=== PATIENT | male | born 1955 | race Caucasian/White ===

== ENCOUNTER → 2019-12-13 | Outpatient (CLI) | payer OTHER ==
--- NOTE | 2019-12-13 08:56 | US ---
EXAMINATION TYPE: US carotid duplex BILAT DATE OF EXAM: 12/13/2019 COMPARISON: NONE CLINICAL HISTORY: Carotid Bruit R09.89. Smoker EXAM MEASUREMENTS: RIGHT: Peak Systolic Velocity (PSV) cm/sec ----- Right CCA: 136 ----- Right ICA: 154 ----- Right ECA: 223 ICA/CCA ratio: 1.1 RIGHT: End Diastole cm/sec ----- Right CCA: 22.3 ----- Right ICA: 29.2 ----- Right ECA: 0 LEFT: Peak Systolic Velocity (PSV) cm/sec ----- Left CCA: 97.4 ----- Left ICA: 200 ----- Left ECA: 281 ICA/CCA ratio: 2.1 LEFT: End Diastole cm/sec ----- Left CCA: 18.0 ----- Left ICA: 48.7 ----- Left ECA: 0 VERTEBRALS (direction of flow): Right Vertebral: Antegrade Left Vertebral: Antegrade Rhythm: Normal Moderate amount of plaque visualized in bilateral bulbs and ICAs. Elevated velocities visualized in r ight CCA, right proximal ICA, right ECA, left CCA, left proximal, mid, and distal ICA, left ECA, and left vertebral IMPRESSION: 1. Stenosis of 50-69% within the left internal carotid artery and external carotid artery. 2. Elevated velocities throughout both carotid systems suggests underlying hypertension. 3. Although elevated velocities are seen on the right the internal carotid artery to common carotid a rtery ratio is normal and underlying hypertension likely accounts for the elevated velocities rather than stenosis. Criteria for Assigning % of Stenosis / Diameter reduction (Estimation based on the indirect measurements of the internal carotid artery velocities (ICA PSV). 1. Normal (no stenosis)=ICA PSV < 125 cm/s: ratio < 2.0: ICA EDV<40 cm/s. 2. Less than 50% stenosis=ICA PSV < 125 cm/s: ratio < 2.0: ICA EDV<40 cm/s. 3. 50 to 69% stenosis=ICA PSV of 125 to 230 cm/s: ration 2.0 ? 4.0: ICA EDV 40-100 cm/s. 4. Greater than 70% stenosis to near occlusion= ICA PSV > 230 cm/s: ratio > 4.0: ICA EDV > 100 cm/s. 5. Near occlusion= ICA PSV velocities may be low or undetectable: variable ratio and ICA EDV. 6. Total occlusion=unable to detect flow.
== END | disposition home or self-care (01) ==
LOC: RADUSWWP 08:07
PROVIDERS: ATTEND Internal Medicine
DX: I65.22 Occlusion and stenosis of left carotid artery (principal)
CPT/HCPCS: 93880

== ENCOUNTER → 2020-01-15 | Outpatient (CLI) | payer OTHER ==
[2020-01-15 18:05] LABS: African American GFR (CKD) 74.1 (60.0-200.0); Albumin 4.6 g/dL (3.80-4.90); Anion Gap 10.5 mmol/L (4.00-12.00); BUN/Creat Ratio 13.33 Ratio (12.00-20.00); Calcium 9.3 mg/dL (8.7-10.3); Carbon Dioxide 25.5 mmol/L (21.6-31.8); Globulin 2.3 g/dL (1.6-3.3); Potassium 4.2 mmol/L (3.5-5.5); Total Bilirubin 0.7 mg/dL (0.2-1.2); Total Protein 6.9 g/dL (6.2-8.2)
[2020-01-15 18:06] LABS: Chol/HDL Ratio 3.29; LDL Cholesterol,Calculated 60.4 mg/dL (0.0-131.0); VLDL Calculation 56.6 mg/dL (5.00-40.00)
== END | disposition home or self-care (01) ==
LOC: LABWHC1 08:16
PROVIDERS: ATTEND Internal Medicine Interventional Cardiology
DX: E78.2 Mixed hyperlipidemia (principal)
CPT/HCPCS: 36415; 80053; 80061

== ENCOUNTER 2020-01-29 10:44 | Day surgery (SDC) | payer OTHER ==
[2020-01-27 11:13] VITALS: BMI 23.7
[~2020-01-29 10:44] MED LIST: ALPRAZolam 0.25 MG TAB PO PRN; ALPRAZolam 0.5 MG TAB PO PRN; ASPIRIN 325 MG TAB PO STA; ATORVASTATIN 80 MG TAB PO STA; NITROGLYCERIN SL TABS 0.4 MG TAB SUBLINGUAL PRN; SODIUM CHLORIDE 0.9% 1,000 ML in EMPTY BAG 1 BAG IV ONE
[2020-01-29 11:23] LABS: Basophils % (A) 1 %; Eosinophils # (A) 0.1 k/uL (0-0.7); Eosinophils % (A) 1 %; HCT 47.8 % (39.0-53.0); HGB 16.8 gm/dL (13.0-17.5); Lymphocytes # (A) 1.2 k/uL (1.0-4.8); Lymphocytes % (A) 13 %; MCH 34.7 pg (25.0-35.0); MCHC 35.2 g/dL (31.0-37.0); MCV 98.7 fL (80.0-100.0); Mean Platelet Volume 7.7; Monocytes # (A) 0.6 k/uL (0-1.0); Monocytes % (A) 7 %; Neutrophils # (A) 6.7 k/uL (1.3-7.7); Neutrophils % (A) 74 %; Platelet Count 274 k/uL (150-450); RBC 4.84 m/uL (4.30-5.90); RDW 11.6 % (11.5-15.5)
[2020-01-29] MEDS ORDERED: VERAPAMIL 2.5 MG/ML 2 ML AMP ONE (11:50)
[2020-01-29] MEDS ORDERED: LIDOCAINE 1% INJ 10MG/ML (20 ML MDV) ONE (11:50)
[2020-01-29] MEDS ORDERED: fentaNYL (PF) 50 MCG/ML 2 ML AMP ONE (12:00)
[2020-01-29] MEDS ORDERED: HEPARIN SODIUM 1,000 UN/ML (10ML VL) ONE (12:08)
[2020-01-29] MEDS ORDERED: fentaNYL (PF) 50 MCG/ML 2 ML AMP IV ONE (12:22)
[2020-01-29] MEDS ORDERED: MIDAZOLAM 2 MG/2 ML VIAL IVP ONE (12:22)
[2020-01-29] MEDS ORDERED: LIDOCAINE 1% INJ 10MG/ML (20 ML MDV) SQ ONE (12:23)
[2020-01-29] MEDS: VERAPAMIL SYRINGE (5 MG/10 ML) INTRAARTER ONE ×2 (12:26→12:50)
[2020-01-29] MEDS ORDERED: CLOPIDOGREL 75 MG TAB ONE (12:35)
[2020-01-29] MEDS ORDERED: BIVALIRUDIN BOLUS 250 MG/50 ML IV ONE (12:38)
[2020-01-29] MEDS ORDERED: CLOPIDOGREL 75 MG TAB PO ONE (12:38)
[2020-01-29] MEDS ORDERED: BIVALIRUDIN 250 MG in SODIUM CHLORIDE 0.9% 50 ML IV ONE (12:39)
[2020-01-29] MEDS ORDERED: NITROGLYCERIN 1000MCG/10ML SYRINGE INTRAARTER ONE (12:54)
[2020-01-29] MEDS ORDERED: IOPAMIDOL-370 125ML BTL INJ ONE (12:56)
[2020-01-29] MEDS ORDERED: VERAPAMIL SYRINGE (5 MG/10 ML) INTRAARTER ONE (13:00)
[2020-01-29] MEDS ORDERED: IOPAMIDOL-370 100ML BTL INJ ONE (13:10)
[2020-01-29] MEDS ORDERED: NITROGLYCERIN SL TABS 0.4 MG TAB SUBLINGUAL PRN (13:27)
[2020-01-29] MEDS ORDERED: ZOLPIDEM 5 MG TAB PO PRN (13:27)
[2020-01-29] MEDS ORDERED: ATROPINE SULFATE 0.1 MG/ML 10ML SYRINGE IV PRN (13:27)
[2020-01-29] MEDS ORDERED: RX INFO: IV CONTRAST WAS GIVEN 1 EACH MISC MISCELLANE PRN (13:27)
[2020-01-29] MEDS ORDERED: MAG HYDROX/AL HYDROX/SIMETH 30 ML CUP PO PRN (13:27)
[2020-01-29] MEDS ORDERED: ALBUTEROL NEBULIZED 2.5 MG/3 ML INHALATION PRN (13:29)
[2020-01-29] MEDS ORDERED: SODIUM CHLORIDE 0.9% 1,000 ML IV SCH (13:30)
--- NOTE | 2020-01-29 14:08 | CC ---
CARDIAC CATHETERIZATION REPORT Mr. Head is a 64-year-old male with a known history of hypertension. History of chronic tobacco use and peripheral vascular disease who has been complaining of symptoms of progressive dyspnea, underwent a myocardial perfusion imaging that revealed inferior wall reversible defect. In view of that, recommendation made regarding cardiac catheterization. The procedures, risks, and complication were discussed with the patient who is in full understanding and agreement. PROCEDURE: Patient was brought to manager lab in a fasting semi-sedated state after receiving fentanyl and Benadryl and achieving moderate conscious sedated state using Xylocaine anesthesia and Seldinger technique, a 6-Greenlandic sheath was introduced in the left radial artery. Selective right and left coronary angiography performed using 5-Greenlandic 4 bend right and left Pa catheter, multiple views of the coronary artery including hemiaxial views obtained. Following that. a 5-Greenlandic left Pa was used to cross the aortic valve and simultaneous pressures were calculated. Following that, catheter was removed, images were reviewed. FINDINGS: FLUOROSCOPY: There was calcification involving the right coronary artery and segment of the LAD proximally. LEFT MAIN: This is a short-size vessel, bifurcating into left circumflex, left anterior descending artery. Left main coronary artery has no evidence of high-grade stenosis. LEFT ANTERIOR DESCENDING ARTERY: This is a large-sized vessel reaching toward the apex, giving rise to a very proximal moderately-sized diagonal branch. The left anterior descending artery proximally has a 20% to 30% plaque. The rest of the vessel has no high-grade stenosis. LEFT CIRCUMFLEX: This is a nondominant vessel, giving rise to two obtuse marginal branches. The second one is large in caliber. The second obtuse marginal branch has a branching point. The inferior branch has an 80% stenosis at the takeoff, but the vessel is small in caliber. RIGHT CORONARY ARTERY: This is a large dominant vessel, bifurcating distally to PDA and posterolateral segment and branches, calcified in the mid segment. He has an 80% to 90% stenosis, in the distal mid segment there is another 40% to 50% plaque. The rest of the vessel has no high-grade stenosis. LEFT VENTRICULOGRAM: Left ventriculogram was not performed. HEMODYNAMICS: There was no gradient across the aortic valve. The left ventricular end- diastolic pressure was 12-16 mmHg. CONCLUSION: 1. Calcified right coronary artery. 2. Critical stenosis in the proximal mid segment of the right coronary artery. 3. Significant disease in a branch of the obtuse marginal branch and it has a small branch. 4. Mild disease in the LAD. RECOMMENDATION: In view of finding anatomy, I recommend proceeding with angioplasty and stenting. The procedures, risks, and complication were discussed with the patient who is in full understanding and agreement. MMODL / IJN: [id number] /
--- NOTE | 2020-01-29 14:14 | LTR ---
DATE OF SERVICE: 01/29/2020 RE: Rory Head Dear Dr. Braden; I had the pleasure to perform cardiac catheterization and coronary angioplasty and stenting on Mr. Head at [facility] on January 29, 2020 and a fully copy of the procedure note will be forwarded to you. In brief, he was found to have critical stenosis involving the proximal mid segment of the RCA and underwent successful stenting of that vessel. At this time, I would recommend continue medical therapy with aggressive coronary risk modifications being initiated and thank you again for allowing me to participate in this patient's care. Please feel free to call for any questions. Sincerely yours, MD LEN DohertyL / SUJATAN: [id number] /
--- NOTE | 2020-01-29 14:14 | PTCA ---
PERCUTANEOUSTRANS CORORONARY ANGIOGRAPHY Mr. Head is a 64-year-old male with a known history of chronic tobacco use, history of hypertension, history of peripheral disease who had an abnormal myocardial perfusion imaging with symptoms of dyspnea, underwent cardiac catheterization, was found to have significant stenosis in the proximal right coronary artery. Recommendation made for angioplasty and stenting. The procedures, risks, and complication were discussed with the patient who is in full understanding and agreement. PROCEDURE: Attempt to cannulate the right coronary artery using 6-Iranian FR4 guiding catheter were unsuccessful. That catheter was removed and a 6-Iranian ART 4 guiding catheter was introduced after cannulating the right coronary ostium. A 0.014 balanced medium weight J-wire was advanced across the lesion, positioned distally. Subsequently, attempt to advance a 3.5 x 23 mm Xience Nitza stent were unsuccessful. That stent was removed and a 3.0 x 15 mm Trek balloon was advanced and one inflation at 10 atmospheres was done. Following that, a 3.5 x 23 mm stent was advanced, deployed and post-dilated at 16 atmospheres. After removing the balloon a 3.5 x 15 mm NC Trek balloon was advanced into inflation maximum of 14 atmospheres were done. Following that the wire was withdrawn back in the guiding catheter. Images were obtained and repeated. Those images reveal stable successful stenting. At that point, the guiding catheter, the balloon and the guidewire were removed. The sheath was removed hemostasis was obtained with deployment of a TR band. There was no immediate complication. Patient is returned to his room in stable condition. Of note, the patient received Angiomax per protocol as well as oral loading dose of clopidogrel. He had no significant chest pain or EKG changes with the inflations. RESULTS: Successful stenting of the proximal mid right coronary artery with reduction of stenosis from 80% to 0%. Duration of procedure 48 minutes. MMODL / IJN: [id number] /
[2020-01-29] MEDS ORDERED: ATORVASTATIN 80 MG TAB PO SCH (21:00)
[2020-01-29 21:48] VITALS: RESP 16
[2020-01-30 03:47] VITALS: BP 144/79; PULSE 74; TEMP 98.1
[2020-01-30 07:06] LABS: African American GFR (CKD) >90 (>60 ml/min/1.73 sqM); Anion Gap 8 mmol/L; Blood Urea Nitrogen 14 mg/dL (9-20); Carbon Dioxide 25 mmol/L (22-30); Chloride 99 mmol/L (98-107); Glucose 99 mg/dL (74-99); Non-African American GFR(CKD) >90 (>60 ml/min/1.73 sqM); Potassium 3.8 mmol/L (3.5-5.1); Sodium 132 mmol/L (137-145)
--- NOTE | 2020-01-30 07:49 | PN ---
PROGRESS NOTE Mr. Head is a 64-year-old male who presented yesterday with symptoms of dyspnea and positive myocardial perfusion imaging, underwent cardiac catheterization was found to have critical stenosis involving the proximal segment of the mid RCA and underwent successful stenting of that vessel. He is doing well this morning. He is denying any chest pain. His breathing has been stable. He denies any dizziness or palpitation. He denies any nausea. He continued to be on aspirin once a day, Plavix 75 mg daily, Lipitor 80 mg daily, losartan 100 mg daily, hydrochlorothiazide 25 mg daily. PHYSICAL EXAMINATION: Blood pressure 144/70 with the heart rate in 70s. LUNGS: Clear. HEART: Regular rate and rhythm. S1, S2. No S3. No rub. ABDOMEN: Soft, nontender. EXTREMITIES: No edema. Left radial pulse intact. LAB DATA: EKG revealed no acute changes. BUN and creatinine 14 and 0.84. Potassium 3.8. IMPRESSION: 1. Status post stenting of the RCA. 2. Hypertension. 3. Hyperlipidemia. 4. History of chronic tobacco use. RECOMMENDATION: Patient will be discharged home today and followed as an outpatient. MMODL / IJN: [id number] /
[2020-01-30] MEDS ORDERED: IPRATROPIUM 0.5 MG/2.5 ML NEBU INHALATION SCH (08:00)
[2020-01-30] MEDS ORDERED: ASPIRIN 81 MG PO SCH (09:00)
[2020-01-30] MEDS ORDERED: HYDROCHLOROTHIAZIDE 25 MG TAB PO SCH (09:00)
[2020-01-30] MEDS ORDERED: LOSARTAN 50 MG TAB PO SCH (09:00)
[2020-01-30] MEDS ORDERED: CLOPIDOGREL 75 MG TAB PO SCH (12:00)
== END 2020-01-30 09:06 | disposition home or self-care (01) ==
LOC: CATHCVL 10:44 → 3SCARD 16:05 → CATHCVL 01-30 09:06
PROVIDERS: ATTEND Internal Medicine Interventional Cardiology
DX: I25.10 Atherosclerotic heart disease of native coronary artery without angina pectoris (principal); I25.84 Coronary atherosclerosis due to calcified coronary lesion; I10 Essential (primary) hypertension; Z72.0 Tobacco use; R94.39 Abnormal result of other cardiovascular function study; E78.5 Hyperlipidemia, unspecified; I73.9 Peripheral vascular disease, unspecified; Z79.02 Long term (current) use of antithrombotics/antiplatelets; Z79.82 Long term (current) use of aspirin; Z79.899 Other long term (current) drug therapy; Z82.49 Family history of ischemic heart disease and other diseases of the circulatory system; I65.23 Occlusion and stenosis of bilateral carotid arteries
CPT/HCPCS: 94640; 93458; 85347; 80048; 85025; C9600; C1769 ×2; C1887; C1725 ×2; C1874; C1894; J2250; J2001; J3010; J0583; Q9967 ×2

== ENCOUNTER 2022-04-21 18:51 | Observation (INO) | payer MEDICARE, OTHER ==
[2022-04-21] MEDS ORDERED: SODIUM CHLORIDE 0.9% 1,000 ML with MVI, ADULT NO.4 WITH VIT K 10 ML, THIAMINE 100 MG, F... IV ONE ×4 (19:06)
[2022-04-21 19:18] LABS: Basophils # (A) 0.1 k/uL (0-0.2); Basophils % (A) 1 %; Eosinophils # (A) 0.1 k/uL (0-0.7); Eosinophils % (A) 1 %; HCT 49.9 % (39.0-53.0); HGB 16.8 gm/dL (13.0-17.5); Lymphocytes # (A) 1.7 k/uL (1.0-4.8); Lymphocytes % (A) 15 %; MCH 34.8 pg (25.0-35.0); MCHC 33.7 g/dL (31.0-37.0); MCV 103.4 fL (80.0-100.0); Macrocytosis Slight; Monocytes # (A) 0.6 k/uL (0-1.0); Monocytes % (A) 6 %; Neutrophils # (A) 8.6 k/uL (1.3-7.7); Neutrophils % (A) 75 %; Platelet Count 286 k/uL (150-450); RBC 4.82 m/uL (4.30-5.90); RDW 12.9 % (11.5-15.5); WBC 11.4 k/uL (3.8-10.6)
--- NOTE | 2022-04-21 19:20 | ED ---
Fall HPI - General Chief Complaint: Fall Stated Complaint: fall Time Seen by Provider: 04/21/22 18:59 Source: patient, EMS Mode of arrival: EMS - History of Present Illness Initial Comments: This is a pleasant 66-year-old male with a history of alcoholism, COPD, hyperte nsion, and hyperlipidemia. Patient presents to the emergency department today after sustaining a fall. Patient states this was due to alcohol intake. Patient states he tripped and struck his face on the ground. He denies any loss of consciousness. However he admits to drinking 324 ounce beers prior to arrival. Patient denying any pain. Patient has obvious injury to the right periorbital area. No blood thinners. Patient does take a daily aspirin. Denies any blood dyscrasias. He will to give a limited history despite her obvious intoxication. Patient states he lives with his girlfriend. No headache, no fever or chills, no changes in vision or hearing, no sore throat or difficulty with speech, no neck pain, no chest pain or shortness of breath, no abdominal pain, no nausea or vomiting, no changes in urination or bowel movements, no numbness or tingling, no extremity pain, no skin rashes or lesions. MD Complaint: fall - Related Data Home Medications Medication Instructions Recorded Confirmed Albuterol Sulfate [Ventolin HFA] 2 puff INHALATION RT-QID 01/27/20 04/21/22 Losartan Potassium 100 mg PO DAILY 01/27/20 04/21/22 Fluticasone/Umeclidin/Vilanter 1 puff INHALATION RT-DAILY 04/21/22 04/21/22 [Trelecharbel Ellipta 100-62.5-25] Allergies Allergy/AdvReac Type Severity Reaction Status Date / Time No Known Allergies Allergy Verified 04/21/22 20:35 Review of Systems ROS Statement: Those systems with pertinent positive or pertinent negative responses have been documented in the HPI. ROS Other: All systems not noted in ROS Statement are negative. Past Medical History Past Medical History: COPD, Hyperlipidemia, Hypertension History of Any Multi-Drug Resistant Organisms: None Reported Past Surgical History: Appendectomy Past Anesthesia/Blood Transfusion Reactions: No Reported Reaction Past Psychological History: No Psychological Hx Reported Smoking Status: Current every day smoker Past Alcohol Use History: Daily Past Drug Use History: Marijuana - Past Family History Mother History Unknown: Yes Additional Family Medical History / Comment(s): Father Additional Family Medical History / Comment(s): from complications of injuries after falling down stairs. General Exam - General Exam Comments Initial Comments: Disheveled appearing 66-year-old male in no significant distress. Patient able to give a history but appears to be generally intoxicated. Patient is alert and oriented 4. Cranial nerves II through XII are intact. There is no evidence of focal neurologic deficit. Patient has swelling and contusion noted to the right periorbital area. Head is normocephalic atraumatic otherwise. Limitations: no limitations General appearance: alert, in no apparent distress Head exam: Present: atraumatic, normocephalic, normal inspection Eye exam: Present: normal appearance, PERRL, EOMI. Absent: scleral icterus, conjunctival injection, periorbital swelling Pupils: Present: normal accommodation. Absent: irregular, unequal ENT exam: Present: normal exam, normal oropharynx, mucous membranes moist. Absent: mucous membranes dry, TM's normal bilaterally, normal external ear exam Neck exam: Present: normal inspection, full ROM. Absent: tenderness, meningismus, lymphadenopathy Respiratory exam: Present: normal lung sounds bilaterally. Absent: respiratory distress, wheezes, rales, rhonchi, stridor, chest wall tenderness, accessory muscle use Cardiovascular Exam: Present: regular rate, normal rhythm, normal heart sounds. Absent: systolic murmur, diastolic murmur, rubs, gallop, clicks GI/Abdominal exam: Present: soft, normal bowel sounds. Absent: distended, tenderness, guarding, rebound, rigid Extremities exam: Present: normal inspection, full ROM, normal capillary refill. Absent: tenderness, pedal edema, joint swelling, calf tenderness Back exam: Present: normal inspection Neurological exam: Present: alert (But intoxicated), oriented X3, CN II-XII intact. Absent: motor sensory deficit Psychiatric exam: Present: normal affect, normal mood Skin exam: Present: warm, dry, intact, normal color. Absent: rash Course Vital Signs 04/21/22 04/21/22 04/21/22 18:58 20:59 21:10 Temperature 98.4 F Pulse Rate 95 92 93 Respiratory 18 Rate Blood Pressure 121/70 O2 Sat by Pulse 96 Oximetry 04/21/22 21:30 Temperature Pulse Rate 90 Respiratory 20 Rate Blood Pressure 112/74 O2 Sat by Pulse 95 Oximetry Medical Decision Making - Medical Decision Making I was intoxicated individual presenting after a trip and fall. Injury to the r ight forehead and right periorbital region. Unknown loss of consciousness but denied by the patient. Patient was admitted to [facility] for observation for alcohol intoxication, closed head injury, and hyponatremia. Discussed with Dr. Danielle. The case was discussed in detail with ED attending physician. Presentation, findings, treatment plan discussed in detail. Supervising physician is Dr. Ni - Lab Data Result diagrams: 04/21/22 19:09 04/21/22 19:09 Lab Results 04/21/22 04/21/22 04/21/22 Range/Units 19:09 19:09 19:09 WBC 11.4 H (3.8-10.6) k/uL RBC 4.82 (4.30-5.90) m/uL Hgb 16.8 (13.0-17.5) gm/dL Hct 49.9 (39.0-53.0) % MCV 103.4 H (80.0-100.0) fL MCH 34.8 (25.0-35.0) pg MCHC 33.7 (31.0-37.0) g/dL RDW 12.9 (11.5-15.5) % Plt Count 286 (150-450) k/uL MPV 8.0 Neutrophils % 75 % Lymphocytes % 15 % Monocytes % 6 % Eosinophils % 1 % Basophils % 1 % Neutrophils # 8.6 H (1.3-7.7) k/uL Lymphocytes # 1.7 (1.0-4.8) k/uL Monocytes # 0.6 (0-1.0) k/uL Eosinophils # 0.1 (0-0.7) k/uL Basophils # 0.1 (0-0.2) k/uL Macrocytosis Slight PT 9.8 (9.0-12.0) sec INR 0.9 (<1.2) Sodium 126 L (137-145) mmol/L Potassium 4.6 (3.5-5.1) mmol/L Chloride 92 L (98-107) mmol/L Carbon Dioxide 20 L (22-30) mmol/L Anion Gap 14 mmol/L BUN 13 (9-20) mg/dL Creatinine 1.18 (0.66-1.25) mg/dL Est GFR (CKD-EPI)AfAm 74 (>60 ml/min/1.73 sqM) Est GFR (CKD-EPI)NonAf 64 (>60 ml/min/1.73 sqM) Glucose 121 H (74-99) mg/dL Calcium 8.6 (8.4-10.2) mg/dL Phosphorus 4.2 (2.5-4.5) mg/dL Magnesium 1.7 (1.6-2.3) mg/dL Total Bilirubin 0.9 (0.2-1.3) mg/dL GGT 39 (15-73) U/L AST 87 H (17-59) U/L ALT 77 H (4-49) U/L Alkaline Phosphatase 83 (38-126) U/L Total Protein 7.6 (6.3-8.2) g/dL Albumin 4.7 (3.5-5.0) g/dL Lipase 368 H (23-300) U/L Serum Alcohol 384 H* mg/dL - EKG Data -: EKG Interpreted by [place] EKG Comments: EKG done at 1910 and read by the ED attending physician reveals sinus rhythm with a rate of 91. Poor R-wave progression with regards to V1 and V2. Normal axis. Baseline artifact. MI interval 205 ms. Other intervals are normal. No evidence of acute ST or T-wave changes. Disposition Clinical Impression: Hyponatremia, Closed head injury, Alcohol intoxication, Contusion of face Disposition: ADMITTED IP TO THIS [facility] Condition: Fair Time of Disposition: 20:52 Decision to Admit Reason: Admit from EC Decision Time: 20:52
[2022-04-21 19:33] LABS: INR 0.9 (<1.2); Prothrombin Time 9.8 sec (9.0-12.0)
[2022-04-21 19:35] LABS: Albumin 4.7 g/dL (3.5-5.0); Calcium 8.6 mg/dL (8.4-10.2); Magnesium 1.7 mg/dL (1.6-2.3); Phosphorus 4.2 mg/dL (2.5-4.5); Potassium 4.6 mmol/L (3.5-5.1); Total Bilirubin 0.9 mg/dL (0.2-1.3); Total Protein 7.6 g/dL (6.3-8.2)
--- NOTE | 2022-04-21 20:18 | CT ---
EXAMINATION TYPE: CT facial bones wo con DATE OF EXAM: 04/21/2022 COMPARISON: None HISTORY: Fall, pain;facial injury/head injury CT DLP: 1623.2 combined mGycm. Automated Exposure Control for Dose Reduction was Utilized. TECHNIQUE: CT scan of the sinuses is performed without contrast, axial images are obtained, coronal r eformatted images are also reviewed. FINDINGS: The facial skeleton is negative for fracture or malalignment. The paranasal sinuses and mid dle ear cavities and mastoid sinus air cells are clear. The globes are intact bilaterally. IMPRESSION: Negative examination.
--- NOTE | 2022-04-21 20:22 | CT ---
EXAMINATION TYPE: CT brain cspine wo con DATE OF EXAM: 04/21/2022 COMPARISON: NONE HISTORY: Fall, facial injury/head injury CT DLP: 1623.2 combined mGycm. Automated Exposure Control for Dose Reduction was Utilized. TECHNIQUE: CT scan of the head and cervical spine are performed without contrast. FINDINGS: There is no acute intracranial hemorrhage, mass effect, or midline shift identified. The ventricles and sulci are within normal limits in size. The globes are intact and the visualized sin uses are clear. Cervical spine is visualized in its entirety from C1 through upper thoracic levels and demonstrates s atisfactory alignment without evidence of acute fracture or dislocation. Prevertebral soft tissue ap pears within normal limits. The C1-C2 articulation is unremarkable. Markedly advanced multilevel ce rvical spondylosis changes appreciated. IMPRESSION: 1. There is no acute fracture or dislocation evident in the cervical spine. 2. No acute intracranial hemorrhage, mass effect, or midline shift is seen.
[2022-04-21] MEDS ORDERED: IPRATROPIUM-ALBUTEROL 3 ML NEB INHALATION STA (20:48)
[2022-04-21] MEDS ORDERED: ONDANSETRON 4 MG/2 ML VIAL IVP PRN (21:19)
[2022-04-21] MEDS ORDERED: ACETAMINOPHEN TAB 325 MG TAB PO PRN (21:19)
[2022-04-21] MEDS ORDERED: NALOXONE 0.4 MG/ML 1 ML VIAL IV PRN (21:19)
[2022-04-21] MEDS: PANTOPRAZOLE 40 MG/10 ML VIAL IV SCH (22:17)
[2022-04-21 22:43] VITALS: RESP 16
[2022-04-22 00:26] LABS: Cocaine Screen,Urine Not Detected (NotDetected); Opiate Screen,Urine Not Detected (NotDetected); Phencyclidine Screen,Urine Not Detected (NotDetected); Urn Cannabinoid Scrn Not Detected (NotDetected)
[2022-04-22 00:27] LABS: Amphetamine Screen,Urine Not Detected (NotDetected); Barbiturate Screen,Urine Not Detected (NotDetected); Benzodiazepines Screen,Urine Not Detected (NotDetected); Methadone Screen, Urine Not Detected (NotDetected); Oxycodone Screen, Urine Not Detected (NotDetected); Tricyclic Antidepressant,Urine Not Detected (NotDetected)
[2022-04-22] MEDS ORDERED: IPRATROPIUM-ALBUTEROL 3 ML NEB INHALATION PRN (01:56)
[2022-04-22] MEDS ORDERED: LORazepam 2 MG/ML INJ IV PRN ×3 (01:57)
--- NOTE | 2022-04-22 01:58 | P.HPIM ---
History of Present Illness H&P Date: 04/22/22 The patient is a 66-year-old male with a PMH of COPD, EtOH abuse, hypertension, was brought into the emergency room after a fall. The patient states that he was drinking earlier today as per his usual, and had consumed 7 beers, after which he was walking on the street when he tripped, and felt the ground, hitting the right side of his face on the pavement. He denies losing consciousness. Reports some pain at the site of the facial trauma but denies headaches, weakness, numbness, visual disturbances. Denies any prodromal chest discomfort, shortness of breath, or palpitations. Reports drinking 10 beers daily for the past several years. Laboratory evaluation in the emergency room was remarkable for alcohol level 384, AST 87, ALT 77, lipase 368, sodium 126, WBC count 11.4, and MCV 103.4. Face and head/cervical spine CT were unremarkable. EKG revealed sinus rhythm at 91 bpm with poor R-wave progression. Review of systems: Pertinent positives and negatives as discussed in HPI, a complete review of systems was performed and all other systems are negative. Physical examination: General: Disheveled male, nontoxic, no distress, appears at stated age, normal weight Derm: Dry flaking skin of lower extremities bilaterally, warm Head/face: Right facial abrasion with periorbital swelling, normocephalic, symmetric Eyes: EOMI, no lid lag, anicteric sclera, pupils equal round reactive to light ENT: Nose and ears atraumatic Neck: No cervical lymphadenopathy, trachea midline, supple Mouth: no lip lesion, mucus membranes moist Cardiovascular: S1S2 reg, no murmur, positive dorsalis pedis pulse bilateral, no edema Lungs: CTA bilateral, no rhonchi, no rales, no accessory muscle use Abdominal: soft, nontender to palpation, no guarding Ext: muscle strength 5 out of 5 in all 4 extremities grossly, no gross muscle atrophy, no contractures, Neuro: CN II-XI grossly intact, no gross focal neuro deficits Psych: Alert, oriented, appropriate affect Assessment/plan Alcohol intoxication with fall and right facial trauma -Fall precautions -Cardiac monitoring -Thiamine, multivitamins -CIWA protocol Hyponatremia, likely secondary to beer potomania -Fluid restriction -Monitor sodium Leukocytosis -Likely secondary to acute stressor -No signs of active infection at this time Chronic conditions: COPD, hypertension -Continue with home meds DVT prophylaxis -Heparin subcu The patient is admitted with an anticipated less than 2 midnight stay for evaluation of EtoH abuse CODE STATUS: Full Code Discussed with: Patient Anticipated discharge date: in am Anticipated discharge place: Home Past Medical History Past Medical History: COPD, Hyperlipidemia, Hypertension History of Any Multi-Drug Resistant Organisms: None Reported Past Surgical History: Appendectomy Past Anesthesia/Blood Transfusion Reactions: No Reported Reaction Past Psychological History: No Psychological Hx Reported Smoking Status: Current every day smoker Past Alcohol Use History: Daily Past Drug Use History: Marijuana - Past Family History Mother History Unknown: Yes Additional Family Medical History / Comment(s): Father Additional Family Medical History / Comment(s): from complications of injuries after falling down stairs. Medications and Allergies Home Medications Medication Instructions Recorded Confirmed Type Albuterol Sulfate [Ventolin HFA] 2 puff INHALATION RT-QID 01/27/20 04/21/22 History Losartan Potassium 100 mg PO DAILY 01/27/20 04/21/22 History Fluticasone/Umeclidin/Vilanter 1 puff INHALATION RT-DAILY 04/21/22 04/21/22 History [Trelegy Ellipta 100-62.5-25] Allergies Allergy/AdvReac Type Severity Reaction Status Date / Time No Known Allergies Allergy Verified 04/21/22 20:35 Physical Exam Vitals: Vital Signs Temp Pulse Pulse Resp BP BP Pulse Ox 04/22/22 01:18 97.6 F 102 H 16 121/68 94 L 04/21/22 23:40 98 16 04/21/22 22:30 97.6 F 98 16 112/79 92 L 04/21/22 21:30 90 20 112/74 95 04/21/22 21:10 93 04/21/22 20:59 92 04/21/22 18:58 98.4 F 95 18 121/70 96 Intake and Output 04/21/22 04/21/22 04/22/22 14:59 22:59 06:59 Other: Voiding Method Urinal # Voids 1 Weight 81.647 kg Results CBC & Chem 7: 04/21/22 19:09 04/21/22 19:09 Labs: Abnormal Lab Results - Last 24 Hours (Table) 04/21/22 04/21/22 Range/Units 19:09 19:09 WBC 11.4 H (3.8-10.6) k/uL MCV 103.4 H (80.0-100.0) fL Neutrophils # 8.6 H (1.3-7.7) k/uL Sodium 126 L (137-145) mmol/L Chloride 92 L (98-107) mmol/L Carbon Dioxide 20 L (22-30) mmol/L Glucose 121 H (74-99) mg/dL AST 87 H (17-59) U/L ALT 77 H (4-49) U/L Lipase 368 H (23-300) U/L Serum Alcohol 384 H* mg/dL Thrombosis Risk Factor Assmnt - Choose All That Apply Any of the Below Risk Factors Present?: No Other Risk Factors: Yes Each Risk Factor Represents 2 Points: Age 61-74 years Other congenital or acquired thrombophilia - If yes, enter type in comment: No Thrombosis Risk Factor Assessment Total Risk Factor Score: 2 Thrombosis Risk Factor Assessment Level: Low Risk
[2022-04-22 07:03] LABS: Basophils # (A) 0.1 k/uL (0-0.2); Basophils % (A) 0 %; Eosinophils # (A) 0.1 k/uL (0-0.7); Eosinophils % (A) 1 %; HCT 49.8 % (39.0-53.0); HGB 16.4 gm/dL (13.0-17.5); Lymphocytes # (A) 0.9 k/uL (1.0-4.8); Lymphocytes % (A) 8 %; MCH 33.4 pg (25.0-35.0); MCHC 32.9 g/dL (31.0-37.0); MCV 101.5 fL (80.0-100.0); Mean Platelet Volume 8.2; Monocytes # (A) 0.9 k/uL (0-1.0); Monocytes % (A) 7 %; Neutrophils % (A) 82 %; Platelet Count 242 k/uL (150-450); RBC 4.91 m/uL (4.30-5.90); RDW 12.1 % (11.5-15.5); WBC 12.2 k/uL (3.8-10.6)
[2022-04-22 07:04] LABS: ALT 70 U/L (4-49); AST 79 U/L (17-59); African American GFR (CKD) >90 (>60 ml/min/1.73 sqM); Alkaline Phosphatase 70 U/L (38-126); Anion Gap 11 mmol/L; Blood Urea Nitrogen 9 mg/dL (9-20); Calcium 8.6 mg/dL (8.4-10.2); Carbon Dioxide 20 mmol/L (22-30); Chloride 99 mmol/L (98-107); Glucose 77 mg/dL (74-99); Magnesium 1.4 mg/dL (1.6-2.3); Non-African American GFR(CKD) >90 (>60 ml/min/1.73 sqM); Potassium 4.9 mmol/L (3.5-5.1); Sodium 130 mmol/L (137-145); Total Bilirubin 1.1 mg/dL (0.2-1.3); Total Protein 6.7 g/dL (6.3-8.2)
[2022-04-22] MEDS: IPRATROPIUM 0.5 MG/2.5 ML NEBU INHALATION SCH ×3 (07:19→15:04)
[2022-04-22] MEDS ORDERED: NON FORMULARY DRUG (Fluticasone/Umeclidin/Vilanter [Trelegy Ellipta 100-62.5-25] 1 EACH Bl INHALATION SCH (08:00)
[2022-04-22] MEDS ORDERED: SYMBICORT 80-4.5 MCG INHALER INHALATION SCH (08:00)
[2022-04-22] MEDS: PANTOPRAZOLE 40 MG/10 ML VIAL IV SCH (08:01)
[2022-04-22] MEDS: HEPARIN SODIUM,PORCINE/PF 5,000 UNIT/0.5 ML SYRINGE SQ SCH ×2 (08:01→15:37)
[2022-04-22] MEDS ORDERED: LOSARTAN 50 MG TAB PO SCH (09:00)
[2022-04-22] MEDS ORDERED: MULTIVITAMINS, THERA 1 EACH TAB PO SCH (09:00)
[2022-04-22] MEDS: MAGNESIUM SULFATE-D5W PMX 1 GM in DEXTROSE/WATER 1 100ML.BAG IVPB SCH ×3 (11:48→15:35)
[2022-04-22 15:42] VITALS: BP 139/61; PULSE 87; TEMP 98.3
--- NOTE | 2022-04-22 17:19 | P.DS ---
Providers Date of admission: 04/21/22 21:37 Expected date of discharge: 04/22/22 Attending physician: Redd Danielle MD Primary care physician: Asiya Felix Hospital Course: Discharge Diagnosis: Alcohol intoxication an active alcoholic, strongly encouraged and recommended cessation of alcohol use. Patient declined placement in inpatient rehab. Outpatient resources provided Fall with right facial trauma, CT head, neck, and face negative. Superficial injuries. Symptomatic and supportive treatment. Acute on chronic hyponatremia, secondary to beer total óscar. Improved sodium upon discharge back to baseline at 130. Recommend repeat labs in 3 days with results to be sent to PCP for follow-up and management. Hypomagnesemia, replaced. Recommend repeat labs in 3 days with results to be sent to PCP for follow-up and management. COPD with continued nicotine dependence , recommend smoking cessation. Hospital Course: The patient is a 66-year-old male with a past medical history of COPD, EtOH use/abuse drinking a reported 6-8 beers daily, hypertension, COPD with continued nicotine dependence, and chronic hyponatremia. He presented The emergency department 04/21/22 secondary to alcohol intoxication with fall and right-sided facial trauma. Patient was reportedly intoxicated and walking and tripped on a curb resulting in falling and hitting the right side of his face on the pavement. Patient denied loss of consciousness or experiencing any headache, lightheadedness, dizziness, changes in vision or hearing, experiencing any neck pain, back pain, or numbness/tingling/weakness in his extremities. He underwent full evaluation in the emergency department. CT Head and cervical spine negative for acute process. Facial CT was also negative examination showing no acute process. EKG revealed sinus rhythm at 91 bpm with no noted T-wave or ST abnormalities. CBC revealed mild leukocytosis with WBC count of 11.4, macrocytosis with MCV 103.4, hyponatremia sodium 126, hypochloremia with chloride 92 and elevated liver enzymes with AST of 87 and ALT is 77. Lipase also elevated at 368. Serum alcohol level was 384. Patient admitted under our services for detox and monitoring. Repeat morning labs revealing improvement in hyponatremia back to chronic baseline level with sodium of 130. Liver enzymes slightly improving with AST of 79 and ALT of 70. Patient denied having any abdominal pain or discomfort, denied any nausea, vomiting, or any other complaints. Morning labs reveal hypomagnesemia with magnesium of 1.4. Mag nesium replaced. Patient's girlfriend to bedside. Patient requesting discharge. Patient counseled on alcohol cessation and risks of continued use. Patient declined inpatient treatment at this time. Resources provided in discharge packet. Patient otherwise medically stable. Blood pressure 139/61, heart rate 87, respiratory rate 16, temp 98.3F, and SpO2 93% on room air. Patient discharged home with family at this time. Recommend repeat labs in 3 days with results to be sent to PCP for follow-up and management to monitor electrolyte levels. Strongly encourage smoking cessation and cessation of all alcohol use. Physical examination: General: non toxic, no distress, appears at stated age. Disheveled appearance Derm: warm, dry Head: Normocephalic, symmetric, Right facial abrasion with periorbital swelling. Eyes: EOMI, no lid lag, anicteric sclera Mouth: no lip lesion, mucus membranes moist Cardiovascular: S1S2 reg, no murmur, positive posterior tibial pulse bilateral, Lungs: CTA bilateral, no rhonchi, no rales , no accessory muscle use Abdominal: soft, nontender to palpation, no guarding, no appreciable organomegaly Ext: no gross muscle atrophy, no edema, no contractures Neuro: CN II-XI grossly intact, no focal neuro deficits Psych: Alert, oriented, appropriate affect A total of 35 minutes of time were spent preparing this complex discharge summary. Pt was discharged on 04/22/22 at 4:30 PM. I reviewed the documentation as provided by the NILO above, who is the original author of this note. I agree with the documented assessment and plan, with the following changes: none Patient Condition at Discharge: Stable Plan - Discharge Summary Discharge Rx Participant: Yes New Discharge Prescriptions: New Thiamine [Vitamin B-1] 100 mg PO BID-W/MEALS tab Multivitamins, Thera [Multivitamin (formulary)] 1 each PO DAILY tab Continue Losartan Potassium 100 mg PO DAILY Albuterol Sulfate [Ventolin HFA] 2 puff INHALATION RT-QID Fluticasone/Umeclidin/Vilanter [Trelegy Ellipta 100-62.5-25] 1 puff INHALATION RT-DAILY Discharge Medication List Albuterol Sulfate [Ventolin HFA] 2 puff INHALATION RT-QID 01/27/20 [History] Losartan Potassium 100 mg PO DAILY 01/27/20 [History] Fluticasone/Umeclidin/Vilanter [Trelegy Ellipta 100-62.5-25] 1 puff INHALATION RT-DAILY 04/21/22 [History] Multivitamins, Thera [Multivitamin (formulary)] 1 each PO DAILY tab 04/22/22 [Rx] Thiamine [Vitamin B-1] 100 mg PO BID-W/MEALS tab 04/22/22 [Rx] Follow up Appointment(s)/Referral(s): Julius Gallardo MD [REFERRING] - 1 Week (please call on monday for an appointment with Dr Gallardo) Ambulatory/Diagnostic Orders: Basic Metabolic Panel [LAB.AMB] Location: None Selected Magnesium [LAB.AMB] Time Frame: 3 Days, Facility: [facility], 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 Take breaks as needed. Diet: Heart healthy and carb consistent diet. Avoid salts, or foods with hidden salts such as canned or boxed foods and frozen dinners. Extra salt makes your heart work harder and traps the fluid in your body for longer. Special Instructions: Take all of your medications as directed and remember to keep all of your doctor's appointments and follow-up as needed. Strongly encourage cessation of alcohol use!! May take Tylenol 650 mg every 6 hours as needed and/or Motrin 600 mg every 6 hours as needed for pain management. Thank you for allowing us to participate in your care, it was truly a pleasure having you for our patient!!! Discharge Disposition: HOME SELF-CARE
[2022-04-22] MEDS ORDERED: THIAMINE 100 MG TAB PO SCH (17:30)
[2022-04-23] MEDS ORDERED: PANTOPRAZOLE 40 MG TABLET PO SCH (07:30)
== END 2022-04-22 17:14 | disposition home or self-care (01) ==
LOC: EC 18:51 → 6NMEDSUR 21:37
PROVIDERS: ADMIT Internal Medicine; ATTEND Internal Medicine
DX: F10.229 Alcohol dependence with intoxication, unspecified (principal); S00.83XA Contusion of other part of head, initial encounter; E87.1 Hypo-osmolality and hyponatremia; E83.42 Hypomagnesemia; J44.9 Chronic obstructive pulmonary disease, unspecified; F17.200 Nicotine dependence, unspecified, uncomplicated; I10 Essential (primary) hypertension; D72.829 Elevated white blood cell count, unspecified; E87.8 Other disorders of electrolyte and fluid balance, not elsewhere classified; D75.89 Other specified diseases of blood and blood-forming organs; R74.8 Abnormal levels of other serum enzymes; E78.5 Hyperlipidemia, unspecified; Z71.41 Alcohol abuse counseling and surveillance of alcoholic; Z71.6 Tobacco abuse counseling; W01.0XXA Fall on same level from slipping, tripping and stumbling without subsequent striking against object, initial encounter; Y93.01 Activity, walking, marching and hiking; Y90.8 Blood alcohol level of 240 mg/100 ml or more; Z79.899 Other long term (current) drug therapy; Z79.51 Long term (current) use of inhaled steroids; Z79.82 Long term (current) use of aspirin
CPT/HCPCS: 96376; 96366 ×3; 96367; 96372; 96375; 96365; 99285; 36415; 94640 ×2; 93005; 80053 ×2; 82977; 83690; 83735 ×2; 84100; 85025 ×2; 85610; 80306; 72125; 70486; 70450; G0378 ×2; G0480; J3411; J3475; C9113 ×2; J1644; 80320

== ENCOUNTER → 2024-06-17 | Outpatient (CLI) | payer MEDICARE, OTHER ==
--- NOTE | 2024-07-29 15:11 | XR ---
EXAMINATION TYPE: XR chest 2V DATE OF EXAM: 07/29/2024 2:07 PM CLINICAL INDICATION: Male, 69 years old with history of SOB; [facility] COMPARISON: 02/26/2018 TECHNIQUE: XR chest 2V Frontal view of the chest. FINDINGS: Lungs/Pleura: There is no evidence of pleural effusion, focal consolidation, or pneumothorax. Pulmonary vascularity: Unremarkable. Heart/mediastinum: Cardiomediastinal silhouette is unremarkable. Musculoskeletal: No acute osseous pathology. Other findings: None Lines/Tubes: IMPRESSION: 1. No acute cardiopulmonary disease process. 2. COPD changes. [facility], , 07/29/2024 3:08 PM
== END | disposition home or self-care (01) ==
LOC: RADXRMAIN 08:53
PROVIDERS: ATTEND Internal Medicine
DX: J44.9 Chronic obstructive pulmonary disease, unspecified (principal)
CPT/HCPCS: 71046

== ENCOUNTER 2024-09-09 06:36 | Inpatient (IN) | payer MEDICARE, OTHER ==
--- NOTE | 2024-09-09 06:58 | ED ---
Fall HPI - General Chief Complaint: Fall Stated Complaint: Fall Time Seen by Provider: 09/09/24 06:37 Source: patient, EMS, RN notes reviewed Mode of arrival: EMS Limitations: no limitations - History of Present Illness Initial Comments: 69-year-old male presents emergency department with chief complaint of falls. Patient states he had falls overnight striking his head with no loss conscious. Denies any blood thinners. Patient had 2 falls because of his chronic alcohol use. Patient noted to have right occipital scalp laceration. He states his te tanus is up-to-date. Patient denies any neck pain, back pain or other extremity injuries. Patient denies any nausea vomiting no withdrawal symptoms. - Related Data Home Medications Medication Instructions Recorded Confirmed Albuterol Sulfate [Ventolin HFA] 2 puff INHALATION RT-QID 01/27/20 04/21/22 Losartan Potassium 100 mg PO DAILY 01/27/20 04/21/22 Fluticasone/Umeclidin/Vilanter 1 puff INHALATION RT-DAILY 04/21/22 04/21/22 [Trelegy Ellipta 100-62.5-25] Previous Rx's Medication Instructions Recorded Multivitamins, Thera [Multivitamin 1 each PO DAILY tab 04/22/22 (formulary)] Thiamine [Vitamin B-1] 100 mg PO BID-W/MEALS tab 04/22/22 Allergies Allergy/AdvReac Type Severity Reaction Status Date / Time No Known Allergies Allergy Verified 04/21/22 20:35 Review of Systems ROS Statement: Those systems with pertinent positive or pertinent negative responses have been documented in the HPI. ROS Other: All systems not noted in ROS Statement are negative. Past Medical History Past Medical History: Chest Pain / Angina, COPD, Hyperlipidemia, Hypertension History of Any Multi-Drug Resistant Organisms: None Reported Past Surgical History: Appendectomy Past Anesthesia/Blood Transfusion Reactions: No Reported Reaction Past Psychological History: No Psychological Hx Reported Smoking Status: Current every day smoker Past Alcohol Use History: Daily Past Drug Use History: Marijuana - Past Family History Mother History Unknown: Yes Additional Family Medical History / Comment(s): Father Additional Family Medical History / Comment(s): from complications of inj uries after falling down stairs. General Exam Limitations: no limitations General appearance: alert, in no apparent distress Head exam: Present: atraumatic, normocephalic. Absent: normal inspection (Laceration) Eye exam: Present: normal appearance, PERRL, EOMI. Absent: scleral icterus, conjunctival injection, periorbital swelling ENT exam: Present: normal exam, mucous membranes moist Neck exam: Present: normal inspection. Absent: tenderness, meningismus, full ROM (C-collar in place), lymphadenopathy Respiratory exam: Present: normal lung sounds bilaterally. Absent: respiratory distress, wheezes, rales, rhonchi, stridor Cardiovascular Exam: Present: regular rate, normal rhythm, normal heart sounds. Absent: systolic murmur, diastolic murmur, rubs, gallop, clicks GI/Abdominal exam: Present: soft, normal bowel sounds. Absent: distended, tenderness, guarding, rebound, rigid Extremities exam: Present: normal inspection, full ROM, normal capillary refill. Absent: tenderness, pedal edema, joint swelling, calf tenderness Back exam: Present: normal inspection, full ROM. Absent: tenderness Neurological exam: Present: alert, oriented X3, CN II-XII intact, reflexes normal. Absent: motor sensory deficit Skin exam: Present: warm, dry, intact, normal color. Absent: rash Course Vital Signs 09/09/24 06:37 Temperature 97.5 F L Pulse Rate 85 Respiratory 14 Rate Blood Pressure 160/85 O2 Sat by Pulse 97 Oximetry Procedures - Laceration Laceration #1 Consent Obtained: verbal consent Indication: laceration Site: scalp Size (cm): 4 Description: flap, irregular Depth: simple, single layer Pre-repair: wound explored, irrigated extensively, deep structures intact Type of Sutures: other (dermal dilip) Number of Sutures: 6 Patient Tolerated Procedure: well, no complications Medical Decision Making - Medical Decision Making Was pt. sent in by a medical professional or institution (, PA, PROCESSING ANALYST, urgent care, hospital, or penitentiary...) When possible be specific @ -No Did you speak to anyone other than the patient for history (EMS, parent, family, police, friend...)? What history was obtained from this source @ -No Did you review nursing and triage notes (agree or disagree)? Why? @ -I reviewed and agree with nursing and triage notes Were old charts reviewed (outside hosp., previous admission, EMS record, old E KG, old radiological studies, urgent care reports/EKG's, penitentiary records)? Report findings @ -No old charts were reviewed Differential Diagnosis (chest pain, altered mental status, abdominal pain women, abdominal pain men, vaginal bleeding, weakness, fever, dyspnea, syncope, headache, dizziness, GI bleed, back pain, seizure, CVA, palpatations, mental health, musculoskeletal)? @ -Falls, alcohol abuse, hyponatremia, dehydration, syncope, vertigo, dizziness EKG interpreted by me (3pts min.). @ -As above X-rays interpreted by me (1pt min.). @ -None done CT interpreted by me (1pt min.). @ -CT brain, C-spine showing scalp contusion, laceration of right parietal region, old fracture left orbital wall, no intracranial hemorrhage or mass effect there is no cervical fracture noted there is degenerative changes C3-C4 along with C6 and C7 U/S interpreted by me (1pt. min.). @ -None done What testing was considered but not performed or refused? (CT, X-rays, U/S, labs)? Why? @ -None What meds were considered but not given or refused? Why? @ -None Did you discuss the management of the patient with other professionals (professionals i.e. , PA, PROCESSING ANALYST, lab, RT, psych nurse, social media job titles, hide splitter, teacher, freedom of information officer, transplant case manager)? Give summary @ -Dr. Mason for admission for hyponatremia, multiple falls Was smoking cessation discussed for >3mins.? @ -No Was critical care preformed (if so, how long)? @ -No Were there social determinants of health that impacted care today? How? (Homelessness, low income, unemployed, alcoholism, drug addiction, transportation, low edu. Level, literacy, decrease access to med. care, usp, rehab)? @ -No Was there de-escalation of care discussed even if they declined (Discuss DNR or withdrawal of care, Hospice)? DNR status @ -No What co-morbidities impacted this encounter? (DM, HTN, Smoking, COPD, CAD, Cancer, CVA, ARF, Chemo, Hep., AIDS, mental health diagnosis, sleep apnea, morbid obesity)? @ -Alcohol abuse Was patient admitted / discharged? Hospital course, mention meds given and route, prescriptions, significant lab abnormalities, going to OR and other pertinent info. @ -Hospital course Undiagnosed new problem with uncertain prognosis? @ -No Drug Therapy requiring intensive monitoring for toxicity (Heparin, Nitro, Insulin, Cardizem)? @ -No Were any procedures done? @ -No Diagnosis/symptom? @Multiple falls, scalp laceration, hyponatremia, alcohol abuse Acute, or Chronic, or Acute on Chronic? @ -Acute Uncomplicated (without systemic symptoms) or Complicated (systemic symptoms)? @ -Uncomplicated Side effects of treatment? @ -No Exacerbation, Progression, or Severe Exacerbation? @ -No Poses a threat to life or bodily function? How? (Chest pain, [place], [place], pneumonia, PE, COPD, DKA, ARF, appy, cholecystitis, CVA, Diverticulitis, Homicidal, Suicidal, threat to staff... and all critical care pts) @ -yes has possible alcohol withdrawal, hyponatremia causing seizures - Lab Data Result diagrams: 09/09/24 06:49 09/09/24 06:49 Lab Results 09/09/24 09/09/24 Range/Units 06:49 06:49 WBC 8.3 (3.8-10.6) k/uL RBC 4.46 (4.30-5.90) m/uL Hgb 14.8 (13.0-17.5) gm/dL Hct 43.4 (39.0-53.0) % MCV 97.4 (80.0-100.0) fL MCH 33.3 (25.0-35.0) pg MCHC 34.2 (31.0-37.0) g/dL RDW 11.4 L (11.5-15.5) % Plt Count 309 (150-450) k/uL MPV 7.1 Neutrophils % 74 % Lymphocytes % 13 % Monocytes % 8 % Eosinophils % 2 % Basophils % 0 % Neutrophils # 6.1 (1.3-7.7) k/uL Lymphocytes # 1.1 (1.0-4.8) k/uL Monocytes # 0.7 (0-1.0) k/uL Eosinophils # 0.1 (0-0.7) k/uL Basophils # 0.0 (0-0.2) k/uL Sodium 114 L* (137-145) mmol/L Potassium 4.2 (3.5-5.1) mmol/L Chloride 81 L (98-107) mmol/L Carbon Dioxide 21 L (22-30) mmol/L Anion Gap 12 mmol/L BUN 9 (9-20) mg/dL Creatinine 0.69 (0.66-1.25) mg/dL Est GFR (CKD-EPI)AfAm >90 (>60 ml/min/1.73 sqM) Est GFR (CKD-EPI)NonAf >90 (>60 ml/min/1.73 sqM) Glucose 86 (74-99) mg/dL Calcium 8.8 (8.4-10.2) mg/dL Magnesium 1.3 L (1.6-2.3) mg/dL Total Bilirubin 1.2 (0.2-1.3) mg/dL AST 51 (17-59) U/L ALT 26 (4-49) U/L Alkaline Phosphatase 64 (38-126) U/L Total Protein 7.1 (6.3-8.2) g/dL Albumin 4.5 (3.5-5.0) g/dL Serum Alcohol 25 mg/dL - EKG Data -: EKG Interpreted by Me EKG Comments: EKG performed at 6: 50 sinus rhythm rate of 82 NM 197 QRS 92 QT/QTc 373/411 Disposition Clinical Impression: Fall, Hyponatremia, Multiple falls, Alcohol abuse, Scalp laceration Disposition: ADMITTED IP TO THIS [facility] Time of Disposition: 08:08
[2024-09-09 07:06] LABS: Basophils % (A) 0 %; Eosinophils # (A) 0.1 k/uL (0-0.7); Eosinophils % (A) 2 %; HCT 43.4 % (39.0-53.0); HGB 14.8 gm/dL (13.0-17.5); Lymphocytes # (A) 1.1 k/uL (1.0-4.8); Lymphocytes % (A) 13 %; MCH 33.3 pg (25.0-35.0); MCHC 34.2 g/dL (31.0-37.0); MCV 97.4 fL (80.0-100.0); Mean Platelet Volume 7.1; Monocytes # (A) 0.7 k/uL (0-1.0); Monocytes % (A) 8 %; Neutrophils # (A) 6.1 k/uL (1.3-7.7); Neutrophils % (A) 74 %; Platelet Count 309 k/uL (150-450); RBC 4.46 m/uL (4.30-5.90); RDW 11.4 % (11.5-15.5); WBC 8.3 k/uL (3.8-10.6)
[2024-09-09 07:17] LABS: ALT 26 U/L (4-49); AST 51 U/L (17-59); African American GFR (CKD) >90 (>60 ml/min/1.73 sqM); Albumin 4.5 g/dL (3.5-5.0); Alcohol 25 mg/dL; Alkaline Phosphatase 64 U/L (38-126); Anion Gap 12 mmol/L; Blood Urea Nitrogen 9 mg/dL (9-20); Calcium 8.8 mg/dL (8.4-10.2); Carbon Dioxide 21 mmol/L (22-30); Chloride 81 mmol/L (98-107); Glucose 86 mg/dL (74-99); Magnesium 1.3 mg/dL (1.6-2.3); Non-African American GFR(CKD) >90 (>60 ml/min/1.73 sqM); Potassium 4.2 mmol/L (3.5-5.1); Total Bilirubin 1.2 mg/dL (0.2-1.3); Total Protein 7.1 g/dL (6.3-8.2)
[2024-09-09 07:24] LABS: Sodium 114 mmol/L (137-145)
[2024-09-09] MEDS ORDERED: LORazepam 1 MG TAB PO PRN (07:26)
[2024-09-09] MEDS ORDERED: LORazepam 2 MG/ML INJ IV PRN ×3 (07:26)
[2024-09-09] MEDS ORDERED: LORazepam 0.5 MG TAB PO PRN (07:26)
[2024-09-09] MEDS: SODIUM CHLORIDE 0.9% 500 ML 500 ML IV ONE (07:59)
[2024-09-09] MEDS: MAGNESIUM SULFATE-D5W PMX 1 GM in DEXTROSE/WATER 1 100ML.BAG IVPB SCH (07:59)
[2024-09-09] MEDS: SODIUM CHLORIDE 0.9% 1,000 ML IV SCH (08:01)
--- NOTE | 2024-09-09 08:01 | CT ---
EXAMINATION TYPE: CT brain rogelio wo con DATE OF EXAM: 09/09/2024 COMPARISON: 04/21/2022 HISTORY: 69-year-old male pain after Fall CT DLP: 1344.3 mGycm Automated exposure control for dose reduction was used. Technique: Examination of the head was done in axial plane without intravenous contrast. Coronal and sagittal reconstructions performed. CT of the cervical spine was obtained in axial plane without intravenous injection of contrast mater ial. Coronal and sagittal reformatted images were obtained from the axial views for evaluation of f ractures, spinal alignment and canal. FINDINGS: Head: There is a right parietal scalp contusion and laceration. No underlying calvarial fracture. There is no evidence of acute intracranial hemorrhage, acute ischemic changes, mass, mass-effect, or extra-axial fluid collection. There is no effacement of cerebral sulci or basal subarachnoid cister ns. There is no hydrocephalus. There is no midline shift. Maguire-white matter distinction is preserv ed. Mild volume loss overlying the bilateral cerebral convexities. Unchanged dense dural calcifications a long the anterior falx. Moderate patchy white matter hypodensities in both cerebral hemispheres. Old lacunar infarct left cor margo radiata. Rightward nasal septal deviation. Trace mucosal thickening right maxillary sinus. Old blowout fractur e medial left orbital wall. Small amount of fluid within the inferior right mastoid air cells. Cervical spine: No craniocervical junction abnormality, predental space widening, or prevertebral soft tissue swellin g. Degenerative change at the C1 dens articulation. Severe disc/endplate degenerative changes especially mid to lower cervical spine. There is multilevel hypertrophic facet and uncovertebral joint arthropathy. Degenerative grade 1 anterolisthesis C2-C3 and C4-C5. Also C7-T1. Nearly grade 2 anterolisthesis C3-C 4. Trace grade 1 retrolisthesis C5-C6/C7. Some of these changes may have slightly progressed from the 2021 exam. Underlying disc osteophyte complex formation may contribute to a moderate canal stenosis and C6-C7 an d mild elsewhere throughout the cervical spine. No acute fracture is identified. There is variable moderate neuroforaminal stenoses throughout. Sagittal and coronal reformatted images confirm above findings. COMBINED IMPRESSION: 1. Scalp contusion and laceration along the right parietal convexity. No underlying acute intracrania l abnormality seen. 2. Moderate patchy burden of chronic small vessel ischemic disease and mild cerebral atrophy are unch anged. 3. Old blowout fracture medial left orbital wall. 4. No acute fracture of the cervical spine. Moderate to advanced multilevel spondylotic change shows slight progression from 2021. 5. Multilevel degenerative grade 1 spondylolisthesis throughout, nearly grade 2 at C3-C4. There may b e a moderate spinal canal stenosis at C6-C7. [facility], , 09/09/2024 7:59 AM
[2024-09-09] MEDS ORDERED: NALOXONE 0.4 MG/ML 1 ML VIAL IV PRN (08:09)
[2024-09-09] MEDS ORDERED: ONDANSETRON 4 MG/2 ML VIAL IVP PRN (08:09)
[2024-09-09] MEDS: THIAMINE 100 MG TAB PO SCH (08:28)
[2024-09-09] MEDS ORDERED: HYDROcodone/APAP 5-325MG 1 EACH TAB PO PRN (08:45)
[2024-09-09] MEDS ORDERED: MORPHINE SULFATE 4 MG/ML SYRINGE IVP PRN (08:46)
[2024-09-09] MEDS: KETOROLAC 15 MG/ML 1 ML VIAL IVP STA (09:32)
[2024-09-09] MEDS: LOSARTAN 50 MG TAB PO SCH (09:58)
[2024-09-09] MEDS: ASPIRIN 81 MG PO SCH (09:58)
--- NOTE | 2024-09-09 16:54 | P.HPIM ---
History of Present Illness H&P Date: 09/09/24 Rory Head, is a 69-year-old male who presented to [facility] emergency room with a chief complaint of recurrent falls, patient stated that he fell at home and he had trauma to his head, he denies any loss of consciousness. He was evaluated in the emergency room vital examination on presentation revealed a temperature of 97.5 pulse 85 respiration 14 blood pressure 160/85 pulse ox 97% on room air Laboratory data revealed a white blood count of 8.3 hemoglobin 14.8 platelet count 309 sodium 114 potassium 4.2 chloride 81 CO2 21 BUN 9 creatinine 0.69 serum alcohol level was 25 Testing in the emergency room revealed CT scan of the brain was done in the emergency room without contrast and revealed scalp contusion and laceration no intracranial abnormality with moderate burden of chronic small vessel disease and cerebral atrophy and an old fracture of the left orbital wall. CT scan of the neck revealed no acute fracture of the cervical spine with moderate multilevel spondylitic changes with mild progression since 2021 and multilevel degenerative disc disease Patient was admitted to medical floor for further evaluation and treatment Past medical history is significant for history of coronary artery disease, history of COPD, history of hypertension, history of hyperlipidemia, and chronic history of daily alcohol and tobacco use. On review of systems patient is alert and oriented x 3 in no apparent distress he denies any complaints at this time there is no fever or chills no headache or dizziness no chest pain no shortness of breath no cough no nausea or vomiting no abdominal pain no diarrhea no blood in the stools no burning with urination no frequency or urgency and no hematuria Past Medical History Past Medical History: Chest Pain / Angina, COPD, Hyperlipidemia, Hypertension History of Any Multi-Drug Resistant Organisms: None Reported Past Surgical History: Appendectomy Past Anesthesia/Blood Transfusion Reactions: No Reported Reaction Past Psychological History: No Psychological Hx Reported Smoking Status: Current every day smoker Past Alcohol Use History: Daily Past Drug Use History: Marijuana - Past Family History Mother History Unknown: Yes Additional Family Medical History / Comment(s): Father Additional Family Medical History / Comment(s): from complications of injuries after falling down stairs. Medications and Allergies Home Medications Medication Instructions Recorded Confirmed Type Albuterol Sulfate [Ventolin HFA] 2 puff INHALATION RT-Q4H PRN 01/27/20 09/09/24 History Losartan Potassium 100 mg PO DAILY 01/27/20 09/09/24 History Fluticasone/Umeclidin/Vilanter 1 puff INHALATION RT-DAILY 04/21/22 09/09/24 History [Trelegy Ellipta 100-62.5-25] Aspirin EC [Ecotrin Low Dose] 81 mg PO DAILY 09/09/24 09/09/24 History Allergies Allergy/AdvReac Type Severity Reaction Status Date / Time No Known Allergies Allergy Verified 09/09/24 08:53 Physical Exam Vitals: Vital Signs Temp Pulse Resp BP Pulse Ox 09/09/24 06:37 97.5 F L 85 14 160/85 97 Intake and Output 09/08/24 09/09/24 09/09/24 22:59 06:59 14:59 Other: Weight 78.925 kg In general patient is alert and oriented x 3 in no distress HEENT head normocephalic and atraumatic Neck is supple no JVD no goiter no lymphadenopathy no carotid bruit Chest examination is clear to auscultation no crackles no wheezing Cardiac exam reveals regular heart sounds S1 and S2 no gallops no murmurs Abdomen is soft nontender no organomegaly with normal bowel sounds Extremity exam reveals no edema no cyanosis or clubbing Neurological examination reveals no gross focal deficits Results CBC & Chem 7: 09/09/24 06:49 09/09/24 06:49 Labs: Abnormal Lab Results - Last 24 Hours (Table) 09/09/24 09/09/24 Range/Units 06:49 06:49 RDW 11.4 L (11.5-15.5) % Sodium 114 L* (137-145) mmol/L Chloride 81 L (98-107) mmol/L Carbon Dioxide 21 L (22-30) mmol/L Magnesium 1.3 L (1.6-2.3) mg/dL Assessment and Plan Plan: Severe hyponatremia Multiple falls with head trauma Dizziness Alcohol abuse with early alcohol withdrawal Underlying history of hypertension Underlying history of COPD Underlying history of hyperlipidemia Underlying history of coronary artery disease At this time patient will be admitted to medical floor He was started on IV fluid normal saline at 75 cc/h He was also started on CIWA protocol and thiamine supplement [facility] for [facility] was initiated in the emergency room Will follow closely
[2024-09-09 23:08] LABS: Basophils % (A) 0 %; Eosinophils # (A) 0.1 k/uL (0-0.7); Eosinophils % (A) 1 %; HCT 39.1 % (39.0-53.0); HGB 14.1 gm/dL (13.0-17.5); Lymphocytes # (A) 0.8 k/uL (1.0-4.8); Lymphocytes % (A) 8 %; MCH 34.9 pg (25.0-35.0); MCV 97.1 fL (80.0-100.0); Mean Platelet Volume 7.5; Monocytes # (A) 0.9 k/uL (0-1.0); Monocytes % (A) 9 %; Neutrophils # (A) 7.3 k/uL (1.3-7.7); Neutrophils % (A) 79 %; Platelet Count 268 k/uL (150-450); RBC 4.03 m/uL (4.30-5.90); RDW 11.3 % (11.5-15.5); WBC 9.3 k/uL (3.8-10.6)
[2024-09-09 23:12] LABS: ALT 21 U/L (4-49); AST 35 U/L (17-59); African American GFR (CKD) >90 (>60 ml/min/1.73 sqM); Albumin 3.5 g/dL (3.5-5.0); Alkaline Phosphatase 53 U/L (38-126); Anion Gap 4 mmol/L; Blood Urea Nitrogen 14 mg/dL (9-20); Calcium 8.3 mg/dL (8.4-10.2); Carbon Dioxide 20 mmol/L (22-30); Chloride 93 mmol/L (98-107); Glucose 116 mg/dL (74-99); Non-African American GFR(CKD) >90 (>60 ml/min/1.73 sqM); Total Bilirubin 1.2 mg/dL (0.2-1.3)
[2024-09-09 23:15] LABS: Sodium 117 mmol/L (137-145)
[2024-09-10 07:43] LABS: Basophils % (A) 1 %; Eosinophils # (A) 0.1 k/uL (0-0.7); Eosinophils % (A) 1 %; HCT 39.2 % (39.0-53.0); Lymphocytes # (A) 0.8 k/uL (1.0-4.8); Lymphocytes % (A) 10 %; MCH 34.5 pg (25.0-35.0); MCHC 35.8 g/dL (31.0-37.0); MCV 96.3 fL (80.0-100.0); Mean Platelet Volume 7.8; Monocytes # (A) 0.7 k/uL (0-1.0); Monocytes % (A) 9 %; Neutrophils # (A) 5.8 k/uL (1.3-7.7); Neutrophils % (A) 77 %; Platelet Count 260 k/uL (150-450); RBC 4.07 m/uL (4.30-5.90); RDW 11.7 % (11.5-15.5); WBC 7.5 k/uL (3.8-10.6)
[2024-09-10 08:09] LABS: ALT 23 U/L (4-49); AST 37 U/L (17-59); African American GFR (CKD) >90 (>60 ml/min/1.73 sqM); Albumin 3.7 g/dL (3.5-5.0); Alkaline Phosphatase 61 U/L (38-126); Anion Gap 8 mmol/L; Blood Urea Nitrogen 8 mg/dL (9-20); Calcium 8.6 mg/dL (8.4-10.2); Carbon Dioxide 19 mmol/L (22-30); Chloride 93 mmol/L (98-107); Glucose 92 mg/dL (74-99); Magnesium 1.5 mg/dL (1.6-2.3); Non-African American GFR(CKD) >90 (>60 ml/min/1.73 sqM); Potassium 3.8 mmol/L (3.5-5.1); Sodium 120 mmol/L (137-145); Total Bilirubin 1.6 mg/dL (0.2-1.3); Total Protein 6.1 g/dL (6.3-8.2)
[2024-09-10] MEDS: SYMBICORT 80-4.5 MCG INHALER INHALATION SCH (09:26)
[2024-09-10] MEDS: IPRATROPIUM 0.5 MG/2.5 ML NEBU INHALATION SCH (09:26)
[2024-09-10] MEDS: ALBUTEROL NEBULIZED 2.5 MG/3 ML INHALATION PRN (09:28)
--- NOTE | 2024-09-10 09:33 | P.PN ---
Subjective Progress Note Date: 09/10/24 Rory Head, is a 69-year-old male who presented to [facility] emergency room with a chief complaint of recurrent falls, patient stated that he fell at home and he had trauma to his head, he denies any loss of consciousness. He was evaluated in the emergency room vital examination on presentation revealed a temperature of 97.5 pulse 85 respiration 14 blood pressure 160/85 pulse ox 97% on room air Laboratory data revealed a white blood count of 8.3 hemoglobin 14.8 platelet count 309 sodium 114 potassium 4.2 chloride 81 CO2 21 BUN 9 creatinine 0.69 serum alcohol level was 25 Testing in the emergency room revealed CT scan of the brain was done in the emergency room without contrast and revealed scalp contusion and laceration no intracranial abnormality with moderate burden of chronic small vessel disease and cerebral atrophy and an old fracture of the left orbital wall. CT scan of the neck revealed no acute fracture of the cervical spine with moderate multilevel spondylitic changes with mild progression since 2021 and multilevel degenerative disc disease Patient was admitted to medical floor for further evaluation and treatment Past medical history is significant for history of coronary artery disease, history of COPD, history of hypertension, history of hyperlipidemia, and chronic history of daily alcohol and tobacco use. On review of systems patient is alert and oriented x 3 in no apparent distress he denies any complaints at this time there is no fever or chills no headache or dizziness no chest pain no shortness of breath no cough no nausea or vomiting no abdominal pain no diarrhea no blood in the stools no burning with urination no frequency or urgency and no hematuria On 09/10/2024 patient is alert and oriented x 3 sodium improving to 120 awaiting nephrology input. Patient remains on alcohol withdrawal protocol. Current vital signs temp 97.8, heart rate 78, respiratory rate 18, blood pressure 94% on room air. Patient denies chest pain or shortness of breath. Patient denies nausea vomiting or diarrhea. Patient denies any urinary burning or frequency Objective - Vital Signs Vital signs: Vital Signs Temp 97.8 F 09/10/24 06:36 Pulse 80 09/10/24 09:30 Resp 16 09/10/24 07:34 BP 131/80 09/10/24 07:34 Pulse Ox 99 09/10/24 07:34 FiO2 - Exam In general patient is alert and oriented x 3 in no distress HEENT head normocephalic and atraumatic Neck is supple no JVD no goiter no lymphadenopathy no carotid bruit Chest examination is clear to auscultation no crackles no wheezing Cardiac exam reveals regular heart sounds S1 and S2 no gallops no murmurs Abdomen is soft nontender no organomegaly with normal bowel sounds Extremity exam reveals no edema no cyanosis or clubbing Neurological examination reveals no gross focal deficits - Labs CBC & Chem 7: 09/10/24 07:21 09/10/24 07:21 Labs: Abnormal Lab Results - Last 24 Hours (Table) 09/09/24 09/09/24 09/10/24 Range/Units 22:30 22:30 07:21 RBC 4.03 L 4.07 L (4.30-5.90) m/uL RDW 11.3 L (11.5-15.5) % Lymphocytes # 0.8 L 0.8 L (1.0-4.8) k/uL Sodium 117 L* (137-145) mmol/L Chloride 93 L (98-107) mmol/L Carbon Dioxide 20 L (22-30) mmol/L BUN (9-20) mg/dL Creatinine 0.56 L (0.66-1.25) mg/dL Glucose 116 H (74-99) mg/dL Calcium 8.3 L (8.4-10.2) mg/dL Magnesium (1.6-2.3) mg/dL Total Bilirubin (0.2-1.3) mg/dL Total Protein 6.0 L (6.3-8.2) g/dL 09/10/24 Range/Units 07:21 RBC (4.30-5.90) m/uL RDW (11.5-15.5) % Lymphocytes # (1.0-4.8) k/uL Sodium 120 L (137-145) mmol/L Chloride 93 L (98-107) mmol/L Carbon Dioxide 19 L (22-30) mmol/L BUN 8 L (9-20) mg/dL Creatinine 0.50 L (0.66-1.25) mg/dL Glucose (74-99) mg/dL Calcium (8.4-10.2) mg/dL Magnesium 1.5 L (1.6-2.3) mg/dL Total Bilirubin 1.6 H (0.2-1.3) mg/dL Total Protein 6.1 L (6.3-8.2) g/dL Assessment and Plan Plan: Severe hyponatremia Multiple falls with head trauma Dizziness Alcohol abuse with early alcohol withdrawal Underlying history of hypertension Underlying history of COPD Underlying history of hyperlipidemia Underlying history of coronary artery disease At this time patient will be admitted to medical floor He was started on IV fluid normal saline at 75 cc/h He was also started on CIWA protocol and thiamine supplement For DVT prophylaxis subcu [facility] Consultation for nephrology was initiated in the emergency room Will follow closely
--- NOTE | 2024-09-10 12:36 | P.NPCON ---
History of Present Illness - Reason for Consult hyponatremia - History of Present Illness patient is a 69-year-old male with history of EtOH abuse who was admitted to the hospital with history of multiple falls at home. He did hit his head and CT of of the head was negative. Alcohol level was 25. Labs show serum sodium of 114. Patient received normal saline fluid bolus and sodium increased to 117 and this morning it is 120. No significant hypotension noted. No history of vomiting or diarrhea or abdominal pain. Review of previous labs shows hyponatremia in 2021 as well. Review of Systems as per HPI Past Medical History Past Medical History: Chest Pain / Angina, COPD, Hyperlipidemia, Hypertension History of Any Multi-Drug Resistant Organisms: None Reported Past Surgical History: Appendectomy Past Anesthesia/Blood Transfusion Reactions: No Reported Reaction Past Psychological History: No Psychological Hx Reported Smoking Status: Current every day smoker Past Alcohol Use History: Daily Past Drug Use History: Marijuana - Past Family History Mother History Unknown: Yes Additional Family Medical History / Comment(s): Father Additional Family Medical History / Comment(s): from complications of injuries after falling down stairs. Medications and Allergies Home Medications Medication Instructions Recorded Confirmed Type Albuterol Sulfate [Ventolin HFA] 2 puff INHALATION RT-Q4H PRN 01/27/20 09/09/24 History Losartan Potassium 100 mg PO DAILY 01/27/20 09/09/24 History Fluticasone/Umeclidin/Vilanter 1 puff INHALATION RT-DAILY 04/21/22 09/09/24 History [Trelegy Ellipta 100-62.5-25] Aspirin EC [Ecotrin Low Dose] 81 mg PO DAILY 09/09/24 09/09/24 History Allergies Allergy/AdvReac Type Severity Reaction Status Date / Time No Known Allergies Allergy Verified 09/09/24 08:53 Physical Exam Vitals: Vital Signs Temp Pulse Resp BP Pulse Ox 09/10/24 09:43 74 09/10/24 09:40 98.4 F 75 20 108/65 97 09/10/24 09:30 80 09/10/24 07:34 75 16 131/80 99 09/10/24 06:36 97.8 F 78 18 94 L 09/10/24 02:44 72 16 09/10/24 00:49 75 18 138/76 95 09/09/24 18:00 76 18 152/81 95 09/09/24 16:00 79 18 139/86 97 patient is awake, comfortable, no acute distress. Alert oriented 3. Examination of the heart S1 and S2 Examination of the lungs bilateral breath sounds are heard Abdomen is soft nontender Examination of lower extremities shows no evidence of edema PRINTING TABLE HAND exam grossly intact Results - Lab Results Most recent lab results Calcium 8.6 mg/dL (8.4-10.2) 09/10/24 07:21 Magnesium 1.5 mg/dL (1.6-2.3) L 09/10/24 07:21 09/10/24 07:21 09/10/24 07:21 Assessment and Plan Assessment: 1. Hyponatremia, hypovolemic and secondary to EtOH abuse. Serum sodium has improved with normal saline. No hypokalemia noted. Continue with normal saline and repeat sodium this afternoon. 2. Multiple falls with head trauma post likely associated with EtOH abuse and likely low blood pressure 3. History of hypertension 4. History of COPD 5. Hypomagnesemia associated with poor oral intake and EtOH abuse Plan: continue with normal saline. Replace magnesium Repeat sodium at known. Encouraged increased oral intake.
[2024-09-10] MEDS: MAGNESIUM SULFATE-D5W PMX 1 GM in DEXTROSE/WATER 1 100ML.BAG IVPB SCH (13:09)
[2024-09-11 07:33] LABS: Basophils % (A) 0 %; Eosinophils # (A) 0.1 k/uL (0-0.7); Eosinophils % (A) 1 %; HCT 41.7 % (39.0-53.0); HGB 13.8 gm/dL (13.0-17.5); Lymphocytes # (A) 0.7 k/uL (1.0-4.8); Lymphocytes % (A) 7 %; MCH 33.3 pg (25.0-35.0); MCHC 33.2 g/dL (31.0-37.0); MCV 100.1 fL (80.0-100.0); Mean Platelet Volume 7.8; Monocytes # (A) 0.8 k/uL (0-1.0); Monocytes % (A) 8 %; Neutrophils # (A) 8.4 k/uL (1.3-7.7); Neutrophils % (A) 81 %; Platelet Count 318 k/uL (150-450); RBC 4.16 m/uL (4.30-5.90); RDW 11.5 % (11.5-15.5); WBC 10.3 k/uL (3.8-10.6)
[2024-09-11 07:48] LABS: ALT 22 U/L (4-49); AST 27 U/L (17-59); African American GFR (CKD) >90 (>60 ml/min/1.73 sqM); Albumin 4.1 g/dL (3.5-5.0); Alkaline Phosphatase 61 U/L (38-126); Anion Gap 7 mmol/L; Blood Urea Nitrogen 8 mg/dL (9-20); Calcium 9.1 mg/dL (8.4-10.2); Carbon Dioxide 24 mmol/L (22-30); Chloride 95 mmol/L (98-107); Glucose 114 mg/dL (74-99); Non-African American GFR(CKD) >90 (>60 ml/min/1.73 sqM); Potassium 4.4 mmol/L (3.5-5.1); Sodium 126 mmol/L (137-145); Total Bilirubin 1.7 mg/dL (0.2-1.3); Total Protein 6.6 g/dL (6.3-8.2)
[2024-09-11] MEDS: ENOXAPARIN 40 MG/0.4 ML SYRINGE SQ SCH (08:43)
--- NOTE | 2024-09-11 10:17 | CDI ---
Documentation Clarification Form Date: 09/11/2024 From: Marychuy Luong RN CCDS Phone: [phone] Admit Date: 09/09/2024 07:26:00 AM Patient Name: Rory Head Visit Number: [id number] Discharge Date: ATTENTION: The Clinical Documentation Specialists (CDI) and [facility] Coding Staff appreciate your assistance in clarifying documentation. Please respond to the clarification below the line at the bottom and electronically sign. The CDI & [facility] Coding staff will review the response and follow-up if needed. Please note: Queries are made part of the Legal Health Record. If you have any questions, please contact the author of this message via ITS. Doctor/Provider: Jose Mason MD: Patient has a documented BMI of 19 on 09/09. Additional clarification is requested. History/Risk Factors: 69-year-old male with a history of COPD, Alcohol abuse and HTN who presents after fall with scalp laceration and severe hyponatremia and alcohol withdrawal Clinical Indicators: 09/09 Patients weight is 67kg Patients height is 6ft 2in Calculated BMI is 19.0 09/09x2, 09/10, 09/11 Total Protein: 7.1, 6.0, 6.1, 6.6 Treatments: Regular diet Monitor Total Protein Please clarify, is there is an additional diagnosis that is clinically appropriate for this patient? [ ] Underweight [ xxxx] No additional diagnosis/not clinically significant [ ] Other, please specify [ ] Unable to determine MTDD
--- NOTE | 2024-09-11 11:47 | P.PN ---
Subjective Progress Note Date: 09/11/24 Rory Head, is a 69-year-old male who presented to [facility] emergency room with a chief complaint of recurrent falls, patient stated that he fell at home and he had trauma to his head, he denies any loss of consciousness. He was evaluated in the emergency room vital examination on presentation revealed a temperature of 97.5 pulse 85 respiration 14 blood pressure 160/85 pulse ox 97% on room air Laboratory data revealed a white blood count of 8.3 hemoglobin 14.8 platelet count 309 sodium 114 potassium 4.2 chloride 81 CO2 21 BUN 9 creatinine 0.69 serum alcohol level was 25 Testing in the emergency room revealed CT scan of the brain was done in the emergency room without contrast and revealed scalp contusion and laceration no intracranial abnormality with moderate burden of chronic small vessel disease and cerebral atrophy and an old fracture of the left orbital wall. CT scan of the neck revealed no acute fracture of the cervical spine with moderate multilevel spondylitic changes with mild progression since 2021 and multilevel degenerative disc disease Patient was admitted to medical floor for further evaluation and treatment Past medical history is significant for history of coronary artery disease, history of COPD, history of hypertension, history of hyperlipidemia, and chronic history of daily alcohol and tobacco use. On review of systems patient is alert and oriented x 3 in no apparent distress he denies any complaints at this time there is no fever or chills no headache or dizziness no chest pain no shortness of breath no cough no nausea or vomiting no abdominal pain no diarrhea no blood in the stools no burning with urination no frequency or urgency and no hematuria On 09/10/2024 patient is alert and oriented x 3 sodium improving to 120 awaiting nephrology input. Patient remains on alcohol withdrawal protocol. Current vital signs temp 97.8, heart rate 78, respiratory rate 18, blood pressure 94% on room air. Patient denies chest pain or shortness of breath. Patient denies nausea vomiting or diarrhea. Patient denies any urinary burning or frequency on 09/11/2024atient is alert and oriented 3. Sodium improving to 126nephrology services following. Current vital signs temp 97.6, heart rate 98, respiratory rate 18, blood pressure 130/62 with a pulse ox 99% on room air. Patient denies chest pain or shortness of breath. Patient denies nausea vomiting or diarrhea. Patient denies any urinary burning or frequency Objective - Vital Signs Vital signs: Vital Signs Temp 97.6 F 09/11/24 10:15 Pulse 98 09/11/24 10:15 Resp 18 09/11/24 10:15 BP 130/62 09/11/24 10:15 Pulse Ox 99 09/11/24 10:15 FiO2 Intake & Output 09/10/24 09/11/24 09/11/24 18:59 06:59 18:59 Intake Total 240 Output Total 600 600 Balance -600 -360 Weight 67 kg Intake: Oral 240 Output: Urine 600 600 Other: Voiding Method Toilet Toilet # Voids 1 - Exam In general patient is alert and oriented x 3 in no distress HEENT head normocephalic and atraumatic Neck is supple no JVD no goiter no lymphadenopathy no carotid bruit Chest examination is clear to auscultation no crackles no wheezing Cardiac exam reveals regular heart sounds S1 and S2 no gallops no murmurs Abdomen is soft nontender no organomegaly with normal bowel sounds Extremity exam reveals no edema no cyanosis or clubbing Neurological examination reveals no gross focal deficits - Labs CBC & Chem 7: 09/11/24 06:46 09/11/24 06:46 Labs: Abnormal Lab Results - Last 24 Hours (Table) 09/10/24 09/10/24 09/11/24 Range/Units 12:19 20:04 06:46 RBC 4.16 L (4.30-5.90) m/uL MCV 100.1 H (80.0-100.0) fL Neutrophils # 8.4 H (1.3-7.7) k/uL Lymphocytes # 0.7 L (1.0-4.8) k/uL Sodium 120 L 122 L (137-145) mmol/L Chloride (98-107) mmol/L BUN (9-20) mg/dL Creatinine (0.66-1.25) mg/dL Glucose (74-99) mg/dL Total Bilirubin (0.2-1.3) mg/dL 09/11/24 Range/Units 06:46 RBC (4.30-5.90) m/uL MCV (80.0-100.0) fL Neutrophils # (1.3-7.7) k/uL Lymphocytes # (1.0-4.8) k/uL Sodium 126 L (137-145) mmol/L Chloride 95 L (98-107) mmol/L BUN 8 L (9-20) mg/dL Creatinine 0.56 L (0.66-1.25) mg/dL Glucose 114 H (74-99) mg/dL Total Bilirubin 1.7 H (0.2-1.3) mg/dL Assessment and Plan Plan: Severe hyponatremia Multiple falls with head trauma Dizziness Alcohol abuse with early alcohol withdrawal Underlying history of hypertension Underlying history of COPD Underlying history of hyperlipidemia Underlying history of coronary artery disease At this time patient will be admitted to medical floor He was started on IV fluid normal saline at 75 cc/h He was also started on CIWA protocol and thiamine [facility] was initiated in the emergency room Will follow closely
--- NOTE | 2024-09-11 12:26 | P.PN ---
Subjective patient is seen for follow-up for hyponatremia with underlying history of EtOH abuse. Maintained on normal saline. Serum sodium improved to 126 today. Objective - Vital Signs Vital signs: Vital Signs Temp 97.6 F 09/11/24 10:15 Pulse 98 09/11/24 10:15 Resp 18 09/11/24 10:15 BP 130/62 09/11/24 10:15 Pulse Ox 99 09/11/24 10:15 FiO2 Intake & Output 09/10/24 09/11/24 09/11/24 18:59 06:59 18:59 Intake Total 240 Output Total 600 600 Balance -600 -360 Weight 67 kg Intake: Oral 240 Output: Urine 600 600 Other: Voiding Method Toilet Toilet # Voids 1 - Exam patient is awake, comfortable, no acute distress. Alert oriented 3. Examination of the heart S1 and S2 Examination of the lungs bilateral breath sounds are heard Abdomen is soft nontender Examination of lower extremities shows no evidence of edema [employer]ING [employer] exam grossly intact - Labs CBC & Chem 7: 09/11/24 06:46 09/11/24 06:46 Labs: Abnormal Lab Results - Last 24 Hours (Table) 09/10/24 09/10/24 09/11/24 Range/Units 12:19 20:04 06:46 RBC 4.16 L (4.30-5.90) m/uL MCV 100.1 H (80.0-100.0) fL Neutrophils # 8.4 H (1.3-7.7) k/uL Lymphocytes # 0.7 L (1.0-4.8) k/uL Sodium 120 L 122 L (137-145) mmol/L Chloride (98-107) mmol/L BUN (9-20) mg/dL Creatinine (0.66-1.25) mg/dL Glucose (74-99) mg/dL Total Bilirubin (0.2-1.3) mg/dL 09/11/24 Range/Units 06:46 RBC (4.30-5.90) m/uL MCV (80.0-100.0) fL Neutrophils # (1.3-7.7) k/uL Lymphocytes # (1.0-4.8) k/uL Sodium 126 L (137-145) mmol/L Chloride 95 L (98-107) mmol/L BUN 8 L (9-20) mg/dL Creatinine 0.56 L (0.66-1.25) mg/dL Glucose 114 H (74-99) mg/dL Total Bilirubin 1.7 H (0.2-1.3) mg/dL Assessment and Plan Assessment: 1. Hyponatremia, hypovolemic and secondary to EtOH abuse. Serum sodium has improved with normal saline. No hypokalemia noted. 2. Multiple falls with head trauma post likely associated with EtOH abuse and likely low blood pressure 3. History of hypertension 4. History of COPD 5. Hypomagnesemia associated with poor oral intake and EtOH abuse Plan: continue with normal saline. check magnesium Sodium chloride tab 1 Encouraged increased oral intake.
[2024-09-11] MEDS: SODIUM CHLORIDE TAB 1 GM TAB PO STA (14:51)
[2024-09-12 07:43] LABS: Basophils % (A) 1 %; Eosinophils # (A) 0.1 k/uL (0-0.7); Eosinophils % (A) 1 %; HCT 40.7 % (39.0-53.0); HGB 13.7 gm/dL (13.0-17.5); Lymphocytes # (A) 0.9 k/uL (1.0-4.8); Lymphocytes % (A) 11 %; MCH 33.6 pg (25.0-35.0); MCHC 33.5 g/dL (31.0-37.0); MCV 100.3 fL (80.0-100.0); Mean Platelet Volume 8.1; Monocytes # (A) 0.7 k/uL (0-1.0); Monocytes % (A) 8 %; Neutrophils # (A) 6.3 k/uL (1.3-7.7); Neutrophils % (A) 76 %; Platelet Count 331 k/uL (150-450); RBC 4.06 m/uL (4.30-5.90); RDW 12.1 % (11.5-15.5); WBC 8.3 k/uL (3.8-10.6)
[2024-09-12 08:01] LABS: ALT 26 U/L (4-49); AST 30 U/L (17-59); African American GFR (CKD) >90 (>60 ml/min/1.73 sqM); Alkaline Phosphatase 52 U/L (38-126); Anion Gap 10 mmol/L; Blood Urea Nitrogen 8 mg/dL (9-20); Calcium 9.1 mg/dL (8.4-10.2); Carbon Dioxide 23 mmol/L (22-30); Chloride 97 mmol/L (98-107); Glucose 93 mg/dL (74-99); Magnesium 1.4 mg/dL (1.6-2.3); Non-African American GFR(CKD) >90 (>60 ml/min/1.73 sqM); Potassium 4.1 mmol/L (3.5-5.1); Sodium 130 mmol/L (137-145); Total Bilirubin 1.8 mg/dL (0.2-1.3); Total Protein 6.8 g/dL (6.3-8.2)
[2024-09-12] MEDS ORDERED: Magnesium Replacement Protocol 1 EACH MISC MISCELLANE PRN (08:09)
[2024-09-12] MEDS: MAGNESIUM SULFATE-D5W PMX 1 GM in DEXTROSE/WATER 1 100ML.BAG IVPB SCH (09:10)
[2024-09-12 09:14] VITALS: RESP 19
[2024-09-12 10:43] VITALS: BP 186/97; PULSE 84; TEMP 97.4
--- NOTE | 2024-09-12 11:49 | P.DS ---
Providers Date of admission: 09/09/24 07:26 Expected date of discharge: 09/12/24 Attending physician: Jose Mason Consults: 09/09/24 15:22 Consult Physician Routine Consulting Provider: Rachel Meadows Consult Reason/Comments: Hyponatremia Do you want consulting provider notified?: Yes [facility]: Diagnosis on discharge: Severe hyponatremia Multiple falls with head trauma Dizziness Alcohol abuse with early alcohol withdrawal Underlying history of hypertension Underlying history of COPD Underlying history of hyperlipidemia Underlying history of coronary artery disease Hospital course: Rory Head, is a 69-year-old male who presented to [facility] emergency room with a chief complaint of recurrent falls, patient stated that he fell at home and he had trauma to his head, he denies any loss of consciousness. He was evaluated in the emergency room vital examination on presentation revealed a temperature of 97.5 pulse 85 respiration 14 blood pressure 160/85 pulse ox 97% on room air Laboratory data revealed a white blood count of 8.3 hemoglobin 14.8 platelet count 309 sodium 114 potassium 4.2 chloride 81 CO2 21 BUN 9 creatinine 0.69 serum alcohol level was 25 Testing in the emergency room revealed CT scan of the brain was done in the emergency room without contrast and revealed scalp contusion and laceration no intracranial abnormality with moderate burden of chronic small vessel disease and cerebral atrophy and an old fracture of the left orbital wall. CT scan of the neck revealed no acute fracture of the cervical spine with moderate multilevel spondylitic changes with mild progression since 2021 and multilevel degenerative disc disease Patient was admitted to medical floor for further evaluation and treatment Past medical history is significant for history of coronary artery disease, history of COPD, history of hypertension, history of hyperlipidemia, and chronic history of daily alcohol and tobacco use. On review of systems patient is alert and oriented x 3 in no apparent distress he denies any complaints at this time there is no fever or chills no headache or dizziness no chest pain no shortness of breath no cough no nausea or vomiting no abdominal pain no diarrhea no blood in the stools no burning with urination no frequency or urgency and no hematuria On 09/10/2024 patient is alert and oriented x 3 sodium improving to 120 awaiting nephrology input. Patient remains on alcohol withdrawal protocol. Current vital signs temp 97.8, heart rate 78, respiratory rate 18, blood pressure 94% on room air. Patient denies chest pain or shortness of breath. Patient denies nausea vomiting or diarrhea. Patient denies any urinary burning or frequency on 09/11/2024 patient is alert and oriented 3. Sodium improving to 126nephrology services following. Current vital signs temp 97.6, heart rate 98, respiratory rate 18, blood pressure 130/62 with a pulse ox 99% on room air. Patient denies chest pain or shortness of breath. Patient denies nausea vomiting or diarrhea. Patient denies any urinary burning or frequency On 09/12/2024 patient was seen and examined he is alert and oriented in no apparent distress he is unhappy because he is still in an emergency room bed for the third day he wanted to leave AGAINST MEDICAL ADVICE he was counseled regarding nephrology recommendation however he decided to leave the hospital AGAINST MEDICAL ADVICE Plan - Discharge Summary Discharge Rx Participant: No New Discharge Prescriptions: No Action Losartan Potassium 100 mg PO DAILY Albuterol Sulfate [Ventolin HFA] 2 puff INHALATION RT-Q4H PRN PRN Reason: Shortness Of Breath Fluticasone/Umeclidin/Vilanter [Trelegy Ellipta 100-62.5-25] 1 puff INHALATION RT-DAILY Aspirin EC [Ecotrin Low Dose] 81 mg PO DAILY Discharge Medication List Albuterol Sulfate [Ventolin HFA] 2 puff INHALATION RT-Q4H PRN 01/27/20 [History] Losartan Potassium 100 mg PO DAILY 01/27/20 [History] Fluticasone/Umeclidin/Vilanter [Trelegy Ellipta 100-62.5-25] 1 puff INHALATION RT-DAILY 04/21/22 [History] Aspirin EC [Ecotrin Low Dose] 81 mg PO DAILY 09/09/24 [History] Follow up Appointment(s)/Referral(s): Jose Mason MD [Primary Care Provider] - 1-2 days Discharge/Stand Alone Forms: AA Meetings [facility] [facility], Who Do I Call?, Community Resources, Help In The Home, Outpatient Counseling, Inp Substance Abuse Facilities, [employer] Discharge Disposition: HOME SELF-CARE
== END 2024-09-12 10:03 | disposition home or self-care (01) | DRG 897 ==
LOC: EC 06:36 → 3SCARD 07:26
PROVIDERS: ADMIT Internal Medicine; ATTEND Internal Medicine
PROC: 0HQ0XZZ Repair Scalp Skin, External Approach (ICD-10-PCS; principal; 2024-09-09)
DX: F10.139 Alcohol abuse with withdrawal, unspecified (principal); E87.1 Hypo-osmolality and hyponatremia; E78.5 Hyperlipidemia, unspecified; E83.42 Hypomagnesemia; E86.1 Hypovolemia; F17.210 Nicotine dependence, cigarettes, uncomplicated; I10 Essential (primary) hypertension; R29.6 Repeated falls; Z91.81 History of falling; I25.10 Atherosclerotic heart disease of native coronary artery without angina pectoris; J44.9 Chronic obstructive pulmonary disease, unspecified; S01.01XA Laceration without foreign body of scalp, initial encounter; W19.XXXA Unspecified fall, initial encounter; Y90.1 Blood alcohol level of 20-39 mg/100 ml; Y92.009 Unspecified place in unspecified non-institutional (private) residence as the place of occurrence of the external cause; Z79.82 Long term (current) use of aspirin; Z71.41 Alcohol abuse counseling and surveillance of alcoholic
CPT/HCPCS: 36415; 70450; 72125; 80053; 80320; 83735; 83935; 84295; 84300; 85025; 93005; 94640; 96361; 96365; 96366; 96375; 99285

== ENCOUNTER 2024-09-25 11:22 | Inpatient (IN) | payer MEDICARE, OTHER ==
--- NOTE | 2024-09-25 12:23 | ED ---
Weakness HPI - General Chief complaint: Weakness Stated complaint: Weakness-sent by PCP Time Seen by Provider: 09/25/24 12:22 Source: patient, family, RN notes reviewed Mode of arrival: wheelchair Limitations: no limitations - History of Present Illness Initial comments: 69-year-old male presenting to the ER for evaluation of weakness. Patient sent by Dr. Mason. Patient is accompanied by his son and . Son is providing majority of HPI and past medical history. Patient has a past medical history significant of COPD, hypertension, hyperlipidemia. His son states patient and his drink alcohol heavily and smoke cigarettes. For the past 2 weeks patient has been extremely weak and having frequent falls. Patient fell twice today. Son does report patient typically hits his head. Patient was recently admitted here due to a fall with head injury, hyponataremia and hypomagnesmia on 09/09/24. He is not on any blood thinning medications. Patient denies any current complaints. Son states patient will not complain of pain "ever". denies any known fevers or chills. No other complaints. - Related Data Home Medications Medication Instructions Recorded Confirmed Albuterol Sulfate [Ventolin HFA] 2 puff INHALATION RT-Q4H PRN 01/27/20 09/25/24 Losartan Potassium 100 mg PO DAILY 01/27/20 09/25/24 Fluticasone/Umeclidin/Vilanter 1 puff INHALATION RT-DAILY 04/21/22 09/25/24 [Trelegy Ellipta 100-62.5-25] Aspirin EC [Ecotrin Low Dose] 81 mg PO DAILY 09/09/24 09/25/24 Allergies Allergy/AdvReac Type Severity Reaction Status Date / Time No Known Allergies Allergy Verified 09/25/24 13:03 Review of Systems ROS Statement: Those systems with pertinent positive or pertinent negative responses have been documented in the HPI. ROS Other: All systems not noted in ROS Statement are negative. Past Medical History Past Medical History: Chest Pain / Angina, COPD, Hyperlipidemia, Hypertension History of Any Multi-Drug Resistant Organisms: None Reported Past Surgical History: Appendectomy Past Anesthesia/Blood Transfusion Reactions: No Reported Reaction Past Psychological History: No Psychological Hx Reported Smoking Status: Current every day smoker Past Alcohol Use History: Daily Past Drug Use History: Marijuana - Past Family History Mother History Unknown: Yes Additional Family Medical History / Comment(s): Father Additional Family Medical History / Comment(s): from complications of injuries after falling down stairs. General Exam Limitations: no limitations General appearance: alert, in no apparent distress Respiratory exam: Present: normal lung sounds bilaterally, rhonchi (all lung tello). Absent: respiratory distress, wheezes, rales, stridor Cardiovascular Exam: Present: regular rate, normal rhythm, normal heart sounds. Absent: systolic murmur, diastolic murmur, rubs, gallop, clicks GI/Abdominal exam: Present: soft, normal bowel sounds. Absent: distended, tend erness, guarding, rebound, rigid Extremities exam: Present: normal inspection, full ROM, normal capillary refill. Absent: tenderness, pedal edema, joint swelling, calf tenderness Neurological exam: Present: alert, oriented X3 (slow to respond), CN II-XII intact Skin exam: Present: warm, dry, intact, normal color. Absent: rash Course Vital Signs 09/25/24 09/25/24 09/25/24 11:40 13:51 14:03 Temperature 97.9 F Pulse Rate 80 89 83 Respiratory 18 18 Rate Blood Pressure 111/67 152/79 O2 Sat by Pulse 96 98 Oximetry 09/25/24 09/25/24 14:11 15:00 Temperature Pulse Rate 85 85 Respiratory 18 Rate Blood Pressure 119/68 O2 Sat by Pulse 97 Oximetry - Reevaluation(s) Reevaluation #1: 09/25/24 14:38 Case was discussed with , nephrology, who advised on repeat sodium, urine osmolality and urine sodium. She asked to be recontacted once resulted. 09/25/24 15:45 Case discussed with nephrology, . New sodium was discussed with her. She advised starting patient on normal saline 0.9% at 75 cc/h and to recheck sodium in 2 hours. 09/25/24 15:[address] Mason for admission. He is agreeable with ICU admission. 09/25/24 16:[address] Joe for ICU admission. EKG Findings - EKG Comments: EKG Findings:: EKG taken at 12: 55 showing a sinus rhythm with a first-degree AV block. No acute ST segment or T wave abnormalities. Ventricular rate 78, [place] interval 220, QRS duration 96, QT/QTc 407/440 Medical Decision Making - Medical Decision Making Was pt. sent in by a medical professional or institution (, ENRIKE, ROSS CARRIER DRIVER, urgent care, hospital, or prison...) When possible be specific @ -Patient sent by Dr. Mason for further evaluation of weakness. Did you speak to anyone other than the patient for history (EMS, parent, family, police, friend...)? What history was obtained from this source @ -Son providing majority of HPI and past medical history. is also aiding. Did you review nursing and triage notes (agree or disagree)? Why? @ -I reviewed and agree with nursing and triage notes Were old charts reviewed (outside hosp., previous admission, EMS record, old EKG, old radiological studies, urgent care reports/EKG's, prison records)? Report findings @ -ER visit and admission from 09-09-2024. Patient seen here for a fall and weakness. Patient admitted for hyponatremia and hypomagnesemia. Differential Diagnosis (chest pain, altered mental status, abdominal pain women, abdominal pain men, vaginal bleeding, weakness, fever, dyspnea, syncope, headache, dizziness, GI bleed, back pain, seizure, CVA, palpatations, mental health, musculoskeletal)? @ -Differential Weakness:Hypoglycemia, shock, sepsis, hyponatremia, anemia, infection, ND, ETOH, adverse medicine reaction, overdose, stroke, this is not meant to be an all-inclusive list. EKG interpreted by me (3pts min.). @ -As above X-rays interpreted by me (1pt min.). @ -CXR interpreted by me negative for acute cardiopulmonary process. COPD changes. CT interpreted by me (1pt min.). @ -CT brain showing no acute intracranial process. Remote lacunar injuries. U/S interpreted by me (1pt. min.). @ -None done What testing was considered but not performed or refused? (CT, X-rays, U/S, labs)? Why? @ -None What meds were considered but not given or refused? Why? @ -None Did you discuss the management of the patient with other professionals (professionals i.e. ENRIKE Benedict, ROSS CARRIER DRIVER, lab, RT, psych nurse, nephrology social worker, human resources executive assistant, teacher, bsa officer, case therapist)? Give summary @ -Yes, case discussed with Dr. Meadows, nephrology. She advised to recheck sodium, urine osmolality, and urine sodium. Case were discussed with Dr. Meadows who advised to start patient on 75 cc/h and recheck sodium in 2 hours. Case discussed with Dr. Mason for admission he is agreeable for ICU admission. Case discussed with Dr. Joe for ICU admission. Was smoking cessation discussed for >3mins.? @ -No Was critical care preformed (if so, how long)? @ -Yes, 45 minutes for hyponatremia and ICU admission Were there social determinants of health that impacted care today? How? (Homelessness, low income, unemployed, alcoholism, drug addiction, transportation, low edu. Level, literacy, decrease access to med. care, [facility], re hab)? @ -Alcoholism patient states he typically drinks 3 beers a day. Since previous admission states he is only had 1 beer. Was there de-escalation of care discussed even if they declined (Discuss DNR or withdrawal of care, Hospice)? DNR status @ -No What co-morbidities impacted this encounter? (DM, HTN, Smoking, COPD, CAD, Cancer, CVA, ARF, Chemo, Hep., AIDS, mental health diagnosis, sleep apnea, morbid obesity)? @ -Alcoholism, COPD, hypertension Was patient admitted / discharged? Hospital course, mention meds given and route, prescriptions, significant lab abnormalities, going to OR and other pertinent info. @ -Admitted. 69-year-old male presenting to the ER for evaluation of weakness and multiple falls. History and physical exam completed. Vitals upon arrival stable. Patient in no signs of acute distress nontoxic-appearing. Patient is Ax O x 3 but is slowly responding to questions. Patient denying any current pain. CBC unimpressive. CMP showing hyponatremia at 103, potassium 4.1, chloride 70, carbon dioxide 25. GFR of greater than 90 with a creatinine of 0.48 and BUN of 11. Magnesium 1.3. Total bilirubin 1.7 and AST 84. Serum alcohol less than 10. Troponin undetectable. Urinalysis showing 1+ ketones concerning of dehydration. Patient received 1 L of normal saline 0.9% bolus in the ER. Case was discussed with nephrology, Dr. Maedows who advised on repeating sodium after bolus. Repeat sodium 104. Case was again discussed with Dr. Meadows who advised starting the patient on 75 cc/h of 0.9% normal saline. Sodium redraw in 2 hours. Orders placed. Case was discussed with Dr. Mason for admission and Dr. Joe for ICU admission. Patient received DuoNeb treatment in the ER. Magnesium replacement protocol ordered. Nephrology on consult. Urine osmolality and urine sodium pending at time of admission. Patient admitted to ICU in stable condition for further evaluation and treatment. Patient is agreeable. Case discussed with ED attending, Dr. Jameson. Undiagnosed new problem with uncertain prognosis? @ -No Drug Therapy requiring intensive monitoring for toxicity (Heparin, Nitro, Insulin, Cardizem)? @ -No Were any procedures done? @ -No Diagnosis/symptom? @ -Hyponatremia/hypomagnesemia/weakness Acute, or Chronic, or Acute on Chronic? @ -Acute Uncomplicated (without systemic symptoms) or Complicated (systemic symptoms)? @ -Complicated Side effects of treatment? @ -No Exacerbation, Progression, or Severe Exacerbation? @ -No Poses a threat to life or bodily function? How? (Chest pain, USA, ND, pneumonia, PE, COPD, DKA, ARF, appy, cholecystitis, CVA, Diverticulitis, Homicidal, Suicidal, threat to staff... and all critical care pts) @ -Yes, electrolyte abnormalities can lead to seizures and cardiac arrhythmias. - Lab Data Result diagrams: 09/25/24 13:02 09/25/24 14:41 Lab Results 09/25/24 09/25/24 09/25/24 Range/Units 13:02 13:02 13:02 WBC 9.7 (3.8-10.6) k/uL RBC 4.10 L (4.30-5.90) m/uL Hgb 13.7 (13.0-17.5) gm/dL Hct 37.3 L (39.0-53.0) % MCV 91.0 D (80.0-100.0) fL MCH 33.3 (25.0-35.0) pg MCHC 36.6 (31.0-37.0) g/dL RDW 11.6 (11.5-15.5) % Plt Count 293 (150-450) k/uL MPV 8.3 Neutrophils % 87 % Lymphocytes % 5 % Monocytes % 6 % Eosinophils % 0 % Basophils % 0 % Neutrophils # 8.4 H (1.3-7.7) k/uL Lymphocytes # 0.5 L (1.0-4.8) k/uL Monocytes # 0.6 (0-1.0) k/uL Eosinophils # 0.0 (0-0.7) k/uL Basophils # 0.0 (0-0.2) k/uL Hyperchromasia Moderate PT 9.6 L (10.0-12.5) sec INR 0.8 (<1.2) APTT 30.5 H (22.0-30.0) sec Sodium 103 L* (137-145) mmol/L Potassium 4.1 (3.5-5.1) mmol/L Chloride 70 L* (98-107) mmol/L Carbon Dioxide 25 (22-30) mmol/L Anion Gap 8 mmol/L BUN 11 (9-20) mg/dL Creatinine 0.48 L (0.66-1.25) mg/dL Est GFR (CKD-EPI)AfAm >90 (>60 ml/min/1.73 sqM) Est GFR (CKD-EPI)NonAf >90 (>60 ml/min/1.73 sqM) Glucose 86 (74-99) mg/dL Plasma Lactic Acid Kenneth (0.7-2.0) mmol/L Calcium 8.9 (8.4-10.2) mg/dL Magnesium 1.3 L (1.6-2.3) mg/dL Total Bilirubin 1.7 H (0.2-1.3) mg/dL AST 84 H (17-59) U/L ALT 36 (4-49) U/L Alkaline Phosphatase 64 (38-126) U/L Troponin I (0.000-0.034) ng/mL Total Protein 6.7 (6.3-8.2) g/dL Albumin 4.3 (3.5-5.0) g/dL Urine Color Urine Appearance (Clear) Urine pH (5.0-8.0) Ur Specific Merrill (1.001-1.035) Urine Protein (Negative) Urine Glucose (UA) (Negative) Urine Ketones (Negative) Urine Blood (Negative) Urine Nitrite (Negative) Urine Bilirubin (Negative) Urine Urobilinogen (<2.0) mg/dL Ur Leukocyte Esterase (Negative) Serum Alcohol <10 mg/dL 09/25/24 09/25/24 09/25/24 Range/Units 13:02 13:54 14:41 WBC (3.8-10.6) k/uL RBC (4.30-5.90) m/uL Hgb (13.0-17.5) gm/dL Hct (39.0-53.0) % MCV (80.0-100.0) fL MCH (25.0-35.0) pg MCHC (31.0-37.0) g/dL RDW (11.5-15.5) % Plt Count (150-450) k/uL MPV Neutrophils % % Lymphocytes % % Monocytes % % Eosinophils % % Basophils % % Neutrophils # (1.3-7.7) k/uL Lymphocytes # (1.0-4.8) k/uL Monocytes # (0-1.0) k/uL Eosinophils # (0-0.7) k/uL Basophils # (0-0.2) k/uL Hyperchromasia PT (10.0-12.5) sec INR (<1.2) APTT (22.0-30.0) sec Sodium (137-145) mmol/L Potassium (3.5-5.1) mmol/L Chloride (98-107) mmol/L Carbon Dioxide (22-30) mmol/L Anion Gap mmol/L BUN (9-20) mg/dL Creatinine (0.66-1.25) mg/dL Est GFR (CKD-EPI)AfAm (>60 ml/min/1.73 sqM) Est GFR (CKD-EPI)NonAf (>60 ml/min/1.73 sqM) Glucose (74-99) mg/dL Plasma Lactic Acid Kenneth 1.0 (0.7-2.0) mmol/L Calcium (8.4-10.2) mg/dL Magnesium (1.6-2.3) mg/dL Total Bilirubin (0.2-1.3) mg/dL AST (17-59) U/L ALT (4-49) U/L Alkaline Phosphatase (38-126) U/L Troponin I <0.012 (0.000-0.034) ng/mL Total Protein (6.3-8.2) g/dL Albumin (3.5-5.0) g/dL Urine Color Light Yellow Urine Appearance Clear (Clear) Urine pH 6.5 (5.0-8.0) Ur Specific Merrill 1.009 (1.001-1.035) Urine Protein Negative (Negative) Urine Glucose (UA) Negative (Negative) Urine Ketones 1+ H (Negative) Urine Blood Negative (Negative) Urine Nitrite Negative (Negative) Urine Bilirubin Negative (Negative) Urine Urobilinogen <2.0 (<2.0) mg/dL Ur Leukocyte Esterase Negative (Negative) Serum Alcohol mg/dL 09/25/24 Range/Units 14:41 WBC (3.8-10.6) k/uL RBC (4.30-5.90) m/uL Hgb (13.0-17.5) gm/dL Hct (39.0-53.0) % MCV (80.0-100.0) fL MCH (25.0-35.0) pg MCHC (31.0-37.0) g/dL RDW (11.5-15.5) % Plt Count (150-450) k/uL MPV Neutrophils % % Lymphocytes % % Monocytes % % Eosinophils % % Basophils % % Neutrophils # (1.3-7.7) k/uL Lymphocytes # (1.0-4.8) k/uL Monocytes # (0-1.0) k/uL Eosinophils # (0-0.7) k/uL Basophils # (0-0.2) k/uL Hyperchromasia PT (10.0-12.5) sec INR (<1.2) APTT (22.0-30.0) sec Sodium 104 L* (137-145) mmol/L Potassium (3.5-5.1) mmol/L Chloride (98-107) mmol/L Carbon Dioxide (22-30) mmol/L Anion Gap mmol/L BUN (9-20) mg/dL Creatinine (0.66-1.25) mg/dL Est GFR (CKD-EPI)AfAm (>60 ml/min/1.73 sqM) Est GFR (CKD-EPI)NonAf (>60 ml/min/1.73 sqM) Glucose (74-99) mg/dL Plasma Lactic Acid Kenneth (0.7-2.0) mmol/L Calcium (8.4-10.2) mg/dL Magnesium (1.6-2.3) mg/dL Total Bilirubin (0.2-1.3) mg/dL AST (17-59) U/L ALT (4-49) U/L Alkaline Phosphatase (38-126) U/L Troponin I (0.000-0.034) ng/mL Total Protein (6.3-8.2) g/dL Albumin (3.5-5.0) g/dL Urine Color Urine Appearance (Clear) Urine pH (5.0-8.0) Ur Specific Merrill (1.001-1.035) Urine Protein (Negative) Urine Glucose (UA) (Negative) Urine Ketones (Negative) Urine Blood (Negative) Urine Nitrite (Negative) Urine Bilirubin (Negative) Urine Urobilinogen (<2.0) mg/dL Ur Leukocyte Esterase (Negative) Serum Alcohol mg/dL - Radiology Data Radiology results: report reviewed, image reviewed Disposition Clinical Impression: Hyponatremia, Hypomagnesemia, Weakness Disposition: ADMITTED IP TO THIS [facility] Condition: Stable Referrals: Jose Mason MD [Primary Care Provider] - 1-2 days Time of Disposition: 16:09
[2024-09-25] MEDS: SODIUM CHLORIDE 0.9% 1,000 ML IV STA ×2 (13:00→16:22)
[2024-09-25 13:22] LABS: INR 0.8 (<1.2); Partial Thromboplastin Time 30.5 sec (22.0-30.0); Prothrombin Time 9.6 sec (10.0-12.5)
[2024-09-25 13:27] LABS: ALT 36 U/L (4-49); AST 84 U/L (17-59); African American GFR (CKD) >90 (>60 ml/min/1.73 sqM); Albumin 4.3 g/dL (3.5-5.0); Alcohol <10 mg/dL; Alkaline Phosphatase 64 U/L (38-126); Anion Gap 8 mmol/L; Blood Urea Nitrogen 11 mg/dL (9-20); Calcium 8.9 mg/dL (8.4-10.2); Carbon Dioxide 25 mmol/L (22-30); Glucose 86 mg/dL (74-99); Magnesium 1.3 mg/dL (1.6-2.3); Non-African American GFR(CKD) >90 (>60 ml/min/1.73 sqM); Potassium 4.1 mmol/L (3.5-5.1); Total Bilirubin 1.7 mg/dL (0.2-1.3); Total Protein 6.7 g/dL (6.3-8.2)
[2024-09-25 13:33] LABS: Chloride 70 mmol/L (98-107); Sodium 103 mmol/L (137-145)
[2024-09-25 13:35] LABS: Basophils % (A) 0 %; Eosinophils % (A) 0 %; HCT 37.3 % (39.0-53.0); HGB 13.7 gm/dL (13.0-17.5); Hyperchromasia Moderate; Lymphocytes # (A) 0.5 k/uL (1.0-4.8); Lymphocytes % (A) 5 %; MCH 33.3 pg (25.0-35.0); MCHC 36.6 g/dL (31.0-37.0); Mean Platelet Volume 8.3; Monocytes # (A) 0.6 k/uL (0-1.0); Monocytes % (A) 6 %; Neutrophils # (A) 8.4 k/uL (1.3-7.7); Neutrophils % (A) 87 %; Platelet Count 293 k/uL (150-450); RDW 11.6 % (11.5-15.5); WBC 9.7 k/uL (3.8-10.6)
--- NOTE | 2024-09-25 13:36 | XR ---
EXAMINATION TYPE: XR chest 2V DATE OF EXAM: 09/25/2024 1:20 PM COMPARISON: Chest radiographs from 06/17/2024 CLINICAL INDICATION: Male, 69 years old with history of Weakness; [facility] TECHNIQUE: XR chest 2V Frontal and lateral views of the chest. FINDINGS: Lungs/Pleura: There is flattening of the diaphragm with increased lucency of the lungs. No evidence o f pneumothorax, pleural effusion or focal consolidation. Pulmonary vascularity: Unremarkable. Heart/mediastinum: Cardiomediastinal silhouette is unremarkable. Atherosclerotic calcifications are seen in the aorta. Musculoskeletal: No acute osseous pathology. Other findings: None Lines/Tubes: IMPRESSION: 1. No acute cardiopulmonary disease process. 2. COPD changes. [facility], , 09/25/2024 1:33 PM
--- NOTE | 2024-09-25 14:00 | CT ---
EXAMINATION TYPE: CT brain wo con CT DLP: 1135.4 mGycm, Automated exposure control for dose reduction was used. DATE OF EXAM: 09/25/2024 1:49 PM COMPARISON: CT Brain C-spine 09/09/2024 CLINICAL INDICATION:Male, 69 years old with history of fall/weakness, fall/weakness TECHNIQUE: Brain: Multiple axial CT images of the brain were obtained without IV contrast. . Coronal and sagitta l reformats reviewed. FINDINGS: Brain: Extra-axial spaces: No abnormal extra-axial fluid collections. Unchanged dense dural calcification al cruz the anterior falx. Ventricular system: Within normal limits Cerebral parenchyma: Mild cerebral volume loss. No acute intraparenchymal hemorrhage or mass effect. The moeller-white junction is well differentiated. Scattered hypoattenuating areas are seen within the periventricular subcortical white matter. 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 Cerebellum: Unremarkable. Mass effect: No evidence of midline shift. Intracranial vasculature: Atherosclerotic calcifications of the intracranial vessels. Soft tissues: Redemonstration of right parietal scalp contusion with laceration. Calvarium/osseous structures: No depressed skull fracture. Remote left medial maxillary wall fracture . Paranasal sinuses and mastoid air cells: Trace fluid within the inferior right mastoid air is again. Remaining paranasal sinuses are clear. Visualized orbits: Orbital contents are intact. IMPRESSION: 1. No acute intracranial process. 2. Remote lacunar injuries along with nonspecific white matter changes likely secondary to chronic mi croangiopathy. 3. Redemonstration of right parietal scalp contusion with laceration. [facility], , 09/25/2024 1:58 PM
[2024-09-25] MEDS: IPRATROPIUM-ALBUTEROL 3 ML NEB INHALATION STA (14:03)
[2024-09-25 14:50] LABS: Appearance,Urine Clear (Clear); Bilirubin,Urine Negative (Negative); Blood,Urine Negative (Negative); Color,Urine Light Yellow; Glucose,Urine (UA) Negative (Negative); Ketones,Urine 1+ (Negative); Leukocyte Esterase,Urine Negative (Negative); Nitrite,Urine Negative (Negative); PH, Urine 6.5 (5.0-8.0); Protein,Urine Negative (Negative); Specific Gravity,Urine 1.009 (1.001-1.035); Urobilinogen,Urine <2.0 mg/dL (<2.0)
[2024-09-25] MEDS ORDERED: NALOXONE 0.4 MG/ML 1 ML VIAL IV PRN (16:00)
[2024-09-25] MEDS ORDERED: Magnesium Replacement Protocol 1 EACH MISC MISCELLANE PRN (16:06)
[2024-09-25] MEDS: MAGNESIUM SULFATE-D5W PMX 1 GM in DEXTROSE/WATER 1 100ML.BAG IVPB SCH (17:11)
[2024-09-25 21:42] LABS: Glucose,Whole Blood 105 mg/dL (70-110)
[2024-09-25] MEDS: SODIUM CHLORIDE 3%(HYPERTONIC) 500 ML IV ONE (22:40)
[2024-09-26] MEDS ORDERED: NALOXONE 0.4 MG/ML 1 ML VIAL IV PRN (00:08)
[2024-09-26] MEDS: DEXTROSE 5%-0.45% NACL 1,000 ML IV SCH (00:56)
[2024-09-26 06:02] LABS: African American GFR (CKD) >90 (>60 ml/min/1.73 sqM); Anion Gap 6 mmol/L; Blood Urea Nitrogen 7 mg/dL (9-20); Calcium 8.1 mg/dL (8.4-10.2); Carbon Dioxide 19 mmol/L (22-30); Chloride 85 mmol/L (98-107); Glucose 77 mg/dL (74-99); Magnesium 1.9 mg/dL (1.6-2.3); Non-African American GFR(CKD) >90 (>60 ml/min/1.73 sqM); Potassium 3.3 mmol/L (3.5-5.1)
[2024-09-26 06:03] LABS: Sodium 110 mmol/L (137-145)
[2024-09-26] MEDS: POTASSIUM CHLORIDE 10 MEQ in WATER FOR INJECTION 1 100ML.BAG IVPB SCH (06:24)
[2024-09-26] MEDS: MAGNESIUM SULFATE-D5W PMX 1 GM in DEXTROSE/WATER 1 100ML.BAG IVPB ONE (06:26)
[2024-09-26 06:40] LABS: HGB 12.4 gm/dL (13.0-17.5); MCH 32.5 pg (25.0-35.0); MCHC 34.5 g/dL (31.0-37.0); MCV 94.1 fL (80.0-100.0); Mean Platelet Volume 7.9; Platelet Count 259 k/uL (150-450); RBC 3.82 m/uL (4.30-5.90); RDW 11.1 % (11.5-15.5); WBC 8.1 k/uL (3.8-10.6)
[2024-09-26] MEDS ORDERED: IPRATROPIUM-ALBUTEROL 3 ML NEB INHALATION PRN (08:50)
[2024-09-26] MEDS: IPRATROPIUM-ALBUTEROL 3 ML NEB INHALATION SCH (11:34)
--- NOTE | 2024-09-26 11:34 | P.NPCON ---
History of Present Illness - Reason for Consult hyponatremia - History of Present Illness patient is a 69-year-old male with history of EtOH abuse who was admitted to the hospital due to history of weakness. Patient was recently hospitalized about 3 weeks ago with weakness and severe hyponatremia. Serum sodium was 114 on 1028 and improved to 1:30 at the time of discharge. Labs this admission again showed a sodium of 103. It is unclear if patient had significant mental status changes. Patient was started on 3% saline and serum sodium was 110 early this morning at 4 AM. No history of seizures Serum alcohol level was less than 10. Blood pressure was low with systolic blood pressure 90s and 80s. Tolerating oral intake. Urine sodium less than 20. Urine osmolality is pending. It was for 24 on during last admission. Past Medical History Past Medical History: Chest Pain / Angina, COPD, Hyperlipidemia, Hypertension History of Any Multi-Drug Resistant Organisms: None Reported Past Surgical History: Appendectomy Past Anesthesia/Blood Transfusion Reactions: No Reported Reaction Past Psychological History: No Psychological Hx Reported Smoking Status: Current every day smoker Past Alcohol Use History: Daily Additional Past Alcohol Use History / Comment(s): started smoking at age 18, smokes 3/4 ppd. pt admits to drinking 4-24 ounce cans of beer per day. Past Drug Use History: Marijuana Additional Drug Use History / Comment(s): USES MARIJUANA-INSTRUCTED TO REFRAIN FROM USE FOR AT LEAST 24 HOURS PRIOR TO PROCEDURE - Past Family History Mother History Unknown: Yes Additional Family Medical History / Comment(s): Father Additional Family Medical History / Comment(s): from complications of injuries after falling down stairs. Medications and Allergies Home Medications Medication Instructions Recorded Confirmed Type Albuterol Sulfate [Ventolin HFA] 2 puff INHALATION RT-Q4H PRN 01/27/20 09/25/24 History Losartan Potassium 100 mg PO DAILY 01/27/20 09/25/24 History Fluticasone/Umeclidin/Vilanter 1 puff INHALATION RT-DAILY 04/21/22 09/25/24 History [Trelegy Ellipta 100-62.5-25] Aspirin EC [Ecotrin Low Dose] 81 mg PO DAILY 09/09/24 09/25/24 History Allergies Allergy/AdvReac Type Severity Reaction Status Date / Time No Known Allergies Allergy Verified 09/25/24 13:03 Physical Exam Vitals: Vital Signs Temp Pulse Resp BP Pulse Ox 09/26/24 11:00 78 16 108/77 97 09/26/24 10:00 75 15 125/66 96 09/26/24 09:00 85 16 123/66 95 09/26/24 08:00 97.9 F 78 18 125/64 97 09/26/24 07:00 68 10 L 125/68 96 09/26/24 06:45 71 14 120/66 97 09/26/24 06:30 75 16 134/72 97 09/26/24 06:15 122/82 09/26/24 06:00 70 13 115/57 96 09/26/24 05:45 66 11 L 115/60 97 09/26/24 05:30 72 12 93/53 97 09/26/24 05:15 122/82 09/26/24 05:00 68 10 L 106/58 97 09/26/24 04:45 71 13 104/63 97 09/26/24 04:30 75 13 117/72 96 09/26/24 04:15 78 16 126/73 96 09/26/24 04:00 97.7 F 75 15 129/71 96 09/26/24 03:45 78 7 L 111/68 97 09/26/24 03:30 122/82 09/26/24 03:15 75 15 145/112 95 09/26/24 03:00 75 12 150/93 95 09/26/24 02:45 80 19 137/74 91 L 09/26/24 02:30 77 20 91/55 96 09/26/24 02:15 67 12 83/56 96 09/26/24 02:00 67 11 L 111/56 96 09/26/24 01:45 71 10 L 103/55 100 09/26/24 01:30 66 10 L 81/49 96 09/26/24 01:15 122/82 09/26/24 01:00 65 11 L 113/63 96 09/26/24 00:45 67 7 L 65/45 92 L 09/26/24 00:30 122/82 09/26/24 00:15 122/82 09/26/24 00:10 122/82 09/26/24 00:00 97.6 F 68 8 L 115/72 95 09/25/24 23:00 122/82 09/25/24 22:00 122/82 09/25/24 21:30 97.6 F 78 20 138/65 98 09/25/24 21:00 11 L 109/73 09/25/24 20:00 76 16 128/75 97 09/25/24 19:10 81 20 152/80 97 09/25/24 19:00 81 14 98/63 96 09/25/24 18:50 73 18 98/63 97 09/25/24 18:40 77 15 127/84 96 09/25/24 18:30 77 20 134/74 96 09/25/24 18:20 79 18 134/74 97 09/25/24 18:10 80 15 129/66 09/25/24 18:00 81 16 123/79 09/25/24 17:50 84 15 123/79 09/25/24 17:40 85 23 148/85 09/25/24 17:30 87 20 125/65 09/25/24 17:20 87 18 125/65 09/25/24 17:10 86 18 130/107 98 09/25/24 17:00 84 18 125/65 97 09/25/24 16:10 86 18 148/77 96 09/25/24 16:07 89 20 148/77 96 09/25/24 15:00 85 18 119/68 97 09/25/24 14:11 85 09/25/24 14:03 83 09/25/24 13:51 89 18 152/79 98 09/25/24 11:40 97.9 F 80 18 111/67 96 Intake and Output 09/25/24 09/26/24 09/26/24 22:59 06:59 14:59 Intake Total 1394 180 Output Total 300 900 250 Balance -300 494 -70 Intake: IV 1394 180 Magnesium Sulfate-D5w Pmx 100 1 gm In Dextrose/Water 1 100ml.bag @ 100 mls/hr IVPB Q1H REHAN Rx#: [id number] Potassium Chloride 10 meq 100 100 In Water For Injection 1 100ml.bag @ 100 mls/hr IVPB Q1HR REHAN Rx#: [id number] Sodium Chloride 0.9% 1, 999 000 ml @ 999 mls/hr IV . Q1H1M STA Rx#:[id number] Sodium Chloride 3%( 195 80 Hypertonic) 500 ml @ 20 mls/hr IV .Q24H ONE Rx#: [id number] Output: Urine 300 900 250 Other: Voiding Method Urinal Urinal # Voids 2 1 Weight 71.214 kg 71.4 kg patient is awake, comfortable, alert oriented 3. 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 Hyponatremia, hypovolemic and secondary to EtOH abuse. Improved with 3% saline. Urine sodium was less than 20. Urine osmolality is pending. Check random cortisol and TSH. Previous TSH was 0.9 on 03/26/2024. 2. History of EtOH abuse 3. Hypokalemia secondary to poor oral intake Plan: continue 3% saline for now. Check random cortisol level and TSH level Patient will need sodium chloride tablets upon discharge. Next Thank you for the consultation. We will continue to follow the patient with you during his hospitalization
--- NOTE | 2024-09-26 12:00 | P.CNPUL ---
History of Present Illness Consult date: 09/26/24 Requesting physician: Jose Mason Reason for consult: other (ICU management, hyponatremia) Chief complaint: Weakness and recurrent falls History of present illness: This is a 69-year-old white male with history of alcohol abuse, history of chronic hyponatremia related to alcoholism, patient was recently in the hospital/3 weeks ago for symptoms of weakness and hyponatremia, at that time his sodium was 114 treated and improved. Patient is now back in the hospital with similar symptoms of weakness mostly and falling easily. His sodium this time was 103. Patient required placement on 3% saline and admitted to the ICU for 3% infusion. His sodium today is 110, patient is feeling a bit better, he denies any headache denies any blurred vision denies any dizziness denies any chest pain shortness of breath cough or wheezing denies any nausea vomiting or abdominal pain. His sodium is 110 potassium 3.3, BUN is normal creatinine is normal bicarb is 19 Review of Systems REVIEW OF SYSTEMS: CONSTITUTIONAL: Generalized weakness and lightheadedness EYES: Negative. ENT: Negative. CARDIAC: Negative. PULMONARY: Negative GI: Negative. GENITOURINARY: Negative. MUSCULOSKELETAL: Negative. SKIN: Negative. NEUROPSYCH: Negative. ENDOCRINE: Negative. HEMATOLOGIC: Negative. Past Medical History Past Medical History: Chest Pain / Angina, COPD, Hyperlipidemia, Hypertension History of Any Multi-Drug Resistant Organisms: None Reported Past Surgical History: Appendectomy Past Anesthesia/Blood Transfusion Reactions: No Reported Reaction Past Psychological History: No Psychological Hx Reported Smoking Status: Current every day smoker Past Alcohol Use History: Daily Additional Past Alcohol Use History / Comment(s): started smoking at age 18, s mokes 3/4 ppd. pt admits to drinking 4-24 ounce cans of beer per day. Past Drug Use History: Marijuana Additional Drug Use History / Comment(s): USES MARIJUANA-INSTRUCTED TO REFRAIN FROM USE FOR AT LEAST 24 HOURS PRIOR TO PROCEDURE - Past Family History Mother History Unknown: Yes Additional Family Medical History / Comment(s): Father Additional Family Medical History / Comment(s): from complications of injuries after falling down stairs. Medications and Allergies Home Medications Medication Instructions Recorded Confirmed Type Albuterol Sulfate [Ventolin HFA] 2 puff INHALATION RT-Q4H PRN 01/27/20 09/25/24 History Losartan Potassium 100 mg PO DAILY 01/27/20 09/25/24 History Fluticasone/Umeclidin/Vilanter 1 puff INHALATION RT-DAILY 04/21/22 09/25/24 History [Trelegy Ellipta 100-62.5-25] Aspirin EC [Ecotrin Low Dose] 81 mg PO DAILY 09/09/24 09/25/24 History Allergies Allergy/AdvReac Type Severity Reaction Status Date / Time No Known Allergies Allergy Verified 09/25/24 13:03 Physical Exam Vitals: Vital Signs Temp Pulse Resp BP Pulse Ox FiO2 09/26/24 11:42 72 09/26/24 11:38 97 21 09/26/24 11:35 70 09/26/24 11:00 78 16 108/77 97 09/26/24 10:00 75 15 125/66 96 09/26/24 09:00 85 16 123/66 95 09/26/24 08:00 97.9 F 78 18 125/64 97 09/26/24 07:00 68 10 L 125/68 96 09/26/24 06:45 71 14 120/66 97 09/26/24 06:30 75 16 134/72 97 09/26/24 06:15 122/82 09/26/24 06:00 70 13 115/57 96 09/26/24 05:45 66 11 L 115/60 97 09/26/24 05:30 72 12 93/53 97 09/26/24 05:15 122/82 09/26/24 05:00 68 10 L 106/58 97 09/26/24 04:45 71 13 104/63 97 09/26/24 04:30 75 13 117/72 96 09/26/24 04:15 78 16 126/73 96 09/26/24 04:00 97.7 F 75 15 129/71 96 09/26/24 03:45 78 7 L 111/68 97 09/26/24 03:30 122/82 09/26/24 03:15 75 15 145/112 95 09/26/24 03:00 75 12 150/93 95 09/26/24 02:45 80 19 137/74 91 L 09/26/24 02:30 77 20 91/55 96 09/26/24 02:15 67 12 83/56 96 09/26/24 02:00 67 11 L 111/56 96 11/14/24 01:45 71 10 L 103/55 100 09/26/24 01:30 66 10 L 81/49 96 09/26/24 01:15 122/82 09/26/24 01:00 65 11 L 113/63 96 09/26/24 00:45 67 7 L 65/45 92 L 09/26/24 00:30 122/82 09/26/24 00:15 122/82 09/26/24 00:10 122/82 09/26/24 00:00 97.6 F 68 8 L 115/72 95 09/25/24 23:00 122/82 09/25/24 22:00 122/82 09/25/24 21:30 97.6 F 78 20 138/65 98 09/25/24 21:00 11 L 109/73 09/25/24 20:00 76 16 128/75 97 09/25/24 19:10 81 20 152/80 97 09/25/24 19:00 81 14 98/63 96 09/25/24 18:50 73 18 98/63 97 09/25/24 18:40 77 15 127/84 96 09/25/24 18:30 77 20 134/74 96 09/25/24 18:20 79 18 134/74 97 09/25/24 18:10 80 15 129/66 09/25/24 18:00 81 16 123/79 09/25/24 17:50 84 15 123/79 09/25/24 17:40 85 23 148/85 09/25/24 17:30 87 20 125/65 09/25/24 17:20 87 18 125/65 09/25/24 17:10 86 18 130/107 98 09/25/24 17:00 84 18 125/65 97 09/25/24 16:10 86 18 148/77 96 09/25/24 16:07 89 20 148/77 96 09/25/24 15:00 85 18 119/68 97 09/25/24 14:11 85 09/25/24 14:03 83 09/25/24 13:51 89 18 152/79 98 Intake and Output 09/25/24 09/26/24 09/26/24 22:59 06:59 14:59 Intake Total 1394 180 Output Total 300 900 250 Balance -300 494 -70 Intake: IV 1394 180 Magnesium Sulfate-D5w Pmx 100 1 gm In Dextrose/Water 1 100ml.bag @ 100 mls/hr IVPB Q1H [facility] Rx#: [id number] Potassium Chloride 10 meq 100 100 In Water For Injection 1 100ml.bag @ 100 mls/hr IVPB Q1HR [facility] Rx#: [id number] Sodium Chloride 0.9% 1, 999 000 ml @ 999 mls/hr IV . Q1H1M [facility] Rx#:[id number] Sodium Chloride 3%( 195 80 Hypertonic) 500 ml @ 20 mls/hr IV .Q24H [facility] Rx#: [id number] Output: Urine 300 900 250 Other: Voiding Method Urinal Urinal # Voids 2 1 Weight 71.214 kg 71.4 kg General: Reveals 69-year-old white male in no distress Head: Atraumatic, normocephalic Skin: No rashes Eye: Pupils are equal, round and reactive to light, extra-ocular movements are intact; there is normal conjunctiva bilaterally. Ears, nose, mouth and throat: There are moist mucous membranes and no oral lesions. Neck: The neck is supple, there is no tenderness or JVD. Cardiovascular: There is a regular rate and rhythm. No murmur, rub or gallop is appreciated. Respiratory: Clear bilaterally no crackles rhonchi or wheezes Gastrointestinal: Soft nontender no megaly no rebound no guarding Musculoskeletal: No deformities normal range of motion Neurological: CN II-XII intact, Cranial nerves III through XII are intact. Psychiatric: Cooperative, appropriate mood & affect, normal judgment. Results - Laboratory Findings CBC and BMP: 09/26/24 04:02 09/26/24 10:57 PT/INR, D-dimer PT 9.6 sec (10.0-12.5) L 09/25/24 13:02 INR 0.8 (<1.2) 09/25/24 13:02 Abnormal lab findings: Abnormal Labs 09/25/24 09/25/24 09/25/24 13:02 13:02 13:02 RBC 4.10 L Hgb Hct 37.3 L RDW Neutrophils # 8.4 H Lymphocytes # 0.5 L PT 9.6 L APTT 30.5 H Sodium 103 L* Potassium Chloride 70 L* Carbon Dioxide BUN Creatinine 0.48 L Calcium Magnesium 1.3 L Total Bilirubin 1.7 H AST 84 H Urine Ketones Ur Random Sodium 09/25/24 09/25/24 09/25/24 14:41 14:41 14:41 RBC Hgb Hct RDW Neutrophils # Lymphocytes # PT APTT Sodium 104 L* Potassium Chloride Carbon Dioxide BUN Creatinine Calcium Magnesium Total Bilirubin AST Urine Ketones 1+ H Ur Random Sodium <20 L 09/25/24 09/26/24 09/26/24 17:44 00:40 04:02 RBC Hgb Hct RDW Neutrophils # Lymphocytes # PT APTT Sodium 105 L* 107 L* 110 L* Potassium 3.3 L Chloride 85 L Carbon Dioxide 19 L BUN 7 L Creatinine 0.42 L Calcium 8.1 L Magnesium Total Bilirubin AST Urine Ketones Ur Random Sodium 09/26/24 09/26/24 04:02 10:57 RBC 3.82 L Hgb 12.4 L Hct 36.0 L RDW 11.1 L Neutrophils # Lymphocytes # PT APTT Sodium 113 L* Potassium Chloride Carbon Dioxide BUN Creatinine Calcium Magnesium Total Bilirubin AST Urine Ketones Ur Random Sodium - Diagnostic Findings Chest x-ray: image reviewed (Chest x-ray showed no evidence of active disease he does have COPD changes) Additional studies: CT brain showed no acute intracranial process Assessment and Plan Assessment: Impression: Hyponatremia secondary to potomania and hypovolemia, steadily improving with 3% saline History of alcohol abuse History of underlying COPD Tobacco dependence syndrome Benign essential hypertension Recommendation: Continue 3% saline as ordered by nephrology and maintain slow correction of his hyponatremia T4 TSH and serum cortisol levels are pending Continue to monitor in the ICU as long as he is requiring 3% saline Will continue to follow Time with Patient: Greater than 30
--- NOTE | 2024-09-26 16:56 | P.HPIM ---
History of Present Illness H&P Date: 09/26/24 Rory Head, is a 69-year-old male who presented to [facility] emergency room with a chief complaint of severe weakness. He was evaluated in the emergency room vital examination on presentation revealed a temperature of 97.9 pulse 80 respiration 18 blood pressure 111/67 pulse ox 96% on room air Laboratory data revealed a white blood count of 9.7 hemoglobin 13.7 platelet count 293 sodium 105 potassium 4.1 chloride 70 CO2 25 BUN 11 creatinine 0.48 Testing in the emergency room revealed EKG revealed sinus rhythm with first- degree AV block, CT scan of the brain revealed no acute intracranial process remote lacunar injuries and right parietal scalp contusion with laceration, ches t x-ray revealed no acute cardiopulmonary disease process. Patient had a similar presentation 2 weeks ago he was admitted to the hospital however he left AGAINST MEDICAL ADVICE shortly after admission. Patient was admitted to medical floor for further evaluation and treatment Past Medical History Past Medical History: Chest Pain / Angina, COPD, Hyperlipidemia, Hypertension History of Any Multi-Drug Resistant Organisms: None Reported Past Surgical History: Appendectomy Past Anesthesia/Blood Transfusion Reactions: No Reported Reaction Past Psychological History: No Psychological Hx Reported Smoking Status: Current every day smoker Past Alcohol Use History: Daily Additional Past Alcohol Use History / Comment(s): started smoking at age 18, smokes 3/4 ppd. pt admits to drinking 4-24 ounce cans of beer per day. Past Drug Use History: Marijuana Additional Drug Use History / Comment(s): USES MARIJUANA-INSTRUCTED TO REFRAIN FROM USE FOR AT LEAST 24 HOURS PRIOR TO PROCEDURE - Past Family History Mother History Unknown: Yes Additional Family Medical History / Comment(s): Father Additional Family Medical History / Comment(s): from complications of injuries after falling down stairs. Medications and Allergies Home Medications Medication Instructions Recorded Confirmed Type Albuterol Sulfate [Ventolin HFA] 2 puff INHALATION RT-Q4H PRN 01/27/20 09/25/24 History Losartan Potassium 100 mg PO DAILY 01/27/20 09/25/24 History Fluticasone/Umeclidin/Vilanter 1 puff INHALATION RT-DAILY 04/21/22 09/25/24 History [Trelegy Ellipta 100-62.5-25] Aspirin EC [Ecotrin Low Dose] 81 mg PO DAILY 09/09/24 09/25/24 History Allergies Allergy/AdvReac Type Severity Reaction Status Date / Time No Known Allergies Allergy Verified 09/25/24 13:03 Physical Exam Vitals: Vital Signs Temp Pulse Resp BP Pulse Ox 09/26/24 07:00 68 10 L 125/68 96 09/26/24 06:45 71 14 120/66 97 09/26/24 06:30 75 16 134/72 97 09/26/24 06:15 122/82 09/26/24 06:00 70 13 115/57 96 09/26/24 05:45 66 11 L 115/60 97 09/26/24 05:30 72 12 93/53 97 09/26/24 05:15 122/82 09/26/24 05:00 68 10 L 106/58 97 09/26/24 04:45 71 13 104/63 97 09/26/24 04:30 75 13 117/72 96 09/26/24 04:15 78 16 126/73 96 09/26/24 04:00 97.7 F 75 15 129/71 96 09/26/24 03:45 78 7 L 111/68 97 09/26/24 03:30 122/82 09/26/24 03:15 75 15 145/112 95 09/26/24 03:00 75 12 150/93 95 09/26/24 02:45 80 19 137/74 91 L 09/26/24 02:30 77 20 91/55 96 09/26/24 02:15 67 12 83/56 96 09/26/24 02:00 67 11 L 111/56 96 09/26/24 01:45 71 10 L 103/55 100 09/26/24 01:30 66 10 L 81/49 96 09/26/24 01:15 122/82 09/26/24 01:00 65 11 L 113/63 96 09/26/24 00:45 67 7 L 65/45 92 L 09/26/24 00:30 122/82 09/26/24 00:15 122/82 09/26/24 00:10 122/82 09/26/24 00:00 97.6 F 68 8 L 115/72 95 09/25/24 23:00 122/82 09/25/24 22:00 122/82 09/25/24 21:30 97.6 F 78 20 138/65 98 09/25/24 21:00 11 L 109/73 09/25/24 20:00 76 16 128/75 97 09/25/24 19:10 81 20 152/80 97 09/25/24 19:00 81 14 98/63 96 09/25/24 18:50 73 18 98/63 97 09/25/24 18:40 77 15 127/84 96 09/25/24 18:30 77 20 134/74 96 09/25/24 18:20 79 18 134/74 97 09/25/24 18:10 80 15 129/66 09/25/24 18:00 81 16 123/79 09/25/24 17:50 84 15 123/79 09/25/24 17:40 85 23 148/85 09/25/24 17:30 87 20 125/65 09/25/24 17:20 87 18 125/65 09/25/24 17:10 86 18 130/107 98 09/25/24 17:00 84 18 125/65 97 09/25/24 16:10 86 18 148/77 96 09/25/24 16:07 89 20 148/77 96 09/25/24 15:00 85 18 119/68 97 09/25/24 14:11 85 09/25/24 14:03 83 09/25/24 13:51 89 18 152/79 98 09/25/24 11:40 97.9 F 80 18 111/67 96 Intake and Output 09/25/24 09/26/24 09/26/24 22:59 06:59 14:59 Intake Total 1394 20 Output Total 300 900 Balance -300 494 20 Intake: IV 1394 20 Magnesium Sulfate-D5w Pmx 100 1 gm In Dextrose/Water 1 100ml.bag @ 100 mls/hr IVPB Q1H [facility] Rx#: [id number] Potassium Chloride 10 meq 100 In Water For Injection 1 100ml.bag @ 100 mls/hr IVPB Q1HR [facility] Rx#: [id number] Sodium Chloride 0.9% 1, 999 000 ml @ 999 mls/hr IV . Q1H1M [facility] Rx#:[id number] Sodium Chloride 3%( 195 20 Hypertonic) 500 ml @ 20 mls/hr IV .Q24H [facility] Rx#: [id number] Output: Urine 300 900 Other: Voiding Method Urinal # Voids 2 1 Weight 71.214 kg 71.4 kg In general patient is alert and oriented x 3 in no distress HEENT head normocephalic and atraumatic Neck is supple no JVD no goiter no lymphadenopathy no carotid bruit Chest examination is clear to auscultation no crackles no wheezing Cardiac exam reveals regular heart sounds S1 and S2 no gallops no murmurs Abdomen is soft nontender no organomegaly with normal bowel sounds Extremity exam reveals no edema no cyanosis or clubbing Neurological examination reveals no gross focal deficits Results CBC & Chem 7: 09/26/24 04:02 09/26/24 15:56 Labs: Abnormal Lab Results - Last 24 Hours (Table) 09/25/24 09/25/24 09/25/24 Range/Units 13:02 13:02 13:02 RBC 4.10 L (4.30-5.90) m/uL Hgb (13.0-17.5) gm/dL Hct 37.3 L (39.0-53.0) % RDW (11.5-15.5) % Neutrophils # 8.4 H (1.3-7.7) k/uL Lymphocytes # 0.5 L (1.0-4.8) k/uL PT 9.6 L (10.0-12.5) sec APTT 30.5 H (22.0-30.0) sec Sodium 103 L* (137-145) mmol/L Potassium (3.5-5.1) mmol/L Chloride 70 L* (98-107) mmol/L Carbon Dioxide (22-30) mmol/L BUN (9-20) mg/dL Creatinine 0.48 L (0.66-1.25) mg/dL Calcium (8.4-10.2) mg/dL Magnesium 1.3 L (1.6-2.3) mg/dL Total Bilirubin 1.7 H (0.2-1.3) mg/dL AST 84 H (17-59) U/L Urine Ketones (Negative) Ur Random Sodium (40-220) mmol/L 09/25/24 09/25/24 09/25/24 Range/Units 14:41 14:41 14:41 RBC (4.30-5.90) m/uL Hgb (13.0-17.5) gm/dL Hct (39.0-53.0) % RDW (11.5-15.5) % Neutrophils # (1.3-7.7) k/uL Lymphocytes # (1.0-4.8) k/uL PT (10.0-12.5) sec APTT (22.0-30.0) sec Sodium 104 L* (137-145) mmol/L Potassium (3.5-5.1) mmol/L Chloride (98-107) mmol/L Carbon Dioxide (22-30) mmol/L BUN (9-20) mg/dL Creatinine (0.66-1.25) mg/dL Calcium (8.4-10.2) mg/dL Magnesium (1.6-2.3) mg/dL Total Bilirubin (0.2-1.3) mg/dL AST (17-59) U/L Urine Ketones 1+ H (Negative) Ur Random Sodium <20 L (40-220) mmol/L 09/25/24 09/26/24 09/26/24 Range/Units 17:44 00:40 04:02 RBC (4.30-5.90) m/uL Hgb (13.0-17.5) gm/dL Hct (39.0-53.0) % RDW (11.5-15.5) % Neutrophils # (1.3-7.7) k/uL Lymphocytes # (1.0-4.8) k/uL PT (10.0-12.5) sec APTT (22.0-30.0) sec Sodium 105 L* 107 L* 110 L* (137-145) mmol/L Potassium 3.3 L (3.5-5.1) mmol/L Chloride 85 L (98-107) mmol/L Carbon Dioxide 19 L (22-30) mmol/L BUN 7 L (9-20) mg/dL Creatinine 0.42 L (0.66-1.25) mg/dL Calcium 8.1 L (8.4-10.2) mg/dL Magnesium (1.6-2.3) mg/dL Total Bilirubin (0.2-1.3) mg/dL AST (17-59) U/L Urine Ketones (Negative) Ur Random Sodium (40-220) mmol/L 09/26/24 Range/Units 04:02 RBC 3.82 L (4.30-5.90) m/uL Hgb 12.4 L (13.0-17.5) gm/dL Hct 36.0 L (39.0-53.0) % RDW 11.1 L (11.5-15.5) % Neutrophils # (1.3-7.7) k/uL Lymphocytes # (1.0-4.8) k/uL PT (10.0-12.5) sec APTT (22.0-30.0) sec Sodium (137-145) mmol/L Potassium (3.5-5.1) mmol/L Chloride (98-107) mmol/L Carbon Dioxide (22-30) mmol/L BUN (9-20) mg/dL Creatinine (0.66-1.25) mg/dL Calcium (8.4-10.2) mg/dL Magnesium (1.6-2.3) mg/dL Total Bilirubin (0.2-1.3) mg/dL AST (17-59) U/L Urine Ketones (Negative) Ur Random Sodium (40-220) mmol/L Assessment and Plan Plan: Severe hyponatremia Underlying history of COPD Underlying history of hypertension History of alcohol abuse Underlying history of tobacco use At this time patient was started on normal saline He was admitted to intensive care unit Nephrology consultation and critical care consultation requested Will follow closely
[2024-09-26] MEDS: SYMBICORT 160-4.5 MCG INHALER INHALATION SCH (19:55)
[2024-09-27] MEDS: SODIUM CHLORIDE 3%(HYPERTONIC) 500 ML IV ONE (01:43)
[2024-09-27 05:06] LABS: Basophils % (A) 0 %; Eosinophils % (A) 0 %; HCT 37.5 % (39.0-53.0); Lymphocytes # (A) 0.5 k/uL (1.0-4.8); Lymphocytes % (A) 4 %; MCH 33.3 pg (25.0-35.0); MCHC 34.7 g/dL (31.0-37.0); MCV 96.1 fL (80.0-100.0); Mean Platelet Volume 7.6; Monocytes # (A) 0.9 k/uL (0-1.0); Monocytes % (A) 7 %; Neutrophils # (A) 11.3 k/uL (1.3-7.7); Neutrophils % (A) 87 %; Platelet Count 296 k/uL (150-450); RBC 3.91 m/uL (4.30-5.90); RDW 11.4 % (11.5-15.5)
[2024-09-27 06:27] LABS: ALT 30 U/L (4-49); AST 40 U/L (17-59); African American GFR (CKD) >90 (>60 ml/min/1.73 sqM); Albumin 3.5 g/dL (3.5-5.0); Alkaline Phosphatase 73 U/L (38-126); Anion Gap 6 mmol/L; Blood Urea Nitrogen 8 mg/dL (9-20); Calcium 8.5 mg/dL (8.4-10.2); Carbon Dioxide 21 mmol/L (22-30); Chloride 90 mmol/L (98-107); Glucose 90 mg/dL (74-99); Non-African American GFR(CKD) >90 (>60 ml/min/1.73 sqM); Potassium 3.7 mmol/L (3.5-5.1); Total Bilirubin 1.2 mg/dL (0.2-1.3)
[2024-09-27 06:28] LABS: Sodium 117 mmol/L (137-145)
[2024-09-27] MEDS: POTASSIUM CHLORIDE 10 MEQ in WATER FOR INJECTION 1 100ML.BAG IVPB SCH ×2 (06:53→17:42)
--- NOTE | 2024-09-27 08:37 | P.PN ---
Subjective Progress Note Date: 09/27/24 Rory Head, is a 69-year-old male who presented to [facility] emergency room with a chief complaint of severe weakness. He was evaluated in the emergency room vital examination on presentation revealed a temperature of 97.9 pulse 80 respiration 18 blood pressure 111/67 pulse ox 96% on room air Laboratory data revealed a white blood count of 9.7 hemoglobin 13.7 platelet count 293 sodium 105 potassium 4.1 chloride 70 CO2 25 BUN 11 creatinine 0.48 Testing in the emergency room revealed EKG revealed sinus rhythm with first- degree AV block, CT scan of the brain revealed no acute intracranial process remote lacunar injuries and right parietal scalp contusion with laceration, chest x-ray revealed no acute cardiopulmonary disease process. Patient had a similar presentation 2 weeks ago he was admitted to the hospital however he left AGAINST MEDICAL ADVICE shortly after admission. Patient was admitted to medical floor for further evaluation and treatment On 09/27/2024 patient is alert and oriented x 3. Patient remains in the intensive care unit on 3% sodium today 116 nephrology and pulmonary services are following. Current vital signs temp 97.8, heart rate 70, respiratory rate 18, blood pressure 117/64 with a pulse ox of 98% on room air Objective - Vital Signs Vital signs: Vital Signs Temp 97.8 F 09/27/24 08:00 Pulse 76 09/27/24 08:24 Resp 18 09/27/24 08:00 BP 117/64 09/27/24 08:00 Pulse Ox 98 09/27/24 08:00 FiO2 21 09/26/24 11:38 Intake & Output 09/26/24 09/27/24 09/27/24 18:59 06:59 18:59 Intake Total 1340 100 120 Output Total 750 400 0 Balance 590 -300 120 Weight 67 kg Intake: IV 640 100 120 Potassium Chloride 10 meq 400 100 In Water For Injection 1 100ml.bag @ 100 mls/hr IVPB Q1HR [facility] Rx#: [id number] Sodium Chloride 3%( 240 100 20 Hypertonic) 500 ml @ 20 mls/hr IV .Q24H [facility] Rx#: [id number] Oral 700 Output: Urine 750 400 0 Other: Voiding Method Urinal Urinal # Voids 1 - Exam In general patient is alert and oriented x 3 in no distress HEENT head normocephalic and atraumatic Neck is supple no JVD no goiter no lymphadenopathy no carotid bruit Chest examination is clear to auscultation no crackles no wheezing Cardiac exam reveals regular heart sounds S1 and S2 no gallops no murmurs Abdomen is soft nontender no organomegaly with normal bowel sounds Extremity exam reveals no edema no cyanosis or clubbing Neurological examination reveals no gross focal deficits - Labs CBC & Chem 7: 09/27/24 04:30 09/27/24 04:30 Labs: Abnormal Lab Results - Last 24 Hours (Table) 09/26/24 09/26/24 09/26/24 Range/Units 10:57 15:56 19:46 WBC (3.8-10.6) k/uL RBC (4.30-5.90) m/uL Hct (39.0-53.0) % RDW (11.5-15.5) % Neutrophils # (1.3-7.7) k/uL Lymphocytes # (1.0-4.8) k/uL Sodium 113 L* 116 L* 117 L* (137-145) mmol/L Chloride (98-107) mmol/L Carbon Dioxide (22-30) mmol/L BUN (9-20) mg/dL Creatinine (0.66-1.25) mg/dL Total Protein (6.3-8.2) g/dL 09/27/24 09/27/24 09/27/24 Range/Units 00:27 04:30 04:30 WBC 13.0 H (3.8-10.6) k/uL RBC 3.91 L (4.30-5.90) m/uL Hct 37.5 L (39.0-53.0) % RDW 11.4 L (11.5-15.5) % Neutrophils # 11.3 H (1.3-7.7) k/uL Lymphocytes # 0.5 L (1.0-4.8) k/uL Sodium 116 L* 117 L* (137-145) mmol/L Chloride 90 L (98-107) mmol/L Carbon Dioxide 21 L (22-30) mmol/L BUN 8 L (9-20) mg/dL Creatinine 0.43 L (0.66-1.25) mg/dL Total Protein 6.0 L (6.3-8.2) g/dL Assessment and Plan Plan: Severe hyponatremia Underlying history of COPD Underlying history of hypertension History of alcohol abuse Underlying history of tobacco use At this time patient was started on normal saline He was admitted to intensive care unit Nephrology consultation and critical care consultation requested Will follow closely
[2024-09-27] MEDS ORDERED: bisacodyL 10 MG SUPP RECTAL PRN (10:06)
--- NOTE | 2024-09-27 10:48 | P.PN ---
Subjective patient is seen for follow-up for hyponatremia with history of EtOH abuse. Serum sodium has improved with 3% saline. Urine osmolality remains pending. Tolerating oral intake. Serum sodium at 119 this morning Objective - Vital Signs Vital signs: Vital Signs Temp 97.8 F 09/27/24 08:00 Pulse 71 09/27/24 10:00 Resp 18 09/27/24 10:00 BP 125/60 09/27/24 10:00 Pulse Ox 96 09/27/24 10:00 FiO2 21 09/26/24 11:38 Intake & Output 09/26/24 09/27/24 09/27/24 18:59 06:59 18:59 Intake Total 1340 100 380 Output Total 750 400 0 Balance 590 -300 380 Weight 67 kg Intake: IV 640 100 380 Potassium Chloride 10 meq 400 300 In Water For Injection 1 100ml.bag @ 100 mls/hr IVPB Q1HR [facility] Rx#: [id number] Sodium Chloride 3%( 240 100 80 Hypertonic) 500 ml @ 20 mls/hr IV .Q24H [facility] Rx#: [id number] Oral 700 Output: Urine 750 400 0 Other: Voiding Method Urinal Urinal Urinal # Voids 1 - Exam patient is awake, comfortable, alert oriented 3. Examination of the heart S1 and S2 Examination of the lungs bilateral breath sounds are heard Abdomen is soft nontender Examination of lower extremities shows no significant edema PRN PHYSICAL THERAPIST exam grossly intact - Labs CBC & Chem 7: 09/27/24 04:30 09/27/24 07:35 Labs: Abnormal Lab Results - Last 24 Hours (Table) 09/26/24 09/26/24 09/26/24 Range/Units 10:57 15:56 19:46 WBC (3.8-10.6) k/uL RBC (4.30-5.90) m/uL Hct (39.0-53.0) % RDW (11.5-15.5) % Neutrophils # (1.3-7.7) k/uL Lymphocytes # (1.0-4.8) k/uL Sodium 113 L* 116 L* 117 L* (137-145) mmol/L Chloride (98-107) mmol/L Carbon Dioxide (22-30) mmol/L BUN (9-20) mg/dL Creatinine (0.66-1.25) mg/dL Total Protein (6.3-8.2) g/dL 09/27/24 09/27/24 09/27/24 Range/Units 00:27 04:30 04:30 WBC 13.0 H (3.8-10.6) k/uL RBC 3.91 L (4.30-5.90) m/uL Hct 37.5 L (39.0-53.0) % RDW 11.4 L (11.5-15.5) % Neutrophils # 11.3 H (1.3-7.7) k/uL Lymphocytes # 0.5 L (1.0-4.8) k/uL Sodium 116 L* 117 L* (137-145) mmol/L Chloride 90 L (98-107) mmol/L Carbon Dioxide 21 L (22-30) mmol/L BUN 8 L (9-20) mg/dL Creatinine 0.43 L (0.66-1.25) mg/dL Total Protein 6.0 L (6.3-8.2) g/dL 09/27/24 Range/Units 07:35 WBC (3.8-10.6) k/uL RBC (4.30-5.90) m/uL Hct (39.0-53.0) % RDW (11.5-15.5) % Neutrophils # (1.3-7.7) k/uL Lymphocytes # (1.0-4.8) k/uL Sodium 119 L* (137-145) mmol/L Chloride (98-107) mmol/L Carbon Dioxide (22-30) mmol/L BUN (9-20) mg/dL Creatinine (0.66-1.25) mg/dL Total Protein (6.3-8.2) g/dL Assessment and Plan Assessment: 1. Hyponatremia, hypovolemic and secondary to EtOH abuse. Improved with 3% saline. Urine sodium was less than 20. Urine osmolality is pending. Cortisol was 15.2 and TSH 0.9 2. History of EtOH abuse 3. Hypokalemia secondary to poor oral intake Plan: continue 3% saline for now. Patient will need sodium chloride tablets upon discharge.
--- NOTE | 2024-09-27 11:56 | P.PN ---
Subjective Progress Note Date: 09/27/24 Principal diagnosis: Hyponatremia This is a 69-year-old white male with history of alcohol abuse, history of chronic hyponatremia related to alcoholism, patient was recently in the hospital/3 weeks ago for symptoms of weakness and hyponatremia, at that time his sodium was 114 treated and improved. Patient is now back in the hospital with similar symptoms of weakness mostly and falling easily. His sodium this time was 103. Patient required placement on 3% saline and admitted to the ICU for 3% infusion. His sodium today is 110, patient is feeling a bit better, he denies any headache denies any blurred vision denies any dizziness denies any chest pain shortness of breath cough or wheezing denies any nausea vomiting or abdominal pain. His sodium is 110 potassium 3.3, BUN is normal creatinine is normal bicarb is 19 Patient was seen today on 09/27/2024, patient remains in the ICU, remains on 3% saline, sodium is correcting slowly today sodium is 119 as of the labs are unremarkable, patient is doing great, his hyponatremia is being addressed by nephrology, I believe the patient could be considered for transfer out of the ICU once 3% saline is discontinued. In the meantime the patient continues to do quite well. And he is asymptomatic. Objective - Vital Signs Vital signs: Vital Signs Temp 97.8 F 09/27/24 08:00 Pulse 71 09/27/24 10:00 Resp 18 09/27/24 10:00 BP 125/60 09/27/24 10:00 Pulse Ox 96 09/27/24 10:00 FiO2 21 09/26/24 11:38 Intake & Output 09/26/24 09/27/24 09/27/24 18:59 06:59 18:59 Intake Total 1340 100 380 Output Total 750 400 0 Balance 590 -300 380 Weight 67 kg Intake: IV 640 100 380 Potassium Chloride 10 meq 400 300 In Water For Injection 1 100ml.bag @ 100 mls/hr IVPB Q1HR [facility] Rx#: [id number] Sodium Chloride 3%( 240 100 80 Hypertonic) 500 ml @ 20 mls/hr IV .Q24H [facility] Rx#: [id number] Oral 700 Output: Urine 750 400 0 Other: Voiding Method Urinal Urinal Urinal # Voids 1 - Exam General: Reveals 69-year-old white male in no distress Head: Atraumatic, normocephalic Skin: No rashes Eye: Pupils are equal, round and reactive to light, extra-ocular movements are intact; there is normal conjunctiva bilaterally. Ears, nose, mouth and throat: There are moist mucous membranes and no oral lesions. Neck: The neck is supple, there is no tenderness or JVD. Cardiovascular: There is a regular rate and rhythm. No murmur, rub or gallop is appreciated. Respiratory: Clear bilaterally no crackles rhonchi or wheezes Gastrointestinal: Soft nontender no megaly no rebound no guarding Musculoskeletal: No deformities normal range of motion Neurological: CN II-XII intact, Cranial nerves III through XII are intact. Psychiatric: Cooperative, appropriate mood & affect, normal judgment. - Labs CBC & Chem 7: 09/27/24 04:30 09/27/24 07:35 Labs: Abnormal Lab Results - Last 24 Hours (Table) 09/26/24 09/26/24 09/27/24 Range/Units 15:56 19:46 00:27 WBC (3.8-10.6) k/uL RBC (4.30-5.90) m/uL Hct (39.0-53.0) % RDW (11.5-15.5) % Neutrophils # (1.3-7.7) k/uL Lymphocytes # (1.0-4.8) k/uL Sodium 116 L* 117 L* 116 L* (137-145) mmol/L Chloride (98-107) mmol/L Carbon Dioxide (22-30) mmol/L BUN (9-20) mg/dL Creatinine (0.66-1.25) mg/dL Total Protein (6.3-8.2) g/dL 09/27/24 09/27/24 09/27/24 Range/Units 04:30 04:30 07:35 WBC 13.0 H (3.8-10.6) k/uL RBC 3.91 L (4.30-5.90) m/uL Hct 37.5 L (39.0-53.0) % RDW 11.4 L (11.5-15.5) % Neutrophils # 11.3 H (1.3-7.7) k/uL Lymphocytes # 0.5 L (1.0-4.8) k/uL Sodium 117 L* 119 L* (137-145) mmol/L Chloride 90 L (98-107) mmol/L Carbon Dioxide 21 L (22-30) mmol/L BUN 8 L (9-20) mg/dL Creatinine 0.43 L (0.66-1.25) mg/dL Total Protein 6.0 L (6.3-8.2) g/dL Assessment and Plan Assessment: Impression: Hyponatremia secondary to potomania and hypovolemia, steadily improving with 3% saline History of alcohol abuse History of underlying COPD Tobacco dependence syndrome Benign essential hypertension Recommendation: Continue slow correction of hyponatremia Patient had normal thyroid profile and normal cortisol level Continue alcohol withdrawal protocol/CIWA protocol Will continue to follow Time with Patient: Less than 30
[2024-09-27 17:18] LABS: Potassium 3.5 mmol/L (3.5-5.1)
[2024-09-27] MEDS ORDERED: Potassium Replacement Protocol 1 EACH MISC MISCELLANE PRN (17:31)
[2024-09-27] MEDS: SODIUM CHLORIDE 0.9% 1,000 ML IV SCH (18:45)
[2024-09-28 06:12] LABS: Basophils # (A) 0.1 k/uL (0-0.2); Basophils % (A) 0 %; Eosinophils # (A) 0.1 k/uL (0-0.7); Eosinophils % (A) 0 %; HCT 37.7 % (39.0-53.0); HGB 13.1 gm/dL (13.0-17.5); Lymphocytes # (A) 0.7 k/uL (1.0-4.8); Lymphocytes % (A) 4 %; MCH 33.8 pg (25.0-35.0); MCHC 34.8 g/dL (31.0-37.0); Mean Platelet Volume 7.6; Monocytes % (A) 6 %; Neutrophils # (A) 15.3 k/uL (1.3-7.7); Neutrophils % (A) 88 %; Platelet Count 367 k/uL (150-450); RBC 3.89 m/uL (4.30-5.90); RDW 11.5 % (11.5-15.5); WBC 17.5 k/uL (3.8-10.6)
[2024-09-28 06:27] LABS: ALT 27 U/L (4-49); AST 27 U/L (17-59); African American GFR (CKD) >90 (>60 ml/min/1.73 sqM); Albumin 3.7 g/dL (3.5-5.0); Alkaline Phosphatase 82 U/L (38-126); Anion Gap 7 mmol/L; Blood Urea Nitrogen 7 mg/dL (9-20); Calcium 8.9 mg/dL (8.4-10.2); Carbon Dioxide 21 mmol/L (22-30); Chloride 95 mmol/L (98-107); Glucose 99 mg/dL (74-99); Non-African American GFR(CKD) >90 (>60 ml/min/1.73 sqM); Potassium 4.6 mmol/L (3.5-5.1); Sodium 123 mmol/L (137-145); Total Bilirubin 1.4 mg/dL (0.2-1.3); Total Protein 6.3 g/dL (6.3-8.2)
[2024-09-28 10:44] VITALS: BMI 18.8
--- NOTE | 2024-09-28 11:58 | P.PN ---
Subjective Progress Note Date: 09/28/24 Principal diagnosis: Hyponatremia This is a 69-year-old white male with history of alcohol abuse, history of chronic hyponatremia related to alcoholism, patient was recently in the hospital/3 weeks ago for symptoms of weakness and hyponatremia, at that time his sodium was 114 treated and improved. Patient is now back in the hospital with similar symptoms of weakness mostly and falling easily. His sodium this time was 103. Patient required placement on 3% saline and admitted to the ICU for 3% infusion. His sodium today is 110, patient is feeling a bit better, he denies any headache denies any blurred vision denies any dizziness denies any chest pain shortness of breath cough or wheezing denies any nausea vomiting or abdominal pain. His sodium is 110 potassium 3.3, BUN is normal creatinine is normal bicarb is 19 Patient was seen today on 09/27/2024, patient remains in the ICU, remains on 3% saline, sodium is correcting slowly today sodium is 119 as of the labs are unremarkable, patient is doing great, his hyponatremia is being addressed by nephrology, I believe the patient could be considered for transfer out of the ICU once 3% saline is discontinued. In the meantime the patient continues to do quite well. And he is asymptomatic. Patient was evaluated today on 09/28/2024, patient remains in the ICU, he is an overflow now, patient's sodium is up to 123, responded well to 3% infusion. Now on normal saline, patient could be considered for transfer out of ICU once a bed is available. Labs today were all reviewed sodium 123 potassium 4.6 renal prof ile is normal CBC is relatively normal except for WBC count of 17.5 hemoglobin 13.1 Objective - Vital Signs Vital signs: Vital Signs Temp 98.3 F 09/28/24 08:00 Pulse 80 09/28/24 09:15 Resp 16 09/28/24 08:00 BP 138/76 09/28/24 08:00 Pulse Ox 97 09/28/24 08:00 FiO2 21 09/26/24 11:38 Intake & Output 09/27/24 09/28/24 09/28/24 18:59 06:59 18:59 Intake Total 540 1240 420 Output Total 250 500 200 Balance 290 740 220 Weight 66.6 kg 66.6 kg Intake: IV 440 1070 140 Potassium Chloride 10 meq 300 300 In Water For Injection 1 100ml.bag @ 100 mls/hr IVPB Q1HR [facility] Rx#: [id number] Sodium Chloride 0.9% 1, 770 140 000 ml @ 70 mls/hr IV . [id number] [facility] Rx#:[id number] Sodium Chloride 3%( 140 Hypertonic) 500 ml @ 20 mls/hr IV .Q24H [facility] Rx#: [id number] Intake, IV Titration 100 170 280 Amount Potassium Chloride 10 meq 100 In Water For Injection 1 100ml.bag @ 100 mls/hr IVPB Q1H [facility] Rx#: [id number] Potassium Chloride 10 meq 100 In Water For Injection 1 100ml.bag @ 100 mls/hr IVPB Q1HR [facility] Rx#: [id number] Sodium Chloride 0.9% 1, 70 280 000 ml @ 70 mls/hr IV . [id number] [facility] Rx#:[id number] Output: Urine 250 500 200 Other: Voiding Method Urinal Urinal Urinal # Voids 1 # Bowel Movements 1 - Exam General: Reveals 69-year-old white male in no distress Head: Atraumatic, normocephalic Skin: No rashes Eye: Pupils are equal, round and reactive to light, extra-ocular movements are intact; there is normal conjunctiva bilaterally. Ears, nose, mouth and throat: There are moist mucous membranes and no oral lesions. Neck: The neck is supple, there is no tenderness or JVD. Cardiovascular: There is a regular rate and rhythm. No murmur, rub or gallop is appreciated. Respiratory: Clear bilaterally no crackles rhonchi or wheezes Gastrointestinal: Soft nontender no megaly no rebound no guarding Musculoskeletal: No deformities normal range of motion Neurological: CN II-XII intact, Cranial nerves III through XII are intact. Psychiatric: Cooperative, appropriate mood & affect, normal judgment. - Labs CBC & Chem 7: 09/28/24 05:42 09/28/24 05:42 Labs: Abnormal Lab Results - Last 24 Hours (Table) 09/27/24 09/27/24 09/27/24 Range/Units 11:58 16:38 21:27 WBC (3.8-10.6) k/uL RBC (4.30-5.90) m/uL Hct (39.0-53.0) % Neutrophils # (1.3-7.7) k/uL Lymphocytes # (1.0-4.8) k/uL Sodium 120 L 121 L 121 L (137-145) mmol/L Chloride (98-107) mmol/L Carbon Dioxide (22-30) mmol/L BUN (9-20) mg/dL Creatinine (0.66-1.25) mg/dL Total Bilirubin (0.2-1.3) mg/dL 09/28/24 09/28/24 Range/Units 05:42 05:42 WBC 17.5 H (3.8-10.6) k/uL RBC 3.89 L (4.30-5.90) m/uL Hct 37.7 L (39.0-53.0) % Neutrophils # 15.3 H (1.3-7.7) k/uL Lymphocytes # 0.7 L (1.0-4.8) k/uL Sodium 123 L (137-145) mmol/L Chloride 95 L (98-107) mmol/L Carbon Dioxide 21 L (22-30) mmol/L BUN 7 L (9-20) mg/dL Creatinine 0.51 L (0.66-1.25) mg/dL Total Bilirubin 1.4 H (0.2-1.3) mg/dL Assessment and Plan Assessment: Impression: Hyponatremia secondary to potomania and hypovolemia, steadily improving with 3% saline History of alcohol abuse History of underlying COPD Tobacco dependence syndrome Benign essential hypertension Recommendation: Transfer patient to [facility] Continue slow correction of hyponatremia Continue to monitor daily electrolytes Continue alcohol withdrawal protocol/CIWA protocol Will continue to follow Time with Patient: Less than 30
--- NOTE | 2024-09-28 12:53 | P.PN ---
Subjective Progress Note Date: 09/28/24 Patient is seen for follow-up for hyponatremia with history of EtOH abuse. s/p 3% drip. Patient is awake, comfortable, alert oriented 3. Examination of the heart S1 and S2 Examination of the lungs bilateral breath sounds are heard Abdomen is soft nontender Examination of lower extremities shows no significant edema [employer] exam grossly intact Objective - Vital Signs Vital signs: Vital Signs Temp 98.3 F 09/28/24 08:00 Pulse 80 09/28/24 09:15 Resp 16 09/28/24 08:00 BP 138/76 09/28/24 08:00 Pulse Ox 97 09/28/24 08:00 FiO2 21 09/26/24 11:38 Intake & Output 09/27/24 09/28/24 09/28/24 18:59 06:59 18:59 Intake Total 540 1240 140 Output Total 250 500 0 Balance 290 740 140 Weight 66.6 kg 66.6 kg Intake: IV 440 1070 140 Potassium Chloride 10 meq 300 300 In Water For Injection 1 100ml.bag @ 100 mls/hr IVPB Q1HR [facility] Rx#: [id number] Sodium Chloride 0.9% 1, 770 140 000 ml @ 70 mls/hr IV . [id number] [facility] Rx#:[id number] Sodium Chloride 3%( 140 Hypertonic) 500 ml @ 20 mls/hr IV .Q24H [facility] Rx#: [id number] Intake, IV Titration 100 170 Amount Potassium Chloride 10 meq 100 In Water For Injection 1 100ml.bag @ 100 mls/hr IVPB Q1H [facility] Rx#: [id number] Potassium Chloride 10 meq 100 In Water For Injection 1 100ml.bag @ 100 mls/hr IVPB Q1HR [facility] Rx#: [id number] Sodium Chloride 0.9% 1, 70 000 ml @ 70 mls/hr IV . [id number] [facility] Rx#:[id number] Output: Urine 250 500 0 Other: Voiding Method Urinal Urinal Urinal # Voids 1 # Bowel Movements 1 - Labs CBC & Chem 7: 09/28/24 05:42 09/28/24 05:42 Labs: Abnormal Lab Results - Last 24 Hours (Table) 09/27/24 09/27/24 09/27/24 Range/Units 11:58 16:38 21:27 WBC (3.8-10.6) k/uL RBC (4.30-5.90) m/uL Hct (39.0-53.0) % Neutrophils # (1.3-7.7) k/uL Lymphocytes # (1.0-4.8) k/uL Sodium 120 L 121 L 121 L (137-145) mmol/L Chloride (98-107) mmol/L Carbon Dioxide (22-30) mmol/L BUN (9-20) mg/dL Creatinine (0.66-1.25) mg/dL Total Bilirubin (0.2-1.3) mg/dL 09/28/24 09/28/24 Range/Units 05:42 05:42 WBC 17.5 H (3.8-10.6) k/uL RBC 3.89 L (4.30-5.90) m/uL Hct 37.7 L (39.0-53.0) % Neutrophils # 15.3 H (1.3-7.7) k/uL Lymphocytes # 0.7 L (1.0-4.8) k/uL Sodium 123 L (137-145) mmol/L Chloride 95 L (98-107) mmol/L Carbon Dioxide 21 L (22-30) mmol/L BUN 7 L (9-20) mg/dL Creatinine 0.51 L (0.66-1.25) mg/dL Total Bilirubin 1.4 H (0.2-1.3) mg/dL Assessment and Plan Assessment: 1. Hyponatremia, hypovolemic and secondary to EtOH abuse. Improved with 3% s debbie. Urine sodium was less than 20. Urine osmolality is pending. Cortisol was 15.2 and TSH 0.9. Sodium improved 123 this morning. 2. History of EtOH abuse 3. Hypokalemia secondary to poor oral intake Plan: Off 3% drip. Sodium correcting at appropriate rate. Continue normal saline 70cc/hr Continue to trend sodium levels Encourage protein intake
[2024-09-28] MEDS ORDERED: RX INFO: IV CONTRAST WAS GIVEN 1 EACH MISC MISCELLANE PRN (13:12)
--- NOTE | 2024-09-28 13:13 | P.PN ---
Subjective Progress Note Date: 09/28/24 Rory Head, is a 69-year-old male who presented to [facility] emergency room with a chief complaint of severe weakness. He was evaluated in the emergency room vital examination on presentation revealed a temperature of 97.9 pulse 80 respiration 18 blood pressure 111/67 pulse ox 96% on room air Laboratory data revealed a white blood count of 9.7 hemoglobin 13.7 platelet count 293 sodium 105 potassium 4.1 chloride 70 CO2 25 BUN 11 creatinine 0.48 Testing in the emergency room revealed EKG revealed sinus rhythm with first- degree AV block, CT scan of the brain revealed no acute intracranial process remote lacunar injuries and right parietal scalp contusion with laceration, chest x-ray revealed no acute cardiopulmonary disease process. Patient had a similar presentation 2 weeks ago he was admitted to the hospital however he left AGAINST MEDICAL ADVICE shortly after admission. Patient was admitted to medical floor for further evaluation and treatment On 09/27/2024 patient is alert and oriented x 3. Patient remains in the intensive care unit on 3% sodium today 116 nephrology and pulmonary services are following. Current vital signs temp 97.8, heart rate 70, respiratory rate 18, blood pressure 117/64 with a pulse ox of 98% on room air. On 09/28/2024 patient was seen and examined on the medical floor he is alert and oriented x 3 in no apparent distress there is no fever or chills no headache or dizziness no chest pain no shortness of breath, he has occasional cough no nausea or vomiting no abdominal pain no diarrhea no blood in the stools no burning with urination no frequency or urgency and no hematuria. At this time we will continue with current management, sodium level is improving gradually, will check CT scan of the chest to rule out apical lesions, will continue to follow closely. Objective - Vital Signs Vital signs: Vital Signs Temp 98.3 F 09/28/24 08:00 Pulse 80 09/28/24 09:15 Resp 16 09/28/24 08:00 BP 138/76 09/28/24 08:00 Pulse Ox 97 09/28/24 08:00 FiO2 21 09/26/24 11:38 Intake & Output 09/27/24 09/28/24 09/28/24 18:59 06:59 18:59 Intake Total 540 1240 140 Output Total 250 500 0 Balance 290 740 140 Weight 66.6 kg Intake: IV 440 1070 140 Potassium Chloride 10 meq 300 300 In Water For Injection 1 100ml.bag @ 100 mls/hr IVPB Q1HR [facility] Rx#: [id number] Sodium Chloride 0.9% 1, 770 140 000 ml @ 70 mls/hr IV . [id number] [facility] Rx#:[id number] Sodium Chloride 3%( 140 Hypertonic) 500 ml @ 20 mls/hr IV .Q24H [facility] Rx#: [id number] Intake, IV Titration 100 170 Amount Potassium Chloride 10 meq 100 In Water For Injection 1 100ml.bag @ 100 mls/hr IVPB Q1H [facility] Rx#: [id number] Potassium Chloride 10 meq 100 In Water For Injection 1 100ml.bag @ 100 mls/hr IVPB Q1HR [facility] Rx#: [id number] Sodium Chloride 0.9% 1, 70 000 ml @ 70 mls/hr IV . [id number] [facility] Rx#:[id number] Output: Urine 250 500 0 Other: Voiding Method Urinal Urinal Urinal # Voids 1 # Bowel Movements 1 - Exam In general patient is alert and oriented x 3 in no distress HEENT head normocephalic and atraumatic Neck is supple no JVD no goiter no lymphadenopathy no carotid bruit Chest examination is clear to auscultation no crackles no wheezing Cardiac exam reveals regular heart sounds S1 and S2 no gallops no murmurs Abdomen is soft nontender no organomegaly with normal bowel sounds Extremity exam reveals no edema no cyanosis or clubbing Neurological examination reveals no gross focal deficits - Labs CBC & Chem 7: 09/28/24 05:42 09/28/24 05:42 Labs: Abnormal Lab Results - Last 24 Hours (Table) 09/27/24 09/27/24 09/27/24 Range/Units 11:58 16:38 21:27 WBC (3.8-10.6) k/uL RBC (4.30-5.90) m/uL Hct (39.0-53.0) % Neutrophils # (1.3-7.7) k/uL Lymphocytes # (1.0-4.8) k/uL Sodium 120 L 121 L 121 L (137-145) mmol/L Chloride (98-107) mmol/L Carbon Dioxide (22-30) mmol/L BUN (9-20) mg/dL Creatinine (0.66-1.25) mg/dL Total Bilirubin (0.2-1.3) mg/dL 09/28/24 09/28/24 Range/Units 05:42 05:42 WBC 17.5 H (3.8-10.6) k/uL RBC 3.89 L (4.30-5.90) m/uL Hct 37.7 L (39.0-53.0) % Neutrophils # 15.3 H (1.3-7.7) k/uL Lymphocytes # 0.7 L (1.0-4.8) k/uL Sodium 123 L (137-145) mmol/L Chloride 95 L (98-107) mmol/L Carbon Dioxide 21 L (22-30) mmol/L BUN 7 L (9-20) mg/dL Creatinine 0.51 L (0.66-1.25) mg/dL Total Bilirubin 1.4 H (0.2-1.3) mg/dL Assessment and Plan Plan: Severe hyponatremia Underlying history of COPD Underlying history of hypertension History of alcohol abuse Underlying history of tobacco use At this time patient was started on normal saline He was admitted to intensive care unit Nephrology consultation and critical care consultation requested Will follow closely
[2024-09-28] MEDS: NICOTINE 21MG/24HR PATCH TRANSDERM SCH (13:29)
[2024-09-28 14:36] LABS: Magnesium 1.5 mg/dL (1.6-2.3)
--- NOTE | 2024-09-28 17:44 | CT ---
EXAMINATION TYPE: CT chest w con DATE OF EXAM: 09/28/2024 5:27 PM COMPARISON: Chest radiograph 09/25/2024 CLINICAL INDICATION: Male, 69 years old with history of Shortness of breath; PHH, sob TECHNIQUE: Multiple axial images were obtained through the chest. Sagittal and coronal reformats were created for review. MIP was performed on a separate workstation. Contrast used:100 cc mL of Isovue 300 with IV Contrast (None if empty) Oral contrast used: (None if empty) CT DLP: 386.3 mGycm, Automated exposure control for dose reduction was used. FINDINGS: LUNGS/ PLEURA: No focal consolidation, pneumothorax or pleural effusion. Few scattered areas of pulmo nary parenchyma architectural distortion including right upper lung series 201 image 37. Left lower l jose 7 mm pulmonary nodule series 2 image 49. AIRWAY: Patent and unremarkable. HEART: Size within normal limits. MEDIASTINUM: No gross evidence of adenopathy. VASCULATURE: No aortic aneurysm. MUSCULOSKELETAL: Remote right rib 4 injuries with callus formation. Rib 5 laterally with callus forma tion. The posterior rib tendon inserts acute fracture series 201 image 60. SOFT TISSUES/LYMPH NODES: Unremarkable. LOWER NECK: No significant findings. UPPER ABDOMEN: No significant findings. IMPRESSION: 1. No definitive evidence for acute thoracic process. Chronic interstitial changes to the lung paren chyma. 2. Acute posterior right rib 10 fracture with multiple additional more remote appearing right rib fr actures. 3. Submillimeter left lower lung pulmonary nodule. Short-term follow up in 6-12 months recommended t o ensure stability. Suspected left upper lung mucous plugging can also be followed up at that time. 4. Small hiatal hernia. Follow up recommendations for incidental pulmonary nodules, if there are any, are per [employer] or [employer]. https://radiopaedia.org/articles/bdqlajfllj-kgkvtey-vrqtrfjrg-[email or web address]?lang=us [facility], , 09/28/2024 5:42 PM
[2024-09-28] MEDS: SODIUM CHLORIDE TAB 1 GM TAB PO SCH (21:12)
[2024-09-29 08:06] VITALS: BP 148/83; PULSE 87; RESP 18; TEMP 97.3
--- NOTE | 2024-09-29 09:42 | P.PN ---
Subjective Progress Note Date: 09/29/24 Rory Head, is a 69-year-old male who presented to [facility] emergency room with a chief complaint of severe weakness. He was evaluated in the emergency room vital examination on presentation revealed a temperature of 97.9 pulse 80 respiration 18 blood pressure 111/67 pulse ox 96% on room air Laboratory data revealed a white blood count of 9.7 hemoglobin 13.7 platelet count 293 sodium 105 potassium 4.1 chloride 70 CO2 25 BUN 11 creatinine 0.48 Testing in the emergency room revealed EKG revealed sinus rhythm with first- degree AV block, CT scan of the brain revealed no acute intracranial process remote lacunar injuries and right parietal scalp contusion with laceration, chest x-ray revealed no acute cardiopulmonary disease process. Patient had a similar presentation 2 weeks ago he was admitted to the hospital however he left AGAINST MEDICAL ADVICE shortly after admission. Patient was admitted to medical floor for further evaluation and treatment On 09/27/2024 patient is alert and oriented x 3. Patient remains in the intensive care unit on 3% sodium today 116 nephrology and pulmonary services are following. Current vital signs temp 97.8, heart rate 70, respiratory rate 18, blood pressure 117/64 with a pulse ox of 98% on room air. On 09/28/2024 patient was seen and examined on the medical floor he is alert and oriented x 3 in no apparent distress there is no fever or chills no headache or dizziness no chest pain no shortness of breath, he has occasional cough no nausea or vomiting no abdominal pain no diarrhea no blood in the stools no burning with urination no frequency or urgency and no hematuria. At this time we will continue with current management, sodium level is improving gradually, will check CT scan of the chest to rule out apical lesions, will continue to follow closely. On 09/29/2024 patient is alert and oriented x 3. Awaiting pulmonary services to review CT scan awaiting sodium level for today. Patient noted to have elevated white blood cell count will order blood culture and UA and infectious disease consult. Patient denies chest pain or shortness of breath. Patient denies nausea vomiting or diarrhea. Patient denies any urinary burning or frequency. Patient expresses he is eager to be DC'd home patient is not medically cleared at this time for discharge Objective - Vital Signs Vital signs: Vital Signs Temp 97.3 F L 09/29/24 07:40 Pulse 87 11/17/24 07:40 Resp 18 09/29/24 07:40 BP 148/83 09/29/24 07:40 Pulse Ox 97 09/29/24 07:40 FiO2 21 09/26/24 11:38 Intake & Output 09/28/24 09/29/24 09/29/24 18:59 06:59 18:59 Intake Total 490 Output Total 350 Balance 140 Weight 66.6 kg Intake: IV 210 Sodium Chloride 0.9% 1, 210 000 ml @ 70 mls/hr IV . [id number] [facility] Rx#:[id number] Intake, IV Titration 280 Amount Sodium Chloride 0.9% 1, 280 000 ml @ 70 mls/hr IV . [id number] [facility] Rx#:[id number] Output: Urine 350 Other: Voiding Method Urinal Urinal # Voids 2 - Exam In general patient is alert and oriented x 3 in no distress HEENT head normocephalic and atraumatic Neck is supple no JVD no goiter no lymphadenopathy no carotid bruit Chest examination is clear to auscultation no crackles no wheezing Cardiac exam reveals regular heart sounds S1 and S2 no gallops no murmurs Abdomen is soft nontender no organomegaly with normal bowel sounds Extremity exam reveals no edema no cyanosis or clubbing Neurological examination reveals no gross focal deficits - Labs CBC & Chem 7: 09/28/24 05:42 09/28/24 13:53 Labs: Abnormal Lab Results - Last 24 Hours (Table) 09/28/24 Range/Units 13:53 Sodium 123 L (137-145) mmol/L Magnesium 1.5 L (1.6-2.3) mg/dL Assessment and Plan Plan: Severe hyponatremia Leukocytosis Underlying history of COPD Underlying history of hypertension History of alcohol abuse Underlying history of tobacco use At this time patient was started on normal saline He was admitted to intensive care unit Nephrology consultation and critical care consultation requested Will follow closely
[2024-09-29 09:54] LABS: ALT 28 U/L (10-49); AST 21 U/L (14-35); Albumin 3.8 g/dL (3.8-4.9); Albumin/Globulin Ratio 1.65 Ratio (1.60-3.17); Alkaline Phosphatase 82 U/L (41-126); Blood Urea Nitrogen 9.7 mg/dL (9.0-27.0); Calcium 9.2 mg/dL (8.7-10.3); Carbon Dioxide 20.6 mmol/L (21.6-31.8); Chloride 94 mmol/L (96-109); Globulin 2.3 g/dL (1.6-3.3); Glucose 107 mg/dL (70-110); Potassium 4.3 mmol/L (3.5-5.5); Sodium 126 mmol/L (135-145); Total Bilirubin 1.1 mg/dL (0.3-1.2); Total Protein 6.1 g/dL (6.2-8.2)
[2024-09-29 10:03] LABS: Basophils # (A) 0.07 X 10*3/uL (0.00-0.10); Basophils % (A) 0.8 %; Eosinophils # (A) 0.09 X 10*3/uL (0.04-0.35); HGB 12.3 g/dL (13.0-17.0); Lymphocytes # (A) 1.06 X 10*3/uL (0.90-5.00); Lymphocytes % (A) 11.5 %; MCH 33.2 pg (27.0-32.0); MCHC 36.2 g/dL (32.0-37.0); MCV 91.6 FL (80.0-97.0); Mean Platelet Volume 9.9 FL (9.5-12.2); Monocytes # (A) 0.89 X 10*3/uL (0.20-1.00); Monocytes % (A) 9.6 %; NRBC Per 100 WBC 0 X 10*3/uL (0.00-0.01); Neutrophils % (A) 76.7 %; Platelet Count 381 X 10*3/uL (140-440); RBC 3.71 X 10*6/uL (4.40-5.60); RDW 11.6 % (11.5-14.5); WBC 9.25 X 10*3/uL (4.50-10.00)
[2024-09-29 10:24] LABS: Basophils # (A) 0.1 k/uL (0-0.2); Basophils % (A) 1 %; Eosinophils # (A) 0.1 k/uL (0-0.7); Eosinophils % (A) 1 %; HCT 36.7 % (39.0-53.0); HGB 12.4 gm/dL (13.0-17.5); Lymphocytes # (A) 0.9 k/uL (1.0-4.8); Lymphocytes % (A) 12 %; MCH 33.2 pg (25.0-35.0); MCHC 33.9 g/dL (31.0-37.0); MCV 97.9 fL (80.0-100.0); Mean Platelet Volume 7.5; Monocytes # (A) 0.6 k/uL (0-1.0); Monocytes % (A) 8 %; Neutrophils # (A) 5.9 k/uL (1.3-7.7); Neutrophils % (A) 75 %; Platelet Count 363 k/uL (150-450); RBC 3.75 m/uL (4.30-5.90); RDW 11.5 % (11.5-15.5); WBC 7.9 k/uL (3.8-10.6)
[2024-09-29 10:39] LABS: ALT 28 U/L (4-49); AST 25 U/L (17-59); African American GFR (CKD) >90 (>60 ml/min/1.73 sqM); Albumin 3.7 g/dL (3.5-5.0); Albumin/Globulin Ratio 1.5; Alkaline Phosphatase 75 U/L (38-126); Anion Gap 5 mmol/L; Blood Urea Nitrogen 9 mg/dL (9-20); Calcium 9.2 mg/dL (8.4-10.2); Carbon Dioxide 26 mmol/L (22-30); Chloride 94 mmol/L (98-107); Globulin 2.5 g/dL; Glucose 85 mg/dL (74-99); Non-African American GFR(CKD) >90 (>60 ml/min/1.73 sqM); Potassium 4.6 mmol/L (3.5-5.1); Sodium 125 mmol/L (137-145); Total Bilirubin 1.2 mg/dL (0.2-1.3); Total Protein 6.2 g/dL (6.3-8.2)
--- NOTE | 2024-09-29 11:19 | P.PN ---
Subjective Progress Note Date: 09/29/24 This is a 69-year-old white male with history of alcohol abuse, history of chronic hyponatremia related to alcoholism, patient was recently in the hospital/3 weeks ago for symptoms of weakness and hyponatremia, at that time his sodium was 114 treated and improved. Patient is now back in the hospital with similar symptoms of weakness mostly and falling easily. His sodium this time was 103. Patient required placement on 3% saline and admitted to the ICU for 3% infusion. His sodium today is 110, patient is feeling a bit better, he denies any headache denies any blurred vision denies any dizziness denies any chest pain shortness of breath cough or wheezing denies any nausea vomiting or abdominal pain. His sodium is 110 potassium 3.3, BUN is normal creatinine is normal bicarb is 19 Patient was seen today on 09/27/2024, patient remains in the ICU, remains on 3% saline, sodium is correcting slowly today sodium is 119 as of the labs are unremarkable, patient is doing great, his hyponatremia is being addressed by nephrology, I believe the patient could be considered for transfer out of the U once 3% saline is discontinued. In the meantime the patient continues to do quite well. And he is asymptomatic. Patient was evaluated today on 09/28/2024, patient remains in the ICU, he is an overflow now, patient's sodium is up to 123, responded well to 3% infusion. Now on normal saline, patient could be considered for transfer out of ICU once a bed is available. Labs today were all reviewed sodium 123 potassium 4.6 renal profile is normal CBC is relatively normal except for WBC count of 17.5 hemoglobin 13.1 The patient is seen today September 29, 2024 in follow-up on the regular medical floor. He was transferred out of the intensive care unit yesterday. He is awake and alert in no acute distress. Maintaining good O2 saturations in the 90s on room air. No worsening shortness of breath, cough or congestion. White count 7.9. Hemoglobin 12.4. Platelets 363. Sodium 125. Potassium 4.6. Bicarb 26. BUN 9. Creatinine 0.52. Glucose 85. He is continued on DuoNeb and elations, Symbicort. NicoDerm patch in place. Normal saline at 70 mL/h. Objective - Vital Signs Vital signs: Vital Signs Temp 97.3 F L 09/29/24 07:40 Pulse 87 09/29/24 07:40 Resp 18 09/29/24 07:40 BP 148/83 09/29/24 07:40 Pulse Ox 97 09/29/24 07:40 FiO2 21 09/26/24 11:38 Intake & Output 09/28/24 09/29/24 09/29/24 18:59 06:59 18:59 Intake Total 490 Output Total 350 Balance 140 Weight 66.6 kg Intake: IV 210 Sodium Chloride 0.9% 1, 210 000 ml @ 70 mls/hr IV . [id number] REHAN Rx#:[id number] Intake, IV Titration 280 Amount Sodium Chloride 0.9% 1, 280 000 ml @ 70 mls/hr IV . [id number] REHAN Rx#:[id number] Output: Urine 350 Other: Voiding Method Urinal Urinal Urinal # Voids 2 - Exam GENERAL EXAM: Alert,, 69-year-old male, on room air, comfortable in no apparent distress. HEAD: Normocephalic. EYES: Normal reaction of pupils, equal size. NOSE: Clear with pink turbinates. THROAT: No erythema or exudates. NECK: No masses, no JVD. CHEST: No chest wall deformity. LUNGS: Equal air entry with no crackles, wheeze, rhonchi or dullness. CVS: S1 and S2 normal with no audible murmur, regular rhythm. ABDOMEN: No hepatosplenomegaly, normal bowel sounds, no guarding or rigidity. SPINE: No scoliosis or deformity SKIN: No rashes CENTRAL NERVOUS SYSTEM: No focal deficits, tone is normal in all 4 extremities. EXTREMITIES: There is no peripheral edema. No clubbing, no cyanosis. Peripheral pulses are intact. - Labs CBC & Chem 7: 09/29/24 09:12 09/29/24 09:12 Labs: Abnormal Lab Results - Last 24 Hours (Table) 09/28/24 09/29/24 09/29/24 Range/Units 13:53 03:18 03:18 RBC 3.71 L (4.40-5.60) X 10*6/uL Hgb 12.3 L (13.0-17.0) g/dL Hct 34.0 L (39.6-50.0) % MCH 33.2 H (27.0-32.0) pg Lymphocytes # (1.0-4.8) k/uL Sodium 123 L 126 L (137-145) mmol/L Chloride 94 L (96-109) mmol/L Carbon Dioxide 20.6 L (21.6-31.8) mmol/L Creatinine 0.5 L (0.6-1.5) mg/dL Magnesium 1.5 L (1.6-2.3) mg/dL Total Protein 6.1 L (6.2-8.2) g/dL 09/29/24 09/29/24 Range/Units 09:12 09:12 RBC 3.75 L (4.40-5.60) X 10*6/uL Hgb 12.4 L (13.0-17.0) g/dL Hct 36.7 L (39.6-50.0) % MCH (27.0-32.0) pg Lymphocytes # 0.9 L (1.0-4.8) k/uL Sodium 125 L (137-145) mmol/L Chloride 94 L (96-109) mmol/L Carbon Dioxide (21.6-31.8) mmol/L Creatinine 0.52 L (0.6-1.5) mg/dL Magnesium (1.6-2.3) mg/dL Total Protein 6.2 L (6.2-8.2) g/dL Assessment and Plan Assessment: Hyponatremia secondary to potomania and hypovolemia, treated with 3% saline, sodium 125. Currently on normal saline at 70 mL/h History of alcohol abuse History of underlying COPD Tobacco dependence syndrome Benign essential hypertension Plan: The patient was seen and evaluated Stable and on room air Transferred out of the ICU Receiving saline at 70 mL/h Current sodium 125 Educated regarding alcohol cessation Educated regarding smoking cessation NicoDerm patch in place I have personally seen and examined the patient, performed the documentation and the assessment and plan as written. Number of minutes spent on the visit: 10 Dictation was produced using [employer] dictation software. Please excuse any grammatical, word or spelling errors..
--- NOTE | 2024-09-30 09:23 | P.DS ---
Providers Date of admission: 09/25/24 16:06 Expected date of discharge: 09/30/24 Attending physician: Jose Mason Consults: 09/25/24 16:00 Consult Physician Stat Consulting Provider: Yokasta Joe Consult Reason/Comments: ICU managemeny Do you want consulting provider notified?: Already Contacted 09/25/24 16:04 Consult Physician Stat Consulting Provider: Rachel Meadows Consult Reason/Comments: hyponatremia Do you want consulting provider notified?: Yes 09/26/24 00:08 Consult Physician Stat Consulting Provider: Yokasta Joe Consult Reason/Comments: Hyponatremia Do you want consulting provider notified?: Already Contacted 09/29/24 09:40 Consult Physician Routine Consulting Provider: Bogdan Carrizales Consult Reason/Comments: Leukocytosis Do you want consulting provider notified?: Yes Primary care physician: Jose Mason [facility] Course: Diagnosis on discharge: Severe hyponatremia Leukocytosis Underlying history of COPD Underlying history of hypertension History of alcohol abuse Underlying history of tobacco use Hospital course: Rory Head, is a 69-year-old male who presented to [facility] emergency room with a chief complaint of severe weakness. He was evaluated in the emergency room vital examination on presentation revealed a temperature of 97.9 pulse 80 respiration 18 blood pressure 111/67 pulse ox 96% on room air Laboratory data revealed a white blood count of 9.7 hemoglobin 13.7 platelet count 293 sodium 105 potassium 4.1 chloride 70 CO2 25 BUN 11 creatinine 0.48 Testing in the emergency room revealed EKG revealed sinus rhythm with first- degree AV block, CT scan of the brain revealed no acute intracranial process remote lacunar injuries and right parietal scalp contusion with laceration, chest x-ray revealed no acute cardiopulmonary disease process. Patient had a similar presentation 2 weeks ago he was admitted to the hospital however he left AGAINST MEDICAL ADVICE shortly after admission. Patient was admitted to medical floor for further evaluation and treatment On 09/27/2024 patient is alert and oriented x 3. Patient remains in the intensive care unit on 3% sodium today 116 nephrology and pulmonary services are following. Current vital signs temp 97.8, heart rate 70, respiratory rate 18, blood pressure 117/64 with a pulse ox of 98% on room air. On 09/28/2024 patient was seen and examined on the medical floor he is alert and oriented x 3 in no apparent distress there is no fever or chills no headache or dizziness no chest pain no shortness of breath, he has occasional cough no nausea or vomiting no abdominal pain no diarrhea no blood in the stools no burning with urination no frequency or urgency and no hematuria. At this time we will continue with current management, sodium level is improving gradually, will check CT scan of the chest to rule out apical lesions, will continue to follow closely. On 09/29/2024 patient is alert and oriented x 3. Awaiting pulmonary services to review CT scan awaiting sodium level for today. Patient noted to have elevated white blood cell count will order blood culture and UA and infectious disease consult. Patient denies chest pain or shortness of breath. Patient denies nausea vomiting or diarrhea. Patient denies any urinary burning or frequency. Patient expresses he is eager to be DC'd home patient is not medically cleared at this time for discharge On 09/29/2024, patient was feeling better he decided to leave the hospital AGAINST MEDICAL ADVICE Patient Condition at Discharge: Stable Plan - Discharge Summary New Discharge Prescriptions: No Action Losartan Potassium 100 mg PO DAILY Albuterol Sulfate [Ventolin HFA] 2 puff INHALATION RT-Q4H PRN PRN Reason: Shortness Of Breath Fluticasone/Umeclidin/Vilanter [Trelegy Ellipta 100-62.5-25] 1 puff INHALATION RT-DAILY Aspirin EC [Ecotrin Low Dose] 81 mg PO DAILY Discharge Medication List Albuterol Sulfate [Ventolin HFA] 2 puff INHALATION RT-Q4H PRN 01/27/20 [History] Losartan Potassium 100 mg PO DAILY 01/27/20 [History] Fluticasone/Umeclidin/Vilanter [Trelegy Ellipta 100-62.5-25] 1 puff INHALATION RT-DAILY 04/21/22 [History] Aspirin EC [Ecotrin Low Dose] 81 mg PO DAILY 09/09/24 [History] Follow up Appointment(s)/Referral(s): Jose Mason MD [Primary Care Provider] - 1-2 days Discharge Disposition: LEFT AGAINST MEDICAL ADVICE
== END 2024-09-29 10:43 | disposition left against medical advice (07) | DRG 641 ==
LOC: EC 11:22 → 2SICU 16:06 → 4SSUR 09-28 14:21
PROVIDERS: ADMIT Internal Medicine; ATTEND Internal Medicine
PROC: HZ2ZZZZ Detoxification Services for Substance Abuse Treatment (ICD-10-PCS; principal; 2024-09-25)
DX: E87.1 Hypo-osmolality and hyponatremia (principal); E83.42 Hypomagnesemia; J44.9 Chronic obstructive pulmonary disease, unspecified; Z53.29 Procedure and treatment not carried out because of patient's decision for other reasons; I11.0 Hypertensive heart disease with heart failure; F10.10 Alcohol abuse, uncomplicated; E87.6 Hypokalemia; E86.1 Hypovolemia; F17.210 Nicotine dependence, cigarettes, uncomplicated; Z71.6 Tobacco abuse counseling; D72.829 Elevated white blood cell count, unspecified; E78.5 Hyperlipidemia, unspecified; I10 Essential (primary) hypertension; I44.30 Unspecified atrioventricular block; R29.6 Repeated falls; W19.XXXA Unspecified fall, initial encounter; Z79.82 Long term (current) use of aspirin
CPT/HCPCS: 36415; 70450; 71046; 71260; 80048; 80053; 80320; 81003; 82533; 83605; 83735; 83935; 84132; 84295; 84300; 84443; 84484; 85025; 85027; 85610; 85730; 93005; 94640; 96361; 96365; 96366; 99291

== ENCOUNTER 2024-10-04 06:15 | Inpatient (IN) | payer MEDICARE, OTHER ==
[2024-10-04] MEDS: SODIUM CHLORIDE 0.9% 1,000 ML IV STA ×4 (06:19→08:03)
[2024-10-04 06:21] LABS: Glucose,Whole Blood 227 mg/dL (70-110)
[2024-10-04] MEDS: ETOMIDATE 2 MG/ML 10 ML VIAL IVP STA (06:21)
[2024-10-04] MEDS: ROCURONIUM 10 MG/ML (5 ML VIAL) IV STA (06:22)
[2024-10-04 06:37] LABS: Basophils # (A) 0.1 k/uL (0-0.2); Basophils % (A) 1 %; Eosinophils # (A) 0.3 k/uL (0-0.7); Eosinophils % (A) 2 %; HCT 40.8 % (39.0-53.0); HGB 13.4 gm/dL (13.0-17.5); Lymphocytes # (A) 1.9 k/uL (1.0-4.8); Lymphocytes % (A) 17 %; MCH 32.7 pg (25.0-35.0); MCHC 32.8 g/dL (31.0-37.0); MCV 99.9 fL (80.0-100.0); Mean Platelet Volume 7.5; Monocytes # (A) 0.6 k/uL (0-1.0); Monocytes % (A) 6 %; Neutrophils # (A) 7.6 k/uL (1.3-7.7); Neutrophils % (A) 71 %; Platelet Count 479 k/uL (150-450); RBC 4.09 m/uL (4.30-5.90); RDW 12.1 % (11.5-15.5); WBC 10.8 k/uL (3.8-10.6)
--- NOTE | 2024-10-04 06:43 | XR ---
EXAMINATION TYPE: XR chest 1V portable DATE OF EXAM: 10/04/2024 COMPARISON: CT chest 6 days earlier HISTORY: Trauma. Unresponsive. TECHNIQUE: 2 frontal supine views of the chest are obtained. FINDINGS: There is an endotracheal tube terminating just above the aortic knob approximately 6 cm abo ve the eloy. There is orogastric tube projecting below diaphragm. Lungs remain clear. The cardiac silhouette size remains within normal limits with atherosclerotic change in the aortic knob redemonst rated. The osseous structures are intact. IMPRESSION: 1. New endotracheal and orogastric tubes are satisfactory in position. 2. No suspicious acute pulmonary process. [facility], , 10/04/2024 6:41 AM
[2024-10-04 06:44] LABS: African American GFR (CKD) >90 (>60 ml/min/1.73 sqM); Albumin 4.5 g/dL (3.5-5.0); Alcohol <10 mg/dL; Alkaline Phosphatase 58 U/L (38-126); Anion Gap 23 mmol/L; Blood Urea Nitrogen 14 mg/dL (9-20); Calcium 9.3 mg/dL (8.4-10.2); Carbon Dioxide 11 mmol/L (22-30); Chloride 90 mmol/L (98-107); Glucose 218 mg/dL (74-99); Non-African American GFR(CKD) >90 (>60 ml/min/1.73 sqM); Potassium 4.5 mmol/L (3.5-5.1); Sodium 124 mmol/L (137-145); Total Bilirubin 1.1 mg/dL (0.2-1.3); Total Protein 7.1 g/dL (6.3-8.2)
--- NOTE | 2024-10-04 06:44 | XR ---
EXAMINATION TYPE: XR pelvis AP view DATE OF EXAM: 10/04/2024 CLINICAL HISTORY: Trauma TECHNIQUE: A single AP view of the pelvis is obtained. COMPARISON: None. FINDINGS: There is no acute fracture/dislocation evident in the pelvis. The hip and sacroiliac join ts appear symmetric and unremarkable. Pubic symphysis is intact. Left-sided vascular calcification i s noted. IMPRESSION: There is no acute fracture or dislocation in the pelvis. [facility], , 10/04/2024 6:41 AM
--- NOTE | 2024-10-04 06:49 | ED ---
General Adult HPI - General Source: EMS, RN notes reviewed, old records reviewed Mode of arrival: EMS Limitations: altered mental status, physical limitation <Urbano Page - Last Filed: 10/04/24 06:53> <Corwin Urias - Last Filed: 10/04/24 07:46> - General Chief complaint: Trauma Stated complaint: AMS Time Seen by Provider: 10/04/24 06:15 - History of Present Illness Initial comments: Patient is a 69-year-old male who presents emergency department for altered mental status, as well as an apparent level 1 trauma. Patient was found down folded onto himself with positional asphyxia at home in his bathtub. Unknown for how long he was like this. When EMS arrived, respiratory rate was 2. They unfolded his body, and respiratory rate did improve. However patient remained altered. Pinpoint pupils. Not responsive to touch or sound. Patient was transferred here for further evaluation. Patient can provide no history. Apparently, patient's told EMS that she he has been having more syncopal episodes lately. Per our chart, patient has a history of COPD, hypertension, hyperlipidemia, alcohol abuse. Apparently patient has been having multiple falls recently as well as syncopal episodes per . Not on blood thinners per chart. Was recently here. Medications listed include aspirin, losartan, Trelegy, albuterol. Presents for further evaluation at this time. Patient provide no history. (Urbano Page) - Related Data Home Medications Medication Instructions Recorded Confirmed Albuterol Sulfate [Ventolin HFA] 2 puff INHALATION RT-Q4H PRN 01/27/20 09/25/24 Losartan Potassium 100 mg PO DAILY 01/27/20 09/25/24 Fluticasone/Umeclidin/Vilanter 1 puff INHALATION RT-DAILY 04/21/22 09/25/24 [Trelegy Ellipta 100-62.5-25] Aspirin EC [Ecotrin Low Dose] 81 mg PO DAILY 09/09/24 09/25/24 Allergies Allergy/AdvReac Type Severity Reaction Status Date / Time No Known Allergies Allergy Verified 10/04/24 06:17 Review of Systems ROS Other: All systems not noted in ROS Statement are negative. <Urbano Page - Last Filed: 10/04/24 06:53> ROS Other: All systems not noted in ROS Statement are negative. <Corwin Urias - Last Filed: 10/04/24 07:46> ROS Statement: Those systems with pertinent positive or pertinent negative responses have been documented in the HPI. Past Medical History Past Medical History: Chest Pain / Angina, COPD, Hyperlipidemia, Hypertension History of Any Multi-Drug Resistant Organisms: None Reported Past Surgical History: Appendectomy Past Anesthesia/Blood Transfusion Reactions: No Reported Reaction Past Psychological History: No Psychological Hx Reported Smoking Status: Current every day smoker Past Alcohol Use History: Daily Past Drug Use History: Marijuana - Past Family History Mother History Unknown: Yes Additional Family Medical History / Comment(s): Father Additional Family Medical History / Comment(s): from complications of injuries after falling down stairs. <Urbano Page - Last Filed: 10/04/24 06:53> General Exam Limitations: altered mental status, physical limitation <Urbano Page - Last Filed: 10/04/24 06:53> - General Exam Comments Initial Comments: General: Patient is nonresponsive. With agonal respirations HEAD: Patient has some forehead contusions present with no added obvious active bleeding EYES: Pupils are 1 mm and nonreactive to light. Fixed. ENT: Trachea is midline. RESPIRATORY: Clear breath sounds bilaterally with agonal respirations. No significant hypoxia at this time on nasal cannula oxygen. C/V: Tachycardic with an irregular rhythm. Peripheral pulses are 2+ intact throughout. S1 and S2 auscultated. ABD: Abd is soft, nontender, nondistended EXT: Normal range of motion, no obvious deformity. No significant step-offs or deformities palpated on the spine. SKIN: Superficial skin abrasion to the left knee. NEURO: Not alert or oriented. GCS is 3-4. (Urbano Page) Course Vital Signs 10/04/24 10/04/24 10/04/24 06:18 06:42 06:59 Temperature 97.7 F Pulse Rate 151 H Respiratory 12 Rate Blood Pressure 198/119 O2 Sat by Pulse 100 Oximetry Fraction of 100 100 Inspired Oxygen (FIO2) Procedures - Intubation Sedative: Etomidate Mg Given: 20 Paralytic: Rocuronium Mg Given: 50 Laryngoscope: other (glidescope) Size: 4 ET Tube Size: 7.5 Tube Secured Depth (cm): 24 Tube Secured Location: lips Tube Placement Confirmation: visualized tube passing through cords, equal breath sounds bilaterally, no breath sounds over epigastrium Patient Tolerated Procedure: well Intubation Complications: none <Urbano Page - Last Filed: 10/04/24 06:53> Medical Decision Making - Lab Data Result diagrams: 10/04/24 06:21 - EKG Data -: EKG Interpreted by Me <Urbano Page - Last Filed: 10/04/24 06:53> - Lab Data Result diagrams: 10/04/24 06:21 10/04/24 06:21 <AdonayCorwin - Last Filed: 10/04/24 07:46> - Medical Decision Making Was pt. sent in by a medical professional or institution (, PA, MILIEU COUNSELOR, urgent care, hospital, or prison...) When possible be specific @ -No Did you speak to anyone other than the patient for history (EMS, parent, family, police, friend...)? What history was obtained from this source @ -No Did you review nursing and triage notes (agree or disagree)? Why? @ -I reviewed and agree with nursing and triage notes Were old charts reviewed (outside hosp., previous admission, EMS record, old EKG, old radiological studies, urgent care reports/EKG's, prison records)? Report findings @ -Reviewed chart from recent visit when he was admitted for hyponatremia Differential Diagnosis (chest pain, altered mental status, abdominal pain women, abdominal pain men, vaginal bleeding, weakness, fever, dyspnea, syncope, headache, dizziness, GI bleed, back pain, seizure, CVA, palpatations, mental health, musculoskeletal)? @ -Altered mental status,, dehydration, encephalopathy, SC, PE, intracranial injury. This list is not all inclusive. EKG interpreted by me (3pts min.). @ -As above X-rays interpreted by me (1pt min.). @ -Chest x-ray reveals no obvious acute cardiopulmonary process. Satisfactory 3 placement of OG and ET tube. Pelvis x-ray reveals no obvious fracture or dislocation. CT interpreted by me (1pt min.). @ -Pending U/S interpreted by me (1pt. min.). @ -None done What testing was considered but not performed or refused? (CT, X-rays, U/S, labs)? Why? @ -None What meds were considered but not given or refused? Why? @ -None Did you discuss the management of the patient with other professionals (professionals i.e. , PA, MILIEU COUNSELOR, lab, RT, psych nurse, administrator social welfare, obstetrics tech, teacher, booking officer, caseworker protective services)? Give summary @ -Discussed with Dr. Phillip who is on-call for trauma. Was in agreement with the plan for workup. Patient was made a level 1 trauma. Was smoking cessation discussed for >3mins.? @ -No Was critical care preformed (if so, how long)? @ -Yes, 40 minutes Were there social determinants of health that impacted care today? How? (Homelessness, low income, unemployed, alcoholism, drug addiction, transportation, low edu. Level, literacy, decrease access to med. care, fpc, rehab)? @ -No Was there de-escalation of care discussed even if they declined (Discuss DNR or withdrawal of care, Hospice)? DNR status @ -No What co-morbidities impacted this encounter? (DM, HTN, Smoking, COPD, CAD, Cancer, CVA, ARF, Chemo, Hep., AIDS, mental health diagnosis, sleep apnea, morbid obesity)? @ -COPD, recurrent syncopal episodes Was patient admitted / discharged? Hospital course, mention meds given and route, prescriptions, significant lab abnormalities, going to OR and other pertinent info. @ -Based on the patient's presentation and physical exam, presents to the emergency department as a level 1 trauma activation. Apparent fall or syncopal episode, found down with a GCS of 3-4. ATLS protocol will be followed. Patient intubated upon arrival and he tolerated the procedure well. Patient appears to be in A-fib with RVR based on the EKG. Could be secondary to his positional asphyxia and hypoxia at the scene and we continue to monitor. Patient is hypertensive initially but is improving after intubation. We will obtain walter CT imaging. Chest x-ray and pelvis x-ray obtained and are unremarkable. Broad workup for labs are obtained. 2 IVs placed. Patient empirically given 2 L fl uid bolus, Ancef, Tdap. I spoke with on-call trauma surgery, Dr. Phillip who was in agreement with the plan and presented at bedside for evaluation of the patient. Cardizem ordered as the patient was hypotensive and in A-fib with RVR upon return from the scanner. At this time, is the end my shift. Patient signed out to oncoming emergency department physician, Dr. Urias pending results of workup and admission. Undiagnosed new problem with uncertain prognosis? @ -No Drug Therapy requiring intensive monitoring for toxicity (Heparin, Nitro, Insulin, Cardizem)? @ -No Were any procedures done? @ -Intubation (Urbano Page) Patient reevaluated by myself. Patient intubated and slightly restless and slightly alert. Patient will need additional sedation. Blood pressure remains high and this will be addressed following further sedation. Heart rate also remains high. CT scan of head and cervical spine showed no acute process. CT scan of face shows nasal bone fracture. CT scan of chest shows nodules. CT scan of abdomen and pelvis reveals no acute abnormality. CT scan of the spine does not reveal acute abnormality. Elevated ammonia level. Elevated lactic acid. Hyponatremia. History of alcohol use. History of syncope with previous syncopal episodes. Patient will be admitted to ICU under surgical care. Consults have been placed for neurology and cardiology and medicine. Case also discussed with ICU doctor Dr. Martinez by myself. Admission orders written. Diagnosis: Syncope, acute. A-fib with RVR, acute. Hepatic encephalopathy, acute. Hyponatremia, acute. Lactic acidosis, acute Threat to metabolic function and cardiac function. (Corwin Urias) - Lab Data Lab Results 10/04/24 10/04/24 10/04/24 Range/Units 06:16 06:20 06:21 WBC 10.8 H (3.8-10.6) k/uL RBC 4.09 L (4.30-5.90) m/uL Hgb 13.4 (13.0-17.5) gm/dL Hct 40.8 (39.0-53.0) % MCV 99.9 (80.0-100.0) fL MCH 32.7 (25.0-35.0) pg MCHC 32.8 (31.0-37.0) g/dL RDW 12.1 (11.5-15.5) % Plt Count 479 H (150-450) k/uL MPV 7.5 Neutrophils % 71 % Lymphocytes % 17 % Monocytes % 6 % Eosinophils % 2 % Basophils % 1 % Neutrophils # 7.6 (1.3-7.7) k/uL Lymphocytes # 1.9 (1.0-4.8) k/uL Monocytes # 0.6 (0-1.0) k/uL Eosinophils # 0.3 (0-0.7) k/uL Basophils # 0.1 (0-0.2) k/uL PT (10.0-12.5) sec INR (<1.2) APTT (22.0-30.0) sec Sodium (137-145) mmol/L Potassium (3.5-5.1) mmol/L Chloride (98-107) mmol/L Carbon Dioxide (22-30) mmol/L Anion Gap mmol/L BUN (9-20) mg/dL Creatinine (0.66-1.25) mg/dL Est GFR (CKD-EPI)AfAm (>60 ml/min/1.73 sqM) Est GFR (CKD-EPI)NonAf (>60 ml/min/1.73 sqM) Glucose (74-99) mg/dL POC Glucose (mg/dL) 227 H (70-110) mg/dL POC Glu Channel Layer ANA LUISA Wiley Plasma Lactic Acid Kenneth (0.7-2.0) mmol/L Calcium (8.4-10.2) mg/dL Total Bilirubin (0.2-1.3) mg/dL AST (17-59) U/L ALT (4-49) U/L Alkaline Phosphatase (38-126) U/L Ammonia (<30) umol/L Troponin I (0.000-0.034) ng/mL Total Protein (6.3-8.2) g/dL Albumin (3.5-5.0) g/dL Urine Color Urine Appearance (Clear) Urine pH (5.0-8.0) Ur Specific Lindrith (1.001-1.035) Urine Protein (Negative) Urine Glucose (UA) (Negative) Urine Ketones (Negative) Urine Blood (Negative) Urine Nitrite (Negative) Urine Bilirubin (Negative) Urine Urobilinogen (<2.0) mg/dL Ur Leukocyte Esterase (Negative) Urine RBC (0-5) /hpf Urine WBC (0-5) /hpf Ur Squamous Epith Cells (0-4) /hpf Urine Mucus (None) /hpf Serum Alcohol mg/dL Blood Type O Positive Blood Type Recheck O Pos Bld Type Recheck Status No Antibody Screen NEGATIVE Spec Expiration Date 10/07/2024231510/04/24 10/04/24 10/04/24 Range/Units 06:21 06:21 06:21 WBC (3.8-10.6) k/uL RBC (4.30-5.90) m/uL Hgb (13.0-17.5) gm/dL Hct (39.0-53.0) % MCV (80.0-100.0) fL MCH (25.0-35.0) pg MCHC (31.0-37.0) g/dL RDW (11.5-15.5) % Plt Count (150-450) k/uL MPV Neutrophils % % Lymphocytes % % Monocytes % % Eosinophils % % Basophils % % Neutrophils # (1.3-7.7) k/uL Lymphocytes # (1.0-4.8) k/uL Monocytes # (0-1.0) k/uL Eosinophils # (0-0.7) k/uL Basophils # (0-0.2) k/uL PT 10.0 (10.0-12.5) sec INR 0.9 (<1.2) APTT 26.1 (22.0-30.0) sec Sodium 124 L (137-145) mmol/L Potassium 4.5 (3.5-5.1) mmol/L Chloride 90 L (98-107) mmol/L Carbon Dioxide 11 L (22-30) mmol/L Anion Gap 23 mmol/L BUN 14 (9-20) mg/dL Creatinine 0.53 L (0.66-1.25) mg/dL Est GFR (CKD-EPI)AfAm >90 (>60 ml/min/1.73 sqM) Est GFR (CKD-EPI)NonAf >90 (>60 ml/min/1.73 sqM) Glucose 218 H (74-99) mg/dL POC Glucose (mg/dL) (70-110) mg/dL POC Glu Channel Layer ID Plasma Lactic Acid Kenneth 11.5 H* (0.7-2.0) mmol/L Calcium 9.3 (8.4-10.2) mg/dL Total Bilirubin 1.1 (0.2-1.3) mg/dL AST 49 (17-59) U/L ALT 52 H (4-49) U/L Alkaline Phosphatase 58 (38-126) U/L Ammonia 82 H (<30) umol/L Troponin I (0.000-0.034) ng/mL Total Protein 7.1 (6.3-8.2) g/dL Albumin 4.5 (3.5-5.0) g/dL Urine Color Urine Appearance (Clear) Urine pH (5.0-8.0) Ur Specific Lindrith (1.001-1.035) Urine Protein (Negative) Urine Glucose (UA) (Negative) Urine Ketones (Negative) Urine Blood (Negative) Urine Nitrite (Negative) Urine Bilirubin (Negative) Urine Urobilinogen (<2.0) mg/dL Ur Leukocyte Esterase (Negative) Urine RBC (0-5) /hpf Urine WBC (0-5) /hpf Ur Squamous Epith Cells (0-4) /hpf Urine Mucus (None) /hpf Serum Alcohol <10 mg/dL Blood Type Blood Type Recheck Bld Type Recheck Status Antibody Screen Spec Expiration Date 10/04/24 10/04/24 Range/Units 06:21 07:02 WBC (3.8-10.6) k/uL RBC (4.30-5.90) m/uL Hgb (13.0-17.5) gm/dL Hct (39.0-53.0) % MCV (80.0-100.0) fL MCH (25.0-35.0) pg MCHC (31.0-37.0) g/dL RDW (11.5-15.5) % Plt Count (150-450) k/uL MPV Neutrophils % % Lymphocytes % % Monocytes % % Eosinophils % % Basophils % % Neutrophils # (1.3-7.7) k/uL Lymphocytes # (1.0-4.8) k/uL Monocytes # (0-1.0) k/uL Eosinophils # (0-0.7) k/uL Basophils # (0-0.2) k/uL PT (10.0-12.5) sec INR (<1.2) APTT (22.0-30.0) sec Sodium (137-145) mmol/L Potassium (3.5-5.1) mmol/L Chloride (98-107) mmol/L Carbon Dioxide (22-30) mmol/L Anion Gap mmol/L BUN (9-20) mg/dL Creatinine (0.66-1.25) mg/dL Est GFR (CKD-EPI)AfAm (>60 ml/min/1.73 sqM) Est GFR (CKD-EPI)NonAf (>60 ml/min/1.73 sqM) Glucose (74-99) mg/dL POC Glucose (mg/dL) (70-110) mg/dL POC Glu Channel Layer ID Plasma Lactic Acid Kenneth (0.7-2.0) mmol/L Calcium (8.4-10.2) mg/dL Total Bilirubin (0.2-1.3) mg/dL AST (17-59) U/L ALT (4-49) U/L Alkaline Phosphatase (38-126) U/L Ammonia (<30) umol/L Troponin I 0.014 (0.000-0.034) ng/mL Total Protein (6.3-8.2) g/dL Albumin (3.5-5.0) g/dL Urine Color Colorless Urine Appearance Clear (Clear) Urine pH 6.5 (5.0-8.0) Ur Specific Lindrith 1.012 (1.001-1.035) Urine Protein 1+ H (Negative) Urine Glucose (UA) 2+ H (Negative) Urine Ketones Negative (Negative) Urine Blood Small H (Negative) Urine Nitrite Negative (Negative) Urine Bilirubin Negative (Negative) Urine Urobilinogen <2.0 (<2.0) mg/dL Ur Leukocyte Esterase Negative (Negative) Urine RBC 1 (0-5) /hpf Urine WBC 1 (0-5) /hpf Ur Squamous Epith Cells <1 (0-4) /hpf Urine Mucus Rare H (None) /hpf Serum Alcohol mg/dL Blood Type Blood Type Recheck Bld Type Recheck Status Antibody Screen Spec Expiration Date - EKG Data EKG Comments: 12-lead Electrocardiogram Interpretation Note EKG was reviewed and interpreted by myself. 12-lead ECG performed at 0630 is interpreted by me as revealing A-fib with RVR at a rate of 153 beats per minute. Crowley is normal. QRS duration is 97 ms, QTc is 361 ms.. There were no ST or T wave abnormalities to suggest myocardial ischemia or injury. R wave progression across the precordium was satisfactory. By my interpretation this EKG is non- diagnostic for acute ischemia. (Urbano Page) Critical Care Time Critical Care Time: Yes <Corwin Urias - Last Filed: 10/04/24 07:46> Disposition <Urbano Page - Last Filed: 10/04/24 06:53> Is patient prescribed a controlled substance at d/c from ED?: No Time of Disposition: 07:45 <Corwin Urias - Last Filed: 10/04/24 07:46> Clinical Impression: Syncope Disposition: ADMITTED IP TO THIS HOSP Condition: Critical Referrals: Jose Mason MD [Primary Care Provider] - 1-2 days
[2024-10-04 06:53] LABS: ALT 52 U/L (4-49); AST 49 U/L (17-59)
[2024-10-04] MEDS: DIPH,PERTUS(ACELL)TETVAC-LF 0.5 ML VIAL IM ONE (07:01)
--- NOTE | 2024-10-04 07:06 | CT ---
EXAMINATION TYPE: CT brain cspine wo con, CT facial bones wo con DATE OF EXAM: 10/04/2024 COMPARISON: Prior trauma CT from 07/02/2024 HISTORY: Trauma Automated Exposure Control for Dose Reduction was Utilized. TECHNIQUE: CT scan of the head and cervical spine are performed without contrast. FINDINGS: There is no acute intracranial hemorrhage or midline shift identified. There is mild to m oderate ventricular and sulcal prominence redemonstrated. Is mild to moderate low-attenuation in per iventricular white matter redemonstrated. The calvarium is intact. The mandible is intact. Temporomandibular joints are maintained bilaterally. There is an acute minim ally displaced fractures of the nasal bridge axial image 65. Orbital floors and vera are intact. The globes are intact bilaterally. Intraconal fat is preserved. The zygomatic arches are intact. The pte rygoid plates are intact. Paranasal sinuses are grossly clear. Cervical spine is visualized in its entirety from C1 through upper thoracic levels and we demonstrate s slight grade 1 anterolisthesis of C3 on C4 without evidence of acute fracture or dislocation. Prev ertebral soft tissue appears within normal limits. The C1-C2 articulation is within normal limits on the coronal images. Vertebral body heights are maintained. There is moderate to severe disc space na rrowing with endplate sclerosis at C5-C6 and C6-C7 levels redemonstrated. Axial images redemonstrate multilevel facet degenerative changes bilaterally. There is moderate calci fied plaque bilateral carotid bulb level seen. Endotracheal tube is seen terminating above the aortic knob. Nasogastric tube is partially imaged in the esophagus. Upper lungs show mild emphysematous jose nge without pneumothorax. IMPRESSION: 1. There is no acute fracture or dislocation evident in the cervical spine. 2. No acute intracranial hemorrhage or midline shift is seen. 3. Acute nondisplaced transverse fracture through the nasal bridge. No additional acute displaced fac ial bone fracture [facility], , 10/04/2024 7:04 AM
[2024-10-04 07:07] LABS: INR 0.9 (<1.2); Partial Thromboplastin Time 26.1 sec (22.0-30.0)
[2024-10-04] MEDS: DILTIAZEM 125 MG in SODIUM CHLORIDE 0.9% 100 ML IV SCH (07:10)
[2024-10-04] MEDS: DILTIAZEM DRIP BOLUS FROM BAG 1 MG SOLN IV ONE (07:10)
[2024-10-04 07:14] LABS: Lactic Acid, Venous 11.5 mmol/L (0.7-2.0)
--- NOTE | 2024-10-04 07:14 | CT ---
EXAMINATION TYPE: CT angio chest DATE OF EXAM: 10/04/2024 COMPARISON: CT chest 6 days earlier HISTORY: unresponsive, found in bathtub CT DLP: 334.2 mGycm. Automated Exposure Control for Dose Reduction was Utilized. CONTRAST: CTA scan of the thorax is performed with IV Contrast, patient injected with 100 mL of Isovue 370, pul monary embolism protocol. MIP Images are created on CT scanner and reviewed. FINDINGS: LUNGS: There is stable 9 x 5 mm left lower lobe pulmonary nodule axial image 111. Mild underlying emp hysematous change is redemonstrated. No new focal consolidation. No pleural effusion or pneumothorax seen bilaterally. Mild scattered parenchymal scarring redemonstrated. MEDIASTINUM: There is satisfactory enhancement of the pulmonary artery and its branches, there is no CT evidence for pulmonary embolism. Satisfactory enhancement of the aorta without aneurysm or dissect ion. Coronary artery calcification is present. No cardiomegaly or pericardial effusion. There is left suprahilar adenopathy or suspicious low dense nodule measuring 2.7 x 1.8 cm size image 68. There are additional prominent, borderline enlarged prevascular lymph nodes and paratracheal lymph nodes are r edemonstrated. Endotracheal tube terminates above eloy. OTHER: Nasogastric tube projects below the diaphragm. Subacute or chronic fracture posterior right 10 th rib is redemonstrated. IMPRESSION: 1. No CT evidence for acute pulmonary embolism. No thoracic aortic dissection or aneurysm. 2. No suspicious acute pulmonary process. 3. Nonspecific small left lower lobe pulmonary nodule redemonstrated. More suspicious left suprahilar nodule or adenopathy is noted. Neoplasm needs to be excluded. Nonemergent PET CT follow-up is teje fareed [facility], , 10/04/2024 7:12 AM
--- NOTE | 2024-10-04 07:22 | CT ---
EXAMINATION TYPE: CT abdomen pelvis w con DATE OF EXAM: 10/04/2024 COMPARISON: None. HISTORY: Trauma Of the automated Exposure Control for Dose Reduction was Utilized. CONTRAST: CT scan of the abdomen and pelvis is performed without oral and with IV Contrast, patient injected wi th 100 mL of Isovue 300. FINDINGS: LUNG BASES: No significant abnormality is appreciated. LIVER/GB: No significant abnormality is appreciated. PANCREAS: No significant abnormality is seen. SPLEEN: No significant abnormality is seen. ADRENALS: No significant abnormality is seen. KIDNEYS: No significant abnormality is seen. BOWEL: There are a few distal colonic diverticula. No CT evidence for acute diverticulitis. No abnorm al small or large bowel dilatation. PROSTATE/SEMINAL VESICLES: Prostate gland is mildly enlarged in size. LYMPH NODES: No greater than 1cm abdominal or pelvic lymph nodes are appreciated. OSSEOUS STRUCTURES: There is moderate to severe disc space narrowing at L4-L5 and L5-S1 levels. Multi level facet arthropathy in the lumbar spine is present. Moderate axial joint space loss of both hips is present OTHER: Small fat-containing left inguinal hernia. Severe calcified plaque of the aorta extends into t he iliac branch vessels. There is suspected significant stenosis in the right common iliac artery. Th ere appears to be areas of significant stenosis and/or occlusion in the proximal right superficial fe moral artery. Correlate for right lower extremity hypoperfusion symptoms. There is partial visualizat ion of a 1.5 cm rounded low dense lesion or cyst in the base of the penis axial image 90. IMPRESSION: No acute post traumatic finding in the abdomen or pelvis. Incidental findings are present as detailed above. [facility], , 10/04/2024 7:19 AM
[2024-10-04] MEDS: MORPHINE SULFATE 4 MG/ML SYRINGE IVP STA (07:30)
[2024-10-04 07:33] LABS: Appearance,Urine Clear (Clear); Bilirubin,Urine Negative (Negative); Blood,Urine Small (Negative); Color,Urine Colorless; Glucose,Urine (UA) 2+ (Negative); Ketones,Urine Negative (Negative); Leukocyte Esterase,Urine Negative (Negative); Mucus,Urine Rare /hpf; Nitrite,Urine Negative (Negative); PH, Urine 6.5 (5.0-8.0); Protein,Urine 1+ (Negative); RBC,Urine 1 /hpf (0-5); Specific Gravity,Urine 1.012 (1.001-1.035); Squamous Epithelial Cell,Urine <1 /hpf (0-4); Urobilinogen,Urine <2.0 mg/dL (<2.0); WBC,Urine 1 /hpf (0-5)
--- NOTE | 2024-10-04 07:37 | CT ---
EXAMINATION TYPE: CT thor lumbar spine w con DATE OF EXAM: 10/04/2024 7:04 AM COMPARISON: None. CLINICAL INDICATION: Male, 69 years old with history of trauma, unresponsive, found in bathtub, TECHNIQUE: Axial imaging performed. Bone and soft tissue window settings are submitted as well as cor onal and sagittal reconstructions. IV CONTRAST: with IV Contrast, patient injected with 100 mL of Isovue 370. (None if empty) CT DLP: 1183.8 mGycm, Automated exposure control for dose reduction was used. FINDINGS: Thoracic spine: There is no evidence for fracture or alignment. Mild scattered degenerative disc spac e narrowing appreciated. Minimal ventral spondylosis. No paraspinal mass or bony destructive process. Lumbar spine: There is limited evaluation of the lumbar spine given patient motion no obvious displac ed fracture or malalignment. There is severe degenerative disc space narrowing at L4-5 and L5-S1. See report of the abdomen and pelvis for incidental findings. IMPRESSION: 1. No fracture or malalignment of the thoracic and lumbar spines. Somewhat limited evaluation of lumb ar spine as noted above. [facility], , 10/04/2024 7:35 AM
[2024-10-04 07:47] LABS: ABG Base Excess -4.8 mmol/L; ABG HCO3 22 mmol/L (21-25); ABG Oxygen Saturation >100.0 % (94-97); ABG PCO2 46 mmHg (35-45); ABG PH 7.29 (7.35-7.45); ABG TCO2 23 mmol/L (19-24)
[2024-10-04] MEDS ORDERED: LORazepam 2 MG/ML INJ IV PRN ×2 (07:47)
[2024-10-04] MEDS ORDERED: Phosphorus Replacement Protoco 1 EACH MISC MISCELLANE PRN (07:47)
[2024-10-04] MEDS ORDERED: Potassium Replacement Protocol 1 EACH MISC MISCELLANE PRN ×2 (07:47→23:55)
[2024-10-04] MEDS ORDERED: LORazepam 0.5 MG TAB PO PRN (07:47)
[2024-10-04] MEDS ORDERED: NALOXONE 0.4 MG/ML 1 ML VIAL IV PRN (07:47)
[2024-10-04] MEDS ORDERED: LORazepam 1 MG TAB PO PRN ×3 (07:47)
[2024-10-04] MEDS ORDERED: ACETAMINOPHEN TAB 325 MG TAB PO PRN (07:47)
[2024-10-04] MEDS ORDERED: Magnesium Replacement Protocol 1 EACH MISC MISCELLANE PRN (07:47)
[2024-10-04 07:51] LABS: ABG PO2 >420 mmHg (83-108)
[2024-10-04 07:52] LABS: Allen Test Performed? yes
[2024-10-04] MEDS: LORazepam 2 MG/ML INJ IV STA (07:56)
[2024-10-04] MEDS: SODIUM CHLORIDE 0.9% 1,000 ML IV SCH (08:10)
[2024-10-04 08:28] LABS: Amphetamine Screen,Urine Not Detected (NotDetected); Barbiturate Screen,Urine Not Detected (NotDetected); Benzodiazepines Screen,Urine Not Detected (NotDetected); Cocaine Screen,Urine Not Detected (NotDetected); Methadone Screen, Urine Not Detected (NotDetected); Opiate Screen,Urine Not Detected (NotDetected); Oxycodone Screen, Urine Not Detected (NotDetected); Phencyclidine Screen,Urine Not Detected (NotDetected); Tricyclic Antidepressant,Urine Not Detected (NotDetected); Urn Cannabinoid Scrn Not Detected (NotDetected)
[2024-10-04] MEDS: NOREPINEPHRINE 32 MG in SODIUM CHLORIDE 0.9% 218 ML IV SCH (08:40)
--- NOTE | 2024-10-04 08:43 | ED ---
Medical Decision Making - Medical Decision Making Additional 15 minutes of critical care time. Total of [address] Deng did come evaluate patient and we did have a discussion in patient's room. Case also discussed with practitioner with Dr. Mason who is also in the room. Patient heart rate and blood pressure have dropped. Cardizem discontinued. Propofol was paused. Additional fluids provided. Central line placed. Norepinephrine will be started and will need to be monitored. Magnesium added. Admission orders are written. - Lab Data Result diagrams: 10/04/24 06:21 10/04/24 06:21 Lab Results 10/04/24 10/04/24 10/04/24 Range/Units 06:16 06:20 06:21 WBC 10.8 H (3.8-10.6) k/uL RBC 4.09 L (4.30-5.90) m/uL Hgb 13.4 (13.0-17.5) gm/dL Hct 40.8 (39.0-53.0) % MCV 99.9 (80.0-100.0) fL MCH 32.7 (25.0-35.0) pg MCHC 32.8 (31.0-37.0) g/dL RDW 12.1 (11.5-15.5) % Plt Count 479 H (150-450) k/uL MPV 7.5 Neutrophils % 71 % Lymphocytes % 17 % Monocytes % 6 % Eosinophils % 2 % Basophils % 1 % Neutrophils # 7.6 (1.3-7.7) k/uL Lymphocytes # 1.9 (1.0-4.8) k/uL Monocytes # 0.6 (0-1.0) k/uL Eosinophils # 0.3 (0-0.7) k/uL Basophils # 0.1 (0-0.2) k/uL PT (10.0-12.5) sec INR (<1.2) APTT (22.0-30.0) sec Sample Site ABG pH (7.35-7.45) ABG pCO2 (35-45) mmHg ABG pO2 (83-108) mmHg ABG HCO3 (21-25) mmol/L ABG Total CO2 (19-24) mmol/L ABG O2 Saturation (94-97) % ABG Base Excess mmol/L Charbel Test FiO2 % Sodium (137-145) mmol/L Potassium (3.5-5.1) mmol/L Chloride (98-107) mmol/L Carbon Dioxide (22-30) mmol/L Anion Gap mmol/L BUN (9-20) mg/dL Creatinine (0.66-1.25) mg/dL Est GFR (CKD-EPI)AfAm (>60 ml/min/1.73 sqM) Est GFR (CKD-EPI)NonAf (>60 ml/min/1.73 sqM) Glucose (74-99) mg/dL POC Glucose (mg/dL) 227 H (70-110) mg/dL POC Glu Floor Trader ID Phillips Saurabh Plasma Lactic Acid Kenneth (0.7-2.0) mmol/L Calcium (8.4-10.2) mg/dL Magnesium (1.6-2.3) mg/dL Total Bilirubin (0.2-1.3) mg/dL AST (17-59) U/L ALT (4-49) U/L Alkaline Phosphatase (38-126) U/L Ammonia (<30) umol/L Creatine Kinase (55-170) U/L Troponin I (0.000-0.034) ng/mL Total Protein (6.3-8.2) g/dL Albumin (3.5-5.0) g/dL Urine Color Urine Appearance (Clear) Urine pH (5.0-8.0) Ur Specific [place] (1.001-1.035) Urine Protein (Negative) Urine Glucose (UA) (Negative) Urine Ketones (Negative) Urine Blood (Negative) Urine Nitrite (Negative) Urine Bilirubin (Negative) Urine Urobilinogen (<2.0) mg/dL Ur Leukocyte Esterase (Negative) Urine RBC (0-5) /hpf Urine WBC (0-5) /hpf Ur Squamous Epith Cells (0-4) /hpf Urine Mucus (None) /hpf Urine Opiates Screen (NotDetected) Ur Oxycodone Screen (NotDetected) Urine Methadone Screen (NotDetected) Ur Barbiturates Screen (NotDetected) U Tricyclic Antidepress (NotDetected) Ur Phencyclidine Scrn (NotDetected) Ur Amphetamines Screen (NotDetected) U Methamphetamines Scrn (NotDetected) U Benzodiazepines Scrn (NotDetected) Urine Cocaine Screen (NotDetected) U Marijuana (THC) Screen (NotDetected) Serum Alcohol mg/dL Blood Type O Positive Blood Type Recheck O Pos Bld Type Recheck Status No Antibody Screen NEGATIVE Spec Expiration Date 10/07/2024 - 231510/04/24 10/04/24 10/04/24 Range/Units 06:21 06:21 06:21 WBC (3.8-10.6) k/uL RBC (4.30-5.90) m/uL Hgb (13.0-17.5) gm/dL Hct (39.0-53.0) % MCV (80.0-100.0) fL MCH (25.0-35.0) pg MCHC (31.0-37.0) g/dL RDW (11.5-15.5) % Plt Count (150-450) k/uL MPV Neutrophils % % Lymphocytes % % Monocytes % % Eosinophils % % Basophils % % Neutrophils # (1.3-7.7) k/uL Lymphocytes # (1.0-4.8) k/uL Monocytes # (0-1.0) k/uL Eosinophils # (0-0.7) k/uL Basophils # (0-0.2) k/uL PT 10.0 (10.0-12.5) sec INR 0.9 (<1.2) APTT 26.1 (22.0-30.0) sec Sample Site ABG pH (7.35-7.45) ABG pCO2 (35-45) mmHg ABG pO2 (83-108) mmHg ABG HCO3 (21-25) mmol/L ABG Total CO2 (19-24) mmol/L ABG O2 Saturation (94-97) % ABG Base Excess mmol/L Charbel Test FiO2 % Sodium 124 L (137-145) mmol/L Potassium 4.5 (3.5-5.1) mmol/L Chloride 90 L (98-107) mmol/L Carbon Dioxide 11 L (22-30) mmol/L Anion Gap 23 mmol/L BUN 14 (9-20) mg/dL Creatinine 0.53 L (0.66-1.25) mg/dL Est GFR (CKD-EPI)AfAm >90 (>60 ml/min/1.73 sqM) Est GFR (CKD-EPI)NonAf >90 (>60 ml/min/1.73 sqM) Glucose 218 H (74-99) mg/dL POC Glucose (mg/dL) (70-110) mg/dL POC Glu Floor Trader ID Plasma Lactic Acid Kenneth 11.5 H* (0.7-2.0) mmol/L Calcium 9.3 (8.4-10.2) mg/dL Magnesium (1.6-2.3) mg/dL Total Bilirubin 1.1 (0.2-1.3) mg/dL AST 49 (17-59) U/L ALT 52 H (4-49) U/L Alkaline Phosphatase 58 (38-126) U/L Ammonia 82 H (<30) umol/L Creatine Kinase (55-170) U/L Troponin I (0.000-0.034) ng/mL Total Protein 7.1 (6.3-8.2) g/dL Albumin 4.5 (3.5-5.0) g/dL Urine Color Urine Appearance (Clear) Urine pH (5.0-8.0) Ur Specific [place] (1.001-1.035) Urine Protein (Negative) Urine Glucose (UA) (Negative) Urine Ketones (Negative) Urine Blood (Negative) Urine Nitrite (Negative) Urine Bilirubin (Negative) Urine Urobilinogen (<2.0) mg/dL Ur Leukocyte Esterase (Negative) Urine RBC (0-5) /hpf Urine WBC (0-5) /hpf Ur Squamous Epith Cells (0-4) /hpf Urine Mucus (None) /hpf Urine Opiates Screen (NotDetected) Ur Oxycodone Screen (NotDetected) Urine Methadone Screen (NotDetected) Ur Barbiturates Screen (NotDetected) U Tricyclic Antidepress (NotDetected) Ur Phencyclidine Scrn (NotDetected) Ur Amphetamines Screen (NotDetected) U Methamphetamines Scrn (NotDetected) U Benzodiazepines Scrn (NotDetected) Urine Cocaine Screen (NotDetected) U Marijuana (THC) Screen (NotDetected) Serum Alcohol <10 mg/dL Blood Type Blood Type Recheck Bld Type Recheck Status Antibody Screen Spec Expiration Date 10/04/24 10/04/24 10/04/24 Range/Units 06:21 06:21 06:21 WBC (3.8-10.6) k/uL RBC (4.30-5.90) m/uL Hgb (13.0-17.5) gm/dL Hct (39.0-53.0) % MCV (80.0-100.0) fL MCH (25.0-35.0) pg MCHC (31.0-37.0) g/dL RDW (11.5-15.5) % Plt Count (150-450) k/uL MPV Neutrophils % % Lymphocytes % % Monocytes % % Eosinophils % % Basophils % % Neutrophils # (1.3-7.7) k/uL Lymphocytes # (1.0-4.8) k/uL Monocytes # (0-1.0) k/uL Eosinophils # (0-0.7) k/uL Basophils # (0-0.2) k/uL PT (10.0-12.5) sec INR (<1.2) APTT (22.0-30.0) sec Sample Site ABG pH (7.35-7.45) ABG pCO2 (35-45) mmHg ABG pO2 (83-108) mmHg ABG HCO3 (21-25) mmol/L ABG Total CO2 (19-24) mmol/L ABG O2 Saturation (94-97) % ABG Base Excess mmol/L Charbel Test FiO2 % Sodium (137-145) mmol/L Potassium (3.5-5.1) mmol/L Chloride (98-107) mmol/L Carbon Dioxide (22-30) mmol/L Anion Gap mmol/L BUN (9-20) mg/dL Creatinine (0.66-1.25) mg/dL Est GFR (CKD-EPI)AfAm (>60 ml/min/1.73 sqM) Est GFR (CKD-EPI)NonAf (>60 ml/min/1.73 sqM) Glucose (74-99) mg/dL POC Glucose (mg/dL) (70-110) mg/dL POC Glu Floor Trader ID Plasma Lactic Acid Kenneth (0.7-2.0) mmol/L Calcium (8.4-10.2) mg/dL Magnesium 1.6 (1.6-2.3) mg/dL Total Bilirubin (0.2-1.3) mg/dL AST (17-59) U/L ALT (4-49) U/L Alkaline Phosphatase (38-126) U/L Ammonia (<30) umol/L Creatine Kinase 181 H (55-170) U/L Troponin I 0.014 (0.000-0.034) ng/mL Total Protein (6.3-8.2) g/dL Albumin (3.5-5.0) g/dL Urine Color Urine Appearance (Clear) Urine pH (5.0-8.0) Ur Specific [place] (1.001-1.035) Urine Protein (Negative) Urine Glucose (UA) (Negative) Urine Ketones (Negative) Urine Blood (Negative) Urine Nitrite (Negative) Urine Bilirubin (Negative) Urine Urobilinogen (<2.0) mg/dL Ur Leukocyte Esterase (Negative) Urine RBC (0-5) /hpf Urine WBC (0-5) /hpf Ur Squamous Epith Cells (0-4) /hpf Urine Mucus (None) /hpf Urine Opiates Screen (NotDetected) Ur Oxycodone Screen (NotDetected) Urine Methadone Screen (NotDetected) Ur Barbiturates Screen (NotDetected) U Tricyclic Antidepress (NotDetected) Ur Phencyclidine Scrn (NotDetected) Ur Amphetamines Screen (NotDetected) U Methamphetamines Scrn (NotDetected) U Benzodiazepines Scrn (NotDetected) Urine Cocaine Screen (NotDetected) U Marijuana (THC) Screen (NotDetected) Serum Alcohol mg/dL Blood Type Blood Type Recheck Bld Type Recheck Status Antibody Screen Spec Expiration Date 10/04/24 10/04/24 Range/Units 07:02 07:40 WBC (3.8-10.6) k/uL RBC (4.30-5.90) m/uL Hgb (13.0-17.5) gm/dL Hct (39.0-53.0) % MCV (80.0-100.0) fL MCH (25.0-35.0) pg MCHC (31.0-37.0) g/dL RDW (11.5-15.5) % Plt Count (150-450) k/uL MPV Neutrophils % % Lymphocytes % % Monocytes % % Eosinophils % % Basophils % % Neutrophils # (1.3-7.7) k/uL Lymphocytes # (1.0-4.8) k/uL Monocytes # (0-1.0) k/uL Eosinophils # (0-0.7) k/uL Basophils # (0-0.2) k/uL PT (10.0-12.5) sec INR (<1.2) APTT (22.0-30.0) sec Sample Site rbrach ABG pH 7.29 L (7.35-7.45) ABG pCO2 46 H (35-45) mmHg ABG pO2 >420 H (83-108) mmHg ABG HCO3 22 (21-25) mmol/L ABG Total CO2 23 (19-24) mmol/L ABG O2 Saturation >100.0 H (94-97) % ABG Base Excess -4.8 mmol/L Charbel Test yes FiO2 100 % Sodium (137-145) mmol/L Potassium (3.5-5.1) mmol/L Chloride (98-107) mmol/L Carbon Dioxide (22-30) mmol/L Anion Gap mmol/L BUN (9-20) mg/dL Creatinine (0.66-1.25) mg/dL Est GFR (CKD-EPI)AfAm (>60 ml/min/1.73 sqM) Est GFR (CKD-EPI)NonAf (>60 ml/min/1.73 sqM) Glucose (74-99) mg/dL POC Glucose (mg/dL) (70-110) mg/dL POC Glu Floor Trader ID Plasma Lactic Acid Kenneth (0.7-2.0) mmol/L Calcium (8.4-10.2) mg/dL Magnesium (1.6-2.3) mg/dL Total Bilirubin (0.2-1.3) mg/dL AST (17-59) U/L ALT (4-49) U/L Alkaline Phosphatase (38-126) U/L Ammonia (<30) umol/L Creatine Kinase (55-170) U/L Troponin I (0.000-0.034) ng/mL Total Protein (6.3-8.2) g/dL Albumin (3.5-5.0) g/dL Urine Color Colorless Urine Appearance Clear (Clear) Urine pH 6.5 (5.0-8.0) Ur Specific [place] 1.012 (1.001-1.035) Urine Protein 1+ H (Negative) Urine Glucose (UA) 2+ H (Negative) Urine Ketones Negative (Negative) Urine Blood Small H (Negative) Urine Nitrite Negative (Negative) Urine Bilirubin Negative (Negative) Urine Urobilinogen <2.0 (<2.0) mg/dL Ur Leukocyte Esterase Negative (Negative) Urine RBC 1 (0-5) /hpf Urine WBC 1 (0-5) /hpf Ur Squamous Epith Cells <1 (0-4) /hpf Urine Mucus Rare H (None) /hpf Urine Opiates Screen Not Detected (NotDetected) Ur Oxycodone Screen Not Detected (NotDetected) Urine Methadone Screen Not Detected (NotDetected) Ur Barbiturates Screen Not Detected (NotDetected) U Tricyclic Antidepress Not Detected (NotDetected) Ur Phencyclidine Scrn Not Detected (NotDetected) Ur Amphetamines Screen Not Detected (NotDetected) U Methamphetamines Scrn Not Detected (NotDetected) U Benzodiazepines Scrn Not Detected (NotDetected) Urine Cocaine Screen Not Detected (NotDetected) U Marijuana (THC) Screen Not Detected (NotDetected) Serum Alcohol mg/dL Blood Type Blood Type Recheck Bld Type Recheck Status Antibody Screen Spec Expiration Date Critical Care Time Critical Care Time: Yes Total Critical Care Time: 55 Disposition Clinical Impression: Syncope Disposition: ADMITTED IP TO [facility] Condition: Critical Is patient prescribed a controlled substance at d/c from ED?: No Procedures - Central Line Placement Right Femoral Consent Obtained: emergent situation Patient Placed on Monitor/Pulse Ox: Yes Prep: mask, gown, gloves Central Line Prep: Chlorhexidine scrub Local Anesthesia Used: Lidocaine 1% Amount of Anesthesia Used (mls): 2 Ultrasound Used for Placement: No Central Line Lumen Inserted: triple Central Line Position: good blood return, all ports aspirated, flushed, capped, sutured in place with 3-0 nylon Dressing Applied: Tegaderm Patient Tolerated Procedure: well, no complications Complications: none
[2024-10-04] MEDS: SODIUM CHLORIDE 0.9% 1,000 ML IV ONE (08:45)
[2024-10-04] MEDS: THIAMINE 100 MG/ML 2 ML VIAL IM STA (09:21)
[2024-10-04] MEDS: LACTULOSE 20 GM/30 ML CUP PO SCH (09:21)
[2024-10-04] MEDS: PANTOPRAZOLE 40 MG/10 ML VIAL IV SCH (09:21)
--- NOTE | 2024-10-04 09:48 | P.HPIM ---
History of Present Illness H&P Date: 10/04/24 Rory Head is a 69-year-old male patient presented to the ER following being found in bathtub with decreased respiratory rate and unresponsiveness. Patient was recently here last week for hyponatremia patient has a known history of EtOH admission sodium at that time was 103 patient did leave AMA on 09/29/2024. Lab work upon arrival revealing WBC of 10.8, sodium 124 morning, lactic acid 11.5 creatinine kinase 181. Drug screen was negative serum alcohol less than 10 imaging performed in ER showing chest x-ray no suspicious acute pulmonary process, face CT showing no acute fracture or dislocation and cervical spine displaced transverse fracture through the nasal bridge. Chest CTA performed showing negative for pulmonary embolism nonspecific small cell left lower lobe pulmonary nodule. Abdomen and pelvis CT showing no acute posttraumatic finding of the abdomen or pelvis. CT of thoracic spine negative. EKG completed showing atrial fibrillation. Patient was intubated and central line placed per ER physician patient admitted to trauma team. Patient's core temperature also low started on Reema hugger. Patient's blood pressure also decreasing started on norepinephrine. Patient will be admitted to the intensive care unit. At this time consults placed for critical care, neurology, cardiology, vascular surgery due to right iliac and femoral artery stenosis, ENT and nephrology services. Blood culture ordered Review of Systems Please refer to HPI otherwise unremarkable Past Medical History Past Medical History: Chest Pain / Angina, COPD, Hyperlipidemia, Hypertension History of Any Multi-Drug Resistant Organisms: None Reported Past Surgical History: Appendectomy Past Anesthesia/Blood Transfusion Reactions: No Reported Reaction Past Psychological History: No Psychological Hx Reported Smoking Status: Current every day smoker Past Alcohol Use History: Daily Past Drug Use History: Marijuana - Past Family History Mother History Unknown: Yes Additional Family Medical History / Comment(s): Father Additional Family Medical History / Comment(s): from complications of injuries after falling down stairs. Medications and Allergies Home Medications Medication Instructions Recorded Confirmed Type Albuterol Sulfate [Ventolin HFA] 2 puff INHALATION RT-Q4H PRN 01/27/20 09/25/24 History Losartan Potassium 100 mg PO DAILY 01/27/20 09/25/24 History Fluticasone/Umeclidin/Vilanter 1 puff INHALATION RT-DAILY 04/21/22 09/25/24 History [Trelegy Ellipta 100-62.5-25] Aspirin EC [Ecotrin Low Dose] 81 mg PO DAILY 09/09/24 09/25/24 History Allergies Allergy/AdvReac Type Severity Reaction Status Date / Time No Known Allergies Allergy Verified 10/04/24 06:17 Physical Exam Vitals: Vital Signs Temp Pulse Resp BP Pulse Ox FiO2 10/04/24 09:20 96.3 F L 64 18 113/66 99 10/04/24 09:10 59 L 18 101/57 100 10/04/24 09:01 60 18 80/56 98 10/04/24 08:55 96.4 F L 62 16 53/36 98 10/04/24 08:50 67 18 59/39 95 10/04/24 08:45 96.4 F L 71 18 55/39 99 10/04/24 08:35 130 H 18 72/51 97 10/04/24 08:25 128 H 18 60/46 98 10/04/24 07:52 50 10/04/24 06:59 100 10/04/24 06:42 100 10/04/24 06:18 97.7 F 151 H 12 198/119 100 Intake and Output 10/03/24 10/04/24 10/04/24 22:59 06:59 14:59 Intake Total 29.477 Output Total 1400 Balance -1370.523 Intake: Intake, IV Titration 29.477 Amount Diltiazem 125 mg In 5.833 Sodium Chloride 0.9% 100 ml @ 5 MG/HR 5 mls/hr IV .Q24H REHAN Rx#:[id number] Norepinephrine 32 mg In 0.782 Sodium Chloride 0.9% 218 ml @ 0.03 MCG/KG/MIN 1. 021 mls/hr IV .Q24H REHAN Rx#:[id number] propofoL 1,000 mg In 22.862 Empty Bag 1 bag @ 15 MCG/ KG/MIN 6.532 mls/hr IV . [id number] REHAN Rx#:[id number] Output: Urine 1400 Uretheral (Bennett) 1400 Other: Weight 72.575 kg Patient currently on mechanical ventilation and sedated Head normocephalic Neck supple Lungs clear to auscultation bilaterally no wheezing or crackles Heart irregular rate known atrial fibrillation Abdomen is soft nontender nondistended positive bowel sounds no hepatosplenomegaly Extremities no edema Results CBC & Chem 7: 10/04/24 06:21 10/04/24 06:21 Labs: Abnormal Lab Results - Last 24 Hours (Table) 10/04/24 10/04/24 10/04/24 Range/Units 06:20 06:21 06:21 WBC 10.8 H (3.8-10.6) k/uL RBC 4.09 L (4.30-5.90) m/uL Plt Count 479 H (150-450) k/uL ABG pH (7.35-7.45) ABG pCO2 (35-45) mmHg ABG pO2 (83-108) mmHg ABG O2 Saturation (94-97) % Sodium 124 L (137-145) mmol/L Chloride 90 L (98-107) mmol/L Carbon Dioxide 11 L (22-30) mmol/L Creatinine 0.53 L (0.66-1.25) mg/dL Glucose 218 H (74-99) mg/dL POC Glucose (mg/dL) 227 H (70-110) mg/dL Plasma Lactic Acid Kenneth (0.7-2.0) mmol/L ALT 52 H (4-49) U/L Ammonia (<30) umol/L Creatine Kinase (55-170) U/L Urine Protein (Negative) Urine Glucose (UA) (Negative) Urine Blood (Negative) Urine Mucus (None) /hpf 10/04/24 10/04/24 10/04/24 Range/Units 06:21 06:21 07:02 WBC (3.8-10.6) k/uL RBC (4.30-5.90) m/uL Plt Count (150-450) k/uL ABG pH (7.35-7.45) ABG pCO2 (35-45) mmHg ABG pO2 (83-108) mmHg ABG O2 Saturation (94-97) % Sodium (137-145) mmol/L Chloride (98-107) mmol/L Carbon Dioxide (22-30) mmol/L Creatinine (0.66-1.25) mg/dL Glucose (74-99) mg/dL POC Glucose (mg/dL) (70-110) mg/dL Plasma Lactic Acid Kenneth 11.5 H* (0.7-2.0) mmol/L ALT (4-49) U/L Ammonia 82 H (<30) umol/L Creatine Kinase 181 H (55-170) U/L Urine Protein 1+ H (Negative) Urine Glucose (UA) 2+ H (Negative) Urine Blood Small H (Negative) Urine Mucus Rare H (None) /hpf 10/04/24 Range/Units 07:40 WBC (3.8-10.6) k/uL RBC (4.30-5.90) m/uL Plt Count (150-450) k/uL ABG pH 7.29 L (7.35-7.45) ABG pCO2 46 H (35-45) mmHg ABG pO2 >420 H (83-108) mmHg ABG O2 Saturation >100.0 H (94-97) % Sodium (137-145) mmol/L Chloride (98-107) mmol/L Carbon Dioxide (22-30) mmol/L Creatinine (0.66-1.25) mg/dL Glucose (74-99) mg/dL POC Glucose (mg/dL) (70-110) mg/dL Plasma Lactic Acid Kenneth (0.7-2.0) mmol/L ALT (4-49) U/L Ammonia (<30) umol/L Creatine Kinase (55-170) U/L Urine Protein (Negative) Urine Glucose (UA) (Negative) Urine Blood (Negative) Urine Mucus (None) /hpf Assessment and Plan Assessment: Altered mental status changes and respiratory distress requiring mechanical ventilation Hypothermia. Patient started on Reema hugger Metabolic acidosis lactic acid 11.5 A-fib with RVR History of hyponatremia patient was recently admitted and left AMA on 09/29/2024 History of EtOH abuse Nasal fracture. ENT services consulted History of COPD History of essential hypertension History of nicotine dependence At this time patient was intubated and will be admitted to the intensive care unit Critical care, cardiology, nephrology, trauma services, ENT and vascular surgery all consulted Prognosis guarded Time with Patient: Greater than 30 (Greater than 60% of the total time spent in counseling and coordination of care)
--- NOTE | 2024-10-04 11:48 | P.CNPUL ---
History of Present Illness Consult date: 10/04/24 Requesting physician: Jose Mason Reason for consult: other (Mechanical ventilator/critical care management) Chief complaint: Altered mental status History of present illness: This is a 69-year-old male patient with a known history of COPD, chronic tobacco dependence, hypertension, alcohol abuse who was recently discharged from here on 09/30/2024 after being admitted for hyponatremia due to [place] with hypovolemia requiring 3% saline. We had followed the patient while in the intensive care unit. After he was found folded upon himself in the bathtub. He had positional asphyxia and his respiratory rate was 2 on EMS arrival. Once he unfolded his body his respiratory rate improved though he remained altered. Pinpoint pupils. States he had been having episodes of syncope. Was intubated and placed on mechanical ventilator. He is currently on assist-control mode at a rate of 22, tidal volume 450, FiO2 50% and a PEEP of 5. Morning blood gases revealed a PaO2 of 420, pCO2 46, pH 7.29. This was on 100% FiO2 and a rate of 20. X-ray reveals endotracheal and gastric tubes in good position. No suspicious acute pulmonary process. CT angiogram ruled out pulmonary embolism. No suspicious acute pulmonary process. CT scan of the brain and C-spine revealed no evidence of fracture or dislocation. No acute intracranial hemorrhage or midline shift. There is an acute nondisplaced transverse fracture through the nasal bridge. CT scan of the thoracic and lumbar spine revealed no acute fractures. White count 10.8. Hemoglobin 13.4. Platelets 479. Sodium 124. Potassium 4.5. Bicarb 11. BUN 14. Creatinine 0.53. Glucose 227. Urine drug screen negative. Serum alcohol less than 10. He is seen today in consultation in the emergency department. He remains sedated on propofol currently at 50 mcg/kg/min. He is receiving 4 L of fluid resuscitation. Remained hypotensive and is started on norepinephrine at 0.09 mcg/kg/min. Normal saline at 130 mL/h. He has been given cefazolin Review of Systems ROS unobtainable: due to endotracheal tube Past Medical History Past Medical History: Chest Pain / Angina, COPD, Hyperlipidemia, Hypertension History of Any Multi-Drug Resistant Organisms: None Reported Past Surgical History: Appendectomy Past Anesthesia/Blood Transfusion Reactions: No Reported Reaction Past Psychological History: No Psychological Hx Reported Smoking Status: Current every day smoker Past Alcohol Use History: Daily Past Drug Use History: Marijuana - Past Family History Mother History Unknown: Yes Additional Family Medical History / Comment(s): Father Additional Family Medical History / Comment(s): from complications of injuries after falling down stairs. Medications and Allergies Home Medications Medication Instructions Recorded Confirmed Type Albuterol Sulfate [Ventolin HFA] 1 - 2 puff INHALATION RT-Q4H PRN 01/27/20 10/04/24 History Losartan Potassium 100 mg PO DAILY 01/27/20 10/04/24 History Fluticasone/Umeclidin/Vilanter 1 puff INHALATION RT-DAILY 04/21/22 10/04/24 History [Trelegy Ellipta 100-62.5-25] Aspirin EC [Ecotrin Low Dose] 81 mg PO DAILY 09/09/24 10/04/24 History Albuterol Nebulized [Ventolin 2.5 mg INHALATION RT-QID PRN 10/04/24 10/04/24 History Nebulized] Allergies Allergy/AdvReac Type Severity Reaction Status Date / Time No Known Allergies Allergy Verified 10/04/24 09:36 Physical Exam Vitals: Vital Signs Temp Pulse Resp BP Pulse Ox FiO2 10/04/24 11:00 62 18 119/69 98 10/04/24 10:30 97.7 F 64 18 108/65 99 10/04/24 10:15 65 18 114/65 100 10/04/24 09:59 96.8 F L 64 20 119/89 97 10/04/24 09:45 66 18 146/72 100 10/04/24 09:40 50 10/04/24 09:34 96.3 F L 77 18 119/65 97 10/04/24 09:20 96.3 F L 64 18 113/66 99 10/04/24 09:10 59 L 18 101/57 100 10/04/24 09:01 60 18 80/56 98 10/04/24 08:55 96.4 F L 62 16 53/36 98 10/04/24 08:50 67 18 59/39 95 10/04/24 08:45 96.4 F L 71 18 55/39 99 10/04/24 08:35 130 H 18 72/51 97 10/04/24 08:25 128 H 18 60/46 98 10/04/24 07:52 50 10/04/24 06:59 100 10/04/24 06:42 100 10/04/24 06:18 97.7 F 151 H 12 198/119 100 Intake and Output 10/03/24 10/04/24 10/04/24 22:59 06:59 14:59 Intake Total 32.221 Output Total 1400 Balance -1367.779 Intake: Intake, IV Titration 32.221 Amount Diltiazem 125 mg In 5.833 Sodium Chloride 0.9% 100 ml @ 5 MG/HR 5 mls/hr IV .Q24H [facility] Rx#:[id number] Norepinephrine 32 mg In 3.526 Sodium Chloride 0.9% 218 ml @ 0.03 MCG/KG/MIN 1. 021 mls/hr IV .Q24H [facility] Rx#:[id number] propofoL 1,000 mg In 22.862 Empty Bag 1 bag @ 15 MCG/ KG/MIN 6.532 mls/hr IV . [id number] [facility] Rx#:[id number] Output: Urine 1400 Uretheral (Bennett) 1400 Other: Weight 72.575 kg GENERAL EXAM: Intubated, sedated 69-year-old male . HEAD: Normocephalic. EYES: Sluggish reaction of pupils, equal size. NOSE: Clear with pink turbinates. THROAT: Oral gastric and endotracheal tube secured in place. No erythema or exudates. NECK: No masses, no JVD. CHEST: No chest wall deformity. LUNGS: Equal air entry with no crackles, wheeze, rhonchi or dullness. CVS: S1 and S2 normal with no audible murmur, regular rhythm. ABDOMEN: No hepatosplenomegaly, normal bowel sounds, no guarding or rigidity. SPINE: No scoliosis or deformity SKIN: No rashes CENTRAL NERVOUS SYSTEM: Sedated, tone is normal in all 4 extremities. EXTREMITIES: There is no peripheral edema. No clubbing, no cyanosis. Peripheral pulses are intact. Results - Laboratory Findings CBC and BMP: 10/04/24 06:21 10/04/24 06:21 ABG ABG pH 7.29 (7.35-7.45) L 10/04/24 07:40 ABG pCO2 46 mmHg (35-45) H 10/04/24 07:40 ABG pO2 >420 mmHg (83-108) H 10/04/24 07:40 ABG O2 Saturation >100.0 % (94-97) H 10/04/24 07:40 PT/INR, D-dimer PT 10.0 sec (10.0-12.5) 10/04/24 06:21 INR 0.9 (<1.2) 10/04/24 06:21 Abnormal lab findings: Abnormal Labs 10/04/24 10/04/24 10/04/24 06:20 06:21 06:21 WBC 10.8 H RBC 4.09 L Plt Count 479 H ABG pH ABG pCO2 ABG pO2 ABG O2 Saturation Sodium 124 L Chloride 90 L Carbon Dioxide 11 L Creatinine 0.53 L Glucose 218 H POC Glucose (mg/dL) 227 H Plasma Lactic Acid Kenneth ALT 52 H Ammonia Creatine Kinase Urine Protein Urine Glucose (UA) Urine Blood Urine Mucus 10/04/24 10/04/24 10/04/24 06:21 06:21 07:02 WBC RBC Plt Count ABG pH ABG pCO2 ABG pO2 ABG O2 Saturation Sodium Chloride Carbon Dioxide Creatinine Glucose POC Glucose (mg/dL) Plasma Lactic Acid Kenneth 11.5 H* ALT Ammonia 82 H Creatine Kinase 181 H Urine Protein 1+ H Urine Glucose (UA) 2+ H Urine Blood Small H Urine Mucus Rare H 10/04/24 07:40 WBC RBC Plt Count ABG pH 7.29 L ABG pCO2 46 H ABG pO2 >420 H ABG O2 Saturation >100.0 H Sodium Chloride Carbon Dioxide Creatinine Glucose POC Glucose (mg/dL) Plasma Lactic Acid Kenneth ALT Ammonia Creatine Kinase Urine Protein Urine Glucose (UA) Urine Blood Urine Mucus - Diagnostic Findings Chest x-ray: image reviewed CT scan - chest: image reviewed Assessment and Plan Assessment: Altered mental status of unclear etiology found folded over upon himself in this bathtub with poor respiratory effort Acute hypoxemic respiratory failure secondary to above requiring intubation mechanical ventilatory support today October 04, 2024 Hypotension requiring pressor support History of syncopal episodes Nasal bridge fracture Hyponatremia secondary to beer potomania. Alcohol level less than 10 on arrival Daily alcohol use Chronic tobacco dependence History of hypertension Plan: The patient was seen and evaluated Imaging, ABGs, labs and medications reviewed Decrease the FiO2 to 50% Increase the respiratory rate to 22 Add DuoNeb inhalations Continue normal saline at 130 mL/h Norepinephrine if needed for blood pressure support Transfer to the intensive care unit We will continue to follow and make further recommendations based on his clinical status I have personally seen and examined the patient, performed the documentation and the assessment and plan as written. Number of minutes spent on the visit: 20 Dictation was produced using [employer] dictation software. Please excuse any gr ammatical, word or spelling errors.
--- NOTE | 2024-10-04 11:50 | P.NPCON ---
History of Present Illness - Reason for Consult hyponatremia - History of Present Illness Reason for consultation: Hyponatremia History of present illness: Patient is a 69-year-old male seen in new consultation for hyponatremia. Patient sodium level on admission was 124. As noted the patient was admitted recently at this facility with hyponatremia with sodium level 103 dated September 25, 2024. Sodium level did improve to 126 dated September 29, 2024 but according to the girlfriend he left against medical advice. This morning patient went to go use the bathroom and fell at the bedside. His girlfriend subsequently called EMS and brought him to the hospital. He is currently intubated. Bennett catheter was inserted and initially 1.4 L of urine was obtained. He also received 4 L of normal saline and is currently maintained on normal saline at 130 cc an hour. Patient noted to be quite acidotic with a bicarb level of 11. He was also noted to be in A-fib initially and was maintained on Cardizem drip but is now discontinued. Heart rate is controlled in the 60s. CK level 181. No use of diuretics or NSAIDs at home. According to the girlfriend, he has no history of malignancy. Currently on Levophed. Vital signs are stable. On vasopressor support. HEENT: Intubated. LUNGS: Scattered rhonchi. HEART: Regular rate and rhythm. ABDOMEN: No distention. EXTREMITITES: No edema. Past Medical History Past Medical History: Chest Pain / Angina, COPD, Hyperlipidemia, Hypertension History of Any Multi-Drug Resistant Organisms: None Reported Past Surgical History: Appendectomy Past Anesthesia/Blood Transfusion Reactions: No Reported Reaction Past Psychological History: No Psychological Hx Reported Smoking Status: Current every day smoker Past Alcohol Use History: Daily Past Drug Use History: Marijuana - Past Family History Mother History Unknown: Yes Additional Family Medical History / Comment(s): Father Additional Family Medical History / Comment(s): from complications of injuries after falling down stairs. Medications and Allergies Home Medications Medication Instructions Recorded Confirmed Type Albuterol Sulfate [Ventolin HFA] 1 - 2 puff INHALATION RT-Q4H PRN 01/27/20 10/04/24 History Losartan Potassium 100 mg PO DAILY 01/27/20 10/04/24 History Fluticasone/Umeclidin/Vilanter 1 puff INHALATION RT-DAILY 04/21/22 10/04/24 History [Trelecharbel Ellipta 100-62.5-25] Aspirin EC [Ecotrin Low Dose] 81 mg PO DAILY 09/09/24 10/04/24 History Albuterol Nebulized [Ventolin 2.5 mg INHALATION RT-QID PRN 10/04/24 10/04/24 History Nebulized] Allergies Allergy/AdvReac Type Severity Reaction Status Date / Time No Known Allergies Allergy Verified 10/04/24 09:36 Physical Exam Vitals: Vital Signs Temp Pulse Resp BP Pulse Ox FiO2 10/04/24 11:00 62 18 119/69 98 10/04/24 10:30 97.7 F 64 18 108/65 99 10/04/24 10:15 65 18 114/65 100 10/04/24 09:59 96.8 F L 64 20 119/89 97 10/04/24 09:45 66 18 146/72 100 10/04/24 09:40 50 10/04/24 09:34 96.3 F L 77 18 119/65 97 10/04/24 09:20 96.3 F L 64 18 113/66 99 10/04/24 09:10 59 L 18 101/57 100 10/04/24 09:01 60 18 80/56 98 10/04/24 08:55 96.4 F L 62 16 53/36 98 10/04/24 08:50 67 18 59/39 95 10/04/24 08:45 96.4 F L 71 18 55/39 99 10/04/24 08:35 130 H 18 72/51 97 10/04/24 08:25 128 H 18 60/46 98 10/04/24 07:52 50 10/04/24 06:59 100 10/04/24 06:42 100 10/04/24 06:18 97.7 F 151 H 12 198/119 100 Intake and Output 10/03/24 10/04/24 10/04/24 22:59 06:59 14:59 Intake Total 32.221 Output Total 1400 Balance -1367.779 Intake: Intake, IV Titration 32.221 Amount Diltiazem 125 mg In 5.833 Sodium Chloride 0.9% 100 ml @ 5 MG/HR 5 mls/hr IV .Q24H [facility] Rx#:[id number] Norepinephrine 32 mg In 3.526 Sodium Chloride 0.9% 218 ml @ 0.03 MCG/KG/MIN 1. 021 mls/hr IV .Q24H [facility] Rx#:[id number] propofoL 1,000 mg In 22.862 Empty Bag 1 bag @ 15 MCG/ KG/MIN 6.532 mls/hr IV . [id number] [facility] Rx#:[id number] Output: Urine 1400 Uretheral (Bennett) 1400 Other: Weight 72.575 kg Results - Lab Results Most recent lab results ABG pH 7.29 (7.35-7.45) L 10/04/24 07:40 ABG pCO2 46 mmHg (35-45) H 10/04/24 07:40 ABG pO2 >420 mmHg (83-108) H 10/04/24 07:40 ABG HCO3 22 mmol/L (21-25) 10/04/24 07:40 ABG O2 Saturation >100.0 % (94-97) H 10/04/24 07:40 Calcium 9.3 mg/dL (8.4-10.2) 10/04/24 06:21 Magnesium 1.6 mg/dL (1.6-2.3) 10/04/24 06:21 10/04/24 06:21 10/04/24 06:21 Assessment and Plan Plan: Assessment: 1. Hyponatremia. Component of hypovolemia and urinary retention. Sodium level 124 on admission. Not on thiazide diuretics or NSAIDs. Lung nodule noted, questionable malignancy. 2. Metabolic acidosis secondary to lactic acidosis. 3. A-fib with RVR status post Cardizem drip. 4. Urinary retention. Bennett catheter placed. 1.4 L of urine obtained initially. 5. Shock maintained on Levophed. 6. Status post fall. Plan: Check BMP stat. Will adjust fluids pending results. Check serum and urine osmolality and urine sodium level. Check TSH. Check PTH related peptide. Wean FiO2. Monitor for acute kidney injury as patient was quite hypotensive and also received IV contrast today. Thank you for the consultation. I will continue to follow the patient with you during his hospital stay.
[2024-10-04 12:34] LABS: Glucose,Whole Blood 105 mg/dL (70-110)
--- NOTE | 2024-10-04 12:36 | P.GSHP ---
History of Present Illness H&P Date: 10/04/24 CHIEF COMPLAINT: Altered mental status HISTORY OF PRESENT ILLNESS: This is a 69-year-old male who presented as a level 1 trauma. He was found down and folded in on himself in his bathtub with eviden ce of positional asphyxia. EMS arrived and reports a respiratory of 2. They unfolded his body and respiratory rate did improve. His mentation was altered with pinpoint pupils. And not responsive to touch or sound. ER reports that per the patient has had syncopal episodes. Patient also also has a history of alcohol abuse with recent hospitalization for hyponatremia. Patient did require to be intubated in the ER. Patient did go into A-fib with RVR and cardiology is on consult. Patient had imaging completed of the head face chest abdomen and pelvis and thoracic spine. There was evidence of a nasal fracture. Patient also hypotensive and is on Levophed. Patient did receive 4 L of fluid boluses in ER. PAST MEDICAL HISTORY: See below PAST SURGICAL HISTORY: See below MEDICATIONS: See below ALLERGIES: See below SOCIAL HISTORY: No illicit drug use. REVIEW OF SYSTEMS: Unable to obtain. Patient intubated and sedated PHYSICAL EXAM: VITAL SIGNS: Reviewed GENERAL: No acute distress HEENT: No sclera icterus. Moist buccal mucosa. Head small bruise left forehead, normocephalic. No nasal drainage. ABDOMEN: Soft. Nondistended. Nontender. Old yellow-green bruise noted right lower quadrant abdomen. NEUROLOGIC: Intubated and sedated LABORATORY DATA: WBC 10.8 Hgb 13.4 platelets 479 INR 0.9 Sodium 124 potassium 4.5 creatinine 0.53 Lactic acid 11.5 down to 1.1 Total bilirubin 1.1 AST 49 ALT 52 alk phos 58 Ammonia 82 Urine drug screen negative and serum alcohol level less than 10 IMAGING: CT scan of face brain and cervical spine. No acute fracture or dislocation of the cervical spine. No acute intracranial hemorrhage or midline shift. Acute nondisplaced transverse fracture through the nasal bridge. Chest CTA no evidence of PE. No thoracic aortic dissection or aneurysm. Nonspecific small left lower lobe pulmonary nodule. More suspicious left suprah ilar nodule or adenopathy noted. Neoplasm needs to be excluded. CT scan abdomen and pelvis reports no acute traumatic findings in the abdomen pelvis. Did report suspected significant stenosis in the right common iliac artery. There appears to be areas of significant stenosis and/or occlusion in the proximal right superficial femoral artery. CT scan of the lumbar and thoracic spine reports no fracture ASSESSMENT: 1. Altered mental status. Patient found folded upon himself in bathtub with poor respiratory rate 2. Acute hypoxic respiratory failure requiring to be intubated 3. Hypotension 4. Nasal fracture 5. 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 Daily alcohol use 7. Hyponatremia 8. Elevated lactic acid level 9. A-fib with RVR 10. Elevated ammonia level PLAN: -Vent management per pulmonary service -Pulmonary service consulted for respiratory failure and vent management -Neurology consulted for altered mental status -Cardiology consulted for A-fib RVR -Vascular service consulted for right iliac and femoral artery stenosis -Medicine service consulted for medical management -Nephrology on consult for hyponatremia -Patient on lactulose for elevated ammonia level -Continue ICU management and supportive care Physician Counter Stacker note has been reviewed by physician. Signing provider agrees with the documented findings, assessment, and plan of care. I have personally seen and examined the patient, reviewed the [employer]PER[employer] /PAs history, exam and MDM and agree with the assessment and plan as written. Based on total visit time, I have performed more than 50% of the visit. As above: Patient remains on the ventilator. Some nonpurposeful movement currently. Was hypertensive and tachycardic in the ER however now hypotensive. Continue cardiac and neurologic workup. Continue ICU/vent support. Will reassess tomorrow. Past Medical History Past Medical History: Chest Pain / Angina, COPD, Hyperlipidemia, Hypertension History of Any Multi-Drug Resistant Organisms: None Reported Past Surgical History: Appendectomy Past Anesthesia/Blood Transfusion Reactions: No Reported Reaction Past Psychological History: No Psychological Hx Reported Smoking Status: Current every day smoker Past Alcohol Use History: Daily Past Drug Use History: Marijuana - Past Family History Mother History Unknown: Yes Additional Family Medical History / Comment(s): Father Additional Family Medical History / Comment(s): from complications of injuries after falling down stairs. Medications and Allergies Home Medications Medication Instructions Recorded Confirmed Type Albuterol Sulfate [Ventolin HFA] 1 - 2 puff INHALATION RT-Q4H PRN 01/27/20 10/04/24 History Losartan Potassium 100 mg PO DAILY 01/27/20 10/04/24 History Fluticasone/Umeclidin/Vilanter 1 puff INHALATION RT-DAILY 04/21/22 10/04/24 History [Trelegy Ellipta 100-62.5-25] Aspirin EC [Ecotrin Low Dose] 81 mg PO DAILY 09/09/24 10/04/24 History Albuterol Nebulized [Ventolin 2.5 mg INHALATION RT-QID PRN 10/04/24 10/04/24 History Nebulized] Allergies Allergy/AdvReac Type Severity Reaction Status Date / Time No Known Allergies Allergy Verified 10/04/24 09:36 Surgical - Exam Vital Signs Temp Pulse Resp BP Pulse Ox 97.7 F 151 H 12 198/119 100 10/04/24 06:18 10/04/24 06:18 10/04/24 06:18 10/04/24 06:18 10/04/24 06:18 Results - Labs 10/04/24 06:21 10/04/24 12:02 Abnormal Lab Results - Last 24 Hours (Table) 10/04/24 10/04/24 10/04/24 Range/Units 06:20 06:21 06:21 WBC 10.8 H (3.8-10.6) k/uL RBC 4.09 L (4.30-5.90) m/uL Plt Count 479 H (150-450) k/uL ABG pH (7.35-7.45) ABG pCO2 (35-45) mmHg ABG pO2 (83-108) mmHg ABG O2 Saturation (94-97) % Sodium 124 L (137-145) mmol/L Chloride 90 L (98-107) mmol/L Carbon Dioxide 11 L (22-30) mmol/L Creatinine 0.53 L (0.66-1.25) mg/dL Glucose 218 H (74-99) mg/dL POC Glucose (mg/dL) 227 H (70-110) mg/dL Plasma Lactic Acid Kenneth (0.7-2.0) mmol/L ALT 52 H (4-49) U/L Ammonia (<30) umol/L Creatine Kinase (55-170) U/L Urine Protein (Negative) Urine Glucose (UA) (Negative) Urine Blood (Negative) Urine Mucus (None) /hpf 10/04/24 10/04/24 10/04/24 Range/Units 06:21 06:21 07:02 WBC (3.8-10.6) k/uL RBC (4.30-5.90) m/uL Plt Count (150-450) k/uL ABG pH (7.35-7.45) ABG pCO2 (35-45) mmHg ABG pO2 (83-108) mmHg ABG O2 Saturation (94-97) % Sodium (137-145) mmol/L Chloride (98-107) mmol/L Carbon Dioxide (22-30) mmol/L Creatinine (0.66-1.25) mg/dL Glucose (74-99) mg/dL POC Glucose (mg/dL) (70-110) mg/dL Plasma Lactic Acid Kenneth 11.5 H* (0.7-2.0) mmol/L ALT (4-49) U/L Ammonia 82 H (<30) umol/L Creatine Kinase 181 H (55-170) U/L Urine Protein 1+ H (Negative) Urine Glucose (UA) 2+ H (Negative) Urine Blood Small H (Negative) Urine Mucus Rare H (None) /hpf 10/04/24 Range/Units 07:40 WBC (3.8-10.6) k/uL RBC (4.30-5.90) m/uL Plt Count (150-450) k/uL ABG pH 7.29 L (7.35-7.45) ABG pCO2 46 H (35-45) mmHg ABG pO2 >420 H (83-108) mmHg ABG O2 Saturation >100.0 H (94-97) % Sodium (137-145) mmol/L Chloride (98-107) mmol/L Carbon Dioxide (22-30) mmol/L Creatinine (0.66-1.25) mg/dL Glucose (74-99) mg/dL POC Glucose (mg/dL) (70-110) mg/dL Plasma Lactic Acid Kenneth (0.7-2.0) mmol/L ALT (4-49) U/L Ammonia (<30) umol/L Creatine Kinase (55-170) U/L Urine Protein (Negative) Urine Glucose (UA) (Negative) Urine Blood (Negative) Urine Mucus (None) /hpf Diabetes panel 10/04/24 Range/Units 06:21 Sodium 124 L (137-145) mmol/L Potassium 4.5 (3.5-5.1) mmol/L Chloride 90 L (98-107) mmol/L Carbon Dioxide 11 L (22-30) mmol/L BUN 14 (9-20) mg/dL Creatinine 0.53 L (0.66-1.25) mg/dL Glucose 218 H (74-99) mg/dL Calcium 9.3 (8.4-10.2) mg/dL AST 49 (17-59) U/L ALT 52 H (4-49) U/L Alkaline Phosphatase 58 (38-126) U/L Total Protein 7.1 (6.3-8.2) g/dL Albumin 4.5 (3.5-5.0) g/dL Calcium panel 10/04/24 Range/Units 06:21 Calcium 9.3 (8.4-10.2) mg/dL Albumin 4.5 (3.5-5.0) g/dL Pituitary panel 10/04/24 Range/Units 06:21 Sodium 124 L (137-145) mmol/L Potassium 4.5 (3.5-5.1) mmol/L Chloride 90 L (98-107) mmol/L Carbon Dioxide 11 L (22-30) mmol/L BUN 14 (9-20) mg/dL Creatinine 0.53 L (0.66-1.25) mg/dL Glucose 218 H (74-99) mg/dL Calcium 9.3 (8.4-10.2) mg/dL Adrenal panel 10/04/24 Range/Units 06:21 Sodium 124 L (137-145) mmol/L Potassium 4.5 (3.5-5.1) mmol/L Chloride 90 L (98-107) mmol/L Carbon Dioxide 11 L (22-30) mmol/L BUN 14 (9-20) mg/dL Creatinine 0.53 L (0.66-1.25) mg/dL Glucose 218 H (74-99) mg/dL Calcium 9.3 (8.4-10.2) mg/dL Total Bilirubin 1.1 (0.2-1.3) mg/dL AST 49 (17-59) U/L ALT 52 H (4-49) U/L Alkaline Phosphatase 58 (38-126) U/L Total Protein 7.1 (6.3-8.2) g/dL Albumin 4.5 (3.5-5.0) g/dL
[2024-10-04 12:39] LABS: African American GFR (CKD) >90 (>60 ml/min/1.73 sqM); Anion Gap 6 mmol/L; Blood Urea Nitrogen 14 mg/dL (9-20); Calcium 7.5 mg/dL (8.4-10.2); Carbon Dioxide 19 mmol/L (22-30); Chloride 100 mmol/L (98-107); Glucose 106 mg/dL (74-99); Non-African American GFR(CKD) >90 (>60 ml/min/1.73 sqM); Potassium 4.1 mmol/L (3.5-5.1); Sodium 125 mmol/L (137-145)
[2024-10-04] MEDS: MAGNESIUM SULFATE-D5W PMX 1 GM in DEXTROSE/WATER 1 100ML.BAG IVPB SCH (12:57)
--- NOTE | 2024-10-04 13:27 | P.CNNES ---
History of Present Illness Consult date: 10/04/24 Requesting physician: Urbano Page Reason for Consult: ams, level 1 trauma History of Present Illness: This is a 69-year-old gentleman presents to the emergency department because of episode of unresponsiveness and jerking of extremity. History is obtained from the patient's girlfriend who is at bedside. According to the girlfriend the patient was asleep when she woke up at 530 then she heard him walk going to the bathroom within 10 minutes when she asked if he needed any help and he stated no according to her. Then she heard a loud noise in the bathroom and it seems that patient fell face forward into the bathtub and she stated that he was shaking and had gurgling and the episode was brief but she prolonged lasted for. She called EMS. She stated that just shy of 1 month ago she stated that he had an episode where he was sitting in the kitchen chair and then he he was slumped down and he fell on the ground and he was jerking. She denies any prior history of seizure. She stated that recently he has been having low sodium low magnesium and was hospitalized for that and 1 the he feels better he will demand to leave the hospital and he will go AGAINST MEDICAL ADVICE. Again she denies that the patient has any underlying history of seizure in the past. Denies the patient has any history of strokes. Or any cancer. It seems that the patient has history of heavy alcohol use but in the last 1 month he is cutting down he was drinking 5 tall boys prior to 1 month ago but now he is drinking less than that. He also smokes cigarettes. He has underlying history of hypertension, coronary artery disease status post stents, hypertension. "In the past patient sodium was as low as 103 and that was on 09/25/2024. Some of the workup during this hospital visit consisted of: Initial sodium was 124. Initial serum glucose was 218, calcium is 9.3, magnesium is 1.6, ALT is 52 and AST is 49 Plasma lactic acid vein is 11.5 Ammonia level is 82 CK level is 181 The head and cervical spine is reported as no acute intracranial hemorrhage or midline shift is seen. There is no acute fracture or dislocation evident in the cervical spine. Acute nondisplaced transverse fracture through the nasal bridg e. Also reviewed the CT of the head and I agree with the report. CT thoracic and lumbar spine is reported as no fracture or malalignment of the thoracic and lumbar spine. Somewhat limited evaluation of the lumbar spine as noted above. He was given Ativan 2mg once in the ED. He was intubated on ventilator and on IV Propofol. Review of Systems Limited but as per HPI. Past Medical History Past Medical History: Chest Pain / Angina, COPD, Hyperlipidemia, Hypertension History of Any Multi-Drug Resistant Organisms: None Reported Past Surgical History: Appendectomy Past Anesthesia/Blood Transfusion Reactions: No Reported Reaction Past Psychological History: No Psychological Hx Reported Smoking Status: Current every day smoker Past Alcohol Use History: Daily Past Drug Use History: Marijuana - Past Family History Mother History Unknown: Yes Additional Family Medical History / Comment(s): Father Additional Family Medical History / Comment(s): from complications of injuries after falling down stairs. Medications and Allergies Home Medications Medication Instructions Recorded Confirmed Type Albuterol Sulfate [Ventolin HFA] 1 - 2 puff INHALATION RT-Q4H PRN 01/27/20 10/04/24 History Losartan Potassium 100 mg PO DAILY 01/27/20 10/04/24 History Fluticasone/Umeclidin/Vilanter 1 puff INHALATION RT-DAILY 04/21/22 10/04/24 History [Trelegy Ellipta 100-62.5-25] Aspirin EC [Ecotrin Low Dose] 81 mg PO DAILY 09/09/24 10/04/24 History Albuterol Nebulized [Ventolin 2.5 mg INHALATION RT-QID PRN 10/04/24 10/04/24 History Nebulized] Allergies Allergy/AdvReac Type Severity Reaction Status Date / Time No Known Allergies Allergy Verified 10/04/24 09:36 Physical Examination - Vital Signs Vital Signs: Vital Signs Temp Pulse Resp BP Pulse Ox FiO2 10/04/24 12:46 50 10/04/24 12:30 67 22 97/61 100 10/04/24 12:15 67 22 99/65 100 10/04/24 12:00 98.2 F 65 22 117/61 100 10/04/24 11:50 50 10/04/24 11:49 97.7 F 64 18 109/65 99 10/04/24 11:00 62 18 119/69 98 10/04/24 10:30 97.7 F 64 18 108/65 99 10/04/24 10:15 65 18 114/65 100 10/04/24 09:59 96.8 F L 64 20 119/89 97 10/04/24 09:45 66 18 146/72 100 10/04/24 09:40 50 10/04/24 09:34 96.3 F L 77 18 119/65 97 10/04/24 09:20 96.3 F L 64 18 113/66 99 10/04/24 09:10 59 L 18 101/57 100 10/04/24 09:01 60 18 80/56 98 10/04/24 08:55 96.4 F L 62 16 53/36 98 10/04/24 08:50 67 18 59/39 95 10/04/24 08:45 96.4 F L 71 18 55/39 99 10/04/24 08:35 130 H 18 72/51 97 10/04/24 08:25 128 H 18 60/46 98 10/04/24 07:52 50 10/04/24 06:59 100 10/04/24 06:42 100 10/04/24 06:18 97.7 F 151 H 12 198/119 100 Intake and Output 10/03/24 10/04/24 10/04/24 22:59 06:59 14:59 Intake Total 88.105 Output Total 1400 Balance -1311.895 Intake: Intake, IV Titration 88.105 Amount Diltiazem 125 mg In 5.833 Sodium Chloride 0.9% 100 ml @ 5 MG/HR 5 mls/hr IV .Q24H REHAN Rx#:[id number] Norepinephrine 32 mg In 3.526 Sodium Chloride 0.9% 218 ml @ 0.03 MCG/KG/MIN 1. 021 mls/hr IV .Q24H REHAN Rx#:[id number] propofoL 1,000 mg In 78.746 Empty Bag 1 bag @ 15 MCG/ KG/MIN 6.532 mls/hr IV . [id number] REHAN Rx#:[id number] Output: Urine 1400 Uretheral (Bennett) 1400 Other: Weight 72.575 kg General: Lying in bed and does not appear in acute distress. Lung: Intubated on a ventilator. Neuro: Limited. Is on Propofol 50mcg/kg/min. Is comatose. Primary gaze upon opening eyes. Pupils are midline, pinpoint. No facial weakness. Otherwise limited. Results - Laboratory Findings CBC and BMP: 10/04/24 06:21 10/04/24 12:02 Abnormal Lab Findings: Abnormal Labs 10/04/24 10/04/24 10/04/24 06:20 06:21 06:21 WBC 10.8 H RBC 4.09 L Plt Count 479 H ABG pH ABG pCO2 ABG pO2 ABG O2 Saturation Sodium 124 L Chloride 90 L Carbon Dioxide 11 L Creatinine 0.53 L Glucose 218 H POC Glucose (mg/dL) 227 H Plasma Lactic Acid Kenneth ALT 52 H Ammonia Creatine Kinase Urine Protein Urine Glucose (UA) Urine Blood Urine Mucus 10/04/24 10/04/24 10/04/24 06:21 06:21 07:02 WBC RBC Plt Count ABG pH ABG pCO2 ABG pO2 ABG O2 Saturation Sodium Chloride Carbon Dioxide Creatinine Glucose POC Glucose (mg/dL) Plasma Lactic Acid Kenneth 11.5 H* ALT Ammonia 82 H Creatine Kinase 181 H Urine Protein 1+ H Urine Glucose (UA) 2+ H Urine Blood Small H Urine Mucus Rare H 10/04/24 07:40 WBC RBC Plt Count ABG pH 7.29 L ABG pCO2 46 H ABG pO2 >420 H ABG O2 Saturation >100.0 H Sodium Chloride Carbon Dioxide Creatinine Glucose POC Glucose (mg/dL) Plasma Lactic Acid Kenneth ALT Ammonia Creatine Kinase Urine Protein Urine Glucose (UA) Urine Blood Urine Mucus Assessment and Plan Assessment: This is a 69 y/o gentleman with history of significant alcohol use in the last 1 month has been having hyponatremia, hypomagnesemia with generalized weakness who presents to the emergency department because of episode of unresponsiveness with seizure-like activity. According to his girlfriend he had a similar episode just shy of a month ago. Again he was hospitalized recently for significant hyponatremia as low as 103 on 09/25/2024. New onset seizure-like activity seems possibly provoked due to electrolyte imbalance prominently hyponatremia. And possible provoked due to alcohol withdrawal CT head is unremarkable for any acute or subacute stroke Acute on chronic hyponatremia that significant since end of August 2024. Currently the sodium is 125. Elevated plasma lactic acid due to likely seizure-like activity Hyperammonemia likely due to his seizure-like activity Underlying history of coronary artery status post stent Hypertension Significant alcohol use and was drinking 5 tall boys daily but in the last 1 month he is cutting down Tobacco use Plan: I ordered a routine EEG I placed the patient on Keppra 500 mg twice a day empirically and gave the patient 1000 mg loading Will get a repeat CT of the head tomorrow Once the patient is extubated will obtain MRI of the brain with and without Patient is on thiamine Patient is on Ativan for CIWA protocol Nephrology is consulted Will defer the rest of the medical management to primary other specialist Plan discussed with the patient's girlfriend is at bedside and the nurse Thank you for the consultation Time with Patient: Greater than 30
--- NOTE | 2024-10-04 14:39 | P.GSCN ---
History of Present Illness Consult date: 10/04/24 Reason for Consult: Right iliac and femoral artery stenosis on CT Requesting physician: Kassie Reilly History of present illness: HPI from patient's chart and patient's who is at the bedside. This is a 69-year-old male who came in as a level 1 trauma. He is currently sedated and intubated. Apparently he was found in the bathroom by his slumped over into the tub. She states that he was up using the bathroom she was in the kitchen and heard a loud noise like he had fallen. She had found him on his kn ees slumped over into the bathtub and was mostly unresponsive. She called 911 and he was brought into the emergency department for further evaluation. Past medical history includes alcoholism, frequent falls, COPD, coronary artery disease status post stent, marijuana use, current daily smoker 1 to 2 packs a day. Patient states that he usually drinks 5 tall beers a day but has been cutting back a little bit since he has been in the hospital. States he is also smoking less. He was recently in the hospital for falls and had left AGAINST MEDICAL ADVICE. He had multiple imaging done as part of his trauma workup. He had a CT of the abdomen pelvis with reported calcified plaque in the aorta and iliac arteries as well as stenosis and/or occlusion in the proximal right SFA. Vascular surgery was consulted for peripheral arterial disease. According to the patient's she states that he does have frequent falls but she believes is secondary to balance issues. She is not sure if he has had any pain in his lower extremities she states that he does not complain of any but does not alwa ys tell her everything. She states she has no knowledge of him having previous peripheral arterial disease. Review of Systems ROS unobtainable: due to endotracheal tube, due to mental status Past Medical History Past Medical History: Chest Pain / Angina, COPD, Hyperlipidemia, Hypertension History of Any Multi-Drug Resistant Organisms: None Reported Past Surgical History: Appendectomy Past Anesthesia/Blood Transfusion Reactions: No Reported Reaction Past Psychological History: No Psychological Hx Reported Smoking Status: Current every day smoker Past Alcohol Use History: Daily Past Drug Use History: Marijuana - Past Family History Mother History Unknown: Yes Additional Family Medical History / Comment(s): Father Additional Family Medical History / Comment(s): from complications of injuries after falling down stairs. Medications and Allergies Home Medications Medication Instructions Recorded Confirmed Type Albuterol Sulfate [Ventolin HFA] 1 - 2 puff INHALATION RT-Q4H PRN 01/27/20 10/04/24 History Losartan Potassium 100 mg PO DAILY 01/27/20 10/04/24 History Fluticasone/Umeclidin/Vilanter 1 puff INHALATION RT-DAILY 04/21/22 10/04/24 History [Trelegy Ellipta 100-62.5-25] Aspirin EC [Ecotrin Low Dose] 81 mg PO DAILY 09/09/24 10/04/24 History Albuterol Nebulized [Ventolin 2.5 mg INHALATION RT-QID PRN 10/04/24 10/04/24 History Nebulized] Allergies Allergy/AdvReac Type Severity Reaction Status Date / Time No Known Allergies Allergy Verified 10/04/24 09:36 Surgical - Exam Vital Signs Temp Pulse Resp BP Pulse Ox 97.7 F 151 H 12 198/119 100 10/04/24 06:18 10/04/24 06:18 10/04/24 06:18 10/04/24 06:18 10/04/24 06:18 General appearance: The patient is sedated and intubated on mechanical ventilation HET: Head is normocephalic and atraumatic. Pupils are equal and reactive. Neck: Supple. Heart: Regular. Lungs: Equal expansion, on mechanical ventilation. Abdomen: Soft, nondistended. Extremities: Normal skin color and turgor. Palpable bilateral femoral pulses. Bilateral lower extremities without any edema. Warm to the touch. Palpable right PT and DP pulse, left palpable PT pulse. Neurological: Sedated and intubated. Results - Labs 10/04/24 06:21 10/04/24 12:02 Abnormal Lab Results - Last 24 Hours (Table) 10/04/24 10/04/24 10/04/24 Range/Units 06:20 06:21 06:21 WBC 10.8 H (3.8-10.6) k/uL RBC 4.09 L (4.30-5.90) m/uL Plt Count 479 H (150-450) k/uL ABG pH (7.35-7.45) ABG pCO2 (35-45) mmHg ABG pO2 (83-108) mmHg ABG O2 Saturation (94-97) % Sodium 124 L (137-145) mmol/L Chloride 90 L (98-107) mmol/L Carbon Dioxide 11 L (22-30) mmol/L Creatinine 0.53 L (0.66-1.25) mg/dL Glucose 218 H (74-99) mg/dL POC Glucose (mg/dL) 227 H (70-110) mg/dL Plasma Lactic Acid Kenneth (0.7-2.0) mmol/L ALT 52 H (4-49) U/L Ammonia (<30) umol/L Creatine Kinase (55-170) U/L Urine Protein (Negative) Urine Glucose (UA) (Negative) Urine Blood (Negative) Urine Mucus (None) /hpf 10/04/24 10/04/24 10/04/24 Range/Units 06:21 06:21 07:02 WBC (3.8-10.6) k/uL RBC (4.30-5.90) m/uL Plt Count (150-450) k/uL ABG pH (7.35-7.45) ABG pCO2 (35-45) mmHg ABG pO2 (83-108) mmHg ABG O2 Saturation (94-97) % Sodium (137-145) mmol/L Chloride (98-107) mmol/L Carbon Dioxide (22-30) mmol/L Creatinine (0.66-1.25) mg/dL Glucose (74-99) mg/dL POC Glucose (mg/dL) (70-110) mg/dL Plasma Lactic Acid Kenneth 11.5 H* (0.7-2.0) mmol/L ALT (4-49) U/L Ammonia 82 H (<30) umol/L Creatine Kinase 181 H (55-170) U/L Urine Protein 1+ H (Negative) Urine Glucose (UA) 2+ H (Negative) Urine Blood Small H (Negative) Urine Mucus Rare H (None) /hpf 10/04/24 Range/Units 07:40 WBC (3.8-10.6) k/uL RBC (4.30-5.90) m/uL Plt Count (150-450) k/uL ABG pH 7.29 L (7.35-7.45) ABG pCO2 46 H (35-45) mmHg ABG pO2 >420 H (83-108) mmHg ABG O2 Saturation >100.0 H (94-97) % Sodium (137-145) mmol/L Chloride (98-107) mmol/L Carbon Dioxide (22-30) mmol/L Creatinine (0.66-1.25) mg/dL Glucose (74-99) mg/dL POC Glucose (mg/dL) (70-110) mg/dL Plasma Lactic Acid Kenneth (0.7-2.0) mmol/L ALT (4-49) U/L Ammonia (<30) umol/L Creatine Kinase (55-170) U/L Urine Protein (Negative) Urine Glucose (UA) (Negative) Urine Blood (Negative) Urine Mucus (None) /hpf Diabetes panel 10/04/24 Range/Units 06:21 Sodium 124 L (137-145) mmol/L Potassium 4.5 (3.5-5.1) mmol/L Chloride 90 L (98-107) mmol/L Carbon Dioxide 11 L (22-30) mmol/L BUN 14 (9-20) mg/dL Creatinine 0.53 L (0.66-1.25) mg/dL Glucose 218 H (74-99) mg/dL Calcium 9.3 (8.4-10.2) mg/dL AST 49 (17-59) U/L ALT 52 H (4-49) U/L Alkaline Phosphatase 58 (38-126) U/L Total Protein 7.1 (6.3-8.2) g/dL Albumin 4.5 (3.5-5.0) g/dL Calcium panel 10/04/24 Range/Units 06:21 Calcium 9.3 (8.4-10.2) mg/dL Albumin 4.5 (3.5-5.0) g/dL Pituitary panel 10/04/24 Range/Units 06:21 Sodium 124 L (137-145) mmol/L Potassium 4.5 (3.5-5.1) mmol/L Chloride 90 L (98-107) mmol/L Carbon Dioxide 11 L (22-30) mmol/L BUN 14 (9-20) mg/dL Creatinine 0.53 L (0.66-1.25) mg/dL Glucose 218 H (74-99) mg/dL Calcium 9.3 (8.4-10.2) mg/dL Adrenal panel 10/04/24 Range/Units 06:21 Sodium 124 L (137-145) mmol/L Potassium 4.5 (3.5-5.1) mmol/L Chloride 90 L (98-107) mmol/L Carbon Dioxide 11 L (22-30) mmol/L BUN 14 (9-20) mg/dL Creatinine 0.53 L (0.66-1.25) mg/dL Glucose 218 H (74-99) mg/dL Calcium 9.3 (8.4-10.2) mg/dL Total Bilirubin 1.1 (0.2-1.3) mg/dL AST 49 (17-59) U/L ALT 52 H (4-49) U/L Alkaline Phosphatase 58 (38-126) U/L Total Protein 7.1 (6.3-8.2) g/dL Albumin 4.5 (3.5-5.0) g/dL - Imaging Comments: CT abdomen pelvis with contrast reports no acute posttraumatic finding in the abdomen or pelvis. Incidental findings are presented as detailed above. There is a small fat-containing left inguinal hernia. Severe calcified plaque of the aorta extends into the iliac branch vessels. There is suspected significant stenosis in the right common iliac artery. There appears to be areas of significant stenosis and/or occlusion in the proximal right SFA. Correlate for right lower extremity hypoperfusion symptoms. There is partial visualization of a 1.5 cm rounded low-density lesion or cyst in the base of the penis axial image 90. Assessment and Plan Assessment: 1. Altered mental status unclear etiology 2. Peripheral arterial disease seen on CT abdomen pelvis, likely chronic 3. Fall, with history of syncopal episodes 4. Acute hypoxic respiratory failure requiring intubation and mechanical ventilation 5. Hypotension requiring pressor support 6. Nasal bridge fracture 7. Alcoholism, daily alcohol use 8. Tobacco dependence, daily smoker 1 to 2 packs/day Plan: 1. Does not appear to have any indication for any acute vascular surgical intervention 2. Arterial ultrasound ordered for further evaluation of peripheral arterial disease 3. Continue with ICU management and multiple new vehicle sales consultant recommendations 4. Patient will likely require outpatient follow-up with vascular surgery Thank you for this consultation, we will continue to follow. The impression and plan of care has been dictated as directed. Dr. Bennett I performed a history and examination of this patient, discussed the same with the dictator. I agree with the dictator's note ,documented as a scribe. Any additional findings or plans will be noted.
[2024-10-04] MEDS: levETIRAcetam IV 500 MG/5 ML VIAL IVP STA (14:45)
[2024-10-04] MEDS: IPRATROPIUM-ALBUTEROL 3 ML NEB INHALATION SCH (16:22)
--- NOTE | 2024-10-04 16:47 | US ---
EXAMINATION TYPE: US arterial LE multi level DATE OF EXAM: 10/04/2024 3:24 PM COMPARISONS: none CLINICAL INDICATION: Male, 69 years old with history of PAD on CT; Portable ICU patient. Unresponsiv e- lui historian. Thickened toe nails. TECHNIQUE: Systolic pressures were taken of the upper and lower extremity arteries with ankle-brachia l indices and toe brachial indices calculated bilaterally. History of: Smoker: N/A Hypertension: N/A Diabetic: N/A Hyperlipidemia: N/A TIA/CVA: N/A Previous Vascular Surgery: N/A CAD: Yes NC: N/A Vascular Ulcers: No Claudication: N/A Gangrene: No FINDINGS: Doppler Waveforms: Right: Monophasic Left: Monophasic Brachial Artery systolic pressure: Right: 137 Left: N/A Posterior Tibial artery systolic pressure: Right: 90 Left: 86 Dorsalis Pedis artery systolic pressure: Right: 85 Left: 66 Ankle-Brachial Indices: Right: 0.7 Left: 0.6 (Vessel hardening > 1.4; Normal 0.9 - 1.4, Moderate 0.7 - 0.9, Severe 0.5-0.7) IMPRESSION: Severe left and moderate right peripheral vascular disease. [facility], , 10/04/2024 4:45 PM
[2024-10-04 17:47] LABS: Glucose,Whole Blood 131 mg/dL (70-110)
--- NOTE | 2024-10-04 21:17 | PCN ---
PROCEDURE NOTE PROCEDURE: Left radial arterial line. PREOPERATIVE DIAGNOSES: Frequent blood draws, blood gas monitoring. POSTOPERATIVE DIAGNOSES: Frequent blood draws, blood gas monitoring. CO-PAPER SORTER AND COUNTER: Dr. Watt. ARTERIAL LINE PLACEMENT: Indications: Hemodynamic monitoring. A time-out was completed verifying correct patient, procedure, site, positioning, and implant(s) or special equipment if applicable. Charbel's test was performed to ensure adequate perfusion. The patient's right/left wrist or right/left groin was prepped and draped in sterile fashion. 1% Lidocaine was used to anesthetize the area. An 18G Arrow arterial line was introduced into the left radial artery. The catheter was threaded over the guide wire and the needle was removed with appropriate pulsatile blood return. Blood loss was minimal. The catheter was then sutured in place to the skin and a sterile dressing applied. Perfusion to the extremity distal to the point of catheter insertion was checked and found to be adequate. The patient tolerated the procedure well and there were no complications. There was no immediate complication. There was good waveform and blood pressure reading. The catheter was sutured in place. Sterile dressing was applied by the nurse. MMODL / IJN: [id number] /
--- NOTE | 2024-10-04 21:17 | PCN ---
PROCEDURE NOTE PROCEDURE: Left radial arterial line. PREOPERATIVE DIAGNOSES: Frequent blood draws and blood gas monitoring. POSTOPERATIVE DIAGNOSES: Frequent blood draws and blood gas monitoring. There was informed consent and universal timeout. CO-PRIME BROKER: Dr. Watt. ARTERIAL LINE PLACEMENT: Indications: Hemodynamic monitoring. A time-out was completed verifying correct patient, procedure, site, positioning, and implant(s) or special equipment if applicable. Charbel's test was performed to ensure adequate perfusion. The patient's right/left wrist or right/left groin was prepped and draped in sterile fashion. 1% Lidocaine was used to anesthetize the area. An 18G Arrow arterial line was introduced into the left radial artery. The catheter was threaded over the guide wire and the needle was removed with appropriate pulsatile blood return. Blood loss was minimal. The catheter was then sutured in place to the skin and a sterile dressing applied. Perfusion to the extremity distal to the point of catheter insertion was checked and found to be adequate. The patient tolerated the procedure well and there were no complications. There was good blood return and waveform. The catheter was sutured in place. Sterile dressing was applied by the nurse. MMODL / IJN: [id number] /
[2024-10-04] MEDS: levETIRAcetam IV 500 MG/5 ML VIAL IVP SCH (21:57)
[2024-10-04] MEDS: CHLORHEXIDINE GLUCONATE 15 ML CUP MUCOUS MEM SCH (21:59)
[2024-10-04] MEDS: HEPARIN SODIUM,PORCINE 5,000 UNIT/ML 1 ML VIAL SQ SCH (21:59)
[2024-10-04 23:18] LABS: Glucose,Whole Blood 132 mg/dL (70-110)
--- NOTE | 2024-10-04 23:38 | EEG ---
ELECTROENCEPHALOGRAM REPORT CLINICAL HISTORY: This is a 69-year-old gentleman with episode of unresponsiveness and body jerks. The video EEG is obtained to evaluate for seizure epileptiform activity. RELEVANT MEDICATION: Ativan. EEG TYPE: This is a routine 21-channel EEG with video using the 10/20 electrode placement system. DESCRIPTION: The patient is intubated on a ventilator. Wakefulness and drowsiness are obtained. During awake state, throughout the study, the background is suppressed and it consists of 7 to 8 hertz intermixed with delta activity. There was no physiological stage 2 sleep activity. There is no focal slowing. Interictal and ictal is none. ACTIVATION PROCEDURE: Photic stimulation did not evoke a posterior driving response. There is no abnormality during the photic stimulation. Hyperventilation is not performed. CLINICAL INTERPRETATION: This is an abnormal routine EEG. The background slowing is suggestive of moderate encephalopathy. Otherwise, there is no focal slowing, epileptiform discharge or seizure on the EEG. Clinical correlation is recommended. SHALONDA / MARCY: [id number] /
[2024-10-04 23:43] LABS: African American GFR (CKD) >90 (>60 ml/min/1.73 sqM); Anion Gap 3 mmol/L; Blood Urea Nitrogen 13 mg/dL (9-20); Carbon Dioxide 19 mmol/L (22-30); Chloride 105 mmol/L (98-107); Glucose 122 mg/dL (74-99); Non-African American GFR(CKD) >90 (>60 ml/min/1.73 sqM); Potassium 3.6 mmol/L (3.5-5.1); Sodium 127 mmol/L (137-145)
[2024-10-05] MEDS: POTASSIUM BICARBONATE/CIT AC 20 MEQ TABLET.EFF NG-TUBE SCH ×2 (01:59→07:03)
[2024-10-05 05:16] LABS: Glucose,Whole Blood 104 mg/dL (70-110)
[2024-10-05 05:28] LABS: Basophils % (A) 0 %; Eosinophils # (A) 0.3 k/uL (0-0.7); Eosinophils % (A) 2 %; HCT 33.2 % (39.0-53.0); HGB 11.5 gm/dL (13.0-17.5); Lymphocytes # (A) 0.5 k/uL (1.0-4.8); Lymphocytes % (A) 4 %; MCHC 34.5 g/dL (31.0-37.0); MCV 98.5 fL (80.0-100.0); Mean Platelet Volume 7.9; Monocytes # (A) 0.8 k/uL (0-1.0); Monocytes % (A) 6 %; Neutrophils % (A) 86 %; Platelet Count 367 k/uL (150-450); RBC 3.37 m/uL (4.30-5.90); RDW 11.9 % (11.5-15.5); WBC 12.8 k/uL (3.8-10.6)
[2024-10-05 05:36] LABS: INR 0.9 (<1.2); Prothrombin Time 9.8 sec (10.0-12.5)
[2024-10-05 05:39] LABS: ALT 25 U/L (4-49); AST 17 U/L (17-59); African American GFR (CKD) >90 (>60 ml/min/1.73 sqM); Albumin 2.8 g/dL (3.5-5.0); Alkaline Phosphatase 61 U/L (38-126); Amylase 162 U/L (30-110); Anion Gap 3 mmol/L; Blood Urea Nitrogen 9 mg/dL (9-20); Calcium 7.9 mg/dL (8.4-10.2); Carbon Dioxide 19 mmol/L (22-30); Chloride 105 mmol/L (98-107); Glucose 100 mg/dL (74-99); Lipase 551 U/L (23-300); Magnesium 1.8 mg/dL (1.6-2.3); Non-African American GFR(CKD) >90 (>60 ml/min/1.73 sqM); Potassium 3.9 mmol/L (3.5-5.1); Sodium 127 mmol/L (137-145); Total Bilirubin 0.5 mg/dL (0.2-1.3); Total Protein 5.2 g/dL (6.3-8.2)
[2024-10-05 06:03] LABS: ABG Base Excess -3.1 mmol/L; ABG HCO3 21 mmol/L (21-25); ABG Oxygen Saturation 99.2 % (94-97); ABG PCO2 35 mmHg (35-45); ABG PH 7.39 (7.35-7.45); ABG PO2 127 mmHg (83-108); ABG TCO2 22 mmol/L (19-24); Allen Test Performed? Yes
[2024-10-05] MEDS ORDERED: Magnesium Replacement Protocol 1 EACH MISC MISCELLANE PRN (06:03)
[2024-10-05] MEDS ORDERED: Potassium Replacement Protocol 1 EACH MISC MISCELLANE PRN (06:03)
[2024-10-05] MEDS: MAGNESIUM SULFATE-D5W PMX 1 GM in DEXTROSE/WATER 1 100ML.BAG IVPB ONE (06:36)
--- NOTE | 2024-10-05 07:56 | XR ---
EXAMINATION TYPE: XR chest 1V portable DATE OF EXAM: 10/05/2024 COMPARISON: 10/04/2024 HISTORY: Tube placement TECHNIQUE: Single frontal view of the chest is obtained. FINDINGS: ET tube is 5.1 cm above the eloy. There is an NG tube coursing into the stomach. There is a mild interstitial opacity in the right lung base which is increased in the interval. Left lung is clear. There is no pleural effusion or pneumothorax. The heart and pulmonary vasculature are normal. IMPRESSION: 1. ET tube 5.1 cm above the eloy. 2. Increasing interstitial opacity in the right lung base [facility], , 10/05/2024 7:54 AM
[2024-10-05] MEDS: THIAMINE 100 MG TAB PO SCH (09:23)
--- NOTE | 2024-10-05 09:47 | P.PN ---
Subjective Progress Note Date: 10/05/24 Rory Head is a 69-year-old male patient presented to the ER following being found in bathtub with decreased respiratory rate and unresponsiveness. Patient was recently here last week for hyponatremia patient has a known history of EtOH admission sodium at that time was 103 patient did leave AMA on 09/29/2024. Lab work upon arrival revealing WBC of 10.8, sodium 124 morning, lactic acid 11.5 creatinine kinase 181. Drug screen was negative serum alcohol less than 10 imaging performed in ER showing chest x-ray no suspicious acute pulmonary process, face CT showing no acute fracture or dislocation and cervical spine displaced transverse fracture through the nasal bridge. Chest CTA performed showing negative for pulmonary embolism nonspecific small cell left lower lobe pulmonary nodule. Abdomen and pelvis CT showing no acute posttraumatic finding of the abdomen or pelvis. CT of thoracic spine negative. EKG completed showing atrial fibrillation. Patient was intubated and central line placed per ER physician patient admitted to trauma team. Patient's core temperature also low started on Reema hugger. Patient's blood pressure also decreasing started on norepinephrine. Patient will be admitted to the intensive care unit. At this time consults placed for critical care, neurology, cardiology, vascular surgery due to right iliac and femoral artery stenosis, ENT and nephrology services. Blood culture ordered On 10/05/2024 patient remains in the ICU on mechanical ventilation and sedation. Per nursing staff Levophed is being weaned off. Patient also to be attempted for sedation holiday today to assess neurological status. Sodium 127. Current heart rate temp 98.1, heart 73, respiratory rate 24, blood pressure 121/72 with an FiO2 of 40% Objective - Vital Signs Vital signs: Vital Signs Temp 98.1 F 10/05/24 08:00 Pulse 60 10/05/24 09:33 Resp 26 H 10/05/24 08:00 BP 121/72 10/05/24 08:00 Pulse Ox 100 10/05/24 08:00 FiO2 35 10/05/24 09:04 Intake & Output 10/04/24 10/05/24 10/05/24 18:59 06:59 18:59 Intake Total 4211.935 4213.658 430.495 Output Total 1835 980 85 Balance -531.493 836.658 345.495 Weight 72.575 kg 71.7 kg Intake: IV 1110 1476 329 0.9% NS Arterial Pressure 36 9 Bag 0.9% NS KVO 240 20 Magnesium Sulfate-D5w Pmx 200 1 gm In Dextrose/Water 1 100ml.bag @ 100 mls/hr IVPB Q1H [facility] Rx#: [id number] Sodium Chloride 0.9% 1, 910 1200 300 000 ml @ 100 mls/hr IV . Q10H [facility] Rx#:[id number] Intake, IV Titration 193.507 240.658 101.495 Amount Diltiazem 125 mg In 5.833 Sodium Chloride 0.9% 100 ml @ 5 MG/HR 5 mls/hr IV .Q24H [facility] Rx#:[id number] Norepinephrine 32 mg In 29.093 42.110 4.242 Sodium Chloride 0.9% 218 ml @ 0.03 MCG/KG/MIN 1. 021 mls/hr IV .Q24H [facility] Rx#:[id number] propofoL 1,000 mg In 158.581 198.548 97.253 Empty Bag 1 bag @ 15 MCG/ KG/MIN 6.532 mls/hr IV . [id number] [facility] Rx#:[id number] Other 100 Output: Urine 1835 980 85 Uretheral (Bennett) 1400 Other: Voiding Method Indwelling Catheter Indwelling Catheter ABP, PAP, CO, CI - Last Documented Arterial Blood Pressure 140/55 - Exam Patient currently on mechanical ventilation and sedated Head normocephalic Neck supple Lungs clear to auscultation bilaterally no wheezing or crackles Heart irregular rate known atrial fibrillation Abdomen is soft nontender nondistended positive bowel sounds no hepatosplenomegaly Extremities no edema - Labs CBC & Chem 7: 10/05/24 05:10 10/05/24 05:10 Labs: Abnormal Lab Results - Last 24 Hours (Table) 10/04/24 10/04/24 10/04/24 Range/Units 12:02 17:45 17:55 WBC (3.8-10.6) k/uL RBC (4.30-5.90) m/uL Hgb (13.0-17.5) gm/dL Hct (39.0-53.0) % Neutrophils # (1.3-7.7) k/uL Lymphocytes # (1.0-4.8) k/uL PT (10.0-12.5) sec ABG pO2 (83-108) mmHg ABG O2 Saturation (94-97) % Hemoglobin (13.0-17.5) gm/dL Sodium 125 L 124 L (137-145) mmol/L Carbon Dioxide 19 L (22-30) mmol/L Creatinine 0.53 L (0.66-1.25) mg/dL Glucose 106 H (74-99) mg/dL POC Glucose (mg/dL) 131 H (70-110) mg/dL Osmolality 264 L (275-295) mOsm/kg Calcium 7.5 L (8.4-10.2) mg/dL Total Protein (6.3-8.2) g/dL Albumin (3.5-5.0) g/dL Amylase (30-110) U/L Lipase (23-300) U/L 10/04/24 10/04/24 10/05/24 Range/Units 23:15 23:17 05:10 WBC 12.8 H (3.8-10.6) k/uL RBC 3.37 L (4.30-5.90) m/uL Hgb 11.5 L (13.0-17.5) gm/dL Hct 33.2 L (39.0-53.0) % Neutrophils # 11.0 H (1.3-7.7) k/uL Lymphocytes # 0.5 L (1.0-4.8) k/uL PT (10.0-12.5) sec ABG pO2 (83-108) mmHg ABG O2 Saturation (94-97) % Hemoglobin (13.0-17.5) gm/dL Sodium 127 L (137-145) mmol/L Carbon Dioxide 19 L (22-30) mmol/L Creatinine 0.54 L (0.66-1.25) mg/dL Glucose 122 H (74-99) mg/dL POC Glucose (mg/dL) 132 H (70-110) mg/dL Osmolality (275-295) mOsm/kg Calcium 8.0 L (8.4-10.2) mg/dL Total Protein (6.3-8.2) g/dL Albumin (3.5-5.0) g/dL Amylase (30-110) U/L Lipase (23-300) U/L 10/05/24 10/05/24 10/05/24 Range/Units 05:10 05:10 05:56 WBC (3.8-10.6) k/uL RBC (4.30-5.90) m/uL Hgb (13.0-17.5) gm/dL Hct (39.0-53.0) % Neutrophils # (1.3-7.7) k/uL Lymphocytes # (1.0-4.8) k/uL PT 9.8 L (10.0-12.5) sec ABG pO2 127 H (83-108) mmHg ABG O2 Saturation 99.2 H (94-97) % Hemoglobin 11.0 L (13.0-17.5) gm/dL Sodium 127 L (137-145) mmol/L Carbon Dioxide 19 L (22-30) mmol/L Creatinine 0.50 L (0.66-1.25) mg/dL Glucose 100 H (74-99) mg/dL POC Glucose (mg/dL) (70-110) mg/dL Osmolality (275-295) mOsm/kg Calcium 7.9 L (8.4-10.2) mg/dL Total Protein 5.2 L (6.3-8.2) g/dL Albumin 2.8 L (3.5-5.0) g/dL Amylase 162 H (30-110) U/L Lipase 551 H (23-300) U/L Microbiology - Last 24 Hours (Table) 10/04/24 09:30 Gram Stain - Preliminary Sputum Assessment and Plan Assessment: Altered mental status changes and respiratory distress requiring mechanical ventilation Hypothermia. Patient started on Reema hugger Metabolic acidosis lactic acid 11.5 A-fib with RVR History of hyponatremia patient was recently admitted and left AMA on 09/29/2024 History of EtOH abuse Nasal fracture. ENT services consulted History of COPD History of essential hypertension History of nicotine dependence At this time patient was intubated and will be admitted to the intensive care unit Critical care, cardiology, nephrology, trauma services, ENT and vascular surgery all consulted Prognosis guarded
--- NOTE | 2024-10-05 10:21 | P.PN ---
Subjective Progress Note Date: 10/05/24 This is a 69-year-old male patient with a known history of COPD, chronic tobacco dependence, hypertension, alcohol abuse who was recently discharged from here on 09/30/2024 after being admitted for hyponatremia due to [place] with hypovolemia requiring 3% saline. We had followed the patient while in the intensive care unit. After he was found folded upon himself in the bathtub. He had positional asphyxia and his respiratory rate was 2 on EMS arrival. Once he unfolded his body his respiratory rate improved though he remained altered. Pinpoint pupils. States he had been having episodes of syncope. Was intubated and placed on mechanical ventilator. He is currently on assist-control mode at a rate of 22, tidal volume 450, FiO2 50% and a PEEP of 5. Morning blood gases revealed a PaO2 of 420, pCO2 46, pH 7.29. This was on 100% FiO2 and a rate of 20. X-ray reveals endotracheal and gastric tubes in good position. No suspicious acute pulmonary process. CT angiogram ruled out pulmonary embolism. No suspicious acute pulmonary process. CT scan of the brain and C-spine revealed no evidence of fracture or dislocation. No acute intracranial hemorrhage or midline shift. There is an acute nondisplaced transverse fracture through the nasal bridge. CT scan of the thoracic and lumbar spine revealed no acute fractures. White count 10.8. Hemoglobin 13.4. Platelets 479. Sodium 124. Potassium 4.5. Bicarb 11. BUN 14. Creatinine 0.53. Glucose 227. Urine drug screen negative. Serum alcohol less than 10. He is seen today in consultation in the emergency department. He remains sedated on propofol currently at 50 mcg/kg/min. He is receiving 4 L of fluid resuscitation. Rem ained hypotensive and is started on norepinephrine at 0.09 mcg/kg/min. Normal saline at 130 mL/h. He has been given cefazolin The patient is seen today October 05, 2024 in follow-up in the intensive care unit. He remains intubated on the mechanical ventilator currently on assist- control mode at a rate of 22, tidal volume 450, FiO2 40% and a PEEP of 5. Morning blood gases revealed a PaO2 of 127, pCO2 of 35 and a pH of 7.39. He remains on norepinephrine at 2.9 mcg/min. Propofol at 50 mcg/kg/min. Normal saline at 100 mL/h. Tube feedings will be initiated. EEG reveals slowing suggestive of moderate encephalopathy. No focal slowing, epileptic discharge or seizure noted. Chest x-ray reveals increased interstitial opacity of the right lung base. White count 12.8. Hemoglobin 11.5. Platelets 367. Sodium 127. Potassium 3.9. Bicarb 19. BUN 9. Creatinine 0.50. Glucose 100. Amylase 162. Lipase 551. Continued on DuoNeb inhalations. Heparin for DVT prophylaxis. Objective - Vital Signs Vital signs: Vital Signs Temp 98.1 F 10/05/24 08:00 Pulse 60 10/05/24 09:33 Resp 26 H 10/05/24 08:00 BP 121/72 10/05/24 08:00 Pulse Ox 100 10/05/24 08:00 FiO2 35 10/05/24 09:04 Intake & Output 10/04/24 10/05/24 10/05/24 18:59 06:59 18:59 Intake Total 3920.366 4287.658 431.108 Output Total 1835 980 85 Balance -531.493 836.658 346.108 Weight 72.575 kg 71.7 kg Intake: IV 1110 1476 329 0.9% NS Arterial Pressure 36 9 Bag 0.9% NS KVO 240 20 Magnesium Sulfate-D5w Pmx 200 1 gm In Dextrose/Water 1 100ml.bag @ 100 mls/hr IVPB Q1H [facility] Rx#: [id number] Sodium Chloride 0.9% 1, 910 1200 300 000 ml @ 100 mls/hr IV . Q10H [facility] Rx#:[id number] Intake, IV Titration 193.507 240.658 102.108 Amount Diltiazem 125 mg In 5.833 Sodium Chloride 0.9% 100 ml @ 5 MG/HR 5 mls/hr IV .Q24H [facility] Rx#:[id number] Norepinephrine 32 mg In 29.093 42.110 4.855 Sodium Chloride 0.9% 218 ml @ 0.03 MCG/KG/MIN 1. 021 mls/hr IV .Q24H [facility] Rx#:[id number] propofoL 1,000 mg In 158.581 198.548 97.253 Empty Bag 1 bag @ 15 MCG/ KG/MIN 6.532 mls/hr IV . [id number] [facility] Rx#:[id number] Other 100 Output: Urine 1835 980 85 Uretheral (Bennett) 1400 Other: Voiding Method Indwelling Catheter Indwelling Catheter ABP, PAP, CO, CI - Last Documented Arterial Blood Pressure 140/55 - Exam GENERAL EXAM: Intubated, sedated 69-year-old male, on the mechanical ventilator, no apparent distress. HEAD: Normocephalic. EYES: Sluggish reaction of pupils, equal size. NOSE: Clear with pink turbinates. THROAT: Oral gastric and endotracheal tube secured in place. No erythema or exudates. NECK: No masses, no JVD. CHEST: No chest wall deformity. LUNGS: Equal air entry with no crackles, wheeze, rhonchi or dullness. CVS: S1 and S2 normal with no audible murmur, regular rhythm. ABDOMEN: No hepatosplenomegaly, normal bowel sounds, no guarding or rigidity. SPINE: No scoliosis or deformity SKIN: No rashes CENTRAL NERVOUS SYSTEM: Sedated, tone is normal in all 4 extremities. EXTREMITIES: There is no peripheral edema. No clubbing, no cyanosis. Peripheral pulses are intact. - Labs CBC & Chem 7: 10/05/24 05:10 10/05/24 05:10 Labs: Abnormal Lab Results - Last 24 Hours (Table) 10/04/24 10/04/24 10/04/24 Range/Units 12:02 17:45 17:55 WBC (3.8-10.6) k/uL RBC (4.30-5.90) m/uL Hgb (13.0-17.5) gm/dL Hct (39.0-53.0) % Neutrophils # (1.3-7.7) k/uL Lymphocytes # (1.0-4.8) k/uL PT (10.0-12.5) sec ABG pO2 (83-108) mmHg ABG O2 Saturation (94-97) % Hemoglobin (13.0-17.5) gm/dL Sodium 125 L 124 L (137-145) mmol/L Carbon Dioxide 19 L (22-30) mmol/L Creatinine 0.53 L (0.66-1.25) mg/dL Glucose 106 H (74-99) mg/dL POC Glucose (mg/dL) 131 H (70-110) mg/dL Osmolality 264 L (275-295) mOsm/kg Calcium 7.5 L (8.4-10.2) mg/dL Total Protein (6.3-8.2) g/dL Albumin (3.5-5.0) g/dL Amylase (30-110) U/L Lipase (23-300) U/L 10/04/24 10/04/24 10/05/24 Range/Units 23:15 23:17 05:10 WBC 12.8 H (3.8-10.6) k/uL RBC 3.37 L (4.30-5.90) m/uL Hgb 11.5 L (13.0-17.5) gm/dL Hct 33.2 L (39.0-53.0) % Neutrophils # 11.0 H (1.3-7.7) k/uL Lymphocytes # 0.5 L (1.0-4.8) k/uL PT (10.0-12.5) sec ABG pO2 (83-108) mmHg ABG O2 Saturation (94-97) % Hemoglobin (13.0-17.5) gm/dL Sodium 127 L (137-145) mmol/L Carbon Dioxide 19 L (22-30) mmol/L Creatinine 0.54 L (0.66-1.25) mg/dL Glucose 122 H (74-99) mg/dL POC Glucose (mg/dL) 132 H (70-110) mg/dL Osmolality (275-295) mOsm/kg Calcium 8.0 L (8.4-10.2) mg/dL Total Protein (6.3-8.2) g/dL Albumin (3.5-5.0) g/dL Amylase (30-110) U/L Lipase (23-300) U/L 10/05/24 10/05/24 10/05/24 Range/Units 05:10 05:10 05:56 WBC (3.8-10.6) k/uL RBC (4.30-5.90) m/uL Hgb (13.0-17.5) gm/dL Hct (39.0-53.0) % Neutrophils # (1.3-7.7) k/uL Lymphocytes # (1.0-4.8) k/uL PT 9.8 L (10.0-12.5) sec ABG pO2 127 H (83-108) mmHg ABG O2 Saturation 99.2 H (94-97) % Hemoglobin 11.0 L (13.0-17.5) gm/dL Sodium 127 L (137-145) mmol/L Carbon Dioxide 19 L (22-30) mmol/L Creatinine 0.50 L (0.66-1.25) mg/dL Glucose 100 H (74-99) mg/dL POC Glucose (mg/dL) (70-110) mg/dL Osmolality (275-295) mOsm/kg Calcium 7.9 L (8.4-10.2) mg/dL Total Protein 5.2 L (6.3-8.2) g/dL Albumin 2.8 L (3.5-5.0) g/dL Amylase 162 H (30-110) U/L Lipase 551 H (23-300) U/L Microbiology - Last 24 Hours (Table) 10/04/24 09:30 Gram Stain - Preliminary Sputum Assessment and Plan Assessment: Altered mental status of unclear etiology found folded over upon himself in this bathtub with poor respiratory effort Acute hypoxemic respiratory failure secondary to above requiring intubation mechanical ventilatory support on October 04, 2024 Hypotension requiring pressor support History of syncopal episodes Nasal bridge fracture Hyponatremia secondary to beer potomania. Alcohol level less than 10 on arrival Daily alcohol use Chronic tobacco dependence History of hypertension Plan: The patient was seen and evaluated Chest x-ray, EEG, ABGs, labs and medications reviewed Decrease the FiO2 to 35% Continue propofol for sedation Continue DuoNeb inhalations Continue normal saline at 100 mL/h Titrate down the norepinephrine as tolerated Heparin for DVT prophylaxis Check a procalcitonin We will continue to follow I have personally seen and examined the patient, performed the documentation and the assessment and plan as written. Number of minutes spent on the visit: 15 Dictation was produced using [employer] dictation software. Please excuse any grammatical, word or spelling errors.
--- NOTE | 2024-10-05 10:50 | P.PN ---
Subjective Progress Note Date: 10/05/24 Principal diagnosis: Respiratory failure Patient remains on the ventilator. Patient remains on propofol. Hemodynamically he is stable. On minimal Levophed currently. Good urine output. Ongoing workup by neurology and vascular surgery noted. Repeat CAT scan brain today. Objective - Vital Signs Vital signs: Vital Signs Temp 98.1 F 10/05/24 08:00 Pulse 60 10/05/24 09:33 Resp 26 H 10/05/24 08:00 BP 121/72 10/05/24 08:00 Pulse Ox 100 10/05/24 08:00 FiO2 35 10/05/24 09:04 Intake & Output 10/04/24 10/05/24 10/05/24 18:59 06:59 18:59 Intake Total 0892.268 1428.658 556.953 Output Total 1835 980 145 Balance -531.493 836.658 411.953 Weight 72.575 kg 71.7 kg Intake: IV 1110 1476 432 0.9% NS Arterial Pressure 36 12 Bag 0.9% NS KVO 240 20 Magnesium Sulfate-D5w Pmx 200 1 gm In Dextrose/Water 1 100ml.bag @ 100 mls/hr IVPB Q1H [facility] Rx#: [id number] Sodium Chloride 0.9% 1, 910 1200 400 000 ml @ 100 mls/hr IV . Q10H [facility] Rx#:[id number] Intake, IV Titration 193.507 240.658 124.953 Amount Diltiazem 125 mg In 5.833 Sodium Chloride 0.9% 100 ml @ 5 MG/HR 5 mls/hr IV .Q24H [facility] Rx#:[id number] Norepinephrine 32 mg In 29.093 42.110 5.274 Sodium Chloride 0.9% 218 ml @ 0.03 MCG/KG/MIN 1. 021 mls/hr IV .Q24H [facility] Rx#:[id number] propofoL 1,000 mg In 158.581 198.548 119.679 Empty Bag 1 bag @ 15 MCG/ KG/MIN 6.532 mls/hr IV . [id number] [facility] Rx#:[id number] Other 100 Output: Urine 1835 980 145 Uretheral (Bennett) 1400 Other: Voiding Method Indwelling Catheter Indwelling Catheter ABP, PAP, CO, CI - Last Documented Arterial Blood Pressure 140/55 - Exam Abdomen: Soft, nontender, nondistended - Labs CBC & Chem 7: 10/05/24 05:10 10/05/24 05:10 Labs: Abnormal Lab Results - Last 24 Hours (Table) 10/04/24 10/04/24 10/04/24 Range/Units 12:02 17:45 17:55 WBC (3.8-10.6) k/uL RBC (4.30-5.90) m/uL Hgb (13.0-17.5) gm/dL Hct (39.0-53.0) % Neutrophils # (1.3-7.7) k/uL Lymphocytes # (1.0-4.8) k/uL PT (10.0-12.5) sec ABG pO2 (83-108) mmHg ABG O2 Saturation (94-97) % Hemoglobin (13.0-17.5) gm/dL Sodium 125 L 124 L (137-145) mmol/L Carbon Dioxide 19 L (22-30) mmol/L Creatinine 0.53 L (0.66-1.25) mg/dL Glucose 106 H (74-99) mg/dL POC Glucose (mg/dL) 131 H (70-110) mg/dL Osmolality 264 L (275-295) mOsm/kg Calcium 7.5 L (8.4-10.2) mg/dL Total Protein (6.3-8.2) g/dL Albumin (3.5-5.0) g/dL Amylase (30-110) U/L Lipase (23-300) U/L 10/04/24 10/04/24 10/05/24 Range/Units 23:15 23:17 05:10 WBC 12.8 H (3.8-10.6) k/uL RBC 3.37 L (4.30-5.90) m/uL Hgb 11.5 L (13.0-17.5) gm/dL Hct 33.2 L (39.0-53.0) % Neutrophils # 11.0 H (1.3-7.7) k/uL Lymphocytes # 0.5 L (1.0-4.8) k/uL PT (10.0-12.5) sec ABG pO2 (83-108) mmHg ABG O2 Saturation (94-97) % Hemoglobin (13.0-17.5) gm/dL Sodium 127 L (137-145) mmol/L Carbon Dioxide 19 L (22-30) mmol/L Creatinine 0.54 L (0.66-1.25) mg/dL Glucose 122 H (74-99) mg/dL POC Glucose (mg/dL) 132 H (70-110) mg/dL Osmolality (275-295) mOsm/kg Calcium 8.0 L (8.4-10.2) mg/dL Total Protein (6.3-8.2) g/dL Albumin (3.5-5.0) g/dL Amylase (30-110) U/L Lipase (23-300) U/L 10/05/24 10/05/24 10/05/24 Range/Units 05:10 05:10 05:56 WBC (3.8-10.6) k/uL RBC (4.30-5.90) m/uL Hgb (13.0-17.5) gm/dL Hct (39.0-53.0) % Neutrophils # (1.3-7.7) k/uL Lymphocytes # (1.0-4.8) k/uL PT 9.8 L (10.0-12.5) sec ABG pO2 127 H (83-108) mmHg ABG O2 Saturation 99.2 H (94-97) % Hemoglobin 11.0 L (13.0-17.5) gm/dL Sodium 127 L (137-145) mmol/L Carbon Dioxide 19 L (22-30) mmol/L Creatinine 0.50 L (0.66-1.25) mg/dL Glucose 100 H (74-99) mg/dL POC Glucose (mg/dL) (70-110) mg/dL Osmolality (275-295) mOsm/kg Calcium 7.9 L (8.4-10.2) mg/dL Total Protein 5.2 L (6.3-8.2) g/dL Albumin 2.8 L (3.5-5.0) g/dL Amylase 162 H (30-110) U/L Lipase 551 H (23-300) U/L Microbiology - Last 24 Hours (Table) 10/04/24 09:30 Gram Stain - Preliminary Sputum Assessment and Plan (1) Fall Narrative/Plan: 69-year-old male admitted after being found in the bathtub after suspected fall. Patient with nasal fracture. No obvious intracranial injury on first CAT scan. Repeat imaging today is pending. Continue ventilatory support. Weaning trials today per pulmonary. Agree with plans for tube feeds. Continue GI DVT prophylaxis. Will follow. Current Visit: No Status: Acute Code(s): W19.XXXA - UNSPECIFIED FALL, INITIAL ENCOUNTER SNOMED Code(s): 4067981
[2024-10-05 11:47] LABS: Glucose,Whole Blood 99 mg/dL (70-110)
--- NOTE | 2024-10-05 12:01 | CT ---
EXAMINATION TYPE: CT brain wo con DATE OF EXAM: 10/05/2024 COMPARISON: CLINICAL INDICATION: Male, 69 years old with history of altered mental status; PHH, AMS TECHNIQUE: CT scan of the head is performed without contrast. CT DLP: 1221.1 mGycm Automated exposure control for dose reduction was used. FINDINGS: There is no acute intracranial hemorrhage or midline shift identified. There is diffuse v entricular and sulcal prominence consistent with diffuse age-related cerebral atrophy. There is low- attenuation in the periventricular white matter consistent with chronic small vessel ischemic change. The globes are intact and the visualized sinuses are clear. IMPRESSION: No acute intracranial hemorrhage or midline shift. There is diffuse age-related cerebra l atrophy and chronic small vessel ischemic change noted. [facility], , 10/05/2024 11:59 AM
--- NOTE | 2024-10-05 12:40 | P.PN ---
Subjective patient is seen for follow-up for hyponatremia. Currently maintained on normal saline. Serum sodium was 127 this morning. Patient remains intubated. Maintained on tube feedings. Objective - Vital Signs Vital signs: Vital Signs Temp 98.1 F 10/05/24 08:00 Pulse 66 10/05/24 12:06 Resp 19 10/05/24 12:00 BP 98/57 10/05/24 12:00 Pulse Ox 99 10/05/24 12:00 FiO2 35 10/05/24 11:49 Intake & Output 10/04/24 10/05/24 10/05/24 18:59 06:59 18:59 Intake Total 3989.727 7446.658 813.689 Output Total 1835 980 230 Balance -531.493 836.658 583.689 Weight 72.575 kg 71.7 kg Intake: IV 1110 1476 638 0.9% NS Arterial Pressure 36 18 Bag 0.9% NS KVO 240 20 Magnesium Sulfate-D5w Pmx 200 1 gm In Dextrose/Water 1 100ml.bag @ 100 mls/hr IVPB Q1H [facility] Rx#: [id number] Sodium Chloride 0.9% 1, 910 1200 600 000 ml @ 100 mls/hr IV . Q10H [facility] Rx#:[id number] Intake, IV Titration 193.507 240.658 155.689 Amount Diltiazem 125 mg In 5.833 Sodium Chloride 0.9% 100 ml @ 5 MG/HR 5 mls/hr IV .Q24H [facility] Rx#:[id number] Norepinephrine 32 mg In 29.093 42.110 5.274 Sodium Chloride 0.9% 218 ml @ 0.03 MCG/KG/MIN 1. 021 mls/hr IV .Q24H [facility] Rx#:[id number] propofoL 1,000 mg In 158.581 198.548 150.415 Empty Bag 1 bag @ 15 MCG/ KG/MIN 6.532 mls/hr IV . [id number] [facility] Rx#:[id number] Tube Feeding 20 Other 100 Output: Urine 1835 980 230 Uretheral (Bennett) 1400 Other: Voiding Method Indwelling Catheter Indwelling Catheter Indwelling Catheter ABP, PAP, CO, CI - Last Documented Arterial Blood Pressure 121/43 - Exam patient is sedated and on the vent. Examination of the heart S1 and S2 Examination of the lungs bilateral breath sounds are heard Abdomen is soft nontender Examination of lower extremity shows no evidence of edema - Labs CBC & Chem 7: 10/05/24 05:10 10/05/24 11:45 Labs: Abnormal Lab Results - Last 24 Hours (Table) 10/04/24 10/04/24 10/04/24 Range/Units 12:02 17:45 17:55 WBC (3.8-10.6) k/uL RBC (4.30-5.90) m/uL Hgb (13.0-17.5) gm/dL Hct (39.0-53.0) % Neutrophils # (1.3-7.7) k/uL Lymphocytes # (1.0-4.8) k/uL PT (10.0-12.5) sec ABG pO2 (83-108) mmHg ABG O2 Saturation (94-97) % Hemoglobin (13.0-17.5) gm/dL Sodium 125 L 124 L (137-145) mmol/L Carbon Dioxide 19 L (22-30) mmol/L Creatinine 0.53 L (0.66-1.25) mg/dL Glucose 106 H (74-99) mg/dL POC Glucose (mg/dL) 131 H (70-110) mg/dL Osmolality 264 L (275-295) mOsm/kg Calcium 7.5 L (8.4-10.2) mg/dL Total Protein (6.3-8.2) g/dL Albumin (3.5-5.0) g/dL Amylase (30-110) U/L Lipase (23-300) U/L 10/04/24 10/04/24 10/05/24 Range/Units 23:15 23:17 05:10 WBC 12.8 H (3.8-10.6) k/uL RBC 3.37 L (4.30-5.90) m/uL Hgb 11.5 L (13.0-17.5) gm/dL Hct 33.2 L (39.0-53.0) % Neutrophils # 11.0 H (1.3-7.7) k/uL Lymphocytes # 0.5 L (1.0-4.8) k/uL PT (10.0-12.5) sec ABG pO2 (83-108) mmHg ABG O2 Saturation (94-97) % Hemoglobin (13.0-17.5) gm/dL Sodium 127 L (137-145) mmol/L Carbon Dioxide 19 L (22-30) mmol/L Creatinine 0.54 L (0.66-1.25) mg/dL Glucose 122 H (74-99) mg/dL POC Glucose (mg/dL) 132 H (70-110) mg/dL Osmolality (275-295) mOsm/kg Calcium 8.0 L (8.4-10.2) mg/dL Total Protein (6.3-8.2) g/dL Albumin (3.5-5.0) g/dL Amylase (30-110) U/L Lipase (23-300) U/L 10/05/24 10/05/24 10/05/24 Range/Units 05:10 05:10 05:56 WBC (3.8-10.6) k/uL RBC (4.30-5.90) m/uL Hgb (13.0-17.5) gm/dL Hct (39.0-53.0) % Neutrophils # (1.3-7.7) k/uL Lymphocytes # (1.0-4.8) k/uL PT 9.8 L (10.0-12.5) sec ABG pO2 127 H (83-108) mmHg ABG O2 Saturation 99.2 H (94-97) % Hemoglobin 11.0 L (13.0-17.5) gm/dL Sodium 127 L (137-145) mmol/L Carbon Dioxide 19 L (22-30) mmol/L Creatinine 0.50 L (0.66-1.25) mg/dL Glucose 100 H (74-99) mg/dL POC Glucose (mg/dL) (70-110) mg/dL Osmolality (275-295) mOsm/kg Calcium 7.9 L (8.4-10.2) mg/dL Total Protein 5.2 L (6.3-8.2) g/dL Albumin 2.8 L (3.5-5.0) g/dL Amylase 162 H (30-110) U/L Lipase 551 H (23-300) U/L 10/05/24 Range/Units 11:45 WBC (3.8-10.6) k/uL RBC (4.30-5.90) m/uL Hgb (13.0-17.5) gm/dL Hct (39.0-53.0) % Neutrophils # (1.3-7.7) k/uL Lymphocytes # (1.0-4.8) k/uL PT (10.0-12.5) sec ABG pO2 (83-108) mmHg ABG O2 Saturation (94-97) % Hemoglobin (13.0-17.5) gm/dL Sodium 128 L (137-145) mmol/L Carbon Dioxide (22-30) mmol/L Creatinine (0.66-1.25) mg/dL Glucose (74-99) mg/dL POC Glucose (mg/dL) (70-110) mg/dL Osmolality (275-295) mOsm/kg Calcium (8.4-10.2) mg/dL Total Protein (6.3-8.2) g/dL Albumin (3.5-5.0) g/dL Amylase (30-110) U/L Lipase (23-300) U/L Microbiology - Last 24 Hours (Table) 10/04/24 09:30 Gram Stain - Preliminary Sputum Sputum Culture - Preliminary Assessment and Plan Assessment: 1. Hyponatremia, hypovolemic and component of urinary retention. Sodium level 124 on admission. Serum sodium continues to improve with normal saline. Not on thiazide diuretics or NSAIDs. L 2. Metabolic acidosis secondary to lactic acidosis. 3. A-fib with RVR status post Cardizem drip. 4. Urinary retention. Bennett catheter placed. 1.4 L of urine obtained initially. 5. Shock maintained on Levophed. 6. Status post fall. 7. Lung nodule rule out malignancy Plan: continue with normal saline DC Nepro tube feeds as serum potassium has been on the lower side. Can use any other type of tube feedings. Repeat sodium
--- NOTE | 2024-10-05 13:57 | P.PN ---
Subjective Progress Note Date: 10/05/24 I am following up with the patient and he continues to be on IV propofol. According to the nurse she is opening his eyes tracking moving extremities. No further seizure like activities. Objective - Vital Signs Vital signs: Vital Signs Temp 98.4 F 10/05/24 12:00 Pulse 69 10/05/24 13:15 Resp 19 10/05/24 13:15 BP 123/64 10/05/24 13:15 Pulse Ox 100 10/05/24 13:15 FiO2 35 10/05/24 13:38 Intake & Output 10/04/24 10/05/24 10/05/24 18:59 06:59 18:59 Intake Total 6108.554 2938.658 956.689 Output Total 1835 980 305 Balance -531.493 836.658 651.689 Weight 72.575 kg 71.7 kg Intake: IV 1110 1476 741 0.9% NS Arterial Pressure 36 21 Bag 0.9% NS KVO 240 20 Magnesium Sulfate-D5w Pmx 200 1 gm In Dextrose/Water 1 100ml.bag @ 100 mls/hr IVPB Q1H [facility] Rx#: [id number] Sodium Chloride 0.9% 1, 910 1200 700 000 ml @ 100 mls/hr IV . Q10H [facility] Rx#:[id number] Intake, IV Titration 193.507 240.658 155.689 Amount Diltiazem 125 mg In 5.833 Sodium Chloride 0.9% 100 ml @ 5 MG/HR 5 mls/hr IV .Q24H [facility] Rx#:[id number] Norepinephrine 32 mg In 29.093 42.110 5.274 Sodium Chloride 0.9% 218 ml @ 0.03 MCG/KG/MIN 1. 021 mls/hr IV .Q24H [facility] Rx#:[id number] propofoL 1,000 mg In 158.581 198.548 150.415 Empty Bag 1 bag @ 15 MCG/ KG/MIN 6.532 mls/hr IV . [id number] [facility] Rx#:[id number] Tube Feeding 30 Other 100 30 Output: Urine 1835 980 305 Uretheral (Bennett) 1400 Other: Voiding Method Indwelling Catheter Indwelling Catheter Indwelling Catheter ABP, PAP, CO, CI - Last Documented Arterial Blood Pressure 135/48 - Exam General: Lying in bed and does not appear in acute distress. Lung: Intubated on a ventilator. Neuro: Limited. Is on IV Propofol Is comatose. No spontaneous movement. No jerking of extremities. Some of the workup during this hospital visit consisted of: Initial sodium was 124. Initial serum glucose was 218, calcium is 9.3, magnesium is 1.6, ALT is 52 and AST is 49 Plasma lactic acid vein is 11.5 Ammonia level is 82 CK level is 181 The head and cervical spine is reported as no acute intracranial hemorrhage or midline shift is seen. There is no acute fracture or dislocation evident in the cervical spine. Acute nondisplaced transverse fracture through the nasal bridge. Also reviewed the CT of the head and I agree with the report. CT thoracic and lumbar spine is reported as no fracture or malalignment of the thoracic and lumbar spine. Somewhat limited evaluation of the lumbar spine as noted above. Repeat CT head is reported as no acute intracranial hemorrhage or midline shift. EEG is abnormal. The background slowing suggestive of moderate encephalopathy. Otherwise no focal slowing, OptiForm discharge or seizure on the EEG. - Labs CBC & Chem 7: 10/05/24 05:10 10/05/24 11:45 Labs: Abnormal Lab Results - Last 24 Hours (Table) 10/04/24 10/04/24 10/04/24 Range/Units 12:02 17:45 17:55 WBC (3.8-10.6) k/uL RBC (4.30-5.90) m/uL Hgb (13.0-17.5) gm/dL Hct (39.0-53.0) % Neutrophils # (1.3-7.7) k/uL Lymphocytes # (1.0-4.8) k/uL PT (10.0-12.5) sec ABG pO2 (83-108) mmHg ABG O2 Saturation (94-97) % Hemoglobin (13.0-17.5) gm/dL Sodium 124 L (137-145) mmol/L Carbon Dioxide (22-30) mmol/L Creatinine (0.66-1.25) mg/dL Glucose (74-99) mg/dL POC Glucose (mg/dL) 131 H (70-110) mg/dL Osmolality 264 L (275-295) mOsm/kg Calcium (8.4-10.2) mg/dL Total Protein (6.3-8.2) g/dL Albumin (3.5-5.0) g/dL Amylase (30-110) U/L Lipase (23-300) U/L 10/04/24 10/04/24 10/05/24 Range/Units 23:15 23:17 05:10 WBC 12.8 H (3.8-10.6) k/uL RBC 3.37 L (4.30-5.90) m/uL Hgb 11.5 L (13.0-17.5) gm/dL Hct 33.2 L (39.0-53.0) % Neutrophils # 11.0 H (1.3-7.7) k/uL Lymphocytes # 0.5 L (1.0-4.8) k/uL PT (10.0-12.5) sec ABG pO2 (83-108) mmHg ABG O2 Saturation (94-97) % Hemoglobin (13.0-17.5) gm/dL Sodium 127 L (137-145) mmol/L Carbon Dioxide 19 L (22-30) mmol/L Creatinine 0.54 L (0.66-1.25) mg/dL Glucose 122 H (74-99) mg/dL POC Glucose (mg/dL) 132 H (70-110) mg/dL Osmolality (275-295) mOsm/kg Calcium 8.0 L (8.4-10.2) mg/dL Total Protein (6.3-8.2) g/dL Albumin (3.5-5.0) g/dL Amylase (30-110) U/L Lipase (23-300) U/L 10/05/24 10/05/24 10/05/24 Range/Units 05:10 05:10 05:56 WBC (3.8-10.6) k/uL RBC (4.30-5.90) m/uL Hgb (13.0-17.5) gm/dL Hct (39.0-53.0) % Neutrophils # (1.3-7.7) k/uL Lymphocytes # (1.0-4.8) k/uL PT 9.8 L (10.0-12.5) sec ABG pO2 127 H (83-108) mmHg ABG O2 Saturation 99.2 H (94-97) % Hemoglobin 11.0 L (13.0-17.5) gm/dL Sodium 127 L (137-145) mmol/L Carbon Dioxide 19 L (22-30) mmol/L Creatinine 0.50 L (0.66-1.25) mg/dL Glucose 100 H (74-99) mg/dL POC Glucose (mg/dL) (70-110) mg/dL Osmolality (275-295) mOsm/kg Calcium 7.9 L (8.4-10.2) mg/dL Total Protein 5.2 L (6.3-8.2) g/dL Albumin 2.8 L (3.5-5.0) g/dL Amylase 162 H (30-110) U/L Lipase 551 H (23-300) U/L 10/05/24 Range/Units 11:45 WBC (3.8-10.6) k/uL RBC (4.30-5.90) m/uL Hgb (13.0-17.5) gm/dL Hct (39.0-53.0) % Neutrophils # (1.3-7.7) k/uL Lymphocytes # (1.0-4.8) k/uL PT (10.0-12.5) sec ABG pO2 (83-108) mmHg ABG O2 Saturation (94-97) % Hemoglobin (13.0-17.5) gm/dL Sodium 128 L (137-145) mmol/L Carbon Dioxide (22-30) mmol/L Creatinine (0.66-1.25) mg/dL Glucose (74-99) mg/dL POC Glucose (mg/dL) (70-110) mg/dL Osmolality (275-295) mOsm/kg Calcium (8.4-10.2) mg/dL Total Protein (6.3-8.2) g/dL Albumin (3.5-5.0) g/dL Amylase (30-110) U/L Lipase (23-300) U/L Microbiology - Last 24 Hours (Table) 10/04/24 09:30 Gram Stain - Preliminary Sputum Sputum Culture - Preliminary Assessment and Plan Assessment: This is a 69 y/o gentleman with history of significant alcohol use in the last 1 month has been having hyponatremia, hypomagnesemia with generalized weakness who presents to the emergency department because of episode of unresponsiveness with seizure-like activity. According to his girlfriend he had a similar episode just shy of a month ago. Again he was hospitalized recently for significant hyponatremia as low as 103 on 09/25/2024. New onset seizure-like activity seems possibly provoked due to electrolyte imbalance prominently hyponatremia. And possible provoked due to alcohol withdrawal CT head is unremarkable for any acute or subacute stroke. Routine EEG is negative for seizure or discharges Acute on chronic hyponatremia that significant since end of August 2024. Currently the sodium is 125-->128 Elevated plasma lactic acid due to likely seizure-like activity Hyperammonemia likely due to his seizure-like activity Underlying history of coronary artery status post stent Hypertension Significant alcohol use and was drinking 5 tall boys daily but in the last 1 month he is cutting down Tobacco use Plan: I placed the patient on Keppra 500 mg twice a day empirically on 10/04/2024. We will consider tapering dose of Keppra down the line once stable. Once the patient is extubated will obtain MRI of the brain with and without Patient is on thiamine Patient is on Ativan for CIWA protocol Nephrology is consulted Will defer the rest of the medical management to primary other specialist The plan is discussed with the nurse. Dr. Brothers will resume neurology service on 10/07/2024. Time with Patient: Less than 30
--- NOTE | 2024-10-05 14:53 | P.PN ---
Subjective Progress Note Date: 10/05/24 Patient seen and examined. Intubated and sedated. Objective - Vital Signs Vital signs: Vital Signs Temp 98.4 F 10/05/24 12:00 Pulse 69 10/05/24 13:15 Resp 19 10/05/24 13:15 BP 123/64 10/05/24 13:15 Pulse Ox 100 10/05/24 13:15 FiO2 35 10/05/24 13:38 Intake & Output 10/04/24 10/05/24 10/05/24 18:59 06:59 18:59 Intake Total 5739.259 4730.658 1069.689 Output Total 1835 980 350 Balance -531.493 836.658 719.689 Weight 72.575 kg 71.7 kg 71.7 kg Intake: IV 1110 1476 844 0.9% NS Arterial Pressure 36 24 Bag 0.9% NS KVO 240 20 Magnesium Sulfate-D5w Pmx 200 1 gm In Dextrose/Water 1 100ml.bag @ 100 mls/hr IVPB Q1H [facility] Rx#: [id number] Sodium Chloride 0.9% 1, 910 1200 800 000 ml @ 100 mls/hr IV . Q10H [facility] Rx#:[id number] Intake, IV Titration 193.507 240.658 155.689 Amount Diltiazem 125 mg In 5.833 Sodium Chloride 0.9% 100 ml @ 5 MG/HR 5 mls/hr IV .Q24H [facility] Rx#:[id number] Norepinephrine 32 mg In 29.093 42.110 5.274 Sodium Chloride 0.9% 218 ml @ 0.03 MCG/KG/MIN 1. 021 mls/hr IV .Q24H [facility] Rx#:[id number] propofoL 1,000 mg In 158.581 198.548 150.415 Empty Bag 1 bag @ 15 MCG/ KG/MIN 6.532 mls/hr IV . [id number] [facility] Rx#:[id number] Tube Feeding 40 Other 100 30 Output: Urine 1835 980 350 Uretheral (Bennett) 1400 Other: Voiding Method Indwelling Catheter Indwelling Catheter Indwelling Catheter ABP, PAP, CO, CI - Last Documented Arterial Blood Pressure 135/48 - Exam General appearance: The patient is sedated and intubated on mechanical ventilation HET: Head is normocephalic and atraumatic. Pupils are equal and reactive. Neck: Supple. Heart: Regular. Lungs: Equal expansion, on mechanical ventilation. Abdomen: Soft, nondistended. Extremities: Normal skin color and turgor. Palpable bilateral femoral pulses. Bilateral lower extremities without any edema. Warm to the touch. Palpable right PT and DP pulse, left palpable PT pulse. No obvious wounds. Neurological: Sedated and intubated. - Labs CBC & Chem 7: 10/05/24 05:10 10/05/24 11:45 Labs: Abnormal Lab Results - Last 24 Hours (Table) 10/04/24 10/04/24 10/04/24 Range/Units 12:02 17:45 17:55 WBC (3.8-10.6) k/uL RBC (4.30-5.90) m/uL Hgb (13.0-17.5) gm/dL Hct (39.0-53.0) % Neutrophils # (1.3-7.7) k/uL Lymphocytes # (1.0-4.8) k/uL PT (10.0-12.5) sec ABG pO2 (83-108) mmHg ABG O2 Saturation (94-97) % Hemoglobin (13.0-17.5) gm/dL Sodium 124 L (137-145) mmol/L Carbon Dioxide (22-30) mmol/L Creatinine (0.66-1.25) mg/dL Glucose (74-99) mg/dL POC Glucose (mg/dL) 131 H (70-110) mg/dL Osmolality 264 L (275-295) mOsm/kg Calcium (8.4-10.2) mg/dL Total Protein (6.3-8.2) g/dL Albumin (3.5-5.0) g/dL Amylase (30-110) U/L Lipase (23-300) U/L 10/04/24 10/04/24 10/05/24 Range/Units 23:15 23:17 05:10 WBC 12.8 H (3.8-10.6) k/uL RBC 3.37 L (4.30-5.90) m/uL Hgb 11.5 L (13.0-17.5) gm/dL Hct 33.2 L (39.0-53.0) % Neutrophils # 11.0 H (1.3-7.7) k/uL Lymphocytes # 0.5 L (1.0-4.8) k/uL PT (10.0-12.5) sec ABG pO2 (83-108) mmHg ABG O2 Saturation (94-97) % Hemoglobin (13.0-17.5) gm/dL Sodium 127 L (137-145) mmol/L Carbon Dioxide 19 L (22-30) mmol/L Creatinine 0.54 L (0.66-1.25) mg/dL Glucose 122 H (74-99) mg/dL POC Glucose (mg/dL) 132 H (70-110) mg/dL Osmolality (275-295) mOsm/kg Calcium 8.0 L (8.4-10.2) mg/dL Total Protein (6.3-8.2) g/dL Albumin (3.5-5.0) g/dL Amylase (30-110) U/L Lipase (23-300) U/L 10/05/24 10/05/24 10/05/24 Range/Units 05:10 05:10 05:56 WBC (3.8-10.6) k/uL RBC (4.30-5.90) m/uL Hgb (13.0-17.5) gm/dL Hct (39.0-53.0) % Neutrophils # (1.3-7.7) k/uL Lymphocytes # (1.0-4.8) k/uL PT 9.8 L (10.0-12.5) sec ABG pO2 127 H (83-108) mmHg ABG O2 Saturation 99.2 H (94-97) % Hemoglobin 11.0 L (13.0-17.5) gm/dL Sodium 127 L (137-145) mmol/L Carbon Dioxide 19 L (22-30) mmol/L Creatinine 0.50 L (0.66-1.25) mg/dL Glucose 100 H (74-99) mg/dL POC Glucose (mg/dL) (70-110) mg/dL Osmolality (275-295) mOsm/kg Calcium 7.9 L (8.4-10.2) mg/dL Total Protein 5.2 L (6.3-8.2) g/dL Albumin 2.8 L (3.5-5.0) g/dL Amylase 162 H (30-110) U/L Lipase 551 H (23-300) U/L 10/05/24 Range/Units 11:45 WBC (3.8-10.6) k/uL RBC (4.30-5.90) m/uL Hgb (13.0-17.5) gm/dL Hct (39.0-53.0) % Neutrophils # (1.3-7.7) k/uL Lymphocytes # (1.0-4.8) k/uL PT (10.0-12.5) sec ABG pO2 (83-108) mmHg ABG O2 Saturation (94-97) % Hemoglobin (13.0-17.5) gm/dL Sodium 128 L (137-145) mmol/L Carbon Dioxide (22-30) mmol/L Creatinine (0.66-1.25) mg/dL Glucose (74-99) mg/dL POC Glucose (mg/dL) (70-110) mg/dL Osmolality (275-295) mOsm/kg Calcium (8.4-10.2) mg/dL Total Protein (6.3-8.2) g/dL Albumin (3.5-5.0) g/dL Amylase (30-110) U/L Lipase (23-300) U/L Microbiology - Last 24 Hours (Table) 10/04/24 09:30 Gram Stain - Preliminary Sputum Sputum Culture - Preliminary Assessment and Plan Assessment: 1. Altered mental status unclear etiology 2. Peripheral arterial disease seen on CT abdomen pelvis, likely chronic 3. Fall, with history of syncopal episodes 4. Acute hypoxic respiratory failure requiring intubation and mechanical ventilation 5. Hypotension requiring pressor support 6. Nasal bridge fracture 7. Alcoholism, daily alcohol use 8. Tobacco dependence, daily smoker 1 to 2 packs/day Plan: Patient seen and examined. Imaging was reviewed. He does have evidence of diminished JOHN of 0.7 on the right and 0.6 on the left however does maintain some degree of palpable pulses. Therefore I doubt any significant vascular insufficiency overall. Nothing urgent planned at this point. Outpatient follow-up as needed in the future. Please let us know if there is further concern.
--- NOTE | 2024-10-05 17:07 | P.CRDCN ---
History of Present Illness Consult date: 10/05/24 History of present illness: HISTORY OF PRESENTING ILLNESS 69-year-old male with past medical history of COPD, chronic tobacco use, hypertension, alcohol abuse recently discharged on 09/30/2024, was treated for hyponatremia due to beer potomania, and hyponatremia. He required 3% saline at that time. This time he was admitted to the hospital because of an episode of syncope. On admission he was intubated and currently has been on mechanical ventilator. History is obtained for the medical charts. On admission there was concerns of atrial fibrillation with RVR. It appears to be a new diagnosis of atrial fibrillation during this admission. Currently he is in sinus rhythm. He converted out of atrial fibrillation with Cardizem. REVIEW OF SYSTEMS 14 point review of system is negative except what is mentioned above in HPI. PHYSICAL EXAMINATION Neck: Brisk carotid upstroke, no jugular venous distention. Lungs: ET tube in place on, on vent support. Heart: Regular rate and rhythm, no murmur or rub. Abdomen: Soft nontender, positive bowel sounds. Extremities: No edema, intact distal pulses. Neuro: Alert, oritented, no focal deficits. Detailed neuro exam was not performed. ASSESSMENT Atrial fibrillation with RVR on admission, currently sinus rhythm. First diagnosed in September 2024 Alcohol abuse Hyponatremia Chronic tobacco use PAD Coronary calcification PLAN Start Xarelto 20 mg daily for elevated [id number] score form atrial fibrillation Start metoprolol succinate 12.5 mg daily. Uptitrate as tolerated. Obtain updated echocardiogram Recommend statins once extubated Recommend alcohol abstinence and tobacco cessation. Continue supportive care. Rafal Howard MD, FACC, RPVI Thank you for allowing [facility] to participate in this patient's care. Feel free to reach out in case of any followup questions. Past Medical History Past Medical History: Chest Pain / Angina, COPD, Hyperlipidemia, Hypertension Additional Past Medical History / Comment(s): hyponatremia History of Any Multi-Drug Resistant Organisms: None Reported Past Surgical History: Appendectomy Past Anesthesia/Blood Transfusion Reactions: No Reported Reaction Past Psychological History: No Psychological Hx Reported Smoking Status: Current every day smoker Past Alcohol Use History: Daily Additional Past Alcohol Use History / Comment(s): started smoking at age 18, smokes 3/4 ppd. pt admits to drinking four 24 ounce cans of beer per day. Past Drug Use History: Marijuana Additional Drug Use History / Comment(s): USES MARIJUANA-INSTRUCTED TO REFRAIN F ROM USE FOR AT LEAST 24 HOURS PRIOR TO PROCEDURE - Past Family History Mother History Unknown: Yes Additional Family Medical History / Comment(s): Father Additional Family Medical History / Comment(s): from complications of injuries after falling down stairs. Medications and Allergies Home Medications Medication Instructions Recorded Confirmed Type Albuterol Sulfate [Ventolin HFA] 1 - 2 puff INHALATION RT-Q4H PRN 01/27/20 10/04/24 History Losartan Potassium 100 mg PO DAILY 01/27/20 10/04/24 History Fluticasone/Umeclidin/Vilanter 1 puff INHALATION RT-DAILY 04/21/22 10/04/24 History [Trelegy Ellipta 100-62.5-25] Aspirin EC [Ecotrin Low Dose] 81 mg PO DAILY 09/09/24 10/04/24 History Albuterol Nebulized [Ventolin 2.5 mg INHALATION RT-QID PRN 10/04/24 10/04/24 History Nebulized] Allergies Allergy/AdvReac Type Severity Reaction Status Date / Time No Known Allergies Allergy Verified 10/04/24 09:36 Physical Exam Vitals: Vital Signs Temp Pulse Resp BP Pulse Ox FiO2 10/05/24 16:33 74 10/05/24 16:13 35 10/05/24 16:11 70 10/05/24 16:00 98.7 F 70 22 108/61 100 35 10/05/24 15:45 69 23 108/61 100 10/05/24 15:30 69 24 113/58 100 10/05/24 15:15 67 22 113/58 100 10/05/24 15:00 72 22 112/62 100 10/05/24 14:45 72 23 112/62 100 10/05/24 14:30 72 24 110/60 10/05/24 14:15 75 26 H 121/67 100 10/05/24 14:00 81 22 110/62 100 10/05/24 13:45 73 20 97/56 100 10/05/24 13:38 35 10/05/24 13:30 71 19 108/60 100 10/05/24 13:15 69 19 123/64 100 10/05/24 13:00 75 12 111/61 100 10/05/24 12:45 67 13 108/59 100 10/05/24 12:30 74 18 101/57 100 10/05/24 12:15 68 18 100 10/05/24 12:06 66 10/05/24 12:00 98.4 F 65 19 98/57 99 35 10/05/24 11:49 35 10/05/24 11:48 67 10/05/24 11:45 68 24 112/65 100 10/05/24 11:30 73 25 H 124/69 100 10/05/24 11:15 111/67 10/05/24 11:00 70 23 107/60 100 10/05/24 10:45 73 20 102/64 99 10/05/24 10:30 73 24 107/62 100 10/05/24 10:15 73 24 137/64 100 10/05/24 10:00 76 24 115/65 100 10/05/24 09:45 64 23 108/62 100 10/05/24 09:33 60 10/05/24 09:30 62 21 107/57 100 10/05/24 09:15 62 17 111/62 100 10/05/24 09:04 35 10/05/24 09:03 63 10/05/24 09:00 62 17 109/61 100 10/05/24 08:45 62 22 115/63 100 10/05/24 08:30 64 18 97/57 100 10/05/24 08:15 69 22 120/68 100 10/05/24 08:00 98.1 F 73 26 H 121/72 100 40 10/05/24 07:45 72 24 108/60 100 10/05/24 07:30 73 22 121/65 100 10/05/24 07:15 61 23 117/64 100 10/05/24 07:00 60 22 120/66 100 10/05/24 06:45 61 22 128/66 100 10/05/24 06:30 61 22 124/67 100 10/05/24 06:15 60 22 132/74 10/05/24 06:00 61 18 10/05/24 05:45 64 22 131/78 10/05/24 05:30 68 29 H 144/79 100 10/05/24 05:15 67 24 141/73 100 10/05/24 05:00 69 22 123/65 100 10/05/24 04:45 61 22 126/68 100 10/05/24 04:30 62 22 118/65 100 10/05/24 04:15 62 22 100 10/05/24 04:00 98.3 F 62 22 128/66 100 40 10/05/24 03:51 60 10/05/24 03:45 60 22 126/66 100 40 10/05/24 03:30 60 22 126/66 100 10/05/24 03:15 61 23 133/71 100 10/05/24 03:00 64 22 128/70 100 10/05/24 02:45 64 22 133/70 100 10/05/24 02:30 79 22 137/70 100 10/05/24 02:15 69 26 H 102/57 100 10/05/24 02:00 73 26 H 131/62 100 10/05/24 01:45 84 22 115/69 100 10/05/24 01:30 63 22 121/62 100 10/05/24 01:15 60 26 H 112/58 100 10/05/24 01:00 61 22 112/59 100 10/05/24 00:45 62 22 111/59 100 10/05/24 00:30 61 24 112/61 100 10/05/24 00:15 64 23 110/58 100 10/05/24 00:00 97.5 F L 62 22 114/58 100 40 10/04/24 23:54 58 L 10/04/24 23:45 58 L 23 108/58 100 10/04/24 23:44 58 L 40 10/04/24 23:30 61 22 119/58 100 10/04/24 23:15 62 22 109/56 100 10/04/24 23:00 68 23 108/57 100 10/04/24 22:45 61 22 109/54 100 10/04/24 22:30 60 22 133/60 100 10/04/24 22:15 61 25 H 131/61 100 10/04/24 22:00 62 22 100 10/04/24 21:45 60 22 100 10/04/24 21:30 60 22 112/57 100 10/04/24 21:15 60 22 100 10/04/24 21:00 59 L 22 100 11/22/24 20:52 60 10/04/24 20:45 63 22 100 10/04/24 20:44 40 10/04/24 20:30 58 L 22 100 10/04/24 20:15 59 L 22 121/63 100 10/04/24 20:00 98.1 F 58 L 22 116/61 100 40 10/04/24 19:00 61 22 110/60 100 10/04/24 18:00 62 22 105/59 100 10/04/24 17:45 63 22 100 10/04/24 17:30 65 22 100 10/04/24 17:15 68 22 100 Intake and Output 10/05/24 10/05/24 10/05/24 06:59 14:59 22:59 Intake Total 1376.789 4045.466 275.641 Output Total 595 350 135 Balance 592.794 742.466 140.641 Intake: IV 984 844 206 0.9% NS Arterial Pressure 24 24 6 Bag 0.9% NS KVO 160 20 Sodium Chloride 0.9% 1, 800 800 200 000 ml @ 100 mls/hr IV . Q10H REHAN Rx#:[id number] Intake, IV Titration 203.794 178.466 49.641 Amount Norepinephrine 32 mg In 23.208 5.444 Sodium Chloride 0.9% 218 ml @ 0.03 MCG/KG/MIN 1. 021 mls/hr IV .Q24H REHAN Rx#:[id number] propofoL 1,000 mg In 180.586 173.022 49.641 Empty Bag 1 bag @ 15 MCG/ KG/MIN 6.532 mls/hr IV . [id number] REHAN Rx#:[id number] Tube Feeding 40 20 Other 30 Output: Urine 595 350 135 Other: Voiding Method Indwelling Catheter Indwelling Catheter Indwelling Catheter Weight 71.7 kg 71.7 kg ABP, PAP, CO, CI - Last 8 Hours Arterial Blood Pressure 132/47 Arterial Blood Pressure 128/47 Arterial Blood Pressure 128/47 Arterial Blood Pressure 125/44 Arterial Blood Pressure 139/49 Arterial Blood Pressure 139/50 Arterial Blood Pressure 139/48 Arterial Blood Pressure 135/47 Arterial Blood Pressure 151/51 Arterial Blood Pressure 133/48 Arterial Blood Pressure 118/41 Arterial Blood Pressure 135/48 Arterial Blood Pressure 132/49 Arterial Blood Pressure 135/48 Arterial Blood Pressure 134/49 Arterial Blood Pressure 122/45 Arterial Blood Pressure 121/43 Arterial Blood Pressure 141/48 Arterial Blood Pressure 130/46 Arterial Blood Pressure 137/49 Arterial Blood Pressure 142/50 Arterial Blood Pressure 154/57 Arterial Blood Pressure 140/51 Arterial Blood Pressure 126/47 Arterial Blood Pressure 128/48 Results 10/05/24 05:10 10/05/24 11:45 Cardiac Enzymes 10/05/24 Range/Units 05:10 AST 17 (17-59) U/L Coagulation 10/05/24 Range/Units 05:10 PT 9.8 L (10.0-12.5) sec CBC 10/05/24 Range/Units 05:10 WBC 12.8 H (3.8-10.6) k/uL RBC 3.37 L (4.30-5.90) m/uL Hgb 11.5 L (13.0-17.5) gm/dL Hct 33.2 L (39.0-53.0) % Plt Count 367 (150-450) k/uL Comprehensive Metabolic Panel 10/04/24 10/04/24 10/05/24 Range/Units 17:55 23:17 05:10 Sodium 124 L 127 L 127 L (137-145) mmol/L Potassium 3.6 3.9 (3.5-5.1) mmol/L Chloride 105 105 (98-107) mmol/L Carbon Dioxide 19 L 19 L (22-30) mmol/L BUN 13 9 (9-20) mg/dL Creatinine 0.54 L 0.50 L (0.66-1.25) mg/dL Glucose 122 H 100 H (74-99) mg/dL Calcium 8.0 L 7.9 L (8.4-10.2) mg/dL AST 17 (17-59) U/L ALT 25 (4-49) U/L Alkaline Phosphatase 61 (38-126) U/L Total Protein 5.2 L (6.3-8.2) g/dL Albumin 2.8 L (3.5-5.0) g/dL 10/05/24 Range/Units 11:45 Sodium 128 L (137-145) mmol/L Potassium (3.5-5.1) mmol/L Chloride (98-107) mmol/L Carbon Dioxide (22-30) mmol/L BUN (9-20) mg/dL Creatinine (0.66-1.25) mg/dL Glucose (74-99) mg/dL Calcium (8.4-10.2) mg/dL AST (17-59) U/L ALT (4-49) U/L Alkaline Phosphatase (38-126) U/L Total Protein (6.3-8.2) g/dL Albumin (3.5-5.0) g/dL Current Medications Generic Name Dose Route Start Last Admin Trade Name Freq PRN Reason Stop Dose Admin Acetaminophen 650 mg 10/04/24 07:47 Acetaminophen Tab 325 Mg Tab PO Q4HR PRN Fever and/or Mild Pain Albuterol/Ipratropium 3 ml 10/04/24 16:00 10/05/24 16:11 Ipratropium-Albuterol 3 Ml Neb INHALATION 3 ml RT-Q4H REHAN Administration Chlorhexidine Gluconate 15 ml 10/04/24 21:00 10/05/24 09:24 Chlorhexidine Gluconate 15 Ml Cup MUCOUS MEM 15 ml BID REHAN Administration Propofol 1,000 mg/ IV Solution 100 mls @ 6.532 mls/hr 10/04/24 06:30 10/05/24 16:51 IV 40 mcg/kg/min .[id number] REHAN 17.418 mls/hr Administration Protocol 15 MCG/KG/MIN Diltiazem HCl 125 mg/ Sodium 125 mls @ 5 mls/hr 10/04/24 07:30 10/05/24 06:31 Chloride IV Not Given .Q24H REHAN 5 MG/HR Sodium Chloride 1,000 mls @ 100 mls/hr 10/04/24 08:00 10/05/24 13:44 Saline 0.9% IV Not Given .Q10H REHAN Norepinephrine Bitartrate 32 250 mls @ 1.021 mls/hr 10/04/24 08:45 10/05/24 11:00 mg/ Sodium Chloride IV 0 mcg/kg/min .Q24H REHAN 0 mls/hr Titration Protocol 0.03 MCG/KG/MIN Lactulose 30 gm 10/04/24 09:00 10/05/24 15:56 Lactulose 20 Gm/30 Ml Cup PO 30 gm TID REHAN Administration Levetiracetam 500 mg 10/04/24 21:00 10/05/24 09:23 Levetiracetam Iv 500 Mg/5 Ml Vial IVP 500 mg Q12HR REHAN Administration Lorazepam 2 mg 10/04/24 07:47 Lorazepam 1 Mg Tab PO Q3HR PRN Ciwa 8 To 9 Lorazepam 2 mg 10/04/24 07:47 Lorazepam 1 Mg Tab PO Q2HR PRN Ciwa 10 or greater Lorazepam 1 mg 10/04/24 07:47 Lorazepam 1 Mg Tab PO Q4HR PRN Ciwa 6 To 7 Lorazepam 0.5 mg 10/04/24 07:47 Lorazepam 0.5 Mg Tab PO Q4HR PRN Ciwa 4 To 5 Lorazepam 2 mg 10/04/24 07:47 Lorazepam 2 Mg/Ml Inj IV Q6HR PRN Seizures Lorazepam 1 mg 10/04/24 07:47 Lorazepam 2 Mg/Ml Inj IV Q6HR PRN Anxiety Metoprolol Succinate 12.5 mg 10/05/24 17:15 Metoprolol Succinate (Er) 25 Mg Tab.Er.24h PO DAILY [facility] Miscellaneous Information 1 each 10/04/24 07:47 Phosphorus Replacement Protoco 1 Each Misc MISCELLANE DAILY PRN Per Protocol Protocol Miscellaneous Information 1 each 10/04/24 07:47 Magnesium Replacement Protocol 1 Each Misc MISCELLANE DAILY PRN Per Protocol Protocol Miscellaneous Information 1 each 10/04/24 07:47 Potassium Replacement Protocol 1 Each Misc MISCELLANE DAILY PRN Per Protocol Miscellaneous Information 1 each 10/04/24 23:55 Potassium Replacement Protocol 1 Each Misc MISCELLANE DAILY PRN Per Protocol Protocol Miscellaneous Information 1 each 10/05/24 06:03 Magnesium Replacement Protocol 1 Each Misc MISCELLANE DAILY PRN Per Protocol Protocol Miscellaneous Information 1 each 10/05/24 06:03 Potassium Replacement Protocol 1 Each Misc MISCELLANE DAILY PRN Per Protocol Protocol Naloxone HCl 0.2 mg 10/04/24 07:47 Naloxone 0.4 Mg/Ml 1 Ml Vial IV Q2M PRN Opioid Reversal Pantoprazole Sodium 40 mg 10/04/24 09:00 10/05/24 09:23 Pantoprazole 40 Mg/10 Ml Vial IV 40 mg DAILY REHAN Administration Rivaroxaban 20 mg 10/05/24 17:30 Rivaroxaban 20 Mg Tab PO W/SUPPER [facility] Protocol Thiamine HCl 100 mg 10/05/24 09:00 10/05/24 09:23 Thiamine 100 Mg Tab PO 100 mg DAILY REHAN Administration Intake and Output 10/05/24 10/05/24 10/05/24 06:59 14:59 22:59 Intake Total 0214.754 7366.466 275.641 Output Total 595 350 135 Balance 592.794 742.466 140.641 Intake: IV 984 844 206 0.9% NS Arterial Pressure 24 24 6 Bag 0.9% NS KVO 160 20 Sodium Chloride 0.9% 1, 800 800 200 000 ml @ 100 mls/hr IV . Q10H REHAN Rx#:[id number] Intake, IV Titration 203.794 178.466 49.641 Amount Norepinephrine 32 mg In 23.208 5.444 Sodium Chloride 0.9% 218 ml @ 0.03 MCG/KG/MIN 1. 021 mls/hr IV .Q24H REHAN Rx#:[id number] propofoL 1,000 mg In 180.586 173.022 49.641 Empty Bag 1 bag @ 15 MCG/ KG/MIN 6.532 mls/hr IV . [id number] REHAN Rx#:[id number] Tube Feeding 40 20 Other 30 Output: Urine 595 350 135 Other: Voiding Method Indwelling Catheter Indwelling Catheter Indwelling Catheter Weight 71.7 kg 71.7 kg Patient Weight 10/06/24 06:59 Weight 71.7 kg 10/05/24 05:10 10/05/24 11:45
[2024-10-05] MEDS: METOPROLOL SUCCINATE (ER) 25 MG TAB.ER.24H PO SCH (17:25)
[2024-10-05] MEDS: RIVAROXABAN 20 MG TAB PO SCH (17:25)
[2024-10-05 17:37] LABS: Glucose,Whole Blood 106 mg/dL (70-110)
[2024-10-05 23:35] LABS: Glucose,Whole Blood 102 mg/dL (70-110)
[2024-10-06 04:39] LABS: HCT 30.6 % (39.0-53.0); HGB 10.4 gm/dL (13.0-17.5); MCH 33.7 pg (25.0-35.0); MCHC 33.9 g/dL (31.0-37.0); MCV 99.5 fL (80.0-100.0); Mean Platelet Volume 7.6; Platelet Count 311 k/uL (150-450); RBC 3.08 m/uL (4.30-5.90); WBC 12.2 k/uL (3.8-10.6)
[2024-10-06 04:52] LABS: African American GFR (CKD) >90 (>60 ml/min/1.73 sqM); Anion Gap 7 mmol/L; Blood Urea Nitrogen 7 mg/dL (9-20); Carbon Dioxide 19 mmol/L (22-30); Chloride 104 mmol/L (98-107); Glucose 97 mg/dL (74-99); Magnesium 1.6 mg/dL (1.6-2.3); Non-African American GFR(CKD) >90 (>60 ml/min/1.73 sqM); Potassium 3.1 mmol/L (3.5-5.1); Sodium 130 mmol/L (137-145)
[2024-10-06] MEDS: POTASSIUM CHLORIDE 20 MEQ in WATER FOR INJECTION 1 100ML.BAG IVPB SCH (05:02)
[2024-10-06 06:10] LABS: Glucose,Whole Blood 99 mg/dL (70-110)
[2024-10-06 06:26] LABS: ABG Base Excess -2.9 mmol/L; ABG HCO3 21 mmol/L (21-25); ABG Oxygen Saturation 99.1 % (94-97); ABG PCO2 35 mmHg (35-45); ABG PO2 119 mmHg (83-108); ABG TCO2 23 mmol/L (19-24); Allen Test Performed? Yes
--- NOTE | 2024-10-06 06:48 | XR ---
EXAMINATION TYPE: XR chest 1V portable DATE OF EXAM: 10/06/2024 COMPARISON: 10/05/2024 HISTORY: Tube placement TECHNIQUE: Single frontal view of the chest is obtained. FINDINGS: The ET tube is 5.3 cm above the eloy. There is an NG tube within the stomach. The right lower lobe partially consolidative opacity appears slightly more prominent than on the prio r study. The left lung is clear. The heart and pulmonary vasculature are normal. There is no pleural effusion or pneumothorax IMPRESSION: 1. ET tube 5.3 cm above the eloy. NG tube within the stomach. 2. Mild increase in the right lower lobe opacity likely a pneumonic infiltrate. [facility], , 10/06/2024 6:46 AM
--- NOTE | 2024-10-06 07:33 | CA ---
Transthoracic Echo Report Name: Rory Head Age: 69 Gender: M : 1955 Exam Date: 10/05/2024 18:10 Exam Location: [facility] Ht (in): 68 Wt (lb): 158 Ordering Physician: Rafal Howard MD Attending/Referring Phys: [employer] Gail Mills RDCS Procedure CPT: Indications: cardiomyopathy Cardiac Hx: Technical Quality: Technically difficult study Contrast 1: Total Dose (mL): Contrast 2: Total Dose (mL): MEASUREMENTS (Male / Female) Normal Values 2D ECHO LV Diastolic Diameter PLAX 5.1 cm 4.2 - 5.9 / 3.9 - 5.3 cm LV Systolic Diameter PLAX 3.4 cm IVS Diastolic Thickness 1.1 cm 0.6 - 1.0 / 0.6 - 0.9 cm LVPW Diastolic Thickness 1.1 cm 0.6 - 1.0 / 0.6 - 0.9 cm LV Relative Wall Thickness 0.4 RV Internal Dim ED PLAX 4.9 cm DOPPLER LVOT Peak Velocity 73.9 cm/s LVOT Peak Gradient 2.2 mmHg LVOT Velocity Time Integral 12.2 cm FINDINGS Left Ventricle Borderline left ventricular hypertrophy. Normal left ventricular wall motion. No obvious regional wall motion abnormalities. Left ventricular ejection fraction is estimated at 55 %. Right Ventricle Normal right ventricular function. Right Atrium Normal right atrial size. Left Atrium Normal left atrial size. Mitral Valve Structurally normal mitral valve. No mitral regurgitation. No mitral stenosis. Aortic Valve Trileaflet aortic valve. No aortic valve stenosis or regurgitation. Tricuspid Valve Structurally normal tricuspid valve. Mild tricuspid regurgitation. Pulmonic Valve Structurally normal pulmonic valve. Pericardium No pericardial effusion. Aorta Normal size aortic root and proximal ascending aorta. CONCLUSIONS Technically difficult study. Left ventricular ejection fraction is estimated at 55 %. No obvious regional wall motion abnormalities. Normal RV size and systolic function Mild tricuspid regurgitation Previewed by: Dr Rafal Howard (Electronically Signed) Final Date: 06 October 2024 07:32
--- NOTE | 2024-10-06 09:57 | P.PN ---
Subjective Progress Note Date: 10/06/24 HISTORY OF PRESENTING ILLNESS 69-year-old male with past medical history of COPD, chronic tobacco use, hyp ertension, alcohol abuse recently discharged on 09/30/2024, was treated for hyponatremia due to beer potomania, and hyponatremia. He required 3% saline at that time. This time he was admitted to the hospital because of an episode of syncope. On admission he was intubated and currently has been on mechanical ventilator. History is obtained for the medical charts. On admission there was concerns of atrial fibrillation with RVR. It appears to be a new diagnosis of atrial fibrillation during this admission. Currently he is in sinus rhythm. He converted out of atrial fibrillation with Cardizem. Progress note October 06, 2024 Patient was successfully extubated today. No further episodes of atrial fibrillation noticed. Does not appear volume overloaded REVIEW OF SYSTEMS 14 point review of system is negative except what is mentioned above in HPI. PHYSICAL EXAMINATION Neck: Brisk carotid upstroke, no jugular venous distention. Lungs: ET tube in place on, on vent support. Heart: Regular rate and rhythm, no murmur or rub. Abdomen: Soft nontender, positive bowel sounds. Extremities: No edema, intact distal pulses. Neuro: Alert, oritented, no focal deficits. Detailed neuro exam was not performed. ASSESSMENT Atrial fibrillation with RVR on admission, currently sinus rhythm. First diagnosed in September 2024 Alcohol abuse Hyponatremia Chronic tobacco use PAD Coronary calcification Cardiac testing Echocardiogram shows preserved LV size and systolic function with no regional wall motion abnormality, mild TR, no other major valvular abnormality PLAN Start Xarelto 20 mg daily for elevated [id number] score form atrial fibrillation Start metoprolol succinate 12.5 mg daily. Uptitrate as tolerated. Recommend statins Recommend alcohol abstinence and tobacco cessation. Recommend outpatient alcoholic liver disease evaluation Continue supportive care. Objective - Vital Signs Vital signs: Vital Signs Temp 99.1 F 10/06/24 04:00 Pulse 84 10/06/24 08:07 Resp 25 H 10/06/24 07:00 BP 120/69 10/06/24 07:00 Pulse Ox 99 10/06/24 04:00 FiO2 35 10/06/24 07:56 Intake & Output 10/05/24 10/06/24 10/06/24 18:59 06:59 18:59 Intake Total 3826.431 8199.716 330.156 Output Total 590 660 170 Balance 636.717 0383.716 160.156 Weight 71.7 kg 69.9 kg Intake: IV 1256 1236 206 0.9% NS Arterial Pressure 36 36 6 Bag 0.9% NS KVO 20 Sodium Chloride 0.9% 1, 1200 1200 200 000 ml @ 100 mls/hr IV . Q10H REHAN Rx#:[id number] Intake, IV Titration 228.107 253.716 64.156 Amount Norepinephrine 32 mg In 5.444 Sodium Chloride 0.9% 218 ml @ 0.03 MCG/KG/MIN 1. 021 mls/hr IV .Q24H REHAN Rx#:[id number] propofoL 1,000 mg In 222.663 253.716 64.156 Empty Bag 1 bag @ 15 MCG/ KG/MIN 6.532 mls/hr IV . [id number] REHAN Rx#:[id number] Tube Feeding 60 280 60 Other 30 30 Output: Urine 590 660 170 Other: Voiding Method Indwelling Catheter Indwelling Catheter ABP, PAP, CO, CI - Last Documented Arterial Blood Pressure 155/57 - Labs CBC & Chem 7: 10/06/24 04:27 10/06/24 04:27 Labs: Abnormal Lab Results - Last 24 Hours (Table) 10/05/24 10/06/24 10/06/24 Range/Units 11:45 04:27 04:27 WBC 12.2 H (3.8-10.6) k/uL RBC 3.08 L (4.30-5.90) m/uL Hgb 10.4 L (13.0-17.5) gm/dL Hct 30.6 L (39.0-53.0) % ABG pO2 (83-108) mmHg ABG O2 Saturation (94-97) % Hemoglobin (13.0-17.5) gm/dL Sodium 128 L 130 L (137-145) mmol/L Potassium 3.1 L (3.5-5.1) mmol/L Carbon Dioxide 19 L (22-30) mmol/L BUN 7 L (9-20) mg/dL Creatinine 0.47 L (0.66-1.25) mg/dL Calcium 8.0 L (8.4-10.2) mg/dL 10/06/24 Range/Units 06:21 WBC (3.8-10.6) k/uL RBC (4.30-5.90) m/uL Hgb (13.0-17.5) gm/dL Hct (39.0-53.0) % ABG pO2 119 H (83-108) mmHg ABG O2 Saturation 99.1 H (94-97) % Hemoglobin 10.1 L (13.0-17.5) gm/dL Sodium (137-145) mmol/L Potassium (3.5-5.1) mmol/L Carbon Dioxide (22-30) mmol/L BUN (9-20) mg/dL Creatinine (0.66-1.25) mg/dL Calcium (8.4-10.2) mg/dL Microbiology - Last 24 Hours (Table) 10/04/24 09:30 Gram Stain - Final Sputum Sputum Culture - Final 10/04/24 09:51 Blood Culture - Preliminary Blood
--- NOTE | 2024-10-06 10:37 | P.PN ---
Subjective patient is seen for follow-up for hyponatremia. Currently maintained on normal saline. Serum sodium was 130 this morning. Patient was extubated this morning. He is awake and following commands Objective - Vital Signs Vital signs: Vital Signs Temp 99.1 F 10/06/24 04:00 Pulse 90 10/06/24 10:00 Resp 21 10/06/24 10:00 BP 121/68 10/06/24 10:00 Pulse Ox 100 10/06/24 10:00 FiO2 65 10/06/24 10:00 Intake & Output 10/05/24 10/06/24 10/06/24 18:59 06:59 18:59 Intake Total 8415.814 3244.716 536.156 Output Total 590 660 305 Balance 120.952 6518.716 231.156 Weight 71.7 kg 69.9 kg Intake: IV 1256 1236 212 0.9% NS Arterial Pressure 36 36 12 Bag 0.9% NS KVO 20 Sodium Chloride 0.9% 1, 1200 1200 200 000 ml @ 100 mls/hr IV . Q10H REHAN Rx#:[id number] Intake, IV Titration 228.107 253.716 264.156 Amount Norepinephrine 32 mg In 5.444 Sodium Chloride 0.9% 218 ml @ 0.03 MCG/KG/MIN 1. 021 mls/hr IV .Q24H REHAN Rx#:[id number] Sodium Chloride 0.9% 1, 200 000 ml @ 100 mls/hr IV . Q10H REHAN Rx#:[id number] propofoL 1,000 mg In 222.663 253.716 64.156 Empty Bag 1 bag @ 15 MCG/ KG/MIN 6.532 mls/hr IV . [id number] REHAN Rx#:[id number] Tube Feeding 60 280 60 Other 30 30 Output: Urine 590 660 305 Other: Voiding Method Indwelling Catheter Indwelling Catheter Indwelling Catheter ABP, PAP, CO, CI - Last Documented Arterial Blood Pressure 172/58 - Exam patient is awake and following commands. No acute distress. Examination of the heart S1 and S2 Examination of the lungs bilateral breath sounds are heard Abdomen is soft nontender Examination of lower extremity shows no evidence of edema - Labs CBC & Chem 7: 10/06/24 04:27 10/06/24 04:27 Labs: Abnormal Lab Results - Last 24 Hours (Table) 10/05/24 10/06/24 10/06/24 Range/Units 11:45 04:27 04:27 WBC 12.2 H (3.8-10.6) k/uL RBC 3.08 L (4.30-5.90) m/uL Hgb 10.4 L (13.0-17.5) gm/dL Hct 30.6 L (39.0-53.0) % ABG pO2 (83-108) mmHg ABG O2 Saturation (94-97) % Hemoglobin (13.0-17.5) gm/dL Sodium 128 L 130 L (137-145) mmol/L Potassium 3.1 L (3.5-5.1) mmol/L Carbon Dioxide 19 L (22-30) mmol/L BUN 7 L (9-20) mg/dL Creatinine 0.47 L (0.66-1.25) mg/dL Calcium 8.0 L (8.4-10.2) mg/dL 10/06/24 Range/Units 06:21 WBC (3.8-10.6) k/uL RBC (4.30-5.90) m/uL Hgb (13.0-17.5) gm/dL Hct (39.0-53.0) % ABG pO2 119 H (83-108) mmHg ABG O2 Saturation 99.1 H (94-97) % Hemoglobin 10.1 L (13.0-17.5) gm/dL Sodium (137-145) mmol/L Potassium (3.5-5.1) mmol/L Carbon Dioxide (22-30) mmol/L BUN (9-20) mg/dL Creatinine (0.66-1.25) mg/dL Calcium (8.4-10.2) mg/dL Microbiology - Last 24 Hours (Table) 10/04/24 09:30 Gram Stain - Final Sputum Sputum Culture - Final 10/04/24 09:51 Blood Culture - Preliminary Blood Assessment and Plan Assessment: 1. Hyponatremia, hypovolemic and component of urinary retention. Sodium level 124 on admission. Serum sodium continues to improve with normal saline. Not on thiazide diuretics or NSAIDs. 2. Metabolic acidosis secondary to lactic acidosis. 3. A-fib with RVR status post Cardizem drip. 4. Urinary retention. Bennett catheter placed. 1.4 L of urine obtained initially. 5. Shock, status post Levophed. All cultures negative thus far 6. Status post fall. 7. Lung nodule rule out malignancy Plan: continue with normal saline repeat labs in a.m.
--- NOTE | 2024-10-06 10:39 | P.PN ---
Subjective Progress Note Date: 10/06/24 This is a 69-year-old male patient with a known history of COPD, chronic tobacco dependence, hypertension, alcohol abuse who was recently discharged from here on 09/30/2024 after being admitted for hyponatremia due to [place] with hypovolemia requiring 3% saline. We had followed the patient while in the intensive care unit. After he was found folded upon himself in the bathtub. He had positional asphyxia and his respiratory rate was 2 on EMS arrival. Once he unfolded his body his respiratory rate improved though he remained altered. Pinpoint pupils. States he had been having episodes of syncope. Was intubated and placed on mechanical ventilator. He is currently on assist-control mode at a rate of 22, tidal volume 450, FiO2 50% and a PEEP of 5. Morning blood gases revealed a PaO2 of 420, pCO2 46, pH 7.29. This was on 100% FiO2 and a rate of 20. X-ray reveals endotracheal and gastric tubes in good position. No suspicious acute pulmonary process. CT angiogram ruled out pulmonary embolism. No suspicious acute pulmonary process. CT scan of the brain and C-spine revealed no evidence of fracture or dislocation. No acute intracranial hemorrhage or midline shift. There is an acute nondisplaced transverse fracture through the nasal bridge. CT scan of the thoracic and lumbar spine revealed no acute fractures. White count 10.8. Hemoglobin 13.4. Platelets 479. Sodium 124. Potassium 4.5. Bicarb 11. BUN 14. Creatinine 0.53. Glucose 227. Urine drug screen negative. Serum alcohol less than 10. He is seen today in consultation in the emergency department. He remains sedated on propofol currently at 50 mcg/kg/min. He is receiving 4 L of fluid resuscitation. Rem ained hypotensive and is started on norepinephrine at 0.09 mcg/kg/min. Normal saline at 130 mL/h. He has been given cefazolin The patient is seen today October 05, 2024 in follow-up in the intensive care unit. He remains intubated on the mechanical ventilator currently on assist- control mode at a rate of 22, tidal volume 450, FiO2 40% and a PEEP of 5. Morning blood gases revealed a PaO2 of 127, pCO2 of 35 and a pH of 7.39. He remains on norepinephrine at 2.9 mcg/min. Propofol at 50 mcg/kg/min. Normal saline at 100 mL/h. Tube feedings will be initiated. EEG reveals slowing suggestive of moderate encephalopathy. No focal slowing, epileptic discharge or seizure noted. Chest x-ray reveals increased interstitial opacity of the right lung base. White count 12.8. Hemoglobin 11.5. Platelets 367. Sodium 127. Potassium 3.9. Bicarb 19. BUN 9. Creatinine 0.50. Glucose 100. Amylase 162. Lipase 551. Continued on DuoNeb inhalations. Heparin for DVT prophylaxis. The patient is seen today October 06, 2024 in follow-up in the intensive care unit. He remains intubated on the mechanical ventilator. Currently on assist- control mode at a rate of 22, tidal on 450, FiO2 35% and a PEEP of 5. Morning blood gases revealed a PaO2 of 119, pCO2 35 and a pH of 7.40. He is sedated on propofol at 40 mcg/kg/min. Normal saline at 100 mL/h. He is being nourished with vital HP at 30 mL/h with a goal of 53 mL/h. Sputum culture revealed no growth. Blood culture revealed no growth. White count 12.2. Hemoglobin 10.4. Platelets 311. Sodium 130. Potassium 3.1. Bicarb 19. BUN 7. Creatinine 0.47. Glucose 97. He is continued on DuoNeb inhalations Objective - Vital Signs Vital signs: Vital Signs Temp 99.1 F 10/06/24 04:00 Pulse 90 10/06/24 10:00 Resp 21 10/06/24 10:00 BP 121/68 10/06/24 10:00 Pulse Ox 100 10/06/24 10:00 FiO2 65 10/06/24 10:00 Intake & Output 10/05/24 10/06/24 10/06/24 18:59 06:59 18:59 Intake Total 7656.271 8591.716 536.156 Output Total 590 660 305 Balance 002.497 0875.716 231.156 Weight 71.7 kg 69.9 kg Intake: IV 1256 1236 212 0.9% NS Arterial Pressure 36 36 12 Bag 0.9% NS KVO 20 Sodium Chloride 0.9% 1, 1200 1200 200 000 ml @ 100 mls/hr IV . Q10H [facility] Rx#:[id number] Intake, IV Titration 228.107 253.716 264.156 Amount Norepinephrine 32 mg In 5.444 Sodium Chloride 0.9% 218 ml @ 0.03 MCG/KG/MIN 1. 021 mls/hr IV .Q24H [facility] Rx#:[id number] Sodium Chloride 0.9% 1, 200 000 ml @ 100 mls/hr IV . Q10H [facility] Rx#:[id number] propofoL 1,000 mg In 222.663 253.716 64.156 Empty Bag 1 bag @ 15 MCG/ KG/MIN 6.532 mls/hr IV . [id number] [facility] Rx#:[id number] Tube Feeding 60 280 60 Other 30 30 Output: Urine 590 660 305 Other: Voiding Method Indwelling Catheter Indwelling Catheter Indwelling Catheter ABP, PAP, CO, CI - Last Documented Arterial Blood Pressure 172/58 - Exam GENERAL EXAM: Intubated, sedated 69-year-old male, on the ventilator. HEAD: Normocephalic. EYES: Sluggish reaction of pupils, equal size. NOSE: Clear with pink turbinates. THROAT: Oral gastric and endotracheal tube secured in place. No erythema or exudates. NECK: No masses, no JVD. CHEST: No chest wall deformity. LUNGS: Equal air entry with no crackles, wheeze, rhonchi or dullness. CVS: S1 and S2 normal with no audible murmur, regular rhythm. ABDOMEN: No hepatosplenomegaly, normal bowel sounds, no guarding or rigidity. SPINE: No scoliosis or deformity SKIN: No rashes CENTRAL NERVOUS SYSTEM: Sedated, tone is normal in all 4 extremities. EXTREMITIES: There is no peripheral edema. No clubbing, no cyanosis. Peripheral pulses are intact. - Labs CBC & Chem 7: 10/06/24 04:27 10/06/24 04:27 Labs: Abnormal Lab Results - Last 24 Hours (Table) 10/05/24 10/06/24 10/06/24 Range/Units 11:45 04:27 04:27 WBC 12.2 H (3.8-10.6) k/uL RBC 3.08 L (4.30-5.90) m/uL Hgb 10.4 L (13.0-17.5) gm/dL Hct 30.6 L (39.0-53.0) % ABG pO2 (83-108) mmHg ABG O2 Saturation (94-97) % Hemoglobin (13.0-17.5) gm/dL Sodium 128 L 130 L (137-145) mmol/L Potassium 3.1 L (3.5-5.1) mmol/L Carbon Dioxide 19 L (22-30) mmol/L BUN 7 L (9-20) mg/dL Creatinine 0.47 L (0.66-1.25) mg/dL Calcium 8.0 L (8.4-10.2) mg/dL 10/06/24 Range/Units 06:21 WBC (3.8-10.6) k/uL RBC (4.30-5.90) m/uL Hgb (13.0-17.5) gm/dL Hct (39.0-53.0) % ABG pO2 119 H (83-108) mmHg ABG O2 Saturation 99.1 H (94-97) % Hemoglobin 10.1 L (13.0-17.5) gm/dL Sodium (137-145) mmol/L Potassium (3.5-5.1) mmol/L Carbon Dioxide (22-30) mmol/L BUN (9-20) mg/dL Creatinine (0.66-1.25) mg/dL Calcium (8.4-10.2) mg/dL Microbiology - Last 24 Hours (Table) 10/04/24 09:30 Gram Stain - Final Sputum Sputum Culture - Final 10/04/24 09:51 Blood Culture - Preliminary Blood Assessment and Plan Assessment: Altered mental status of unclear etiology found folded over upon himself in this bathtub with poor respiratory effort Acute hypoxemic respiratory failure secondary to above requiring intubation mechanical ventilatory support on October 04, 2024 Hypotension requiring pressor support History of syncopal episodes Nasal bridge fracture Hyponatremia secondary to beer potomania. Alcohol level less than 10 on arrival Daily alcohol use Chronic tobacco dependence History of hypertension Plan: The patient was seen and evaluated Chest x-ray, ABGs, labs and medications reviewed Decrease the FiO2 to 30% Attempt daily interruption of sedation and spontaneous breathing trials Continue DuoNeb inhalations Heparin for DVT prophylaxis Procalcitonin negative We will continue to follow I have personally seen and examined the patient, performed the documentation and the assessment and plan as written. Number of minutes spent on the visit: 15 Dictation was produced using [employer]ation software. Please excuse any gr ammatical, word or spelling errors.
--- NOTE | 2024-10-06 11:03 | P.PN ---
Subjective Progress Note Date: 10/06/24 Principal diagnosis: Respiratory failure Patient is doing well today. He was extubated at 9:00. Patient recalls the incident and remembers falling from the bathtub. Denies pain anywhere. Repeat CAT scan yesterday negative. Objective - Vital Signs Vital signs: Vital Signs Temp 99.1 F 10/06/24 04:00 Pulse 90 10/06/24 10:00 Resp 21 10/06/24 10:00 BP 121/68 10/06/24 10:00 Pulse Ox 100 10/06/24 10:00 FiO2 65 10/06/24 10:00 Intake & Output 10/05/24 10/06/24 10/06/24 18:59 06:59 18:59 Intake Total 8350.547 3355.716 536.156 Output Total 590 660 305 Balance 302.472 6119.716 231.156 Weight 71.7 kg 69.9 kg Intake: IV 1256 1236 212 0.9% NS Arterial Pressure 36 36 12 Bag 0.9% NS KVO 20 Sodium Chloride 0.9% 1, 1200 1200 200 000 ml @ 100 mls/hr IV . Q10H [facility] Rx#:[id number] Intake, IV Titration 228.107 253.716 264.156 Amount Norepinephrine 32 mg In 5.444 Sodium Chloride 0.9% 218 ml @ 0.03 MCG/KG/MIN 1. 021 mls/hr IV .Q24H [facility] Rx#:[id number] Sodium Chloride 0.9% 1, 200 000 ml @ 100 mls/hr IV . Q10H [facility] Rx#:[id number] propofoL 1,000 mg In 222.663 253.716 64.156 Empty Bag 1 bag @ 15 MCG/ KG/MIN 6.532 mls/hr IV . [id number] [facility] Rx#:[id number] Tube Feeding 60 280 60 Other 30 30 Output: Urine 590 660 305 Other: Voiding Method Indwelling Catheter Indwelling Catheter Indwelling Catheter ABP, PAP, CO, CI - Last Documented Arterial Blood Pressure 172/58 - Exam Patient is nasal bridge with swelling, mild tenderness Abdomen: Soft, nontender, nondistended - Labs CBC & Chem 7: 10/06/24 04:27 10/06/24 04:27 Labs: Abnormal Lab Results - Last 24 Hours (Table) 10/05/24 10/06/24 10/06/24 Range/Units 11:45 04:27 04:27 WBC 12.2 H (3.8-10.6) k/uL RBC 3.08 L (4.30-5.90) m/uL Hgb 10.4 L (13.0-17.5) gm/dL Hct 30.6 L (39.0-53.0) % ABG pO2 (83-108) mmHg ABG O2 Saturation (94-97) % Hemoglobin (13.0-17.5) gm/dL Sodium 128 L 130 L (137-145) mmol/L Potassium 3.1 L (3.5-5.1) mmol/L Carbon Dioxide 19 L (22-30) mmol/L BUN 7 L (9-20) mg/dL Creatinine 0.47 L (0.66-1.25) mg/dL Calcium 8.0 L (8.4-10.2) mg/dL 10/06/24 Range/Units 06:21 WBC (3.8-10.6) k/uL RBC (4.30-5.90) m/uL Hgb (13.0-17.5) gm/dL Hct (39.0-53.0) % ABG pO2 119 H (83-108) mmHg ABG O2 Saturation 99.1 H (94-97) % Hemoglobin 10.1 L (13.0-17.5) gm/dL Sodium (137-145) mmol/L Potassium (3.5-5.1) mmol/L Carbon Dioxide (22-30) mmol/L BUN (9-20) mg/dL Creatinine (0.66-1.25) mg/dL Calcium (8.4-10.2) mg/dL Microbiology - Last 24 Hours (Table) 10/04/24 09:30 Gram Stain - Final Sputum Sputum Culture - Final 10/04/24 09:51 Blood Culture - Preliminary Blood Assessment and Plan (1) Fall Narrative/Plan: Patient doing well after recent fall. Begin diet when cleared by pulmonary. Will transfer to medical service if they will accept. Current Visit: No Status: Acute Code(s): W19.XXXA - UNSPECIFIED FALL, INITIAL ENCOUNTER SNOMED Code(s): 5638801
--- NOTE | 2024-10-06 11:05 | P.PN ---
Subjective Progress Note Date: 10/06/24 I am following-up with patient and his sedation is being weaned down and per nurse is doing better. Objective - Vital Signs Vital signs: Vital Signs Temp 99.1 F 10/06/24 04:00 Pulse 90 10/06/24 10:00 Resp 21 10/06/24 10:00 BP 121/68 10/06/24 10:00 Pulse Ox 100 10/06/24 10:00 FiO2 65 10/06/24 10:00 Intake & Output 10/05/24 10/06/24 10/06/24 18:59 06:59 18:59 Intake Total 8170.439 1126.716 536.156 Output Total 590 660 305 Balance 926.188 5020.716 231.156 Weight 71.7 kg 69.9 kg Intake: IV 1256 1236 212 0.9% NS Arterial Pressure 36 36 12 Bag 0.9% NS KVO 20 Sodium Chloride 0.9% 1, 1200 1200 200 000 ml @ 100 mls/hr IV . Q10H [facility] Rx#:[id number] Intake, IV Titration 228.107 253.716 264.156 Amount Norepinephrine 32 mg In 5.444 Sodium Chloride 0.9% 218 ml @ 0.03 MCG/KG/MIN 1. 021 mls/hr IV .Q24H [facility] Rx#:[id number] Sodium Chloride 0.9% 1, 200 000 ml @ 100 mls/hr IV . Q10H [facility] Rx#:[id number] propofoL 1,000 mg In 222.663 253.716 64.156 Empty Bag 1 bag @ 15 MCG/ KG/MIN 6.532 mls/hr IV . [id number] [facility] Rx#:[id number] Tube Feeding 60 280 60 Other 30 30 Output: Urine 590 660 305 Other: Voiding Method Indwelling Catheter Indwelling Catheter Indwelling Catheter ABP, PAP, CO, CI - Last Documented Arterial Blood Pressure 172/58 - Exam General: Lying in bed and does not appear in acute distress. Lung: Intubated on a ventilator. Neuro: Limited. Is on IV Propofol Drowsy but is awake able to voice. He is tracking. He is following simple commands. No facial weakness. He is also able to show thumbs up and wiggle his toes. Some of the workup during this hospital visit consisted of: Initial sodium was 124. Initial serum glucose was 218, calcium is 9.3, magnesium is 1.6, ALT is 52 and AST is 49 Plasma lactic acid vein is 11.5 Ammonia level is 82 CK level is 181 The head and cervical spine is reported as no acute intracranial hemorrhage or midline shift is seen. There is no acute fracture or dislocation evident in the cervical spine. Acute nondisplaced transverse fracture through the nasal bridge. Also reviewed the CT of the head and I agree with the report. CT thoracic and lumbar spine is reported as no fracture or malalignment of the thoracic and lumbar spine. Somewhat limited evaluation of the lumbar spine as noted above. Repeat CT head is reported as no acute intracranial hemorrhage or midline shift. EEG is abnormal. The background slowing suggestive of moderate encephalopathy. Otherwise no focal slowing, OptiForm discharge or seizure on the EEG. - Labs CBC & Chem 7: 10/06/24 04:27 10/06/24 04:27 Labs: Abnormal Lab Results - Last 24 Hours (Table) 10/05/24 10/06/24 10/06/24 Range/Units 11:45 04:27 04:27 WBC 12.2 H (3.8-10.6) k/uL RBC 3.08 L (4.30-5.90) m/uL Hgb 10.4 L (13.0-17.5) gm/dL Hct 30.6 L (39.0-53.0) % ABG pO2 (83-108) mmHg ABG O2 Saturation (94-97) % Hemoglobin (13.0-17.5) gm/dL Sodium 128 L 130 L (137-145) mmol/L Potassium 3.1 L (3.5-5.1) mmol/L Carbon Dioxide 19 L (22-30) mmol/L BUN 7 L (9-20) mg/dL Creatinine 0.47 L (0.66-1.25) mg/dL Calcium 8.0 L (8.4-10.2) mg/dL 10/06/24 Range/Units 06:21 WBC (3.8-10.6) k/uL RBC (4.30-5.90) m/uL Hgb (13.0-17.5) gm/dL Hct (39.0-53.0) % ABG pO2 119 H (83-108) mmHg ABG O2 Saturation 99.1 H (94-97) % Hemoglobin 10.1 L (13.0-17.5) gm/dL Sodium (137-145) mmol/L Potassium (3.5-5.1) mmol/L Carbon Dioxide (22-30) mmol/L BUN (9-20) mg/dL Creatinine (0.66-1.25) mg/dL Calcium (8.4-10.2) mg/dL Microbiology - Last 24 Hours (Table) 10/04/24 09:30 Gram Stain - Final Sputum Sputum Culture - Final 10/04/24 09:51 Blood Culture - Preliminary Blood Assessment and Plan Assessment: This is a 69 y/o gentleman with history of significant alcohol use in the last 1 month has been having hyponatremia, hypomagnesemia with generalized weakness who presents to the emergency department because of episode of unresponsiveness with seizure-like activity. According to his girlfriend he had a similar episode just shy of a month ago. Again he was hospitalized recently for significant hyponatremia as low as 103 on 09/25/2024. New onset seizure-like activity seems possibly provoked due to electrolyte imbalance prominently hyponatremia. And possible provoked due to alcohol withdrawal CT head is unremarkable for any acute or subacute stroke. Routine EEG is negative for seizure or discharges Acute on chronic hyponatremia that significant since end of August 2024. Currently the sodium is 125-->130 Elevated plasma lactic acid due to likely seizure-like activity Hyperammonemia likely due to his seizure-like activity Underlying history of coronary artery status post stent Hypertension Significant alcohol use and was drinking 5 tall boys daily but in the last 1 month he is cutting down Tobacco use Plan: I placed the patient on Keppra 500 mg twice a day empirically on 10/04/2024. Recommend tapering dose of Keppra down the line once neurology improvement. Cu rrent he continues to be on sedation and examination is limited but there is improvement. Once the patient is extubated will obtain MRI of the brain with and without Patient is on thiamine Patient is on Ativan for CIWA protocol Nephrology is consulted Will defer the rest of the medical management to primary other specialist The plan is discussed with the nurse. Dr. Brothers will resume neurology service on 10/07/2024. Time with Patient: Less than 30
[2024-10-06] MEDS: POTASSIUM CHLORIDE 20 MEQ in WATER FOR INJECTION 1 100ML.BAG IVPB STA (13:34)
[2024-10-06] MEDS: IPRATROPIUM-ALBUTEROL 3 ML NEB INHALATION SCH (15:32)
--- NOTE | 2024-10-06 15:50 | P.PN ---
Subjective Progress Note Date: 10/06/24 Rory Head is a 69-year-old male patient presented to the ER following being found in bathtub with decreased respiratory rate and unresponsiveness. Patient was recently here last week for hyponatremia patient has a known history of EtOH admission sodium at that time was 103 patient did leave AMA on 09/29/2024. Lab work upon arrival revealing WBC of 10.8, sodium 124 morning, lactic acid 11.5 creatinine kinase 181. Drug screen was negative serum alcohol less than 10 imaging performed in ER showing chest x-ray no suspicious acute pulmonary process, face CT showing no acute fracture or dislocation and cervical spine displaced transverse fracture through the nasal bridge. Chest CTA performed showing negative for pulmonary embolism nonspecific small cell left lower lobe pulmonary nodule. Abdomen and pelvis CT showing no acute posttraumatic finding of the abdomen or pelvis. CT of thoracic spine negative. EKG completed showing atrial fibrillation. Patient was intubated and central line placed per ER physician patient admitted to trauma team. Patient's core temperature also low started on Reema hugger. Patient's blood pressure also decreasing started on norepinephrine. Patient will be admitted to the intensive care unit. At this time consults placed for critical care, neurology, cardiology, vascular surgery due to right iliac and femoral artery stenosis, ENT and nephrology services. Blood culture ordered On 10/05/2024 patient remains in the ICU on mechanical ventilation and sedation. Per nursing staff Levophed is being weaned off. Patient also to be attempted for sedation holiday today to assess neurological status. Sodium 127. Current heart rate temp 98.1, heart 73, respiratory rate 24, blood pressure 121/72 with an FiO2 of 40% On 10/06/2024 patient was seen and examined in the ICU, he is intubated sedated maintained on mechanical ventilation, assist control rate of 22 FiO2 35% PEEP of 5, temperature is 99.1 pulse 90 respiration 21 blood pressure 121/68 white blood count is 12.2 hemoglobin 10.4 platelet count 311 potassium 3.1 corrected BUN 7 creatinine 0.47 Objective - Vital Signs Vital signs: Vital Signs Temp 99.1 F 10/06/24 04:00 Pulse 90 10/06/24 10:00 Resp 21 10/06/24 10:00 BP 121/68 10/06/24 10:00 Pulse Ox 100 10/06/24 10:00 FiO2 65 10/06/24 10:00 Intake & Output 10/05/24 10/06/24 10/06/24 18:59 06:59 18:59 Intake Total 1288.344 4139.716 536.156 Output Total 590 660 305 Balance 443.590 3770.716 231.156 Weight 71.7 kg 69.9 kg Intake: IV 1256 1236 212 0.9% NS Arterial Pressure 36 36 12 Bag 0.9% NS KVO 20 Sodium Chloride 0.9% 1, 1200 1200 200 000 ml @ 100 mls/hr IV . Q10H [facility] Rx#:[id number] Intake, IV Titration 228.107 253.716 264.156 Amount Norepinephrine 32 mg In 5.444 Sodium Chloride 0.9% 218 ml @ 0.03 MCG/KG/MIN 1. 021 mls/hr IV .Q24H [facility] Rx#:[id number] Sodium Chloride 0.9% 1, 200 000 ml @ 100 mls/hr IV . Q10H [facility] Rx#:[id number] propofoL 1,000 mg In 222.663 253.716 64.156 Empty Bag 1 bag @ 15 MCG/ KG/MIN 6.532 mls/hr IV . [id number] [facility] Rx#:[id number] Tube Feeding 60 280 60 Other 30 30 Output: Urine 590 660 305 Other: Voiding Method Indwelling Catheter Indwelling Catheter Indwelling Catheter ABP, PAP, CO, CI - Last Documented Arterial Blood Pressure 172/58 - Exam Patient currently on mechanical ventilation and sedated Head normocephalic Neck supple Lungs clear to auscultation bilaterally no wheezing or crackles Heart irregular rate known atrial fibrillation Abdomen is soft nontender nondistended positive bowel sounds no hepatosplenomegaly Extremities no edema - Labs CBC & Chem 7: 10/06/24 04:27 10/06/24 11:00 Labs: Abnormal Lab Results - Last 24 Hours (Table) 10/05/24 10/06/24 10/06/24 Range/Units 11:45 04:27 04:27 WBC 12.2 H (3.8-10.6) k/uL RBC 3.08 L (4.30-5.90) m/uL Hgb 10.4 L (13.0-17.5) gm/dL Hct 30.6 L (39.0-53.0) % ABG pO2 (83-108) mmHg ABG O2 Saturation (94-97) % Hemoglobin (13.0-17.5) gm/dL Sodium 128 L 130 L (137-145) mmol/L Potassium 3.1 L (3.5-5.1) mmol/L Carbon Dioxide 19 L (22-30) mmol/L BUN 7 L (9-20) mg/dL Creatinine 0.47 L (0.66-1.25) mg/dL Calcium 8.0 L (8.4-10.2) mg/dL 10/06/24 Range/Units 06:21 WBC (3.8-10.6) k/uL RBC (4.30-5.90) m/uL Hgb (13.0-17.5) gm/dL Hct (39.0-53.0) % ABG pO2 119 H (83-108) mmHg ABG O2 Saturation 99.1 H (94-97) % Hemoglobin 10.1 L (13.0-17.5) gm/dL Sodium (137-145) mmol/L Potassium (3.5-5.1) mmol/L Carbon Dioxide (22-30) mmol/L BUN (9-20) mg/dL Creatinine (0.66-1.25) mg/dL Calcium (8.4-10.2) mg/dL Microbiology - Last 24 Hours (Table) 10/04/24 09:30 Gram Stain - Final Sputum Sputum Culture - Final 10/04/24 09:51 Blood Culture - Preliminary Blood Assessment and Plan Assessment: Altered mental status changes and respiratory distress requiring mechanical ventilation Hypothermia. Patient started on Reema hugger Metabolic acidosis lactic acid 11.5 A-fib with RVR History of hyponatremia patient was recently admitted and left AMA on 09/29/2024 History of EtOH abuse Nasal fracture. ENT services consulted History of COPD History of essential hypertension History of nicotine dependence At this time patient was intubated and will be admitted to the intensive care unit Critical care, cardiology, nephrology, trauma services, ENT and vascular surgery all consulted Prognosis guarded
[2024-10-06 18:13] LABS: Glucose,Whole Blood 66 mg/dL (70-110)
[2024-10-06 18:32] LABS: Glucose,Whole Blood 109 mg/dL (70-110)
[2024-10-07 06:53] LABS: Glucose,Whole Blood 87 mg/dL (70-110)
[2024-10-07 07:05] LABS: Basophils % (A) 0 %; Eosinophils # (A) 0.3 k/uL (0-0.7); Eosinophils % (A) 3 %; HCT 30.9 % (39.0-53.0); HGB 10.4 gm/dL (13.0-17.5); Lymphocytes # (A) 0.9 k/uL (1.0-4.8); Lymphocytes % (A) 10 %; MCH 33.3 pg (25.0-35.0); MCHC 33.7 g/dL (31.0-37.0); MCV 98.8 fL (80.0-100.0); Mean Platelet Volume 7.2; Monocytes # (A) 0.5 k/uL (0-1.0); Monocytes % (A) 6 %; Neutrophils # (A) 7.2 k/uL (1.3-7.7); Neutrophils % (A) 80 %; Platelet Count 301 k/uL (150-450); RBC 3.13 m/uL (4.30-5.90); WBC 9.1 k/uL (3.8-10.6)
--- NOTE | 2024-10-07 07:27 | XR ---
EXAMINATION TYPE: XR chest 1V portable DATE OF EXAM: 10/07/2024 COMPARISON: 10/06/2024 CLINICAL INDICATION: Male, 69 years old with history of Tube placement; , TECHNIQUE: XR chest 1V portable views of the chest. FINDINGS: ET and NG tube. Basilar subsegmental atelectasis. Rib deformities suggest prior fracture. Heart size normal and no overt failure. Osseous structures de monstrate hypertrophic and degenerative changes of the spine. Atherosclerotic change aorta. COPD. IMPRESSION: 1. Stable basilar atelectasis or infiltrate. 2. COPD. [facility], , 10/07/2024 7:24 AM
[2024-10-07 07:43] LABS: ALT 18 U/L (4-49); AST 16 U/L (17-59); African American GFR (CKD) >90 (>60 ml/min/1.73 sqM); Albumin 2.9 g/dL (3.5-5.0); Alkaline Phosphatase 66 U/L (38-126); Anion Gap 4 mmol/L; Blood Urea Nitrogen 7 mg/dL (9-20); Calcium 8.1 mg/dL (8.4-10.2); Carbon Dioxide 25 mmol/L (22-30); Chloride 98 mmol/L (98-107); Glucose 90 mg/dL (74-99); Non-African American GFR(CKD) >90 (>60 ml/min/1.73 sqM); Sodium 127 mmol/L (137-145); Total Protein 5.3 g/dL (6.3-8.2)
[2024-10-07 09:02] VITALS: BMI 23.4
[2024-10-07] MEDS: MAGNESIUM SULFATE-D5W PMX 1 GM in DEXTROSE/WATER 1 100ML.BAG IVPB SCH (09:52)
--- NOTE | 2024-10-07 11:09 | P.PN ---
Subjective patient is seen for follow-up for hyponatremia. Currently maintained on normal saline. Serum sodium dropped to 127 today. No significant complaints. No significant increased free water intake. Bennett catheter was removed this morning. We will monitor for urine retention. Objective - Vital Signs Vital signs: Vital Signs Temp 97.9 F 10/07/24 08:00 Pulse 78 10/07/24 10:00 Resp 13 10/07/24 10:00 BP 123/78 10/07/24 10:00 Pulse Ox 96 10/07/24 10:00 FiO2 65 10/06/24 09:00 Intake & Output 10/06/24 10/07/24 10/07/24 18:59 06:59 18:59 Intake Total 7153.560 5236 512 Output Total 1355 1030 150 Balance 105.156 206 362 Weight 69.9 kg Intake: IV 1036 1236 412 0.9% NS Arterial Pressure 36 36 12 Bag Sodium Chloride 0.9% 1, 1000 1200 400 000 ml @ 100 mls/hr IV . Q10H [facility] Rx#:[id number] Intake, IV Titration 364.156 100 Amount Magnesium Sulfate-D5w Pmx 100 1 gm In Dextrose/Water 1 100ml.bag @ 100 mls/hr IVPB Q1H [facility] Rx#: [id number] Potassium Chloride 20 meq 100 In Water For Injection 1 100ml.bag @ 50 mls/hr IVPB ONCE [facility] Rx#: [id number] Sodium Chloride 0.9% 1, 200 000 ml @ 100 mls/hr IV . Q10H [facility] Rx#:[id number] propofoL 1,000 mg In 64.156 Empty Bag 1 bag @ 15 MCG/ KG/MIN 6.532 mls/hr IV . [id number] [facility] Rx#:[id number] Tube Feeding 60 Output: Urine 1355 1030 150 Other: Voiding Method Indwelling Catheter Indwelling Catheter # Bowel Movements 1 ABP, PAP, CO, CI - Last Documented Arterial Blood Pressure 168/55 - Exam patient is awake and following commands. No acute distress. Examination of the heart S1 and S2 Examination of the lungs bilateral breath sounds are heard Abdomen is soft nontender Examination of lower extremity shows no evidence of edema - Labs CBC & Chem 7: 10/07/24 06:53 10/07/24 06:53 Labs: Abnormal Lab Results - Last 24 Hours (Table) 10/06/24 10/07/24 10/07/24 Range/Units 18:11 06:53 06:53 RBC 3.13 L (4.30-5.90) m/uL Hgb 10.4 L (13.0-17.5) gm/dL Hct 30.9 L (39.0-53.0) % Lymphocytes # 0.9 L (1.0-4.8) k/uL Sodium 127 L (137-145) mmol/L BUN 7 L (9-20) mg/dL Creatinine 0.47 L (0.66-1.25) mg/dL POC Glucose (mg/dL) 66 L (70-110) mg/dL Calcium 8.1 L (8.4-10.2) mg/dL Magnesium (1.6-2.3) mg/dL AST 16 L (17-59) U/L Total Protein 5.3 L (6.3-8.2) g/dL Albumin 2.9 L (3.5-5.0) g/dL 10/07/24 Range/Units 08:20 RBC (4.30-5.90) m/uL Hgb (13.0-17.5) gm/dL Hct (39.0-53.0) % Lymphocytes # (1.0-4.8) k/uL Sodium (137-145) mmol/L BUN (9-20) mg/dL Creatinine (0.66-1.25) mg/dL POC Glucose (mg/dL) (70-110) mg/dL Calcium (8.4-10.2) mg/dL Magnesium 1.4 L (1.6-2.3) mg/dL AST (17-59) U/L Total Protein (6.3-8.2) g/dL Albumin (3.5-5.0) g/dL Microbiology - Last 24 Hours (Table) 10/04/24 09:51 Blood Culture - Preliminary Blood 10/04/24 09:30 Gram Stain - Final Sputum Sputum Culture - Final Assessment and Plan Assessment: 1. Hyponatremia, hypovolemic and component of urinary retention. Sodium level 124 on admission. Serum sodium improved to 130 with normal saline. Today the serum sodium was 127 and saline has been discontinued.. Not on thiazide diuret ics or NSAIDs. 2. Metabolic acidosis secondary to lactic acidosis. 3. A-fib with RVR status post Cardizem drip. 4. Urinary retention. Bennett catheter placed. 1.4 L of urine obtained initially. 5. Shock, status post Levophed. All cultures negative thus far 6. Status post fall. 7. Lung nodule rule out malignancy Plan: discontinue normal saline Repeat sodium at 11 AM Monitor for urine retention as Bennett catheter was removed this morning.
--- NOTE | 2024-10-07 11:37 | P.PN ---
Subjective Progress Note Date: 10/07/24 SURGICAL PROGRESS NOTE CHIEF COMPLAINT: Respiratory failure HISTORY OF PRESENT ILLNESS: Patient was extubated yesterday. He is sitting up in bed comfortably. Denies any new complaints. Bennett catheter removed today. He is on a chopped nectar thick diet. He did have a low-grade temp of 100.4 last night. White count is down from 12-9.1. Na 125 PHYSICAL EXAM: VITAL SIGNS: Reviewed. GENERAL: Well-developed in no acute distress. HEENT: Nasal bridge swelling ABDOMEN: Soft. Nondistended. Nontender. NEUROLOGIC: Awake and alert and answering questions appropriately. Able to move all 4 extremities. ASSESSMENT: 1. Altered mental status. Patient found folded upon himself in bathtub with poor respiratory rate 2. Acute hypoxic respiratory failure requiring to be intubated. Now extubated 3. Hypotension 4. Nasal fracture 5. 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 Daily alcohol use 7. Hyponatremia 8. Elevated lactic acid level 9. A-fib with RVR 10. Elevated ammonia level PLAN: -No surgical intervention planned -Plan to transfer patient to medical service if they will accept -Continue chopped diet with nectar thick liquids Physician Product Director note has been reviewed by physician. Signing provider agrees with the documented findings, assessment, and plan of care. Objective - Vital Signs Vital signs: Vital Signs Temp 97.9 F 10/07/24 08:00 Pulse 80 10/07/24 11:29 Resp 13 10/07/24 10:00 BP 123/78 10/07/24 10:00 Pulse Ox 96 10/07/24 10:00 FiO2 65 10/06/24 09:00 Intake & Output 10/06/24 10/07/24 10/07/24 18:59 06:59 18:59 Intake Total 8762.309 1470 535 Output Total 1355 1030 250 Balance 105.156 206 285 Weight 69.9 kg Intake: IV 1036 1236 435 0.9% NS Arterial Pressure 36 36 15 Bag Sodium Chloride 0.9% 1, 1000 1200 420 000 ml @ 100 mls/hr IV . Q10H [facility] Rx#:[id number] Intake, IV Titration 364.156 100 Amount Magnesium Sulfate-D5w Pmx 100 1 gm In Dextrose/Water 1 100ml.bag @ 100 mls/hr IVPB Q1H [facility] Rx#: [id number] Potassium Chloride 20 meq 100 In Water For Injection 1 100ml.bag @ 50 mls/hr IVPB ONCE [facility] Rx#: [id number] Sodium Chloride 0.9% 1, 200 000 ml @ 100 mls/hr IV . Q10H [facility] Rx#:[id number] propofoL 1,000 mg In 64.156 Empty Bag 1 bag @ 15 MCG/ KG/MIN 6.532 mls/hr IV . [id number] [facility] Rx#:[id number] Tube Feeding 60 Output: Urine 1355 1030 250 Other: Voiding Method Indwelling Catheter Indwelling Catheter # Bowel Movements 1 ABP, PAP, CO, CI - Last Documented Arterial Blood Pressure 168/55 - Labs CBC & Chem 7: 10/07/24 06:53 10/07/24 11:04 Labs: Abnormal Lab Results - Last 24 Hours (Table) 10/06/24 10/07/24 10/07/24 Range/Units 18:11 06:53 06:53 RBC 3.13 L (4.30-5.90) m/uL Hgb 10.4 L (13.0-17.5) gm/dL Hct 30.9 L (39.0-53.0) % Lymphocytes # 0.9 L (1.0-4.8) k/uL Sodium 127 L (137-145) mmol/L BUN 7 L (9-20) mg/dL Creatinine 0.47 L (0.66-1.25) mg/dL POC Glucose (mg/dL) 66 L (70-110) mg/dL Calcium 8.1 L (8.4-10.2) mg/dL Magnesium (1.6-2.3) mg/dL AST 16 L (17-59) U/L Total Protein 5.3 L (6.3-8.2) g/dL Albumin 2.9 L (3.5-5.0) g/dL 10/07/24 10/07/24 Range/Units 08:20 11:04 RBC (4.30-5.90) m/uL Hgb (13.0-17.5) gm/dL Hct (39.0-53.0) % Lymphocytes # (1.0-4.8) k/uL Sodium 125 L (137-145) mmol/L BUN (9-20) mg/dL Creatinine (0.66-1.25) mg/dL POC Glucose (mg/dL) (70-110) mg/dL Calcium (8.4-10.2) mg/dL Magnesium 1.4 L (1.6-2.3) mg/dL AST (17-59) U/L Total Protein (6.3-8.2) g/dL Albumin (3.5-5.0) g/dL Microbiology - Last 24 Hours (Table) 10/04/24 09:51 Blood Culture - Preliminary Blood 10/04/24 09:30 Gram Stain - Final Sputum Sputum Culture - Final
--- NOTE | 2024-10-07 15:20 | P.PN ---
Subjective Progress Note Date: 10/07/24 This is a 69-year-old male patient with a known history of COPD, chronic tobacco dependence, hypertension, alcohol abuse who was recently discharged from here on 09/30/2024 after being admitted for hyponatremia due to [place] with hypovolemia requiring 3% saline. We had followed the patient while in the intensive care unit. After he was found folded upon himself in the bathtub. He had positional asphyxia and his respiratory rate was 2 on EMS arrival. Once he unfolded his body his respiratory rate improved though he remained altered. Pinpoint pupils. States he had been having episodes of syncope. Was intubated and placed on mechanical ventilator. He is currently on assist-control mode at a rate of 22, tidal volume 450, FiO2 50% and a PEEP of 5. Morning blood gases revealed a PaO2 of 420, pCO2 46, pH 7.29. This was on 100% FiO2 and a rate of 20. X-ray reveals endotracheal and gastric tubes in good position. No suspicious acute pulmonary process. CT angiogram ruled out pulmonary embolism. No suspicious acute pulmonary process. CT scan of the brain and C-spine revealed no evidence of fracture or dislocation. No acute intracranial hemorrhage or midline shift. There is an acute nondisplaced transverse fracture through the nasal bridge. CT scan of the thoracic and lumbar spine revealed no acute fractures. White count 10.8. Hemoglobin 13.4. Platelets 479. Sodium 124. Potassium 4.5. Bicarb 11. BUN 14. Creatinine 0.53. Glucose 227. Urine drug screen negative. Serum alcohol less than 10. He is seen today in consultation in the emergency department. He remains sedated on propofol currently at 50 mcg/kg/min. He is receiving 4 L of fluid resuscitation. Re mained hypotensive and is started on norepinephrine at 0.09 mcg/kg/min. Normal saline at 130 mL/h. He has been given cefazolin The patient is seen today October 05, 2024 in follow-up in the intensive care unit. He remains intubated on the mechanical ventilator currently on assist- control mode at a rate of 22, tidal volume 450, FiO2 40% and a PEEP of 5. Morning blood gases revealed a PaO2 of 127, pCO2 of 35 and a pH of 7.39. He remains on norepinephrine at 2.9 mcg/min. Propofol at 50 mcg/kg/min. Normal saline at 100 mL/h. Tube feedings will be initiated. EEG reveals slowing suggestive of moderate encephalopathy. No focal slowing, epileptic discharge or seizure noted. Chest x-ray reveals increased interstitial opacity of the right lung base. White count 12.8. Hemoglobin 11.5. Platelets 367. Sodium 127. Potassium 3.9. Bicarb 19. BUN 9. Creatinine 0.50. Glucose 100. Amylase 162. Lipase 551. Continued on DuoNeb inhalations. Heparin for DVT prophylaxis. The patient is seen today October 06, 2024 in follow-up in the intensive care unit. He remains intubated on the mechanical ventilator. Currently on assist- control mode at a rate of 22, tidal on 450, FiO2 35% and a PEEP of 5. Morning blood gases revealed a PaO2 of 119, pCO2 35 and a pH of 7.40. He is sedated on propofol at 40 mcg/kg/min. Normal saline at 100 mL/h. He is being nourished with vital HP at 30 mL/h with a goal of 53 mL/h. Sputum culture revealed no growth. Blood culture revealed no growth. White count 12.2. Hemoglobin 10.4. Platelets 311. Sodium 130. Potassium 3.1. Bicarb 19. BUN 7. Creatinine 0.47. Glucose 97. He is continued on DuoNeb inhalations 10/07/2024, the patient is being seen for a follow-up. The patient is status post acute hypoxic darvin failure requiring intubation and mechanical ventilation and the patient is extubated and the patient is currently on oxygen at 3 L/min nasal cannula. The follow-up chest x-ray from today shows stable bibasilar atelectatic changes and COPD. The patient is known to have advanced COPD, hypertension, alcoholism and the patient also had severe hyponatremia at the time of admission, treated with hypertonic saline solution and the sodium has been improving. The most recent sodium level from this morning is at 127, BUN i s 7 with a creatinine of 0.4. The white cell count is at 9.1 with a hemoglobin of 10.4. The patient was also in atrial fibrillation with rapid ventricular response at the time of admission. The patient is currently on anticoagulation with Xarelto. The patient is also on metoprolol 12.5 mg p.o. daily. Seems to be weak and quite debilitated. Nevertheless, no dyspnea at rest. No signs of encephalopathy or delirium at this point. Family is at the bedside. The patient is answering questions appropriately. Objective - Vital Signs Vital signs: Vital Signs Temp 97.9 F 10/07/24 08:00 Pulse 78 10/07/24 10:00 Resp 13 10/07/24 10:00 BP 123/78 10/07/24 10:00 Pulse Ox 96 10/07/24 10:00 FiO2 65 10/06/24 09:00 Intake & Output 10/06/24 10/07/24 10/07/24 18:59 06:59 18:59 Intake Total 2807.490 4709 512 Output Total 1355 1030 150 Balance 105.156 206 362 Weight 69.9 kg Intake: IV 1036 1236 412 0.9% NS Arterial Pressure 36 36 12 Bag Sodium Chloride 0.9% 1, 1000 1200 400 000 ml @ 100 mls/hr IV . Q10H [facility] Rx#:[id number] Intake, IV Titration 364.156 100 Amount Magnesium Sulfate-D5w Pmx 100 1 gm In Dextrose/Water 1 100ml.bag @ 100 mls/hr IVPB Q1H [facility] Rx#: [id number] Potassium Chloride 20 meq 100 In Water For Injection 1 100ml.bag @ 50 mls/hr IVPB ONCE [facility] Rx#: [id number] Sodium Chloride 0.9% 1, 200 000 ml @ 100 mls/hr IV . Q10H [facility] Rx#:[id number] propofoL 1,000 mg In 64.156 Empty Bag 1 bag @ 15 MCG/ KG/MIN 6.532 mls/hr IV . [id number] [facility] Rx#:[id number] Tube Feeding 60 Output: Urine 1355 1030 150 Other: Voiding Method Indwelling Catheter Indwelling Catheter # Bowel Movements 1 ABP, PAP, CO, CI - Last Documented Arterial Blood Pressure 168/55 - Exam GENERAL EXAM: Intubated, sedated 69-year-old male, on extubated on 3 days of oxygen by nasal cannula HEAD: Normocephalic. EYES: Sluggish reaction of pupils, equal size. NOSE: Clear with pink turbinates. THROAT: Oral gastric and endotracheal tube secured in place. No erythema or exudates. NECK: No masses, no JVD. CHEST: No chest wall deformity. LUNGS: Equal air entry with no crackles, wheeze, rhonchi or dullness. CVS: S1 and S2 normal with no audible murmur, regular rhythm. ABDOMEN: No hepatosplenomegaly, normal bowel sounds, no guarding or rigidity. SPINE: No scoliosis or deformity SKIN: No rashes CENTRAL NERVOUS SYSTEM: Calm and comfortable, moving all 4 extremities without limitation, profound generalized weakness. EXTREMITIES: There is no peripheral edema. No clubbing, no cyanosis. Peripheral pulses are intact. - Labs CBC & Chem 7: 10/07/24 06:53 10/07/24 11:04 Labs: Abnormal Lab Results - Last 24 Hours (Table) 10/06/24 10/07/24 10/07/24 Range/Units 18:11 06:53 06:53 RBC 3.13 L (4.30-5.90) m/uL Hgb 10.4 L (13.0-17.5) gm/dL Hct 30.9 L (39.0-53.0) % Lymphocytes # 0.9 L (1.0-4.8) k/uL Sodium 127 L (137-145) mmol/L BUN 7 L (9-20) mg/dL Creatinine 0.47 L (0.66-1.25) mg/dL POC Glucose (mg/dL) 66 L (70-110) mg/dL Calcium 8.1 L (8.4-10.2) mg/dL Magnesium (1.6-2.3) mg/dL AST 16 L (17-59) U/L Total Protein 5.3 L (6.3-8.2) g/dL Albumin 2.9 L (3.5-5.0) g/dL 10/07/24 Range/Units 08:20 RBC (4.30-5.90) m/uL Hgb (13.0-17.5) gm/dL Hct (39.0-53.0) % Lymphocytes # (1.0-4.8) k/uL Sodium (137-145) mmol/L BUN (9-20) mg/dL Creatinine (0.66-1.25) mg/dL POC Glucose (mg/dL) (70-110) mg/dL Calcium (8.4-10.2) mg/dL Magnesium 1.4 L (1.6-2.3) mg/dL AST (17-59) U/L Total Protein (6.3-8.2) g/dL Albumin (3.5-5.0) g/dL Microbiology - Last 24 Hours (Table) 10/04/24 09:51 Blood Culture - Preliminary Blood 10/04/24 09:30 Gram Stain - Final Sputum Sputum Culture - Final Assessment and Plan Plan: Altered mental status of unclear etiology found folded over upon himself in this bathtub with poor respiratory effort. The patient has had previous syncopal episodes. The patient presented to us with severe hyponatremia. Patient was i ntubated and subsequently extubated on 10/06/2024. Acute hypoxemic respiratory failure, extubated on 10/06/2024 and currently on 3 L of oxygen by nasal cannula Hypotension, post IV fluids and pressors, currently off pressors and the patient is on normal saline infusion and the sodium levels up to 127 History of syncopal episodes Nasal bridge fracture Hyponatremia secondary to beer potomania. Sodium levels improving and is currently up to 127. Nephrology on the case Daily alcohol use Chronic tobacco dependence History of hypertension Atrial fibrillation with RVR at the time of admission, currently on anticoagulation with Xarelto. Patient is also on beta-blockers. Plan: The patient is currently on 3 L of oxygen by nasal cannula, extubated No respiratory difficulties Continue DuoNeb inhalations Fluid management as per nephrology. The patient sodium level is up to 127 Chest x-ray showing atelectatic changes lung bases along with background COPD Procalcitonin negative Allowed the patient to utilize [employer] from home Watch for any signs of delirium tremens We will continue to follow, the patient can be transferred out of the intensive care unit
--- NOTE | 2024-10-07 17:50 | P.PN ---
Subjective Progress Note Date: 10/07/24 Rory Head is a 69-year-old male patient presented to the ER following being found in bathtub with decreased respiratory rate and unresponsiveness. Patient was recently here last week for hyponatremia patient has a known history of EtOH admission sodium at that time was 103 patient did leave AMA on 09/29/2024. Lab work upon arrival revealing WBC of 10.8, sodium 124 morning, lactic acid 11.5 creatinine kinase 181. Drug screen was negative serum alcohol less than 10 imaging performed in ER showing chest x-ray no suspicious acute pulmonary process, face CT showing no acute fracture or dislocation and cervical spine displaced transverse fracture through the nasal bridge. Chest CTA performed showing negative for pulmonary embolism nonspecific small cell left lower lobe pulmonary nodule. Abdomen and pelvis CT showing no acute posttraumatic finding of the abdomen or pelvis. CT of thoracic spine negative. EKG completed showing atrial fibrillation. Patient was intubated and central line placed per ER physician patient admitted to trauma team. Patient's core temperature also low started on Reema hugger. Patient's blood pressure also decreasing started on norepinephrine. Patient will be admitted to the intensive care unit. At this time consults placed for critical care, neurology, cardiology, vascular surgery due to right iliac and femoral artery stenosis, ENT and nephrology services. Blood culture ordered On 10/05/2024 patient remains in the ICU on mechanical ventilation and sedation. Per nursing staff Levophed is being weaned off. Patient also to be attempted for sedation holiday today to assess neurological status. Sodium 127. Current heart rate temp 98.1, heart 73, respiratory rate 24, blood pressure 121/72 with an FiO2 of 40% On 10/06/2024 patient was seen and examined in the ICU, he is intubated sedated maintained on mechanical ventilation, assist control rate of 22 FiO2 35% PEEP of 5, temperature is 99.1 pulse 90 respiration 21 blood pressure 121/68 white blood count is 12.2 hemoglobin 10.4 platelet count 311 potassium 3.1 corrected BUN 7 creatinine 0.47 On 10/07/2024 patient was extubated and transferred to medical floor he was seen and examined on the medical floor he is alert and oriented x 3 in no apparent distress there is no fever or chills no headache or dizziness, no chest pain no shortness of breath no cough no nausea or vomiting no abdominal pain no diarrhea and no urinary symptoms white blood count is 9.1 hemoglobin 10.4 platelet count 301 sodium is low at 127 BUN 7 creatinine 0.47 Objective - Vital Signs Vital signs: Vital Signs Temp 98.3 F 10/07/24 14:06 Pulse 80 10/07/24 14:06 Resp 18 10/07/24 14:06 BP 128/76 10/07/24 14:06 Pulse Ox 94 L 10/07/24 14:06 FiO2 65 10/06/24 09:00 Intake & Output 10/06/24 10/07/24 10/07/24 18:59 06:59 18:59 Intake Total 3321.765 0654 558 Output Total 1355 1030 450 Balance 105.156 206 108 Weight 70.5 kg Intake: IV 1036 1236 458 0.9% NS Arterial Pressure 36 36 18 Bag Sodium Chloride 0.9% 1, 1000 1200 440 000 ml @ 100 mls/hr IV . Q10H [facility] Rx#:[id number] Intake, IV Titration 364.156 100 Amount Magnesium Sulfate-D5w Pmx 100 1 gm In Dextrose/Water 1 100ml.bag @ 100 mls/hr IVPB Q1H [facility] Rx#: [id number] Potassium Chloride 20 meq 100 In Water For Injection 1 100ml.bag @ 50 mls/hr IVPB ONCE [facility] Rx#: [id number] Sodium Chloride 0.9% 1, 200 000 ml @ 100 mls/hr IV . Q10H [facility] Rx#:[id number] propofoL 1,000 mg In 64.156 Empty Bag 1 bag @ 15 MCG/ KG/MIN 6.532 mls/hr IV . [id number] [facility] Rx#:[id number] Tube Feeding 60 Output: Urine 1355 1030 450 Other: Voiding Method Indwelling Catheter Indwelling Catheter # Bowel Movements 1 ABP, PAP, CO, CI - Last Documented Arterial Blood Pressure 164/66 - Exam Patient currently on mechanical ventilation and sedated Head normocephalic Neck supple Lungs clear to auscultation bilaterally no wheezing or crackles Heart irregular rate known atrial fibrillation Abdomen is soft nontender nondistended positive bowel sounds no hepatosplenomegaly Extremities no edema - Labs CBC & Chem 7: 10/07/24 06:53 10/07/24 11:04 Labs: Abnormal Lab Results - Last 24 Hours (Table) 10/06/24 10/07/24 10/07/24 Range/Units 18:11 06:53 06:53 RBC 3.13 L (4.30-5.90) m/uL Hgb 10.4 L (13.0-17.5) gm/dL Hct 30.9 L (39.0-53.0) % Lymphocytes # 0.9 L (1.0-4.8) k/uL Sodium 127 L (137-145) mmol/L BUN 7 L (9-20) mg/dL Creatinine 0.47 L (0.66-1.25) mg/dL POC Glucose (mg/dL) 66 L (70-110) mg/dL Calcium 8.1 L (8.4-10.2) mg/dL Magnesium (1.6-2.3) mg/dL AST 16 L (17-59) U/L Total Protein 5.3 L (6.3-8.2) g/dL Albumin 2.9 L (3.5-5.0) g/dL 10/07/24 10/07/24 Range/Units 08:20 11:04 RBC (4.30-5.90) m/uL Hgb (13.0-17.5) gm/dL Hct (39.0-53.0) % Lymphocytes # (1.0-4.8) k/uL Sodium 125 L (137-145) mmol/L BUN (9-20) mg/dL Creatinine (0.66-1.25) mg/dL POC Glucose (mg/dL) (70-110) mg/dL Calcium (8.4-10.2) mg/dL Magnesium 1.4 L (1.6-2.3) mg/dL AST (17-59) U/L Total Protein (6.3-8.2) g/dL Albumin (3.5-5.0) g/dL Microbiology - Last 24 Hours (Table) 10/04/24 09:51 Blood Culture - Preliminary Blood Assessment and Plan Assessment: Altered mental status changes and respiratory distress requiring mechanical ventilation Hypothermia. Patient started on Reema hugger Metabolic acidosis lactic acid 11.5 A-fib with RVR History of hyponatremia patient was recently admitted and left AMA on 09/29/2024 History of EtOH abuse Nasal fracture. ENT services consulted History of COPD History of essential hypertension History of nicotine dependence At this time patient was intubated and will be admitted to the intensive care unit Critical care, cardiology, nephrology, trauma services, ENT and vascular surgery all consulted Prognosis guarded
[2024-10-08] MEDS: TOLVAPTAN 15 MG TABLET PO ONE (00:07)
[2024-10-08] MEDS: IPRATROPIUM-ALBUTEROL 3 ML NEB INHALATION PRN (03:58)
[2024-10-08] MEDS: METOPROLOL SUCCINATE (ER) 25 MG TAB.ER.24H PO SCH (08:35)
[2024-10-08 08:39] LABS: Basophils # (A) 0.06 X 10*3/uL (0.00-0.10); Basophils % (A) 0.5 %; Eosinophils # (A) 0.36 X 10*3/uL (0.04-0.35); HCT 35.2 % (39.6-50.0); HGB 12.1 g/dL (13.0-17.0); Lymphocytes # (A) 0.78 X 10*3/uL (0.90-5.00); Lymphocytes % (A) 6.4 %; MCH 33.1 pg (27.0-32.0); MCHC 34.4 g/dL (32.0-37.0); MCV 96.2 FL (80.0-97.0); Mean Platelet Volume 10.1 FL (9.5-12.2); Monocytes # (A) 0.63 X 10*3/uL (0.20-1.00); Monocytes % (A) 5.2 %; NRBC Per 100 WBC 0 X 10*3/uL (0.00-0.01); Neutrophils # (A) 10.32 X 10*3/uL (1.80-7.70); Neutrophils % (A) 84.6 %; Platelet Count 338 X 10*3/uL (140-440); RBC 3.66 X 10*6/uL (4.40-5.60); RDW 11.9 % (11.5-14.5); WBC 12.19 X 10*3/uL (4.50-10.00)
[2024-10-08 08:53] LABS: Blood Urea Nitrogen 7.2 mg/dL (9.0-27.0); Calcium 9.1 mg/dL (8.7-10.3); Carbon Dioxide 24.7 mmol/L (21.6-31.8); Chloride 95 mmol/L (96-109); Glucose 102 mg/dL (70-110); Magnesium 1.6 mg/dL (1.5-2.4); Sodium 130 mmol/L (135-145)
--- NOTE | 2024-10-08 10:19 | P.PN ---
Subjective Progress Note Date: 10/08/24 Rory Head is a 69-year-old male patient presented to the ER following being found in bathtub with decreased respiratory rate and unresponsiveness. Patient was recently here last week for hyponatremia patient has a known history of EtOH admission sodium at that time was 103 patient did leave AMA on 09/29/2024. Lab work upon arrival revealing WBC of 10.8, sodium 124 morning, lactic acid 11.5 creatinine kinase 181. Drug screen was negative serum alcohol less than 10 imaging performed in ER showing chest x-ray no suspicious acute pulmonary process, face CT showing no acute fracture or dislocation and cervical spine displaced transverse fracture through the nasal bridge. Chest CTA performed showing negative for pulmonary embolism nonspecific small cell left lower lobe pulmonary nodule. Abdomen and pelvis CT showing no acute posttraumatic finding of the abdomen or pelvis. CT of thoracic spine negative. EKG completed showing atrial fibrillation. Patient was intubated and central line placed per ER physician patient admitted to trauma team. Patient's core temperature also low started on Reema hugger. Patient's blood pressure also decreasing started on norepinephrine. Patient will be admitted to the intensive care unit. At this time consults placed for critical care, neurology, cardiology, vascular surgery due to right iliac and femoral artery stenosis, ENT and nephrology services. Blood culture ordered On 10/05/2024 patient remains in the ICU on mechanical ventilation and sedation. Per nursing staff Levophed is being weaned off. Patient also to be attempted for sedation holiday today to assess neurological status. Sodium 127. Current heart rate temp 98.1, heart 73, respiratory rate 24, blood pressure 121/72 with an FiO2 of 40% On 10/06/2024 patient was seen and examined in the ICU, he is intubated sedated maintained on mechanical ventilation, assist control rate of 22 FiO2 35% PEEP of 5, temperature is 99.1 pulse 90 respiration 21 blood pressure 121/68 white blood count is 12.2 hemoglobin 10.4 platelet count 311 potassium 3.1 corrected BUN 7 creatinine 0.47 On 10/07/2024 patient was extubated and transferred to medical floor he was seen and examined on the medical floor he is alert and oriented x 3 in no apparent distress there is no fever or chills no headache or dizziness, no chest pain no shortness of breath no cough no nausea or vomiting no abdominal pain no diarrhea and no urinary symptoms white blood count is 9.1 hemoglobin 10.4 platelet count 301 sodium is low at 127 BUN 7 creatinine 0.47 On 10/08/2024 patient remains on the medical floor alert and oriented x 3. Sodium improving to 130. Current vital signs temp 97.5, heart rate 87, re spiratory rate 18, blood pressure 155/78 with a pulse ox of 93% on room air. Patient denies chest pain or shortness of breath. Patient denies nausea vomiting or diarrhea. Patient denies any urinary burning or frequency Objective - Vital Signs Vital signs: Vital Signs Temp 97.5 F L 10/08/24 07:25 Pulse 88 10/08/24 08:25 Resp 18 10/08/24 07:25 BP 155/78 10/08/24 07:25 Pulse Ox 93 L 10/08/24 07:25 FiO2 65 10/06/24 09:00 Intake & Output 10/07/24 10/08/24 10/08/24 18:59 06:59 18:59 Intake Total 558 444 Output Total 650 1550 Balance -92 -1106 Weight 70.5 kg 66.7 kg Intake: IV 458 0.9% NS Arterial Pressure 18 Bag Sodium Chloride 0.9% 1, 440 000 ml @ 100 mls/hr IV . Q10H REHAN Rx#:[id number] Intake, IV Titration 100 Amount Magnesium Sulfate-D5w Pmx 100 1 gm In Dextrose/Water 1 100ml.bag @ 100 mls/hr IVPB Q1H REHAN Rx#: [id number] Oral 444 Output: Urine 650 1550 Other: Voiding Method Urinal # Voids 2 1 # Bowel Movements 1 ABP, PAP, CO, CI - Last Documented Arterial Blood Pressure 164/66 - Exam Patient currently on mechanical ventilation and sedated Head normocephalic Neck supple Lungs clear to auscultation bilaterally no wheezing or crackles Heart irregular rate known atrial fibrillation Abdomen is soft nontender nondistended positive bowel sounds no hepatosplenomegaly Extremities no edema - Labs CBC & Chem 7: 10/08/24 04:43 10/08/24 04:43 Labs: Abnormal Lab Results - Last 24 Hours (Table) 10/07/24 10/08/24 10/08/24 Range/Units 11:04 04:43 04:43 WBC 12.19 H (4.50-10.00) X 10*3/uL RBC 3.66 L (4.40-5.60) X 10*6/uL Hgb 12.1 L (13.0-17.0) g/dL Hct 35.2 L (39.6-50.0) % MCH 33.1 H (27.0-32.0) pg Neutrophils # 10.32 H (1.80-7.70) X 10*3/uL Lymphocytes # 0.78 L (0.90-5.00) X 10*3/uL Eosinophils # 0.36 H (0.04-0.35) X 10*3/uL Sodium 125 L 130 L (137-145) mmol/L Chloride 95 L (96-109) mmol/L BUN 7.2 L (9.0-27.0) mg/dL Creatinine 0.5 L (0.6-1.5) mg/dL Microbiology - Last 24 Hours (Table) 10/04/24 09:51 Blood Culture - Preliminary Blood Assessment and Plan Assessment: Altered mental status changes and respiratory distress requiring mechanical ventilation. Extubated 10/06/2024 Hypothermia. Patient started on Reema hugger. Resolved Metabolic acidosis lactic acid 11.5 A-fib with RVR History of hyponatremia patient was recently admitted and left AMA on 09/29/2024 History of EtOH abuse Nasal fracture. ENT services consulted History of COPD History of essential hypertension History of nicotine dependence At this time patient was intubated and will be admitted to the intensive care unit Transferred out of the intensive care unit Critical care, cardiology, nephrology, trauma services, ENT and vascular surgery all consulted
--- NOTE | 2024-10-08 11:12 | P.PN ---
Subjective Progress Note Date: 10/08/24 HISTORY OF PRESENTING ILLNESS 69-year-old male with past medical history of COPD, chronic tobacco use, hype rtension, alcohol abuse recently discharged on 09/30/2024, was treated for hyponatremia due to beer potomania, and hyponatremia. He required 3% saline at that time. This time he was admitted to the hospital because of an episode of syncope. On admission he was intubated and currently has been on mechanical ventilator. History is obtained for the medical charts. On admission there was concerns of atrial fibrillation with RVR. It appears to be a new diagnosis of atrial fibrillation during this admission. Currently he is in sinus rhythm. He converted out of atrial fibrillation with Cardizem. Progress note October 06, 2024 Patient was successfully extubated today. No further episodes of atrial fibrillation noticed. Does not appear volume overloaded 10/08/2024 Patient has been transferred out of the intensive care unit and seen today on the [facility] floor. Patient is awake and alert. He states he is feeling better today. He is off oxygen. Pulse ox 93% on room air. Blood pressure 155/78, heart rate in the 70s and 80s. Repeat blood work reveals WBC 12, hemoglobin 12.1, sodium 130, potassium 4, BUN 7.2 and creatinine 0.5. PHYSICAL EXAMINATION Neck: Brisk carotid upstroke, no jugular venous distention. Lungs: ET tube in place on, on vent support. Heart: Regular rate and rhythm, no murmur or rub. Abdomen: Soft nontender, positive bowel sounds. Extremities: No edema, intact distal pulses. Neuro: Alert, oritented, no focal deficits. Detailed neuro exam was not performed. ASSESSMENT Atrial fibrillation with RVR on admission, currently sinus rhythm. First diagnosed in September 2024 Alcohol abuse Hyponatremia Chronic tobacco use PAD Coronary calcification Cardiac testing Echocardiogram shows preserved LV size and systolic function with no regional wall motion abnormality, mild TR, no other major valvular abnormality PLAN Continue Xarelto 20 mg daily for elevated [id number] score for atrial fibrillation Increase metoprolol succinate to 25 mg daily. Start patient on a atorvastatin 40 mg at bedtime Recommend alcohol abstinence and tobacco cessation. Recommend outpatient alcoholic liver disease evaluation Cardiology will sign off this case and follow on an as-needed basis. Please reconsult for any new concerns. Patient may follow-up in the office in one to 2 weeks. Nurse practitioner note has been reviewed, I agree with documented findings and plan of care. Patient was seen and examined. Objective - Vital Signs Vital signs: Vital Signs Temp 97.5 F L 10/08/24 07:25 Pulse 88 10/08/24 08:25 Resp 18 10/08/24 07:25 BP 155/78 10/08/24 07:25 Pulse Ox 93 L 10/08/24 07:25 FiO2 65 10/06/24 09:00 Intake & Output 10/07/24 10/08/24 10/08/24 18:59 06:59 18:59 Intake Total 558 444 Output Total 650 1550 Balance -92 -1106 Weight 70.5 kg 66.7 kg Intake: IV 458 0.9% NS Arterial Pressure 18 Bag Sodium Chloride 0.9% 1, 440 000 ml @ 100 mls/hr IV . Q10H REHAN Rx#:[id number] Intake, IV Titration 100 Amount Magnesium Sulfate-D5w Pmx 100 1 gm In Dextrose/Water 1 100ml.bag @ 100 mls/hr IVPB Q1H REHAN Rx#: [id number] Oral 444 Output: Urine 650 1550 Other: Voiding Method Urinal # Voids 2 1 # Bowel Movements 1 ABP, PAP, CO, CI - Last Documented Arterial Blood Pressure 164/66 - Labs CBC & Chem 7: 10/08/24 04:43 10/08/24 04:43 Labs: Abnormal Lab Results - Last 24 Hours (Table) 10/07/24 10/07/24 Range/Units 08:20 11:04 Sodium 125 L (137-145) mmol/L Magnesium 1.4 L (1.6-2.3) mg/dL Microbiology - Last 24 Hours (Table) 10/04/24 09:51 Blood Culture - Preliminary Blood
--- NOTE | 2024-10-08 11:30 | P.PN ---
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 Head is a 69-year-old male with history of angina, COPD, hyperlipidemia, hypertension. Patient was admitted to [facility] this time on October 04 after he was found in the bathtub with decreased respiratory rate and unresponsiveness. He has had several episodes of seizure activity and hospital admissions over the past month however he has continued to sign out AMA prior to this time. His sodium initially during the first of these admissions was 103. His sodium during his initial sodium during this admission was 124 his lactic acid was also elevated at 11.5 and when he was seen by neurology on October 04 he was unresponsive with some jerking movements. He was placed on Keppra 500 mg twice daily for seizure prophylaxis in light of the continued seizures. An EEG was ordered and obtained October 04 which showed some background slowing at 7 to 8 Hz delta activity however no left epileptiform discharges were noted. It is very likely the patient suffered seizures in the setting of alcohol use as well as hyponatremia from beer potomania. On examination today the patient denies any significant difficulties. He is walking with a rolling walker. He does state he uses alcohol but noted he was using "only 3 beers a day" prior to his current admission. Exam: Patient's cranial nerves II through XII are intact confrontation bilaterally. Motor examination reveals 5/5 strength bilateral upper lower extremities. Coordination examination is intact to light touch in bilateral arms and legs. Sensory examinations not reveal any evidence of sensory deficit to light touch. Reflex emanation reveals 1+ symmetric reflexes applied response downgoing bilaterally. Pertinent laboratory studies: His ammonia level was initially 82 on October 03 declining to 23 (normal) by 10 07. His sodium was initially 124 and is increased to 130. Assessment: Mr. Head is a 69-year-old male with history of alcoholism. His sodium has been decreased and he has suffered several episodes of convulsive seizures likely secondary to alcohol use and beer potomania. He is on Keppra right now however his EEG was normal and long-term anticonvulsants will likely not protect him from further alcohol withdrawal induced seizures. Plan: 1. I will taper his Keppra from 500 mg every 12 hours to 500 mg daily x 3 days then discontinue this. 2. I will also order an MRI of the brain noncontrast to check for any evidence of intracerebral injury. 3. patient likely can be discharged following this. I have spoken to him regarding stopping alcohol and he states he will likely do so however this is doubtful. Objective - Vital Signs Vital signs: Vital Signs Temp 97.5 F L 10/08/24 07:25 Pulse 88 10/08/24 08:25 Resp 18 10/08/24 07:25 BP 155/78 10/08/24 07:25 Pulse Ox 93 L 10/08/24 07:25 FiO2 65 10/06/24 09:00 Intake & Output 10/07/24 10/08/24 10/08/24 18:59 06:59 18:59 Intake Total 558 444 Output Total 650 1550 Balance -92 -1106 Weight 70.5 kg 66.7 kg Intake: IV 458 0.9% NS Arterial Pressure 18 Bag Sodium Chloride 0.9% 1, 440 000 ml @ 100 mls/hr IV . Q10H REHAN Rx#:[id number] Intake, IV Titration 100 Amount Magnesium Sulfate-D5w Pmx 100 1 gm In Dextrose/Water 1 100ml.bag @ 100 mls/hr IVPB Q1H RE[facility]AN Rx#: [id number] Oral 444 Output: Urine 650 1550 Other: Voiding Method Urinal Urinal # Voids 2 1 # Bowel Movements 1 ABP, PAP, CO, CI - Last Documented Arterial Blood Pressure 164/66 - Labs CBC & Chem 7: 10/08/24 04:43 10/08/24 04:43 Labs: Abnormal Lab Results - Last 24 Hours (Table) 10/07/24 10/08/24 10/08/24 Range/Units 11:04 04:43 04:43 WBC 12.19 H (4.50-10.00) X 10*3/uL RBC 3.66 L (4.40-5.60) X 10*6/uL Hgb 12.1 L (13.0-17.0) g/dL Hct 35.2 L (39.6-50.0) % MCH 33.1 H (27.0-32.0) pg Neutrophils # 10.32 H (1.80-7.70) X 10*3/uL Lymphocytes # 0.78 L (0.90-5.00) X 10*3/uL Eosinophils # 0.36 H (0.04-0.35) X 10*3/uL Sodium 125 L 130 L (137-145) mmol/L Chloride 95 L (96-109) mmol/L BUN 7.2 L (9.0-27.0) mg/dL Creatinine 0.5 L (0.6-1.5) mg/dL Microbiology - Last 24 Hours (Table) 10/04/24 09:51 Blood Culture - Preliminary Blood
--- NOTE | 2024-10-08 13:08 | P.PN ---
Subjective patient is seen for follow-up for hyponatremia. Currently maintained on normal saline. Serum sodium dropped to 127 yesterday and saline was discontinued and patient received 1 dose of Samsca 7.5 mg. Serum sodium increased to 130 today. No significant complaints. Objective - Vital Signs Vital signs: Vital Signs Temp 97.5 F L 10/08/24 07:25 Pulse 84 10/08/24 12:13 Resp 18 10/08/24 07:25 BP 155/78 10/08/24 07:25 Pulse Ox 93 L 10/08/24 07:25 FiO2 65 10/06/24 09:00 Intake & Output 10/07/24 10/08/24 10/08/24 18:59 06:59 18:59 Intake Total 558 444 Output Total 650 1550 Balance -92 -1106 Weight 70.5 kg 66.7 kg Intake: IV 458 0.9% NS Arterial Pressure 18 Bag Sodium Chloride 0.9% 1, 440 000 ml @ 100 mls/hr IV . Q10H REHAN Rx#:[id number] Intake, IV Titration 100 Amount Magnesium Sulfate-D5w Pmx 100 1 gm In Dextrose/Water 1 100ml.bag @ 100 mls/hr IVPB Q1H REHAN Rx#: [id number] Oral 444 Output: Urine 650 1550 Other: Voiding Method Urinal Urinal # Voids 2 1 # Bowel Movements 1 ABP, PAP, CO, CI - Last Documented Arterial Blood Pressure 164/66 - Exam Patient is awake and following commands. No acute distress. Abdomen is soft nontender Examination of lower extremity shows no evidence of edema - Labs CBC & Chem 7: 10/08/24 04:43 10/08/24 04:43 Labs: Abnormal Lab Results - Last 24 Hours (Table) 10/08/24 10/08/24 Range/Units 04:43 04:43 WBC 12.19 H (4.50-10.00) X 10*3/uL RBC 3.66 L (4.40-5.60) X 10*6/uL Hgb 12.1 L (13.0-17.0) g/dL Hct 35.2 L (39.6-50.0) % MCH 33.1 H (27.0-32.0) pg Neutrophils # 10.32 H (1.80-7.70) X 10*3/uL Lymphocytes # 0.78 L (0.90-5.00) X 10*3/uL Eosinophils # 0.36 H (0.04-0.35) X 10*3/uL Sodium 130 L (135-145) mmol/L Chloride 95 L (96-109) mmol/L BUN 7.2 L (9.0-27.0) mg/dL Creatinine 0.5 L (0.6-1.5) mg/dL Microbiology - Last 24 Hours (Table) 10/04/24 09:51 Blood Culture - Preliminary Blood Assessment and Plan Assessment: 1. Hyponatremia, hypovolemic and component of urinary retention. Sodium improved with normal saline. Saline was discontinued yesterday as serum sodium had dropped to 127 and 125. Status post Samsca and sodium improved to 130 today. He may have an underlying component of SIADH. Bladder scan will be checked again to rule out urine retention since Bennett catheter was discontinued yesterday. 2. Metabolic acidosis secondary to lactic acidosis. 3. A-fib with RVR status post Cardizem drip. 4. Urinary retention. Bennett catheter placed. 1.4 L of urine obtained initially. 5. Shock, status post Levophed. All cultures negative thus far 6. Status post fall. 7. Lung nodule rule out malignancy Plan: continue off of IV fluids Maintain fluid restriction Repeat bladder scan Patient will need sodium chloride tab upon discharge with close monitoring of sodium as outpatient.
--- NOTE | 2024-10-08 14:52 | PN ---
PROGRESS NOTE SUBJECTIVE: This is a 69-year-old gentleman came into the hospital in a somewhat of an unresponsive state with alcohol as a major issue. Ejection fraction is well preserved. He was extubated yesterday. No further episodes of atrial fib. Remains in sinus rhythm. Hemodynamically stable. He is on Xarelto and a small dose of beta ronn. He also has alcoholism, acute and chronic. He also had hyponatremia that was resolved. He is the patient who has acute alcoholism episodes and also fall risk and I am concerned about Xarelto, but he tells me that he will be able to take it. I will request Social Service to assess home situation. Continue current medications. Recommended alcohol abstinence and to move him to the general medical floor. OBJECTIVE: NECK: Revealed no JVD. CARDIOVASCULAR: S1, S2 heard normally. No significant murmurs. LUNGS: Clear. ABDOMEN: Soft. EXTREMITIES: Lower extremities revealed diminished pulses. NEUROLOGIC: Central nervous system detailed exam not performed. Grossly no focal deficits. IMPRESSION: 1. Atrial fibrillation with rapid ventricular rate, resolved. 2. Alcohol abuse with acute and chronic alcoholism. RECOMMENDATIONS: Same medications. Reconsider use of Xarelto long-term. Await Social Service input in this regard, whether the patient is a reliable candidate at home. Can go to medical floor. MMODL / IJN: [id number] /
--- NOTE | 2024-10-08 15:23 | P.PN ---
Subjective Progress Note Date: 10/08/24 This is a 69-year-old male patient with a known history of COPD, chronic tobacco dependence, hypertension, alcohol abuse who was recently discharged from here on 09/30/2024 after being admitted for hyponatremia due to [place] with hypovolemia requiring 3% saline. We had followed the patient while in the intensive care unit. After he was found folded upon himself in the bathtub. He had positional asphyxia and his respiratory rate was 2 on EMS arrival. Once he unfolded his body his respiratory rate improved though he remained altered. Pinpoint pupils. States he had been having episodes of syncope. Was intubated and placed on mechanical ventilator. He is currently on assist-control mode at a rate of 22, tidal volume 450, FiO2 50% and a PEEP of 5. Morning blood gases revealed a PaO2 of 420, pCO2 46, pH 7.29. This was on 100% FiO2 and a rate of 20. X-ray reveals endotracheal and gastric tubes in good position. No suspicious acute pulmonary process. CT angiogram ruled out pulmonary embolism. No suspicious acute pulmonary process. CT scan of the brain and C-spine revealed no evidence of fracture or dislocation. No acute intracranial hemorrhage or midline shift. There is an acute nondisplaced transverse fracture through the nasal bridge. CT scan of the thoracic and lumbar spine revealed no acute fractures. White count 10.8. Hemoglobin 13.4. Platelets 479. Sodium 124. Potassium 4.5. Bicarb 11. BUN 14. Creatinine 0.53. Glucose 227. Urine drug screen negative. Serum alcohol less than 10. He is seen today in consultation in the emergency department. He remains sedated on propofol currently at 50 mcg/kg/min. He is receiving 4 L of fluid resuscitation. Re mained hypotensive and is started on norepinephrine at 0.09 mcg/kg/min. Normal saline at 130 mL/h. He has been given cefazolin The patient is seen today October 05, 2024 in follow-up in the intensive care unit. He remains intubated on the mechanical ventilator currently on assist- control mode at a rate of 22, tidal volume 450, FiO2 40% and a PEEP of 5. Morning blood gases revealed a PaO2 of 127, pCO2 of 35 and a pH of 7.39. He remains on norepinephrine at 2.9 mcg/min. Propofol at 50 mcg/kg/min. Normal saline at 100 mL/h. Tube feedings will be initiated. EEG reveals slowing suggestive of moderate encephalopathy. No focal slowing, epileptic discharge or seizure noted. Chest x-ray reveals increased interstitial opacity of the right lung base. White count 12.8. Hemoglobin 11.5. Platelets 367. Sodium 127. Potassium 3.9. Bicarb 19. BUN 9. Creatinine 0.50. Glucose 100. Amylase 162. Lipase 551. Continued on DuoNeb inhalations. Heparin for DVT prophylaxis. The patient is seen today October 06, 2024 in follow-up in the intensive care unit. He remains intubated on the mechanical ventilator. Currently on assist- control mode at a rate of 22, tidal on 450, FiO2 35% and a PEEP of 5. Morning blood gases revealed a PaO2 of 119, pCO2 35 and a pH of 7.40. He is sedated on propofol at 40 mcg/kg/min. Normal saline at 100 mL/h. He is being nourished with vital HP at 30 mL/h with a goal of 53 mL/h. Sputum culture revealed no growth. Blood culture revealed no growth. White count 12.2. Hemoglobin 10.4. Platelets 311. Sodium 130. Potassium 3.1. Bicarb 19. BUN 7. Creatinine 0.47. Glucose 97. He is continued on DuoNeb inhalations 10/07/2024, the patient is being seen for a follow-up. The patient is status post acute hypoxic darvin failure requiring intubation and mechanical ventilation and the patient is extubated and the patient is currently on oxygen at 3 L/min nasal cannula. The follow-up chest x-ray from today shows stable bibasilar atelectatic changes and COPD. The patient is known to have advanced COPD, hypertension, alcoholism and the patient also had severe hyponatremia at the time of admission, treated with hypertonic saline solution and the sodium has been improving. The most recent sodium level from this morning is at 127, BUN i s 7 with a creatinine of 0.4. The white cell count is at 9.1 with a hemoglobin of 10.4. The patient was also in atrial fibrillation with rapid ventricular response at the time of admission. The patient is currently on anticoagulation with Xarelto. The patient is also on metoprolol 12.5 mg p.o. daily. Seems to be weak and quite debilitated. Nevertheless, no dyspnea at rest. No signs of encephalopathy or delirium at this point. Family is at the bedside. The patient is answering questions appropriately. 10/08/2024, the patient is on room air oxygen. Resting comfortably in bed. No signs of any respiratory distress. The patient is currently no fever. No chills. The white cell count is 12 with a hemoglobin 12.1 and a platelet count of 338. . Sodium level is up to 130 and a potassium level is at 4 with a bicarb of 24. BUN is 7.2 with a creatinine of 0.5. Off IV fluids. He is on anticoagulation with Xarelto. No encephalopathy. No agitation. No other significant events overnight. He has no home O2. He has been maintained on Trelegy Ellipta on outpatient basis regarding his COPD. Objective - Vital Signs Vital signs: Vital Signs Temp 97.7 F 10/08/24 13:56 Pulse 77 10/08/24 13:56 Resp 18 10/08/24 13:56 BP 142/78 10/08/24 13:56 Pulse Ox 96 10/08/24 13:56 FiO2 65 10/06/24 09:00 Intake & Output 10/07/24 10/08/24 10/08/24 18:59 06:59 18:59 Intake Total 558 444 Output Total 650 1550 Balance -92 -1106 Weight 70.5 kg 66.7 kg Intake: IV 458 0.9% NS Arterial Pressure 18 Bag Sodium Chloride 0.9% 1, 440 000 ml @ 100 mls/hr IV . Q10H REHAN Rx#:[id number] Intake, IV Titration 100 Amount Magnesium Sulfate-D5w Pmx 100 1 gm In Dextrose/Water 1 100ml.bag @ 100 mls/hr IVPB Q1H REHAN Rx#: [id number] Oral 444 Output: Urine 650 1550 Other: Voiding Method Urinal Urinal # Voids 2 1 # Bowel Movements 1 ABP, PAP, CO, CI - Last Documented Arterial Blood Pressure 164/66 - Exam GENERAL EXAM: Intubated, sedated 69-year-old male, on room air oxygen HEAD: Normocephalic. EYES: Sluggish reaction of pupils, equal size. NOSE: Clear with pink turbinates. THROAT: Oral gastric and endotracheal tube secured in place. No erythema or exudates. NECK: No masses, no JVD. CHEST: No chest wall deformity. LUNGS: Equal air entry with no crackles, wheeze, rhonchi or dullness. CVS: S1 and S2 normal with no audible murmur, regular rhythm. ABDOMEN: No hepatosplenomegaly, normal bowel sounds, no guarding or rigidity. SPINE: No scoliosis or deformity SKIN: No rashes CENTRAL NERVOUS SYSTEM: Calm and comfortable, moving all 4 extremities without limitation, profound generalized weakness. EXTREMITIES: There is no peripheral edema. No clubbing, no cyanosis. Peripheral pulses are intact. - Labs CBC & Chem 7: 10/08/24 04:43 10/08/24 04:43 Labs: Abnormal Lab Results - Last 24 Hours (Table) 10/08/24 10/08/24 Range/Units 04:43 04:43 WBC 12.19 H (4.50-10.00) X 10*3/uL RBC 3.66 L (4.40-5.60) X 10*6/uL Hgb 12.1 L (13.0-17.0) g/dL Hct 35.2 L (39.6-50.0) % MCH 33.1 H (27.0-32.0) pg Neutrophils # 10.32 H (1.80-7.70) X 10*3/uL Lymphocytes # 0.78 L (0.90-5.00) X 10*3/uL Eosinophils # 0.36 H (0.04-0.35) X 10*3/uL Sodium 130 L (135-145) mmol/L Chloride 95 L (96-109) mmol/L BUN 7.2 L (9.0-27.0) mg/dL Creatinine 0.5 L (0.6-1.5) mg/dL Microbiology - Last 24 Hours (Table) 10/04/24 09:51 Blood Culture - Preliminary Blood Assessment and Plan Plan: Altered mental status of unclear etiology found folded over upon himself in this bathtub with poor respiratory effort. The patient has had previous syncopal episodes. The patient presented to us with severe hyponatremia. Patient was intubated and subsequently extubated on 10/06/2024. Mental status is normalized and the patient's is appropriate at this point in time. Acute hypoxemic respiratory failure, extubated on 10/06/2024 and currently on he is on room air oxygen. No home O2. Hypotension, recovered Hyponatremia, recovered History of syncopal episodes Nasal bridge fracture Daily alcohol use Chronic tobacco dependence History of hypertension Atrial fibrillation with RVR at the time of admission, currently on anticoagulation with Xarelto. Patient is also on beta-blockers. Plan: The patient is currently on room air oxygen No respiratory difficulties Continue DuoNeb inhalations Sodium level has normalized Chest x-ray showing atelectatic changes lung bases along with background COPD Procalcitonin negative Allowed the patient to utilize Trelegy Ellipta from home Watch for any signs of delirium tremens Discharge planning is in progress
[2024-10-08] MEDS: ATORVASTATIN 40 MG TAB PO SCH (21:58)
[2024-10-09] MEDS: levETIRAcetam 500 MG TAB PO SCH (08:33)
[2024-10-09 08:42] LABS: Basophils # (A) 0.09 X 10*3/uL (0.00-0.10); Eosinophils # (A) 0.38 X 10*3/uL (0.04-0.35); Eosinophils % (A) 4.3 %; HCT 35.4 % (39.6-50.0); HGB 12.1 g/dL (13.0-17.0); Lymphocytes # (A) 1.33 X 10*3/uL (0.90-5.00); Lymphocytes % (A) 15.1 %; MCH 33.4 pg (27.0-32.0); MCHC 34.2 g/dL (32.0-37.0); MCV 97.8 FL (80.0-97.0); Monocytes # (A) 0.77 X 10*3/uL (0.20-1.00); Monocytes % (A) 8.7 %; NRBC Per 100 WBC 0 X 10*3/uL (0.00-0.01); Neutrophils # (A) 6.23 X 10*3/uL (1.80-7.70); Neutrophils % (A) 70.6 %; Platelet Count 337 X 10*3/uL (140-440); RBC 3.62 X 10*6/uL (4.40-5.60); WBC 8.83 X 10*3/uL (4.50-10.00)
[2024-10-09 09:34] LABS: ALT 32 U/L (10-49); AST 28 U/L (14-35); Albumin 3.8 g/dL (3.8-4.9); Albumin/Globulin Ratio 1.65 Ratio (1.60-3.17); Alkaline Phosphatase 85 U/L (41-126); Blood Urea Nitrogen 11.7 mg/dL (9.0-27.0); Calcium 9.2 mg/dL (8.7-10.3); Carbon Dioxide 23.2 mmol/L (21.6-31.8); Chloride 99 mmol/L (96-109); Globulin 2.3 g/dL (1.6-3.3); Glucose 94 mg/dL (70-110); Potassium 3.9 mmol/L (3.5-5.5); Sodium 133 mmol/L (135-145); Total Bilirubin 0.7 mg/dL (0.3-1.2); Total Protein 6.1 g/dL (6.2-8.2)
--- NOTE | 2024-10-09 12:17 | P.PN ---
Subjective Progress Note Date: 10/09/24 Rory Head is a 69-year-old male patient presented to the ER following being found in bathtub with decreased respiratory rate and unresponsiveness. Patient was recently here last week for hyponatremia patient has a known history of EtOH admission sodium at that time was 103 patient did leave AMA on 09/29/2024. Lab work upon arrival revealing WBC of 10.8, sodium 124 morning, lactic acid 11.5 creatinine kinase 181. Drug screen was negative serum alcohol less than 10 imaging performed in ER showing chest x-ray no suspicious acute pulmonary process, face CT showing no acute fracture or dislocation and cervical spine displaced transverse fracture through the nasal bridge. Chest CTA performed showing negative for pulmonary embolism nonspecific small cell left lower lobe pulmonary nodule. Abdomen and pelvis CT showing no acute posttraumatic finding of the abdomen or pelvis. CT of thoracic spine negative. EKG completed showing atrial fibrillation. Patient was intubated and central line placed per ER physician patient admitted to trauma team. Patient's core temperature also low started on Reema hugger. Patient's blood pressure also decreasing started on norepinephrine. Patient will be admitted to the intensive care unit. At this time consults placed for critical care, neurology, cardiology, vascular surgery due to right iliac and femoral artery stenosis, ENT and nephrology services. Blood culture ordered On 10/05/2024 patient remains in the ICU on mechanical ventilation and sedation. Per nursing staff Levophed is being weaned off. Patient also to be attempted for sedation holiday today to assess neurological status. Sodium 127. Current heart rate temp 98.1, heart 73, respiratory rate 24, blood pressure 121/72 with an FiO2 of 40% On 10/06/2024 patient was seen and examined in the ICU, he is intubated sedated maintained on mechanical ventilation, assist control rate of 22 FiO2 35% PEEP of 5, temperature is 99.1 pulse 90 respiration 21 blood pressure 121/68 white blood count is 12.2 hemoglobin 10.4 platelet count 311 potassium 3.1 corrected BUN 7 creatinine 0.47 On 10/07/2024 patient was extubated and transferred to medical floor he was seen and examined on the medical floor he is alert and oriented x 3 in no apparent distress there is no fever or chills no headache or dizziness, no chest pain no shortness of breath no cough no nausea or vomiting no abdominal pain no diarrhea and no urinary symptoms white blood count is 9.1 hemoglobin 10.4 platelet count 301 sodium is low at 127 BUN 7 creatinine 0.47 On 10/08/2024 patient remains on the medical floor alert and oriented x 3. Sodium improving to 130. Current vital signs temp 97.5, heart rate 87, re spiratory rate 18, blood pressure 155/78 with a pulse ox of 93% on room air. Patient denies chest pain or shortness of breath. Patient denies nausea vomiting or diarrhea. Patient denies any urinary burning or frequency On 10/09/2024 patient is alert and oriented x 3. Sodium today 133 did discuss case with nephrology services patient to be started on sodium chloride tabs 1 g daily. MRI has been ordered per neurology services scheduled for 315 today. Patient denies chest pain or shortness of breath. Patient denies nausea vomiting or diarrhea. Patient denies any urinary burning or frequency. Neurology services also started patient on Keppra tapering dose. Objective - Vital Signs Vital signs: Vital Signs Temp 97.9 F 10/09/24 07:11 Pulse 88 10/09/24 11:30 Resp 16 10/09/24 07:11 BP 164/60 10/09/24 07:11 Pulse Ox 96 10/09/24 07:11 FiO2 65 10/06/24 09:00 Intake & Output 10/08/24 10/09/24 10/09/24 18:59 06:59 18:59 Output Total 60 150 Balance -60 -150 Weight 52.75 kg Output: Urine 150 Post Void Residual 60 Other: Voiding Method Urinal Urinal Urinal # Voids 1 4 ABP, PAP, CO, CI - Last Documented Arterial Blood Pressure 164/66 - Exam Patient currently on mechanical ventilation and sedated Head normocephalic Neck supple Lungs clear to auscultation bilaterally no wheezing or crackles Heart irregular rate known atrial fibrillation Abdomen is soft nontender nondistended positive bowel sounds no hepatosplenomegaly Extremities no edema - Labs CBC & Chem 7: 10/09/24 04:56 10/09/24 04:56 Labs: Abnormal Lab Results - Last 24 Hours (Table) 10/09/24 10/09/24 Range/Units 04:56 04:56 RBC 3.62 L (4.40-5.60) X 10*6/uL Hgb 12.1 L (13.0-17.0) g/dL Hct 35.4 L (39.6-50.0) % MCV 97.8 H (80.0-97.0) FL MCH 33.4 H (27.0-32.0) pg Eosinophils # 0.38 H (0.04-0.35) X 10*3/uL Sodium 133 L (135-145) mmol/L Creatinine 0.5 L (0.6-1.5) mg/dL BUN/Creatinine Ratio 23.40 H (12.00-20.00) Ratio Total Protein 6.1 L (6.2-8.2) g/dL Assessment and Plan Assessment: Altered mental status changes and respiratory distress requiring mechanical ventilation. Extubated 10/06/2024 Hypothermia. Patient started on Reema hugger. Resolved Metabolic acidosis lactic acid 11.5 A-fib with RVR History of hyponatremia patient was recently admitted and left AMA on 09/29/2024 History of EtOH abuse Nasal fracture. ENT services consulted History of COPD History of essential hypertension History of nicotine dependence At this time patient was intubated and will be admitted to the intensive care unit Transferred out of the intensive care unit Critical care, cardiology, nephrology, trauma services, ENT and vascular surgery all consulted MRI of the brain has been ordered per neurology
--- NOTE | 2024-10-09 16:21 | MR ---
EXAMINATION TYPE: MR brain wo con DATE OF EXAM: 10/09/2024 4:01 PM COMPARISON: 10/04/2024. CLINICAL INDICATION: Male, 69 years old with history of Seizure Disorder, Alcoholism; PHH, seizure di sorder, alcoholism TECHNIQUE: Multi planar, multi sequence imaging was performed through the brain including: T1, T2, In version recovery, Diffusion weighted imaging, and gradient echo imaging. No gadolinium was given. FINDINGS: Mild cerebral atrophy with proportional dilation of ventricular system. Scattered foci of high T2 s ignal intensity are seen within the periventricular white matter. Midline structures show no abnormal ity. Diffusion-weighted imaging shows no evidence of restricted diffusion. The susceptibility weighte d images do not reveal any evidence for micro-hemorrhage. The bone marrow signal is within normal limits. Paranasal sinuses and mastoid air cells: No significant paranasal sinus disease. Trace T2 signal in t he bilateral mastoid air cells. Visualized orbits: Orbital contents are intact. IMPRESSION: 1. No evidence of intracranial mass or acute/subacute infarct. 2. Nonspecific white matter changes, likely secondary to small vessel ischemic disease. [facility], , 10/09/2024 4:19 PM
--- NOTE | 2024-10-09 20:38 | P.PN ---
Subjective Progress Note Date: 10/09/24 This is a 69-year-old male patient with a known history of COPD, chronic tobacco dependence, hypertension, alcohol abuse who was recently discharged from here on 09/30/2024 after being admitted for hyponatremia due to [place] with hypovolemia requiring 3% saline. We had followed the patient while in the intensive care unit. After he was found folded upon himself in the bathtub. He had positional asphyxia and his respiratory rate was 2 on EMS arrival. Once he unfolded his body his respiratory rate improved though he remained altered. Pinpoint pupils. States he had been having episodes of syncope. Was intubated and placed on mechanical ventilator. He is currently on assist-control mode at a rate of 22, tidal volume 450, FiO2 50% and a PEEP of 5. Morning blood gases revealed a PaO2 of 420, pCO2 46, pH 7.29. This was on 100% FiO2 and a rate of 20. X-ray reveals endotracheal and gastric tubes in good position. No suspicious acute pulmonary process. CT angiogram ruled out pulmonary embolism. No suspicious acute pulmonary process. CT scan of the brain and C-spine revealed no evidence of fracture or dislocation. No acute intracranial hemorrhage or midline shift. There is an acute nondisplaced transverse fracture through the nasal bridge. CT scan of the thoracic and lumbar spine revealed no acute fractures. White count 10.8. Hemoglobin 13.4. Platelets 479. Sodium 124. Potassium 4.5. Bicarb 11. BUN 14. Creatinine 0.53. Glucose 227. Urine drug screen negative. Serum alcohol less than 10. He is seen today in consultation in the emergency department. He remains sedated on propofol currently at 50 mcg/kg/min. He is receiving 4 L of fluid resuscitation. Re mained hypotensive and is started on norepinephrine at 0.09 mcg/kg/min. Normal saline at 130 mL/h. He has been given cefazolin The patient is seen today October 05, 2024 in follow-up in the intensive care unit. He remains intubated on the mechanical ventilator currently on assist- control mode at a rate of 22, tidal volume 450, FiO2 40% and a PEEP of 5. Morning blood gases revealed a PaO2 of 127, pCO2 of 35 and a pH of 7.39. He remains on norepinephrine at 2.9 mcg/min. Propofol at 50 mcg/kg/min. Normal saline at 100 mL/h. Tube feedings will be initiated. EEG reveals slowing suggestive of moderate encephalopathy. No focal slowing, epileptic discharge or seizure noted. Chest x-ray reveals increased interstitial opacity of the right lung base. White count 12.8. Hemoglobin 11.5. Platelets 367. Sodium 127. Potassium 3.9. Bicarb 19. BUN 9. Creatinine 0.50. Glucose 100. Amylase 162. Lipase 551. Continued on DuoNeb inhalations. Heparin for DVT prophylaxis. The patient is seen today October 06, 2024 in follow-up in the intensive care unit. He remains intubated on the mechanical ventilator. Currently on assist- control mode at a rate of 22, tidal on 450, FiO2 35% and a PEEP of 5. Morning blood gases revealed a PaO2 of 119, pCO2 35 and a pH of 7.40. He is sedated on propofol at 40 mcg/kg/min. Normal saline at 100 mL/h. He is being nourished with vital HP at 30 mL/h with a goal of 53 mL/h. Sputum culture revealed no growth. Blood culture revealed no growth. White count 12.2. Hemoglobin 10.4. Platelets 311. Sodium 130. Potassium 3.1. Bicarb 19. BUN 7. Creatinine 0.47. Glucose 97. He is continued on DuoNeb inhalations 10/07/2024, the patient is being seen for a follow-up. The patient is status post acute hypoxic darvin failure requiring intubation and mechanical ventilation and the patient is extubated and the patient is currently on oxygen at 3 L/min nasal cannula. The follow-up chest x-ray from today shows stable bibasilar atelectatic changes and COPD. The patient is known to have advanced COPD, hypertension, alcoholism and the patient also had severe hyponatremia at the time of admission, treated with hypertonic saline solution and the sodium has been improving. The most recent sodium level from this morning is at 127, BUN i s 7 with a creatinine of 0.4. The white cell count is at 9.1 with a hemoglobin of 10.4. The patient was also in atrial fibrillation with rapid ventricular response at the time of admission. The patient is currently on anticoagulation with Xarelto. The patient is also on metoprolol 12.5 mg p.o. daily. Seems to be weak and quite debilitated. Nevertheless, no dyspnea at rest. No signs of encephalopathy or delirium at this point. Family is at the bedside. The patient is answering questions appropriately. 10/08/2024, the patient is on room air oxygen. Resting comfortably in bed. No signs of any respiratory distress. The patient is currently no fever. No chills. The white cell count is 12 with a hemoglobin 12.1 and a platelet count of 338. . Sodium level is up to 130 and a potassium level is at 4 with a bicarb of 24. BUN is 7.2 with a creatinine of 0.5. Off IV fluids. He is on anticoagulation with Xarelto. No encephalopathy. No agitation. No other significant events overnight. He has no home O2. He has been maintained on Trelegy Ellipta on outpatient basis regarding his COPD. CT on today's evaluation of 10/09/2024, the patient is resting comfortably in bed. The patient's sodium level is up to 133. No significant shortness of breath. No nausea vomiting or diarrhea or abdominal pain. No other significant events overnight. Oxygenation remained stable and the patient is currently on room air oxygen with a pulse ox of 96%. Remains quite debilitated and weak. The white cell count is at 8.8 with a hemoglobin of 12.1 and a platelet count of 337. BUN is 11 with a creatinine of 0.5. Sodium levels at 133. MRI of the brain was also completed today and patient was found to have no evidence of any infarct and there was some nonspecific chronic white matter changes bilaterally. Objective - Vital Signs Vital signs: Vital Signs Temp 97.5 F L 10/09/24 19:42 Pulse 75 10/09/24 19:42 Resp 17 10/09/24 19:42 BP 165/86 10/09/24 19:42 Pulse Ox 96 10/09/24 19:42 FiO2 65 10/06/24 09:00 Intake & Output 10/09/24 10/09/24 10/10/24 06:59 18:59 06:59 Intake Total 942 Output Total 350 150 Balance 592 -150 Weight 52.75 kg Intake: Oral 942 Output: Urine 350 150 Other: Voiding Method Urinal Urinal # Voids 4 1 ABP, PAP, CO, CI - Last Documented Arterial Blood Pressure 164/66 - Exam GENERAL EXAM: Intubated, sedated 69-year-old male, on room air oxygen HEAD: Normocephalic. EYES: Sluggish reaction of pupils, equal size. NOSE: Clear with pink turbinates. THROAT: Oral gastric and endotracheal tube secured in place. No erythema or exudates. NECK: No masses, no JVD. CHEST: No chest wall deformity. LUNGS: Equal air entry with no crackles, wheeze, rhonchi or dullness. CVS: S1 and S2 normal with no audible murmur, regular rhythm. ABDOMEN: No hepatosplenomegaly, normal bowel sounds, no guarding or rigidity. SPINE: No scoliosis or deformity SKIN: No rashes CENTRAL NERVOUS SYSTEM: Calm and comfortable, moving all 4 extremities without limitation, profound generalized weakness. EXTREMITIES: There is no peripheral edema. No clubbing, no cyanosis. Peripheral pulses are intact. - Labs CBC & Chem 7: 10/09/24 04:56 10/09/24 04:56 Labs: Abnormal Lab Results - Last 24 Hours (Table) 10/09/24 10/09/24 Range/Units 04:56 04:56 RBC 3.62 L (4.40-5.60) X 10*6/uL Hgb 12.1 L (13.0-17.0) g/dL Hct 35.4 L (39.6-50.0) % MCV 97.8 H (80.0-97.0) FL MCH 33.4 H (27.0-32.0) pg Eosinophils # 0.38 H (0.04-0.35) X 10*3/uL Sodium 133 L (135-145) mmol/L Creatinine 0.5 L (0.6-1.5) mg/dL BUN/Creatinine Ratio 23.40 H (12.00-20.00) Ratio Total Protein 6.1 L (6.2-8.2) g/dL Microbiology - Last 24 Hours (Table) 10/04/24 09:51 Blood Culture - Final Blood Assessment and Plan Plan: Altered mental status of unclear etiology found folded over upon himself in this bathtub with poor respiratory effort. The patient has had previous syncopal episodes. The patient presented to us with severe hyponatremia. Patient was intubated and subsequently extubated on 10/06/2024. Mental status is normalized and the patient's is appropriate at this point in time. MRI of the brain showing chronic white matter changes, no evidence of any stroke. Acute hypoxemic respiratory failure, extubated on 10/06/2024 and currently on he is on room air oxygen. No home O2. Hypotension, recovered Hyponatremia, recovered History of syncopal episodes Nasal bridge fracture Daily alcohol use Chronic tobacco dependence History of hypertension Atrial fibrillation with RVR at the time of admission, currently on anticoagulation with Xarelto. Patient is also on beta-blockers. Plan: The patient is currently on room air oxygen No respiratory difficulties Continue DuoNeb inhalations Sodium level has normalized Chest x-ray showing atelectatic changes lung bases along with background COPD Procalcitonin negative Allowed the patient to utilize Trelegy Ellipta from home Watch for any signs of delirium tremens MRI of the brain is negative for an acute stroke. Chronic white matter changes
[2024-10-10 01:19] VITALS: RESP 16
[2024-10-10 07:10] VITALS: BP 152/82; TEMP 98.3
[2024-10-10 07:59] VITALS: PULSE 80
[2024-10-10] MEDS: SODIUM CHLORIDE TAB 1 GM TAB PO SCH (09:20)
--- NOTE | 2024-10-10 09:57 | P.DS ---
Providers Date of admission: 10/04/24 07:47 Expected date of discharge: 10/10/24 Attending physician: Jose Mason Consults: 10/04/24 07:00 Consult Physician Routine Consulting Provider: [facility] Consult Reason/Comments: atrial fibrillation with rvr Do you want consulting provider notified?: Yes Consult Physician Routine Consulting Provider: Neal Martinez Consult Reason/Comments: altered mental status, level 1 trauma Do you want consulting provider notified?: Yes 10/04/24 07:01 Consult Physician Urgent Consulting Provider: Paavn Martinez Consult Reason/Comments: intubated, ams, level 1 trauma Do you want consulting provider notified?: Yes 10/04/24 07:12 Consult Physician Routine Consulting Provider: Jose Mason Consult Reason/Comments: medical management Do you want consulting provider notified?: Yes 10/04/24 08:27 Consult Physician Routine Consulting Provider: Jose Solares Consult Reason/Comments: nasal fracture Do you want consulting provider notified?: Yes 10/04/24 09:38 Consult Physician Routine Consulting Provider: Rachel Meadows Consult Reason/Comments: HYPONATREMIA Do you want consulting provider notified?: Yes Primary care physician: Jose Mason [facility] Course: Diagnosis on discharge: Altered mental status changes and respiratory distress requiring mechanical ventilation. Extubated 10/06/2024 Hypothermia. Patient started on Reema hugger. Resolved Metabolic acidosis lactic acid 11.5 A-fib with RVR History of hyponatremia patient was recently admitted and left AMA on 09/29/2024 History of EtOH abuse Nasal fracture. ENT services consulted History of COPD History of essential hypertension History of nicotine dependence Hospital course: Rory Head is a 69-year-old male patient presented to the ER following being found in bathtub with decreased respiratory rate and unresponsiveness. Patient was recently here last week for hyponatremia patient has a known history of EtOH admission sodium at that time was 103 patient did leave AMA on 09/29/2024. Lab work upon arrival revealing WBC of 10.8, sodium 124 morning, lactic acid 11.5 creatinine kinase 181. Drug screen was negative serum alcohol less than 10 imaging performed in ER showing chest x-ray no suspicious acute pulmonary process, face CT showing no acute fracture or dislocation and cervical spine displaced transverse fracture through the nasal bridge. Chest CTA performed showing negative for pulmonary embolism nonspecific small cell left lower lobe pulmonary nodule. Abdomen and pelvis CT showing no acute posttraumatic finding of the abdomen or pelvis. CT of thoracic spine negative. EKG completed showing atrial fibrillation. Patient was intubated and central line placed per ER physician patient admitted to trauma team. Patient's core temperature also low started on Reema hugger. Patient's blood pressure also decreasing started on norepinephrine. Patient will be admitted to the intensive care unit. At this time consults placed for critical care, neurology, cardiology, vascular surgery due to right iliac and femoral artery stenosis, ENT and nephrology services. Blood culture ordered On 10/05/2024 patient remains in the ICU on mechanical ventilation and sedation. Per nursing staff Levophed is being weaned off. Patient also to be attempted for sedation holiday today to assess neurological status. Sodium 127. Current heart rate temp 98.1, heart 73, respiratory rate 24, blood pressure 121/72 with an FiO2 of 40% On 10/06/2024 patient was seen and examined in the ICU, he is intubated sedated maintained on mechanical ventilation, assist control rate of 22 FiO2 35% PEEP of 5, temperature is 99.1 pulse 90 respiration 21 blood pressure 121/68 white blood count is 12.2 hemoglobin 10.4 platelet count 311 potassium 3.1 corrected BUN 7 creatinine 0.47 On 10/07/2024 patient was extubated and transferred to medical floor he was seen and examined on the medical floor he is alert and oriented x 3 in no apparent distress there is no fever or chills no headache or dizziness, no chest pain no shortness of breath no cough no nausea or vomiting no abdominal pain no diarrhea and no urinary symptoms white blood count is 9.1 hemoglobin 10.4 platelet count 301 sodium is low at 127 BUN 7 creatinine 0.47 On 10/08/2024 patient remains on the medical floor alert and oriented x 3. Sodium improving to 130. Current vital signs temp 97.5, heart rate 87, respiratory rate 18, blood pressure 155/78 with a pulse ox of 93% on room air. Patient denies chest pain or shortness of breath. Patient denies nausea vomiting or diarrhea. Patient denies any urinary burning or frequency On 10/09/2024 patient is alert and oriented x 3. Sodium today 133 did discuss c ase with nephrology services patient to be started on sodium chloride tabs 1 g daily. MRI has been ordered per neurology services scheduled for 315 today. Patient denies chest pain or shortness of breath. Patient denies nausea vomiting or diarrhea. Patient denies any urinary burning or frequency. Neurology services also started patient on Keppra tapering dose. On 10/10/2024 patient was seen and examined on the medical floor he is alert and oriented x 3 in no apparent distress there is no fever or chills no headache or dizziness no chest pain no shortness of breath no cough no nausea or vomiting no abdominal pain no diarrhea and no urinary symptoms. Patient is eager to go home, discharge was placed, written prescription was given as pharmacy in the hospital is closed today, dose of losartan was decreased from 100 mg daily to 50 mg daily during this admission, metoprolol succinate 25 mg once daily was added to medication regimen, Xarelto 20 mg p.o. daily was added to medication regimen, sodium chloride 1 g tablet once daily was added to medication regimen and Pravachol 40 mg p.o. once daily was added to medication regimen, patient will be on Keppra 500 mg once daily for 3 days then stop Keppra per neurology recommendation. He will be followed in our office within 1 week. Patient Condition at Discharge: Critical Plan - Discharge Summary Discharge Rx Participant: Yes New Discharge Prescriptions: New Thiamine [Vitamin B-1] 100 mg PO DAILY 30 Days #30 tab Losartan [Cozaar] 50 mg PO DAILY 30 Days #30 tab levETIRAcetam [Keppra] 500 mg PO DAILY 3 Days #3 tab Atorvastatin [Lipitor] 40 mg PO HS 30 Days #30 tab Sodium Chloride Tab 1 gm PO DAILY 30 Days #30 tab Metoprolol Succinate (ER) [Toprol XL] 25 mg PO DAILY 30 Days #30 tab Rivaroxaban [Xarelto] 20 mg PO W/SUPPER 30 Days #30 tab Continue Albuterol Sulfate [Ventolin HFA] 1 - 2 puff INHALATION RT-Q4H PRN PRN Reason: Shortness Of Breath Fluticasone/Umeclidin/Vilanter [Trelegy Ellipta 100-62.5-25] 1 puff INHALATION RT-DAILY Aspirin EC [Ecotrin Low Dose] 81 mg PO DAILY Albuterol Nebulized [Ventolin Nebulized] 2.5 mg INHALATION RT-QID PRN PRN Reason: Shortness Of Breath Discontinued Losartan Potassium 100 mg PO DAILY Discharge Medication List Albuterol Sulfate [Ventolin HFA] 1 - 2 puff INHALATION RT-Q4H PRN 01/27/20 [History] Fluticasone/Umeclidin/Vilanter [Trelegy Ellipta 100-62.5-25] 1 puff INHALATION RT-DAILY 04/21/22 [History] Aspirin EC [Ecotrin Low Dose] 81 mg PO DAILY 09/09/24 [History] Albuterol Nebulized [Ventolin Nebulized] 2.5 mg INHALATION RT-QID PRN 10/04/24 [History] Atorvastatin [Lipitor] 40 mg PO HS 30 Days #30 tab 10/10/24 [Rx] Losartan [Cozaar] 50 mg PO DAILY 30 Days #30 tab 10/10/24 [Rx] Metoprolol Succinate (ER) [Toprol XL] 25 mg PO DAILY 30 Days #30 tab 10/10/24 [Rx] Rivaroxaban [Xarelto] 20 mg PO W/SUPPER 30 Days #30 tab 10/10/24 [Rx] Sodium Chloride Tab 1 gm PO DAILY 30 Days #30 tab 10/10/24 [Rx] Thiamine [Vitamin B-1] 100 mg PO DAILY 30 Days #30 tab 10/10/24 [Rx] levETIRAcetam [Keppra] 500 mg PO DAILY 3 Days #3 tab 10/10/24 [Rx] Follow up Appointment(s)/Referral(s): [facility] [Provider Group] - 2 Weeks (Please call and schedule appointment Closed for Thanksgiving) [facility], [NON-STAFF] - 1 Week Ewa Bennett DO [STAFF PHYSICIAN] - 2 Weeks (Please call and schedule appointment Office closed for Thanksgiving) Jose Mason MD [Primary Care Provider] - 1-2 days (Please call and schedule appointment Office closed for Thanksgiving) Discharge/Stand Alone Forms: AA Meetings [facility], [facility], Outpatient Counseling, In Substance Abuse Facilities
[2024-10-10 10:28] LABS: ALT 45 U/L (10-49); AST 33 U/L (14-35); Albumin 3.8 g/dL (3.8-4.9); Albumin/Globulin Ratio 1.46 Ratio (1.60-3.17); Alkaline Phosphatase 92 U/L (41-126); Blood Urea Nitrogen 13.7 mg/dL (9.0-27.0); Calcium 9.3 mg/dL (8.7-10.3); Chloride 96 mmol/L (96-109); Globulin 2.6 g/dL (1.6-3.3); Glucose 90 mg/dL (70-110); Potassium 4.1 mmol/L (3.5-5.5); Sodium 130 mmol/L (135-145); Total Bilirubin 0.9 mg/dL (0.3-1.2); Total Protein 6.4 g/dL (6.2-8.2)
[2024-10-10 10:38] LABS: Basophils # (A) 0.09 X 10*3/uL (0.00-0.10); Basophils % (A) 1.1 %; Eosinophils # (A) 0.34 X 10*3/uL (0.04-0.35); Eosinophils % (A) 4.2 %; HCT 35.2 % (39.6-50.0); HGB 12.4 g/dL (13.0-17.0); Lymphocytes # (A) 1.45 X 10*3/uL (0.90-5.00); MCH 34.1 pg (27.0-32.0); MCHC 35.2 g/dL (32.0-37.0); MCV 96.7 FL (80.0-97.0); Mean Platelet Volume 10.1 FL (9.5-12.2); Monocytes # (A) 0.82 X 10*3/uL (0.20-1.00); Monocytes % (A) 10.2 %; NRBC Per 100 WBC 0 X 10*3/uL (0.00-0.01); Neutrophils # (A) 5.32 X 10*3/uL (1.80-7.70); Neutrophils % (A) 66.3 %; Platelet Count 371 X 10*3/uL (140-440); RBC 3.64 X 10*6/uL (4.40-5.60); RDW 11.9 % (11.5-14.5); WBC 8.04 X 10*3/uL (4.50-10.00)
[2024-10-10] MEDS ORDERED: TOLVAPTAN 15 MG TABLET PO ONE (11:19)
== END 2024-10-10 10:13 | disposition home health service (06) | DRG 208 ==
LOC: EC 06:15 → 2SICU 07:47 → 5NMEDONC 10-07 13:30
PROVIDERS: ADMIT Internal Medicine; ATTEND Internal Medicine
PROC: 5A1945Z Respiratory Ventilation, 24-96 Consecutive Hours (ICD-10-PCS; principal; 2024-10-04)
PROC: 0BH17EZ Insertion of Endotracheal Airway into Trachea, Via Natural or Artificial Opening (ICD-10-PCS; 2024-10-04)
PROC: 3E033XZ Introduction of Vasopressor into Peripheral Vein, Percutaneous Approach (ICD-10-PCS; 2024-10-04)
PROC: 06HY33Z Insertion of Infusion Device into Lower Vein, Percutaneous Approach (ICD-10-PCS; 2024-10-04)
PROC: 03HY32Z Insertion of Monitoring Device into Upper Artery, Percutaneous Approach (ICD-10-PCS; 2024-10-04)
PROC: 4A133B1 Monitoring of Arterial Pressure, Peripheral, Percutaneous Approach (ICD-10-PCS; 2024-10-04)
PROC: 4A133J1 Monitoring of Arterial Pulse, Peripheral, Percutaneous Approach (ICD-10-PCS; 2024-10-04)
DX: J96.01 Acute respiratory failure with hypoxia (principal); G40.89 Other seizures; R57.9 Shock, unspecified; E87.1 Hypo-osmolality and hyponatremia; E87.20 Acidosis, unspecified; E72.20 Disorder of urea cycle metabolism, unspecified; E86.1 Hypovolemia; J44.9 Chronic obstructive pulmonary disease, unspecified; I25.10 Atherosclerotic heart disease of native coronary artery without angina pectoris; S02.2XXA Fracture of nasal bones, initial encounter for closed fracture; E78.5 Hyperlipidemia, unspecified; E83.42 Hypomagnesemia; F10.20 Alcohol dependence, uncomplicated; I10 Essential (primary) hypertension; I48.91 Unspecified atrial fibrillation; W19.XXXA Unspecified fall, initial encounter; F17.210 Nicotine dependence, cigarettes, uncomplicated; I70.201 Unspecified atherosclerosis of native arteries of extremities, right leg; R33.9 Retention of urine, unspecified; R91.1 Solitary pulmonary nodule; S80.212A Abrasion, left knee, initial encounter; Y92.002 Bathroom of unspecified non-institutional (private) residence as the place of occurrence of the external cause; Y99.8 Other external cause status; Z79.01 Long term (current) use of anticoagulants; Z79.82 Long term (current) use of aspirin; Z95.5 Presence of coronary angioplasty implant and graft; Z79.899 Other long term (current) drug therapy; Z79.51 Long term (current) use of inhaled steroids
CPT/HCPCS: 36415; 36556; 36600; 70450; 70486; 70551; 71045; 71275; 72125; 72129; 72132; 72170; 74177; 80048; 80053; 80306; 80320; 81001; 82140; 82150; 82550; 82805; 83605; 83690; 83735; 83930; 83935; 84132; 84145; 84295; 84300; 84443; 84484; 85025; 85027; 85610; 85730; 86850; 86900; 86901; 87040; 87070; 87205; 90471; 90715; 93005; 93306; 93923; 94002; 94003; 94640; 95822; 96361; 96365; 96366; 96367; 96368; 96372; 96375; 99291

== ENCOUNTER 2024-11-05 15:31 | Inpatient (IN) | payer MEDICARE, OTHER ==
--- NOTE | 2024-11-05 15:58 | ED ---
General Adult HPI - General Chief complaint: Shortness of Breath Stated complaint: failure to thrive, sob Time Seen by Provider: 11/05/24 15:32 Source: EMS Mode of arrival: EMS Limitations: no limitations - History of Present Illness Initial comments: History limited patient currently receiving nebulizer treatment on arrival. History provided by patient and EMS. Per EMS they were called today by patient significant other for failure to thrive. On EMS assessment patient was dyspneic and had coarse breath sounds bilaterally. They provided him with a nebulizer treatment and brought him to the ER. He was not hypoxic with pulse ox 98% on room air, heart rate approximately 112 per EMS. They were also told patient was more lethargic normal. Patient has been in and out of the hospital over the course of the last month, and since then has had difficulty caring for himself. The patient himself currently denies any complaints, cough, sputum production, hemoptysis, fevers, chills, chest pain, abdominal pain. - Related Data Home Medications Medication Instructions Recorded Confirmed Albuterol Sulfate [Ventolin HFA] 1 - 2 puff INHALATION RT-Q4H PRN 01/27/20 11/05/24 Fluticasone/Umeclidin/Vilanter 1 puff INHALATION RT-DAILY 04/21/22 11/05/24 [Melissa Barnard 100-62.5-25] Aspirin EC [Ecotrin Low Dose] 81 mg PO DAILY 09/09/24 11/05/24 Albuterol Nebulized [Ventolin 2.5 mg INHALATION RT-QID PRN 10/04/24 11/05/24 Nebulized] Previous Rx's Medication Instructions Recorded Atorvastatin [Lipitor] 40 mg PO HS 30 Days #30 tab 10/10/24 Losartan [Cozaar] 50 mg PO DAILY 30 Days #30 tab 10/10/24 Metoprolol Succinate (ER) [Toprol 25 mg PO DAILY 30 Days #30 tab 10/10/24 XL] Rivaroxaban [Xarelto] 20 mg PO W/SUPPER 30 Days #30 tab 10/10/24 Sodium Chloride Tab 1 gm PO DAILY 30 Days #30 tab 10/10/24 Thiamine [Vitamin B-1] 100 mg PO DAILY 30 Days #30 tab 10/10/24 Allergies Allergy/AdvReac Type Severity Reaction Status Date / Time No Known Allergies Allergy Verified 11/05/24 17:02 Review of Systems ROS Statement: Those systems with pertinent positive or pertinent negative responses have been documented in the HPI. ROS Other: All systems not noted in ROS Statement are negative. Limitations: ROS unobtainable due to patients medical condition Past Medical History Past Medical History: Chest Pain / Angina, COPD, Hyperlipidemia, Hypertension Additional Past Medical History / Comment(s): hyponatremia History of Any Multi-Drug Resistant Organisms: None Reported Past Surgical History: Appendectomy Past Anesthesia/Blood Transfusion Reactions: No Reported Reaction Past Psychological History: No Psychological Hx Reported Smoking Status: Current every day smoker Past Alcohol Use History: Daily Past Drug Use History: Marijuana - Past Family History Mother History Unknown: Yes Additional Family Medical History / Comment(s): Father Additional Family Medical History / Comment(s): from complications of injuries after falling down stairs. General Exam - General Exam Comments Initial Comments: PE: CONSTITUTIONAL: No apparent distress, chronically ill-appearing, awake and alert SKIN: Warm, dry, no jaundice, hives or petechiae EYES: Pupils are equally round, extraocular movements intact without nystagmus, clear conjunctiva, non-icteric sclera HENT: Normocephalic, atraumatic, dry mucus membranes, oropharynx clear without exudates NECK: , Full range of motion, normal appearance PULMONARY: Rhonchi and rales throughout all lung tello, scant wheezes in apices, normal excursion, no accessory muscle use and no stridor CARDIOVASCULAR: Tachycardia, irregularly irregular with rate and rhythm normal S1 and S2. No appreciated murmurs, rubs or gallops. 1+ radial pulses with intact distal perfusion. No lower extremity edema GASTROINTESTINAL: Soft, active bowel sounds throughout, non-tender, non- distended, no palpable masses, no rebound or guarding. No hepatosplenomegaly GENITOURINARY: MUSCULOSKELETAL: Extremities have no gross deformity, no edema, redness, or swelling. No calf swelling NEUROLOGIC:_a/o x 2-3, Oriented to self, place, states date is November 05, 2020, knows that [place] is tomorrow, GCS 15, normal mentation and speech. Moves all extremities x 4 without motor or sensory deficit PSYCHIATRIC:_normal mood and affect, thought process is clear and linear Limitations: no limitations Course Vital Signs 12/11/05/24 11/05/24 15:32 16:00 16:17 Temperature 98.5 F Pulse Rate 112 H 109 H 104 H Respiratory 20 18 Rate Blood Pressure 91/57 99/80 O2 Sat by Pulse 100 100 Oximetry 11/05/24 11/05/24 11/05/24 16:18 16:33 17:06 Temperature Pulse Rate 104 H 109 H 111 H Respiratory 18 Rate Blood Pressure 120/54 O2 Sat by Pulse 95 Oximetry 11/05/24 11/05/24 11/05/24 18:08 18:47 18:55 Temperature Pulse Rate 106 H 92 91 Respiratory 18 Rate Blood Pressure 118/61 O2 Sat by Pulse 96 Oximetry 11/05/24 11/05/24 11/05/24 19:00 20:00 21:00 Temperature 97.8 F Pulse Rate 97 90 87 Respiratory 20 20 20 Rate Blood Pressure 136/78 130/72 135/65 O2 Sat by Pulse 96 95 96 Oximetry 11/05/24 11/05/24 11/06/24 22:00 23:00 00:00 Temperature Pulse Rate 83 80 80 Respiratory 20 20 20 Rate Blood Pressure 137/64 127/67 124/67 O2 Sat by Pulse 97 96 98 Oximetry 11/06/24 11/06/24 11/06/24 01:00 02:00 03:00 Temperature Pulse Rate 83 82 81 Respiratory 19 19 19 Rate Blood Pressure 127/72 129/66 125/67 O2 Sat by Pulse 96 96 97 Oximetry 11/06/24 11/06/24 11/06/24 04:00 05:00 06:00 Temperature Pulse Rate 84 84 76 Respiratory 18 18 19 Rate Blood Pressure 118/60 144/75 140/71 O2 Sat by Pulse 97 96 97 Oximetry 11/06/24 11/06/24 11/06/24 07:16 07:36 07:48 Temperature 97.8 F Pulse Rate 77 75 76 Respiratory 13 Rate Blood Pressure 143/72 O2 Sat by Pulse 96 Oximetry 11/06/24 11/06/24 11/06/24 08:00 09:15 10:00 Temperature Pulse Rate 80 75 76 Respiratory 14 16 18 Rate Blood Pressure 132/68 130/63 125/68 O2 Sat by Pulse 98 99 97 Oximetry 11/06/24 11/06/24 11/06/24 11:00 11:03 11:12 Temperature Pulse Rate 75 76 Respiratory Rate Blood Pressure O2 Sat by Pulse 97 Oximetry 11/06/24 11/06/24 11/06/24 16:07 16:32 16:44 Temperature 97.7 F Pulse Rate 75 79 80 Respiratory 20 Rate Blood Pressure 136/67 O2 Sat by Pulse 99 Oximetry 11/06/24 11/06/24 11/06/24 17:39 19:09 19:18 Temperature 97.7 F Pulse Rate 79 85 87 Respiratory 26 H Rate Blood Pressure 126/67 O2 Sat by Pulse 98 Oximetry 11/06/24 21:05 Temperature Pulse Rate 89 Respiratory 16 Rate Blood Pressure 128/69 O2 Sat by Pulse 97 Oximetry EKG Findings - EKG Comments: EKG Findings:: Sinus tachycardia, rate 109 bpm. Interval 206 ms QRS duration 82 ms QT/QTc 312/376 ms, normal axis, there is artifact present throughout though no obvious ST elevations or depressions,Compared to EKG performed on 10/04/2024, with exception of tachycardia, no significant changes from prior, no new ST elevations or depressions protects Medical Decision Making - Medical Decision Making Was pt. sent in by a medical professional or institution (, PA, WIRELESS TECHNICIAN, urgent care, hospital, or fpc...) When possible be specific @ -No Did you speak to anyone other than the patient for history (EMS, parent, family, police, friend...)? What history was obtained from this source @ -Spoke with EMS personnel, they state they were called the patient's home for failure to thrive, patient had coarse breath sounds bilaterally on their assessment, no increased work of breathing, pulse ox 98% on room air, was mildly tachycardic, started on DuoNeb en route to the ED Did you review nursing and triage notes (agree or disagree)? Why? @ -I reviewed and agree with nursing and triage notes Were old charts reviewed (outside hosp., previous admission, EMS record, old EKG, old radiological studies, urgent care reports/EKG's, fpc records)? Report findings @Records reviewed, patient had CTA chest performed in 10/04/2024 after patient was found unresponsive in a bathtub, had no CT evidence of PE at that time had nonspecific small left lower lobe pulmonary nodule with adenopathy Differential Diagnosis (chest pain, altered mental status, abdominal pain women, abdominal pain men, vaginal bleeding, weakness, fever, dyspnea, syncope, head ache, dizziness, GI bleed, back pain, seizure, CVA, palpatations, mental health, musculoskeletal)? Differential diagnosis remains broad however top considerations include COPD exacerbation, malnutrition, infection/pneumonia, PE, CHF, ACS, chronic debility, electrolyte derangement this is not all inclusive list EKG interpreted by me (3pts min.). @ -As above X-rays interpreted by me (1pt min.). @Right middle lobe consolidation CT interpreted by me (1pt min.). @ -None done U/S interpreted by me (1pt. min.). @ -None done What testing was considered but not performed or refused? (CT, X-rays, U/S, labs)? Why? @Considered CT PE study however patient had recent CT PE study in 10/04/2024 that was negative for PE and is currently on Xarelto What meds were considered but not given or refused? Why? @ -Considered full 30 cc/kg bolus however patient hyponatremic and in an effort to avoid too quickly elevating patient sodium fluids beyond 1 L normal saline were held until consultation with nephrology Did you discuss the management of the patient with other professionals (professionals i.e. , PA, WIRELESS TECHNICIAN, lab, RT, psych nurse, social media strategist, criminal lawyer, teacher, special officer, rn field case manager)? Give summary @Case discussed with Dr. Wilkins, neprhology, appreciate recs, please see below Was smoking cessation discussed for >3mins.? @ -No Was critical care preformed (if so, how long)? Yes 35 minutes Were there social determinants of health that impacted care today? How? (Homelessness, low income, unemployed, alcoholism, drug addiction, transportation, low edu. Level, literacy, decrease access to med. care, skilled nursing, rehab)? @ -No Was there de-escalation of care discussed even if they declined (Discuss DNR or withdrawal of care, Hospice)? @ -No What co-morbidities impacted this encounter? (DM, HTN, Smoking, COPD, CAD, Cancer, CVA, ARF, Chemo, Hep., AIDS, mental health diagnosis, sleep apnea, mo rbid obesity)? COPD, hypertension, hyperlipidemia Was patient admitted / discharged? Hospital course, mention meds given and route, prescriptions, significant lab abnormalities, going to OR and other pertinent info. @ -Admission-this is a 69-year-old gentleman presenting today for failure to thrive. Seen and assessed by myself on arrival. Sitting comfortably, DuoNeb ongoing. Coarse breath sounds bilaterally, no increased work of breathing or tachypnea. Mildly tachycardic and hypotensive with blood pressure 90s over 60s on arrival though MAP of 69. He is nontoxic-appearing but chronically ill- appearing. Dry mucous membranes. Will plan for weakness workup and treat for concern for sepsis secondary to pneumonia Rocephin and azithromycin ordered, steroids, DuoNebs, blood cultures. X-ray shows new right middle lobe pneumonia. White count 30,000, sodium 116. Previously 134 on 10/16/24. Phosphorus 2.0. Added serum osmolality, urine osmolality, will obtain repeat BMP after liter of normal saline infuses. Will give phosphorus supplementation and plan for admission. On reassessment patient is breathing comfortably, breath sounds are improved however still rhonchorous bilaterally. Updated patient plan of care, he is agreeable, comfortably eating Twizzlers, in no acute distress. Case discussed with Dr. Mason, kindly accepts patient for admission. Repeat BMP showed sodium downtrending to 115. Case discussed with Dr. Wilkins, recommends 3% hypertonic saline at 25 cc an hour. Requests sodium level be drawn every 2 hours for goal sodium of 122 to 123 x 4 p.m. tomorrow. Requests hypertonic saline be stopped once sodium reaches 120. Orders placed. Will be admitted to critical care. Case discussed with Dr. Yin, agrees with placement for critical care. Undiagnosed new problem with uncertain prognosis? @ -No Drug Therapy requiring intensive monitoring for toxicity (Heparin, Nitro, Insulin, Cardizem)? Hypertonic saline Were any procedures done? @ -No Diagnosis/symptom? @Sepsis, pneumonia, hyponatremia Acute, or Chronic, or Acute on Chronic? @Acute Uncomplicated (without systemic symptoms) or Complicated (systemic symptoms)? @Complicated Side effects of treatment? @ -No Exacerbation, Progression, or Severe Exacerbation? @ -No Poses a threat to life or bodily function? How? (Chest pain, USA, SC, pneumonia, PE, COPD, DKA, ARF, appy, cholecystitis, CVA, Diverticulitis, Homicidal, Suicidal, threat to staff... and all critical care pts) Yes - Lab Data Result diagrams: 11/05/24 16:07 11/07/24 06:16 Lab Results 11/05/24 11/05/24 11/05/24 Range/Units 16:07 16:07 16:07 WBC 30.8 H (3.8-10.6) k/uL RBC 3.53 L (4.30-5.90) m/uL Hgb 11.3 L (13.0-17.5) gm/dL Hct 32.6 L (39.0-53.0) % MCV 92.4 D (80.0-100.0) fL MCH 32.0 (25.0-35.0) pg MCHC 34.6 (31.0-37.0) g/dL RDW 11.9 (11.5-15.5) % Plt Count 207 (150-450) k/uL MPV 8.3 Neutrophils % 92 % Lymphocytes % 1 % Monocytes % 5 % Eosinophils % 0 % Basophils % 0 % Neutrophils # 28.3 H (1.3-7.7) k/uL Lymphocytes # 0.4 L (1.0-4.8) k/uL Monocytes # 1.6 H (0-1.0) k/uL Eosinophils # 0.0 (0-0.7) k/uL Basophils # 0.0 (0-0.2) k/uL Manual Slide Review Performed RBC Morphology Normal PT 9.6 L (10.0-12.5) sec INR 0.8 (<1.2) APTT 26.6 (22.0-30.0) sec Sodium 116 L* (137-145) mmol/L Potassium 4.2 (3.5-5.1) mmol/L Chloride 85 L (98-107) mmol/L Carbon Dioxide 22 (22-30) mmol/L Anion Gap 9 mmol/L BUN 30 H (9-20) mg/dL Creatinine 0.73 (0.66-1.25) mg/dL Est GFR (CKD-EPI)AfAm >90 (>60 ml/min/1.73 sqM) Est GFR (CKD-EPI)NonAf >90 (>60 ml/min/1.73 sqM) Glucose 108 H (74-99) mg/dL Osmolality (275-295) mOsm/kg Plasma Lactic Acid Kenneth (0.7-2.0) mmol/L Calcium 8.7 (8.4-10.2) mg/dL Ionized Calcium Sabrina 4.6 (4.5-5.3) mg/dL Phosphorus 2.0 L (2.5-4.5) mg/dL Magnesium 1.8 (1.6-2.3) mg/dL Total Bilirubin 1.4 H (0.2-1.3) mg/dL AST 72 H (17-59) U/L ALT 59 H (4-49) U/L Alkaline Phosphatase 112 (38-126) U/L Troponin I (0.000-0.034) ng/mL NT-Pro-B Natriuret Pep 449 pg/mL Total Protein 6.4 (6.3-8.2) g/dL Albumin 3.9 (3.5-5.0) g/dL TSH 0.510 (0.465-4.680) mIU/L Urine Osmolality (400-1100) mOsm/kg Ur Random Creatinine mg/dL Ur Random Sodium (40-220) mmol/L Ur Random Uric Acid (37.0-92.0) mg/dL Urine Legionella Ag (Negative) 11/05/24 11/05/24 11/05/24 Range/Units 16:07 16:07 16:40 WBC (3.8-10.6) k/uL RBC (4.30-5.90) m/uL Hgb (13.0-17.5) gm/dL Hct (39.0-53.0) % MCV (80.0-100.0) fL MCH (25.0-35.0) pg MCHC (31.0-37.0) g/dL RDW (11.5-15.5) % Plt Count (150-450) k/uL MPV Neutrophils % % Lymphocytes % % Monocytes % % Eosinophils % % Basophils % % Neutrophils # (1.3-7.7) k/uL Lymphocytes # (1.0-4.8) k/uL Monocytes # (0-1.0) k/uL Eosinophils # (0-0.7) k/uL Basophils # (0-0.2) k/uL Manual Slide Review RBC Morphology PT (10.0-12.5) sec INR (<1.2) APTT (22.0-30.0) sec Sodium (137-145) mmol/L Potassium (3.5-5.1) mmol/L Chloride (98-107) mmol/L Carbon Dioxide (22-30) mmol/L Anion Gap mmol/L BUN (9-20) mg/dL Creatinine (0.66-1.25) mg/dL Est GFR (CKD-EPI)AfAm (>60 ml/min/1.73 sqM) Est GFR (CKD-EPI)NonAf (>60 ml/min/1.73 sqM) Glucose (74-99) mg/dL Osmolality (275-295) mOsm/kg Plasma Lactic Acid Kenneth 1.6 (0.7-2.0) mmol/L Calcium (8.4-10.2) mg/dL Ionized Calcium Sabrina (4.5-5.3) mg/dL Phosphorus (2.5-4.5) mg/dL Magnesium (1.6-2.3) mg/dL Total Bilirubin (0.2-1.3) mg/dL AST (17-59) U/L ALT (4-49) U/L Alkaline Phosphatase (38-126) U/L Troponin I <0.012 (0.000-0.034) ng/mL NT-Pro-B Natriuret Pep pg/mL Total Protein (6.3-8.2) g/dL Albumin (3.5-5.0) g/dL TSH (0.465-4.680) mIU/L Urine Osmolality 542 (400-1100) mOsm/kg Ur Random Creatinine mg/dL Ur Random Sodium (40-220) mmol/L Ur Random Uric Acid (37.0-92.0) mg/dL Urine Legionella Ag (Negative) 11/05/24 11/05/24 11/05/24 Range/Units 16:40 16:40 16:40 WBC (3.8-10.6) k/uL RBC (4.30-5.90) m/uL Hgb (13.0-17.5) gm/dL Hct (39.0-53.0) % MCV (80.0-100.0) fL MCH (25.0-35.0) pg MCHC (31.0-37.0) g/dL RDW (11.5-15.5) % Plt Count (150-450) k/uL MPV Neutrophils % % Lymphocytes % % Monocytes % % Eosinophils % % Basophils % % Neutrophils # (1.3-7.7) k/uL Lymphocytes # (1.0-4.8) k/uL Monocytes # (0-1.0) k/uL Eosinophils # (0-0.7) k/uL Basophils # (0-0.2) k/uL Manual Slide Review RBC Morphology PT (10.0-12.5) sec INR (<1.2) APTT (22.0-30.0) sec Sodium (137-145) mmol/L Potassium (3.5-5.1) mmol/L Chloride (98-107) mmol/L Carbon Dioxide (22-30) mmol/L Anion Gap mmol/L BUN (9-20) mg/dL Creatinine (0.66-1.25) mg/dL Est GFR (CKD-EPI)AfAm (>60 ml/min/1.73 sqM) Est GFR (CKD-EPI)NonAf (>60 ml/min/1.73 sqM) Glucose (74-99) mg/dL Osmolality (275-295) mOsm/kg Plasma Lactic Acid Kenneth (0.7-2.0) mmol/L Calcium (8.4-10.2) mg/dL Ionized Calcium Sabrina (4.5-5.3) mg/dL Phosphorus (2.5-4.5) mg/dL Magnesium (1.6-2.3) mg/dL Total Bilirubin (0.2-1.3) mg/dL AST (17-59) U/L ALT (4-49) U/L Alkaline Phosphatase (38-126) U/L Troponin I (0.000-0.034) ng/mL NT-Pro-B Natriuret Pep pg/mL Total Protein (6.3-8.2) g/dL Albumin (3.5-5.0) g/dL TSH (0.465-4.680) mIU/L Urine Osmolality (400-1100) mOsm/kg Ur Random Creatinine 139.4 mg/dL Ur Random Sodium (40-220) mmol/L Ur Random Uric Acid 69.5 (37.0-92.0) mg/dL Urine Legionella Ag Negative (Negative) 11/05/24 11/05/24 11/05/24 Range/Units 16:40 17:17 17:17 WBC (3.8-10.6) k/uL RBC (4.30-5.90) m/uL Hgb (13.0-17.5) gm/dL Hct (39.0-53.0) % MCV (80.0-100.0) fL MCH (25.0-35.0) pg MCHC (31.0-37.0) g/dL RDW (11.5-15.5) % Plt Count (150-450) k/uL MPV Neutrophils % % Lymphocytes % % Monocytes % % Eosinophils % % Basophils % % Neutrophils # (1.3-7.7) k/uL Lymphocytes # (1.0-4.8) k/uL Monocytes # (0-1.0) k/uL Eosinophils # (0-0.7) k/uL Basophils # (0-0.2) k/uL Manual Slide Review RBC Morphology PT (10.0-12.5) sec INR (<1.2) APTT (22.0-30.0) sec Sodium 115 L* (137-145) mmol/L Potassium 3.7 (3.5-5.1) mmol/L Chloride 86 L (98-107) mmol/L Carbon Dioxide 20 L (22-30) mmol/L Anion Gap 9 mmol/L BUN 28 H (9-20) mg/dL Creatinine 0.63 L (0.66-1.25) mg/dL Est GFR (CKD-EPI)AfAm >90 (>60 ml/min/1.73 sqM) Est GFR (CKD-EPI)NonAf >90 (>60 ml/min/1.73 sqM) Glucose 151 H (74-99) mg/dL Osmolality 252 L (275-295) mOsm/kg Plasma Lactic Acid Kenneth (0.7-2.0) mmol/L Calcium 8.0 L (8.4-10.2) mg/dL Ionized Calcium Sabrina (4.5-5.3) mg/dL Phosphorus (2.5-4.5) mg/dL Magnesium (1.6-2.3) mg/dL Total Bilirubin (0.2-1.3) mg/dL AST (17-59) U/L ALT (4-49) U/L Alkaline Phosphatase (38-126) U/L Troponin I (0.000-0.034) ng/mL NT-Pro-B Natriuret Pep pg/mL Total Protein (6.3-8.2) g/dL Albumin (3.5-5.0) g/dL TSH (0.465-4.680) mIU/L Urine Osmolality (400-1100) mOsm/kg Ur Random Creatinine mg/dL Ur Random Sodium <20 L (40-220) mmol/L Ur Random Uric Acid (37.0-92.0) mg/dL Urine Legionella Ag (Negative) Disposition Clinical Impression: Hyponatremia, Community acquired bacterial pneumonia, Sepsis, Hypophosphatemia Disposition: ADMITTED IP TO THIS HOSP Condition: Stable
[2024-11-05] MEDS: ALBUTEROL NEBULIZED 2.5 MG/3 ML INHALATION SCH (15:59)
[2024-11-05] MEDS: IPRATROPIUM 0.5 MG/2.5 ML NEBU INHALATION STA (15:59)
--- NOTE | 2024-11-05 16:04 | XR ---
EXAMINATION TYPE: XR chest 1V portable DATE OF EXAM: 11/05/2024 3:58 PM COMPARISON: Chest radiographs from 10/07/2024 CLINICAL INDICATION: Male, 69 years old with history of Weakness, bilateral rhonchi; TECHNIQUE: XR chest 1V portable Frontal view of the chest. FINDINGS: Lungs/Pleura: Right midlung airspace opacities measuring up to 90 x 82 mm new from prior. There is no evidence of pleural effusion, left focal consolidation, or pneumothorax. Pulmonary vascularity: Unremarkable. Heart/mediastinum: Cardiomediastinal silhouette is unremarkable. Musculoskeletal: No acute osseous pathology. IMPRESSION: Right midlung airspace opacities new from 10/07/2024 correlate for pneumonia. [facility], , 11/05/2024 4:02 PM
[2024-11-05] MEDS: SODIUM CHLORIDE 0.9% 1,000 ML IV STA (16:11)
[2024-11-05] MEDS: methylPREDNISolone SOD SUCCI 125 MG/2 ML VIAL IV STA (16:14)
[2024-11-05] MEDS: IPRATROPIUM 0.5 MG/2.5 ML NEBU INHALATION ONE (16:18)
[2024-11-05 16:24] LABS: Ionized Calcium 4.6 mg/dL (4.5-5.3)
[2024-11-05 16:26] LABS: Basophils % (A) 0 %; Eosinophils % (A) 0 %; HCT 32.6 % (39.0-53.0); HGB 11.3 gm/dL (13.0-17.5); Lymphocytes # (A) 0.4 k/uL (1.0-4.8); Lymphocytes % (A) 1 %; MCHC 34.6 g/dL (31.0-37.0); Mean Platelet Volume 8.3; Monocytes # (A) 1.6 k/uL (0-1.0); Monocytes % (A) 5 %; Neutrophils # (A) 28.3 k/uL (1.3-7.7); Neutrophils % (A) 92 %; Platelet Count 207 k/uL (150-450); RBC 3.53 m/uL (4.30-5.90); RDW 11.9 % (11.5-15.5); WBC 30.8 k/uL (3.8-10.6)
[2024-11-05 16:31] LABS: MCV 92.4 fL (80.0-100.0)
[2024-11-05 16:35] LABS: ALT 59 U/L (4-49); AST 72 U/L (17-59); African American GFR (CKD) >90 (>60 ml/min/1.73 sqM); Albumin 3.9 g/dL (3.5-5.0); Alkaline Phosphatase 112 U/L (38-126); Anion Gap 9 mmol/L; Blood Urea Nitrogen 30 mg/dL (9-20); Calcium 8.7 mg/dL (8.4-10.2); Carbon Dioxide 22 mmol/L (22-30); Chloride 85 mmol/L (98-107); Glucose 108 mg/dL (74-99); INR 0.8 (<1.2); Magnesium 1.8 mg/dL (1.6-2.3); Non-African American GFR(CKD) >90 (>60 ml/min/1.73 sqM); Partial Thromboplastin Time 26.6 sec (22.0-30.0); Potassium 4.2 mmol/L (3.5-5.1); Prothrombin Time 9.6 sec (10.0-12.5); Total Bilirubin 1.4 mg/dL (0.2-1.3); Total Protein 6.4 g/dL (6.3-8.2)
[2024-11-05 16:39] LABS: Sodium 116 mmol/L (137-145)
[2024-11-05 16:42] LABS: NT-Pro-B-Type Natriuretic Pept 449 pg/mL
[2024-11-05] MEDS ORDERED: Phosphorus Replacement Protoco 1 EACH MISC MISCELLANE PRN ×2 (16:46→18:35)
[2024-11-05 17:10] LABS: RBC Morphology Normal
[2024-11-05] MEDS: AZITHROMYCIN 500 MG in SODIUM CHLORIDE 0.9% 250 ML IVPB STA (17:10)
[2024-11-05] MEDS: POTAS-SOD-PHOS 280-160-250 MG 1 EACH PACKET PO ONE (17:25)
[2024-11-05] MEDS ORDERED: NALOXONE 0.4 MG/ML 1 ML VIAL IV PRN (17:31)
[2024-11-05] MEDS ORDERED: CALCIUM CARBONATE 500 MG CHEWABLE PO PRN (17:31)
[2024-11-05] MEDS ORDERED: MAG HYDROX/AL HYDROX/SIMETH 30 ML CUP PO PRN (17:31)
[2024-11-05] MEDS ORDERED: ACETAMINOPHEN TAB 325 MG TAB PO PRN (17:31)
[2024-11-05] MEDS ORDERED: ALBUTEROL NEBULIZED 2.5 MG/3 ML INHALATION PRN (17:37)
[2024-11-05] MEDS ORDERED: PNEUMONIA PROTOCOL UTILIZED 1 EACH MISC PO PRN (17:45)
[2024-11-05 17:49] LABS: African American GFR (CKD) >90 (>60 ml/min/1.73 sqM); Anion Gap 9 mmol/L; Blood Urea Nitrogen 28 mg/dL (9-20); Carbon Dioxide 20 mmol/L (22-30); Chloride 86 mmol/L (98-107); Glucose 151 mg/dL (74-99); Non-African American GFR(CKD) >90 (>60 ml/min/1.73 sqM); Potassium 3.7 mmol/L (3.5-5.1)
[2024-11-05 18:07] LABS: Sodium 115 mmol/L (137-145)
[2024-11-05] MEDS ORDERED: Magnesium Replacement Protocol 1 EACH MISC MISCELLANE PRN (18:35)
[2024-11-05] MEDS ORDERED: Potassium Replacement Protocol 1 EACH MISC MISCELLANE PRN (18:35)
[2024-11-05] MEDS: IPRATROPIUM-ALBUTEROL 3 ML NEB INHALATION SCH (18:47)
[2024-11-05] MEDS: SODIUM CHLORIDE 3%(HYPERTONIC) 500 ML IV ONE (18:59)
[2024-11-05] MEDS: RIVAROXABAN 20 MG TAB PO SCH (19:04)
[2024-11-05] MEDS ORDERED: ALBUTEROL NEBULIZED 2.5 MG/3 ML INHALATION SCH (20:00)
[2024-11-05] MEDS: FAMOTIDINE 20 MG TAB PO SCH (20:40)
[2024-11-05] MEDS: ATORVASTATIN 40 MG TAB PO SCH (20:40)
[2024-11-06] MEDS: methylPREDNISolone SOD SUCCI 125 MG/2 ML VIAL IV SCH (06:15)
--- NOTE | 2024-11-06 06:16 | P.CNPUL ---
History of Present Illness Consult date: 11/06/24 Requesting physician: Nia Voss Reason for consult: other (Hyponatremia, ICU management) Chief complaint: Weakness, lethargy History of present illness: This is a 69-year-old male patient with a known history of COPD, chronic tobacco dependence, hypertension, alcohol abuse. PCP is Dr. Mason. Patient has had two recent hospitalizations in September for hyponatremia. Patient does have history of alcohol abuse, but reportedly has not drank any beer in over a month. Patient was sent into the emergency department yesterday afternoon. Apparently, EMS was called as the patient is unable to take care of himself at home. He has been more lethargic and weak at home. He has not been eating or drinking very much at home. Denies any nausea or vomiting or diarrhea. Found to be severely h yponatremic in the ED, with a sodium of 116. Borderline hypotensive on admission with 90s/50s blood pressure. 1 L isotonic saline was bolused. Blood pressure has since improved. Patient then started on a 3% hypertonic saline. This is being managed by nephrology, and patient is admitted to the intensive care unit for this reason. Chest x-ray showing his extensive right midlung airspace opacity, new from prior image on 10/07/2024. Note that on his previous hospitalization, patient did have a chest CT on 10/04/2024 demonstrating small subcentimeter left lower lobe pulmonary nodule with more suspicious 1.8 x 2.7 cm left suprahilar nodule and/or adenopathy noted. There is unclear if the patient had any out of hospital follow-up. He does have significant smoking history and COPD. Patient is currently being evaluated in the emergency department. He is in no acute distress. Alert and oriented. No focal neurological deficits or seizures. 3% hypertonic saline infusing at 25 mm/h. Current vitals: Heart rate 80 bpm, blood pressure is 127/64 mmHg, SpO2 96% on room air, nontachypneic. CBC: WBC count 30.8, hemoglobin 11.3, hematocrit 32.6, platelets 207. Most recent sodium is up to 118. Remaining BMP includes a potassium 3.7, chloride 86, serum bicarb 20, BUN 28, creatinine 0.63, glucose 151. Troponin is less than 0.012. NT proBNP 449. TSH 0.5. Patient has been started on antibiotics in the form of Rocephin and azithromycin in the ED. Blood cultures pending. Urine Legionella antigen pending. Appropriate urine studies pending. Nephrology is managing patient's hyponatremia.. Review of Systems Constitutional: Reports fatigue, Reports lethargy, Reports poor appetite, Reports weakness, Denies chills, Denies fever, Denies weight gain, Denies weight loss Ears, nose, mouth and throat: Denies headache, Denies nasal congestion, Denies nasal discharge, Denies post-nasal drip, Denies sinus pain, Denies sinus pressure, Denies sore throat Cardiovascular: Reports syncope, Denies chest pain, Denies dyspnea on exertion, Denies lightheadedness, Denies orthopnea, Denies palpitations, Denies paroxysmal nocturnal dyspnea Respiratory: Reports congestion, Reports wheezing, Denies cough, Denies cough with sputum, Denies hemoptysis, Denies home oxygen, Denies pain on inspiration Gastrointestinal: Reports loss of appetite, Denies abdominal pain, Denies constipation, Denies diarrhea, Denies nausea, Denies vomiting Genitourinary: Denies dysuria Musculoskeletal: Denies limitation of motion Integumentary: Reports rash, Reports wounds Neurological: Reports confusion, Reports headaches, Reports weakness, Denies head injury, Denies memory loss, Denies numbness, Denies paralysis, Denies paresthesias, Denies seizures, Denies syncope, Denies tremors, Denies visual changes Psychiatric: Denies anxiety, Denies depression Past Medical History Past Medical History: Chest Pain / Angina, COPD, Hyperlipidemia, Hypertension Additional Past Medical History / Comment(s): hyponatremia History of Any Multi-Drug Resistant Organisms: None Reported Past Surgical History: Appendectomy Past Anesthesia/Blood Transfusion Reactions: No Reported Reaction Past Psychological History: No Psychological Hx Reported Smoking Status: Current every day smoker Past Alcohol Use History: Daily Past Drug Use History: Marijuana - Past Family History Mother History Unknown: Yes Additional Family Medical History / Comment(s): Father Additional Family Medical History / Comment(s): from complications of injuries after falling down stairs. Medications and Allergies Home Medications Medication Instructions Recorded Confirmed Type Albuterol Sulfate [Ventolin HFA] 1 - 2 puff INHALATION RT-Q4H PRN 01/27/20 11/05/24 History Fluticasone/Umeclidin/Vilanter 1 puff INHALATION RT-DAILY 04/21/22 11/05/24 History [Trelegy Ellipta 100-62.5-25] Aspirin EC [Ecotrin Low Dose] 81 mg PO DAILY 09/09/24 11/05/24 History Albuterol Nebulized [Ventolin 2.5 mg INHALATION RT-QID PRN 10/04/24 11/05/24 History Nebulized] Atorvastatin [Lipitor] 40 mg PO HS 30 Days #30 tab 10/10/24 11/05/24 Rx Losartan [Cozaar] 50 mg PO DAILY 30 Days #30 tab 10/10/24 11/05/24 Rx Metoprolol Succinate (ER) [Toprol 25 mg PO DAILY 30 Days #30 tab 10/10/24 11/05/24 Rx XL] Rivaroxaban [Xarelto] 20 mg PO W/SUPPER 30 Days #30 tab 10/10/24 11/05/24 Rx Sodium Chloride Tab 1 gm PO DAILY 30 Days #30 tab 10/10/24 11/05/24 Rx Thiamine [Vitamin B-1] 100 mg PO DAILY 30 Days #30 tab 10/10/24 11/05/24 Rx Allergies Allergy/AdvReac Type Severity Reaction Status Date / Time No Known Allergies Allergy Verified 11/05/24 17:02 Physical Exam Vitals: Vital Signs Temp Pulse Resp BP Pulse Ox 11/06/24 01:00 83 20 127/72 96 11/06/24 00:00 80 20 124/67 98 11/05/24 23:00 80 20 127/67 96 11/05/24 22:00 83 20 137/64 97 11/05/24 21:00 87 20 135/65 96 11/05/24 20:00 90 20 130/72 95 11/05/24 19:00 97.8 F 97 20 136/78 96 11/05/24 18:55 91 11/05/24 18:47 92 11/05/24 18:08 106 H 18 118/61 96 11/05/24 17:06 111 H 18 120/54 95 11/05/24 16:33 109 H 11/05/24 16:18 104 H 11/05/24 16:17 104 H 18 99/80 100 11/05/24 16:00 109 H 11/05/24 15:32 98.5 F 112 H 20 91/57 100 Intake and Output 11/05/24 11/05/24 11/06/24 14:59 22:59 06:59 Output Total 300 Balance -300 Output: Urine 300 Uretheral (Bennett) 300 Other: Weight 78.018 kg GENERAL EXAM: Alert, 69-year-old male, frail, comfortable in no apparent distress. HEAD: Normocephalic and atraumatic EYES: Normal reaction of pupils, equal size. NOSE: Clear with pink turbinates. THROAT: No erythema or exudates. NECK: No masses, no JVD. CHEST: No chest wall deformity. LUNGS: Equal air entry with scattered wheezing and rhonchi bilaterally and throughout. On room air. No conversational dyspnea or accessory muscle use.. CVS: S1 and S2 normal with no audible murmur, regular rhythm. No extra heart sounds ABDOMEN: No hepatosplenomegaly, active bowel sounds, no guarding or rigidity. SPINE: No scoliosis or deformity SKIN: No rashes, abrasions to bilateral knees CENTRAL NERVOUS SYSTEM: No focal deficits, tone is normal in all 4 extremities. EXTREMITIES: There is no peripheral edema, clubbing, or cyanosis. Peripheral pulses are intact. Results - Laboratory Findings CBC and BMP: 11/05/24 16:07 11/06/24 04:13 PT/INR, D-dimer PT 9.6 sec (10.0-12.5) L 11/05/24 16:07 INR 0.8 (<1.2) 11/05/24 16:07 Abnormal lab findings: Abnormal Labs 11/05/24 11/05/24 11/05/24 16:07 16:07 16:07 WBC 30.8 H RBC 3.53 L Hgb 11.3 L Hct 32.6 L Neutrophils # 28.3 H Lymphocytes # 0.4 L Monocytes # 1.6 H PT 9.6 L Sodium 116 L* Chloride 85 L Carbon Dioxide BUN 30 H Creatinine Glucose 108 H Calcium Phosphorus 2.0 L Total Bilirubin 1.4 H AST 72 H ALT 59 H 11/05/24 11/05/24 11/05/24 17:17 18:47 21:39 WBC RBC Hgb Hct Neutrophils # Lymphocytes # Monocytes # PT Sodium 115 L* 116 L* 118 L* Chloride 86 L Carbon Dioxide 20 L BUN 28 H Creatinine 0.63 L Glucose 151 H Calcium 8.0 L Phosphorus Total Bilirubin AST ALT 11/06/24 00:34 WBC RBC Hgb Hct Neutrophils # Lymphocytes # Monocytes # PT Sodium 118 L* Chloride Carbon Dioxide BUN Creatinine Glucose Calcium Phosphorus Total Bilirubin AST ALT - Diagnostic Findings Chest x-ray: image reviewed Assessment and Plan Assessment: Severe hyponatremia, urine studies pending, rule out possible SIADH Right middle lobe community-acquired pneumonia Acute COPD exacerbation, secondary to above Acute leukocytosis Chest CT on 10/04/2024 demonstrating small subcentimeter left lower lobe pu lmonary nodule with more suspicious 1.8 x 2.7 cm left suprahilar nodule and/or adenopathy noted. recommend attention to outpatient follow-up and PET scan History of ventilator dependent respiratory failure, intubated from 10/04-10/06 Chronic ongoing tobacco dependence, continues smoke approximately 1 pack/day history of alcohol abuse, reportedly has not had anything to drink in over a month History of syncopal episodes History of paroxysmal atrial fibrillation, chronically anticoagulated on Xarelto Plan: Patient's medications, labs, chest x-ray reviewed Patient has an obvious right middle lobe infiltrate consistent with community- acquired pneumonia Patient has been started on combination of Rocephin and azithromycin Blood cultures pending, urine Legionella antigen pending, collect sputum sample if possible Appropriate urine/osmolality studies are pending. Continues on hypertonic saline currently at 25 mL/h. Nephrology is managing. Goal sodium increase 6 to 8 mmol/L in 24 hours Continue sodium checks every 2 hours Smoking cessation counseling performed greater than 10 minutes, nicotine patch offered Patient is going to be admitted to intensive care unit I have personally seen and examined the patient, performed the documentation and the assessment and plan as written. Number of minutes spent on the visit:20
[2024-11-06] MEDS: SYMBICORT 160-4.5 MCG INHALER INHALATION SCH (07:36)
[2024-11-06] MEDS ORDERED: SYMBICORT 80-4.5 MCG INHALER INHALATION SCH (08:00)
[2024-11-06] MEDS ORDERED: IPRATROPIUM 0.5 MG/2.5 ML NEBU INHALATION SCH (08:00)
[2024-11-06] MEDS: AZITHROMYCIN 500 MG TAB PO SCH (08:07)
[2024-11-06] MEDS: METOPROLOL SUCCINATE (ER) 25 MG TAB.ER.24H PO SCH (08:07)
[2024-11-06] MEDS: THIAMINE 100 MG TAB PO SCH (08:07)
[2024-11-06] MEDS: ASPIRIN 81 MG PO SCH (08:07)
[2024-11-06] MEDS: LOSARTAN 50 MG TAB PO SCH (08:09)
[2024-11-06] MEDS: NICOTINE 21MG/24HR PATCH TRANSDERM SCH (08:09)
[2024-11-06] MEDS ORDERED: levETIRAcetam 500 MG TAB PO SCH (09:00)
[2024-11-06] MEDS ORDERED: SODIUM CHLORIDE TAB 1 GM TAB PO SCH (09:00)
[2024-11-06 09:48] LABS: African American GFR (CKD) >90 (>60 ml/min/1.73 sqM); Anion Gap 7 mmol/L; Blood Urea Nitrogen 22 mg/dL (9-20); Calcium 8.3 mg/dL (8.4-10.2); Carbon Dioxide 21 mmol/L (22-30); Chloride 94 mmol/L (98-107); Glucose 127 mg/dL (74-99); Non-African American GFR(CKD) >90 (>60 ml/min/1.73 sqM); Potassium 3.4 mmol/L (3.5-5.1); Sodium 122 mmol/L (137-145)
--- NOTE | 2024-11-06 10:21 | P.NPCON ---
History of Present Illness - Reason for Consult hyponatremia - History of Present Illness Reason for consultation: Hyponatremia History of present illness: Patient is a 69-year-old male seen in renal consultation for hyponatremia. Sodium level on admission was 116 at 4 PM November 05, 2024 and is up to 122 this morning November 06 2024 at 9 AM. Patient received 3% saline overnight but is currently off IV fluids. Patient came to the hospital due to weakness. Patient states he passed out. Patient is not a very reliable historian. Patient states his oral intake has been fair. He does have history of alcohol abuse but states he has not drank alcohol in about 2 weeks. He denies use of nonsteroidals. He denies history of malignancy. He denies using any diuretics. No vomiting or diarrhea. Hemodynamically stable. Currently has a Bennett catheter and is nonoliguric. He denies chest pain or shortness of breath. Admits to mild cough. Currently being treated for pneumonia and COPD. Vital signs are stable. General: No acute distress. HEENT: Head exam is unremarkable. LUNGS: No audible rhonchi or wheezes. HEART: Rate and Rhythm are regular. ABDOMEN: Nontender. EXTREMITITES: No edema. Past Medical History Past Medical History: Chest Pain / Angina, COPD, Hyperlipidemia, Hypertension Additional Past Medical History / Comment(s): hyponatremia History of Any Multi-Drug Resistant Organisms: None Reported Past Surgical History: Appendectomy Past Anesthesia/Blood Transfusion Reactions: No Reported Reaction Past Psychological History: No Psychological Hx Reported Smoking Status: Current every day smoker Past Alcohol Use History: Daily Past Drug Use History: Marijuana - Past Family History Mother History Unknown: Yes Additional Family Medical History / Comment(s): Father Additional Family Medical History / Comment(s): from complications of injuries after falling down stairs. Medications and Allergies Home Medications Medication Instructions Recorded Confirmed Type Albuterol Sulfate [Ventolin HFA] 1 - 2 puff INHALATION RT-Q4H PRN 01/27/20 11/05/24 History Fluticasone/Umeclidin/Vilanter 1 puff INHALATION RT-DAILY 04/21/22 11/05/24 History [Trelegy Ellipta 100-62.5-25] Aspirin EC [Ecotrin Low Dose] 81 mg PO DAILY 09/09/24 11/05/24 History Albuterol Nebulized [Ventolin 2.5 mg INHALATION RT-QID PRN 10/04/24 11/05/24 History Nebulized] Atorvastatin [Lipitor] 40 mg PO HS 30 Days #30 tab 10/10/24 11/05/24 Rx Losartan [Cozaar] 50 mg PO DAILY 30 Days #30 tab 10/10/24 11/05/24 Rx Metoprolol Succinate (ER) [Toprol 25 mg PO DAILY 30 Days #30 tab 10/10/24 11/05/24 Rx XL] Rivaroxaban [Xarelto] 20 mg PO W/SUPPER 30 Days #30 tab 10/10/24 11/05/24 Rx Sodium Chloride Tab 1 gm PO DAILY 30 Days #30 tab 10/10/24 11/05/24 Rx Thiamine [Vitamin B-1] 100 mg PO DAILY 30 Days #30 tab 10/10/24 11/05/24 Rx Allergies Allergy/AdvReac Type Severity Reaction Status Date / Time No Known Allergies Allergy Verified 11/05/24 17:02 Physical Exam Vitals: Vital Signs Temp Pulse Resp BP Pulse Ox 11/06/24 10:00 76 18 125/68 97 11/06/24 09:15 75 16 130/63 99 11/06/24 08:00 80 14 132/68 98 11/06/24 07:48 76 11/06/24 07:36 75 11/06/24 07:16 97.8 F 77 13 143/72 96 11/06/24 06:00 76 19 140/71 97 11/06/24 05:00 84 18 144/75 96 11/06/24 04:00 84 18 118/60 97 11/06/24 03:00 81 19 125/67 97 11/06/24 02:00 82 19 129/66 96 11/06/24 01:00 83 19 127/72 96 11/06/24 00:00 80 20 124/67 98 11/05/24 23:00 80 20 127/67 96 11/05/24 22:00 83 20 137/64 97 11/05/24 21:00 87 20 135/65 96 11/05/24 20:00 90 20 130/72 95 11/05/24 19:00 97.8 F 97 20 136/78 96 11/05/24 18:55 91 11/05/24 18:47 92 11/05/24 18:08 106 H 18 118/61 96 11/05/24 17:06 111 H 18 120/54 95 11/05/24 16:33 109 H 11/05/24 16:18 104 H 11/05/24 16:17 104 H 18 99/80 100 11/05/24 16:00 109 H 11/05/24 15:32 98.5 F 112 H 20 91/57 100 Intake and Output 11/05/24 11/06/24 11/06/24 22:59 06:59 14:59 Output Total 300 880 Balance -300 -880 Output: Urine 300 880 Uretheral (Bennett) 300 Other: Weight 78.018 kg Results - Lab Results Most recent lab results Calcium 8.3 mg/dL (8.4-10.2) L 11/06/24 09:19 Phosphorus 2.0 mg/dL (2.5-4.5) L 11/05/24 16:07 Magnesium 1.8 mg/dL (1.6-2.3) 11/05/24 16:07 11/05/24 16:07 11/06/24 09:19 Assessment and Plan Plan: Assessment: 1. 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 Status post 3% saline. Sodium level 116 on admission yesterday and is 122 this morning. Urine osmolality 542. TSH low at 0.076. PTH related peptide - September 2024. 2. Hypokalemia from poor intake. 3. History of alcohol abuse. 4. Pneumonia maintained on antibiotics. 5. COPD exacerbation. Plan: Change fluid restriction to 1500 cc. Encourage oral intake. Replace potassium Hold off on any IV fluids at this time. Repeat sodium level at noon. Follow-up cortisol level. Thank you for the consultation. I will continue to follow the patient with you during his hospital stay.
[2024-11-06] MEDS: POTASSIUM CHLORIDE ER 20 MEQ TAB.ER PO STA (11:01)
[2024-11-06 12:37] LABS: African American GFR (CKD) >90 (>60 ml/min/1.73 sqM); Anion Gap 7 mmol/L; Blood Urea Nitrogen 22 mg/dL (9-20); Calcium 8.6 mg/dL (8.4-10.2); Carbon Dioxide 21 mmol/L (22-30); Chloride 94 mmol/L (98-107); Glucose 129 mg/dL (74-99); Non-African American GFR(CKD) >90 (>60 ml/min/1.73 sqM); Potassium 3.5 mmol/L (3.5-5.1); Sodium 122 mmol/L (137-145)
--- NOTE | 2024-11-06 16:07 | P.HPIM ---
History of Present Illness H&P Date: 11/06/24 History of present illness; patient 69-year-old gentleman with past medical history significant for COPD, chronic tobacco dependence, hypertension, alcohol abuse who presented to the ER because of inability to take care of himself. Patient has recently been admitted in the hospital for low sodium levels. Patient stated for the last few days he has been more lethargic. Patient has been feeling very weak. Patient denies any fever. Patient states that his appetite has been poor and he has not been drinking much. Patient denies any chest pain. No complaint of shortness of breath. Because of the symptoms EMS was called and patient brought to the ER Initial lab work done in the ER showed WBC 13.8, hemoglobin 11.3, platelet count 207, sodium 116, potassium 4.2, BUN 30, creatinine 0.73, glucose 108, calcium 8.7, phosphorus 2.0 bilirubin 1.4, AST 72, ALT 59, EKG done in the ER showed heart rate of 109, no ST segment elevation or depression seen, no T-wave inversions seen. Chest x-ray done in the ER showed right midlung airspace opacities new from 10/07 Patient admitted to internal medicine service REVIEW OF SYSTEMS: CONSTITUTIONAL: No fever, no malaise, no fatigue. HEENT: No recent visual problems or hearing problems. Denied any sore throat. CARDIOVASCULAR: Mentioned above PULMONARY: Mentioned above GASTROINTESTINAL: No diarrhea, no nausea, no vomiting, no abdominal pain. NEUROLOGICAL: No headaches, no weakness, no numbness. HEMATOLOGICAL: Denies any bleeding or petechiae. GENITOURINARY: Denies any burning micturition, frequency, or urgency. MUSCULOSKELETAL/RHEUMATOLOGICAL: Denies any joint pain, swelling, or any muscle pain. ENDOCRINE: Denies any polyuria or polydipsia. The rest of the 14-point review of systems is negative. PHYSICAL EXAMINATION: GENERAL: The patient is alert and oriented x3, ill looking HEENT: Pupils are round and equally reacting to light. EOMI. No scleral icterus. No conjunctival pallor. Normocephalic, atraumatic. No pharyngeal erythema. No thyromegaly. CARDIOVASCULAR: S1 and S2 present. No murmurs, rubs, or gallops. PULMONARY: Coarse breath sounds bilaterally, no wheezing or crackles. ABDOMEN: Soft, nontender, nondistended, normoactive bowel sounds. No palpable organomegaly. MUSCULOSKELETAL: No joint swelling or deformity. EXTREMITIES: No cyanosis, clubbing, or pedal edema. NEUROLOGICAL: Gross neurological examination did not reveal any focal deficits. SKIN: No rashes. Assessment and plan Hyponatremia SIADH Bacterial pneumonia Acute COPD exacerbation Acute leukocytosis Chronic ongoing tobacco dependence, continues smoke approximately 1 pack/day history of alcohol abuse History of syncopal episodes History of paroxysmal atrial fibrillation, chronically anticoagulated on Xarelto Debility Monitor vital signs Monitor CBC Monitor CMP Continue telemetry monitoring Ordered blood cultures Ordered sputum cultures Ordered urine lites, serum and urine osmolality Continue hypertonic saline, goal of sodium improvement is between 6 to 8 mmol/L in 24 hours Ordered IV Zosyn azithromycin Consulted pulmonary Consulted nephrology Labs and medication were reviewed.. Continue same treatment. Continue with symptomatic treatment. Resume home medication. Monitor labs and vitals. DVT and GI prophylaxis. Further recommendations as per clinical course of the patient Dictation was produced using [email or web address] dictation software. please excuse any grammatical, word or spelling errors. Past Medical History Past Medical History: Chest Pain / Angina, COPD, Hyperlipidemia, Hypertension Additional Past Medical History / Comment(s): hyponatremia History of Any Multi-Drug Resistant Organisms: None Reported Past Surgical History: Appendectomy Past Anesthesia/Blood Transfusion Reactions: No Reported Reaction Past Psychological History: No Psychological Hx Reported Smoking Status: Current every day smoker Past Alcohol Use History: Daily Past Drug Use History: Marijuana - Past Family History Mother History Unknown: Yes Additional Family Medical History / Comment(s): Father Additional Family Medical History / Comment(s): from complications of injuries after falling down stairs. Medications and Allergies Home Medications Medication Instructions Recorded Confirmed Type Albuterol Sulfate [Ventolin HFA] 1 - 2 puff INHALATION RT-Q4H PRN 01/27/20 11/05/24 History Fluticasone/Umeclidin/Vilanter 1 puff INHALATION RT-DAILY 04/21/22 11/05/24 History [Trelecharbel Ellipta 100-62.5-25] Aspirin EC [Ecotrin Low Dose] 81 mg PO DAILY 09/09/24 11/05/24 History Albuterol Nebulized [Ventolin 2.5 mg INHALATION RT-QID PRN 10/04/24 11/05/24 History Nebulized] Atorvastatin [Lipitor] 40 mg PO HS 30 Days #30 tab 10/10/24 11/05/24 Rx Losartan [Cozaar] 50 mg PO DAILY 30 Days #30 tab 10/10/24 11/05/24 Rx Metoprolol Succinate (ER) [Toprol 25 mg PO DAILY 30 Days #30 tab 10/10/24 11/05/24 Rx XL] Rivaroxaban [Xarelto] 20 mg PO W/SUPPER 30 Days #30 tab 10/10/24 11/05/24 Rx Sodium Chloride Tab 1 gm PO DAILY 30 Days #30 tab 10/10/24 11/05/24 Rx Thiamine [Vitamin B-1] 100 mg PO DAILY 30 Days #30 tab 10/10/24 11/05/24 Rx Allergies Allergy/AdvReac Type Severity Reaction Status Date / Time No Known Allergies Allergy Verified 11/05/24 17:02 Physical Exam Vitals: Vital Signs Temp Pulse Resp BP Pulse Ox 11/06/24 11:12 76 11/06/24 11:03 75 11/06/24 11:00 97 11/06/24 10:00 76 18 125/68 97 11/06/24 09:15 75 16 130/63 99 11/06/24 08:00 80 14 132/68 98 11/06/24 07:48 76 11/06/24 07:36 75 11/06/24 07:16 97.8 F 77 13 143/72 96 11/06/24 06:00 76 19 140/71 97 11/06/24 05:00 84 18 144/75 96 11/06/24 04:00 84 18 118/60 97 11/06/24 03:00 81 19 125/67 97 11/06/24 02:00 82 19 129/66 96 11/06/24 01:00 83 19 127/72 96 11/06/24 00:00 80 20 124/67 98 11/05/24 23:00 80 20 127/67 96 11/05/24 22:00 83 20 137/64 97 11/05/24 21:00 87 20 135/65 96 11/05/24 20:00 90 20 130/72 95 11/05/24 19:00 97.8 F 97 20 136/78 96 11/05/24 18:55 91 11/05/24 18:47 92 11/05/24 18:08 106 H 18 118/61 96 11/05/24 17:06 111 H 18 120/54 95 11/05/24 16:33 109 H 11/05/24 16:18 104 H 11/05/24 16:17 104 H 18 99/80 100 11/05/24 16:00 109 H 11/05/24 15:32 98.5 F 112 H 20 91/57 100 Intake and Output 11/05/24 11/06/24 11/06/24 22:59 06:59 14:59 Output Total 300 880 Balance -300 -880 Output: Urine 300 880 Uretheral (Bennett) 300 Other: Weight 78.018 kg Results CBC & Chem 7: 11/05/24 16:07 11/06/24 12:07 Labs: Abnormal Lab Results - Last 24 Hours (Table) 11/05/24 11/05/24 11/05/24 Range/Units 16:07 16:07 16:07 WBC 30.8 H (3.8-10.6) k/uL RBC 3.53 L (4.30-5.90) m/uL Hgb 11.3 L (13.0-17.5) gm/dL Hct 32.6 L (39.0-53.0) % Neutrophils # 28.3 H (1.3-7.7) k/uL Lymphocytes # 0.4 L (1.0-4.8) k/uL Monocytes # 1.6 H (0-1.0) k/uL PT 9.6 L (10.0-12.5) sec Sodium 116 L* (137-145) mmol/L Potassium (3.5-5.1) mmol/L Chloride 85 L (98-107) mmol/L Carbon Dioxide (22-30) mmol/L BUN 30 H (9-20) mg/dL Creatinine (0.66-1.25) mg/dL Glucose 108 H (74-99) mg/dL Osmolality (275-295) mOsm/kg Calcium (8.4-10.2) mg/dL Phosphorus 2.0 L (2.5-4.5) mg/dL Total Bilirubin 1.4 H (0.2-1.3) mg/dL AST 72 H (17-59) U/L ALT 59 H (4-49) U/L TSH (0.465-4.680) mIU/L Ur Random Sodium (40-220) mmol/L 11/05/24 11/05/24 11/05/24 Range/Units 16:40 17:17 17:17 WBC (3.8-10.6) k/uL RBC (4.30-5.90) m/uL Hgb (13.0-17.5) gm/dL Hct (39.0-53.0) % Neutrophils # (1.3-7.7) k/uL Lymphocytes # (1.0-4.8) k/uL Monocytes # (0-1.0) k/uL PT (10.0-12.5) sec Sodium 115 L* (137-145) mmol/L Potassium (3.5-5.1) mmol/L Chloride 86 L (98-107) mmol/L Carbon Dioxide 20 L (22-30) mmol/L BUN 28 H (9-20) mg/dL Creatinine 0.63 L (0.66-1.25) mg/dL Glucose 151 H (74-99) mg/dL Osmolality 252 L (275-295) mOsm/kg Calcium 8.0 L (8.4-10.2) mg/dL Phosphorus (2.5-4.5) mg/dL Total Bilirubin (0.2-1.3) mg/dL AST (17-59) U/L ALT (4-49) U/L TSH (0.465-4.680) mIU/L Ur Random Sodium <20 L (40-220) mmol/L 11/05/24 11/05/24 11/06/24 Range/Units 18:47 21:39 00:34 WBC (3.8-10.6) k/uL RBC (4.30-5.90) m/uL Hgb (13.0-17.5) gm/dL Hct (39.0-53.0) % Neutrophils # (1.3-7.7) k/uL Lymphocytes # (1.0-4.8) k/uL Monocytes # (0-1.0) k/uL PT (10.0-12.5) sec Sodium 116 L* 118 L* 118 L* (137-145) mmol/L Potassium (3.5-5.1) mmol/L Chloride (98-107) mmol/L Carbon Dioxide (22-30) mmol/L BUN (9-20) mg/dL Creatinine (0.66-1.25) mg/dL Glucose (74-99) mg/dL Osmolality (275-295) mOsm/kg Calcium (8.4-10.2) mg/dL Phosphorus (2.5-4.5) mg/dL Total Bilirubin (0.2-1.3) mg/dL AST (17-59) U/L ALT (4-49) U/L TSH (0.465-4.680) mIU/L Ur Random Sodium (40-220) mmol/L 11/06/24 11/06/24 11/06/24 Range/Units 02:17 04:13 06:33 WBC (3.8-10.6) k/uL RBC (4.30-5.90) m/uL Hgb (13.0-17.5) gm/dL Hct (39.0-53.0) % Neutrophils # (1.3-7.7) k/uL Lymphocytes # (1.0-4.8) k/uL Monocytes # (0-1.0) k/uL PT (10.0-12.5) sec Sodium 119 L* 120 L 121 L (137-145) mmol/L Potassium (3.5-5.1) mmol/L Chloride (98-107) mmol/L Carbon Dioxide (22-30) mmol/L BUN (9-20) mg/dL Creatinine (0.66-1.25) mg/dL Glucose (74-99) mg/dL Osmolality (275-295) mOsm/kg Calcium (8.4-10.2) mg/dL Phosphorus (2.5-4.5) mg/dL Total Bilirubin (0.2-1.3) mg/dL AST (17-59) U/L ALT (4-49) U/L TSH 0.076 L (0.465-4.680) mIU/L Ur Random Sodium (40-220) mmol/L 11/06/24 11/06/24 Range/Units 09:19 12:07 WBC (3.8-10.6) k/uL RBC (4.30-5.90) m/uL Hgb (13.0-17.5) gm/dL Hct (39.0-53.0) % Neutrophils # (1.3-7.7) k/uL Lymphocytes # (1.0-4.8) k/uL Monocytes # (0-1.0) k/uL PT (10.0-12.5) sec Sodium 122 L 122 L (137-145) mmol/L Potassium 3.4 L (3.5-5.1) mmol/L Chloride 94 L 94 L (98-107) mmol/L Carbon Dioxide 21 L 21 L (22-30) mmol/L BUN 22 H 22 H (9-20) mg/dL Creatinine 0.43 L 0.43 L (0.66-1.25) mg/dL Glucose 127 H 129 H (74-99) mg/dL Osmolality (275-295) mOsm/kg Calcium 8.3 L (8.4-10.2) mg/dL Phosphorus (2.5-4.5) mg/dL Total Bilirubin (0.2-1.3) mg/dL AST (17-59) U/L ALT (4-49) U/L TSH (0.465-4.680) mIU/L Ur Random Sodium (40-220) mmol/L
[2024-11-06] MEDS: SODIUM CHLORIDE TAB 1 GM TAB PO STA (18:27)
[2024-11-07 07:26] LABS: African American GFR (CKD) >90 (>60 ml/min/1.73 sqM); Anion Gap 9 mmol/L; Blood Urea Nitrogen 21 mg/dL (9-20); Calcium 8.7 mg/dL (8.4-10.2); Carbon Dioxide 23 mmol/L (22-30); Chloride 94 mmol/L (98-107); Glucose 121 mg/dL (74-99); Magnesium 1.8 mg/dL (1.6-2.3); Non-African American GFR(CKD) >90 (>60 ml/min/1.73 sqM); Potassium 4.1 mmol/L (3.5-5.1); Sodium 126 mmol/L (137-145)
--- NOTE | 2024-11-07 09:27 | P.PN ---
Subjective Patient is seen in follow-up for hyponatremia. Sodium level improved. Oral intake is fair. No vomiting or diarrhea. Bennett catheter removed. Has been voiding on his own. Vital signs are stable. General: No acute distress. HEENT: Head exam is unremarkable. LUNGS: No audible rhonchi or wheezes. HEART: Rate and Rhythm are regular. ABDOMEN: Nontender. EXTREMITITES: No edema. Objective - Vital Signs Vital signs: Vital Signs Temp 97.7 F 11/07/24 08:21 Pulse 80 11/07/24 08:21 Resp 14 11/07/24 08:21 BP 146/78 11/07/24 08:21 Pulse Ox 96 11/07/24 08:21 FiO2 Intake & Output 11/06/24 11/07/24 11/07/24 18:59 06:59 18:59 Intake Total 690 Output Total 880 925 100 Balance -880 -235 -100 Weight 63 kg Intake: IV 10 Invasive Line 1 10 Oral 680 Output: Urine 880 925 100 Other: Voiding Method Indwelling Catheter - Labs CBC & Chem 7: 11/05/24 16:07 11/07/24 06:16 Labs: Abnormal Lab Results - Last 24 Hours (Table) 11/05/24 11/06/24 11/06/24 Range/Units 16:40 09:19 12:07 Sodium 122 L 122 L (137-145) mmol/L Potassium 3.4 L (3.5-5.1) mmol/L Chloride 94 L 94 L (98-107) mmol/L Carbon Dioxide 21 L 21 L (22-30) mmol/L BUN 22 H 22 H (9-20) mg/dL Creatinine 0.43 L 0.43 L (0.66-1.25) mg/dL Glucose 127 H 129 H (74-99) mg/dL Calcium 8.3 L (8.4-10.2) mg/dL Ur Random Sodium <20 L (40-220) mmol/L 11/06/24 11/07/24 Range/Units 16:54 06:16 Sodium 123 L 126 L (137-145) mmol/L Potassium (3.5-5.1) mmol/L Chloride 94 L (98-107) mmol/L Carbon Dioxide (22-30) mmol/L BUN 21 H (9-20) mg/dL Creatinine 0.47 L (0.66-1.25) mg/dL Glucose 121 H (74-99) mg/dL Calcium (8.4-10.2) mg/dL Ur Random Sodium (40-220) mmol/L Microbiology - Last 24 Hours (Table) 11/05/24 16:20 Blood Culture - Preliminary Blood 11/05/24 15:56 Blood Culture - Preliminary Blood Assessment and Plan Plan: Assessment: 1. 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 Status post 3% saline. Sodium level 116 on admission -126 this morning. Urine osmolality 542. Urine sodium less than 20. TSH low at 0.076. Cortisol level not low. PTH related peptide negative in September 2024. 2. Hypokalemia from poor intake. Replaced. Better. 3. History of alcohol abuse. 4. Pneumonia maintained on antibiotics. 5. COPD exacerbation. Plan: Maintain fluid restriction. Status post salt tab x 1 given yesterday. Encourage oral intake. Repeat labs in the morning.
--- NOTE | 2024-11-07 12:03 | P.PN ---
Subjective Progress Note Date: 11/07/24 Principal diagnosis: Acute hyponatremia acute community-acquired pneumonia This is a 69-year-old male patient with a known history of COPD, chronic tobacco dependence, hypertension, alcohol abuse. PCP is Dr. Mason. Patient has had two recent hospitalizations in September for hyponatremia. Patient does have history of alcohol abuse, but reportedly has not drank any beer in over a month. Patient was sent into the emergency department yesterday afternoon. Apparently, EMS was called as the patient is unable to take care of himself at home. He has been more lethargic and weak at home. He has not been eating or drinking very much at home. Denies any nausea or vomiting or diarrhea. Found to be severely hyponatremic in the ED, with a sodium of 116. Borderline hypotensive on admission with 90s/50s blood pressure. 1 L isotonic saline was bolused. Blood pressure has since improved. Patient then started on a 3% hypertonic saline. This is being managed by nephrology, and patient is admitted to the intensive care unit for this reason. Chest x-ray showing his extensive right midlung airspace opacity, new from prior image on 10/07/2024. Note that on his previous hospitalization, patient did have a chest CT on 10/04/2024 demonstrating small subcentimeter left lower lobe pulmonary nodule with more suspicious 1.8 x 2.7 cm left suprahilar nodule and/or adenopathy noted. There is unclear if the patient had any out of hospital follow-up. He does have significant smoking history and COPD. Patient is currently being evaluated in the emergency department. He is in no acute distress. Alert and oriented. No focal neurological deficits or seizures. 3% hypertonic saline infusing at 25 mm/h. Current vitals: Heart rate 80 bpm, blood pressure is 127/64 mmHg, SpO2 96% on room air, nontachypneic. CBC: WBC count 30.8, hemoglobin 11.3, hematocrit 32.6, platelets 207. Most recent sodium is up to 118. Remaining BMP includes a potassium 3.7, chloride 86, serum bicarb 20, BUN 28, creatinine 0.63, glucose 151. Troponin is less than 0.012. NT proBNP 449. TSH 0.5. Patient has been started on antibiotics in the form of Rocephin and azithromycin in the ED. Blood cultures pending. Urine Legionella antigen pending. Appropriate urine studies pending. Nephrology is managing patient's hyponatremia.. Reevaluate today on 11/07/2024, patient is doing great, asymptomatic.On room air, O2 sats 100%, denies any pulmonary symptoms no cough no wheezing no short ness of breath.Sodium today is up to 126 rest of the electrolytes are normal renal profile is normal patient is on fluid restriction. Patient remains on antibiotics for his underlying pneumonia Objective - Vital Signs Vital signs: Vital Signs Temp 97.6 F 11/07/24 11:21 Pulse 58 L 11/07/24 11:21 Resp 14 11/07/24 11:21 BP 138/83 11/07/24 11:21 Pulse Ox 100 11/07/24 11:21 FiO2 Intake & Output 11/06/24 11/07/24 11/07/24 18:59 06:59 18:59 Intake Total 690 Output Total 880 925 100 Balance -880 -235 -100 Weight 63 kg Intake: IV 10 Invasive Line 1 10 Oral 680 Output: Urine 880 925 100 Other: Voiding Method Indwelling Catheter - Exam GENERAL EXAM: Revealed 69-year-old white male in no distress, on room air HEAD: Normocephalic and atraumatic EYES: Normal reaction of pupils, equal size. NOSE: Clear with pink turbinates. THROAT: No erythema or exudates. NECK: No masses, no JVD. CHEST: No chest wall deformity. LUNGS: Clear bilaterally no rhonchi no wheezes onal dyspnea or accessory muscle use.. CVS: S1 and S2 normal with no audible murmur, regular rhythm. No extra heart sounds ABDOMEN: No hepatosplenomegaly, active bowel sounds, no guarding or rigidity. SKIN: No rashes, abrasions to bilateral knees CENTRAL NERVOUS SYSTEM: No focal deficits, tone is normal in all 4 extremities. EXTREMITIES: There is no peripheral edema, clubbing, or cyanosis. Peripheral pulses are intact. - Labs CBC & Chem 7: 11/05/24 16:07 11/07/24 06:16 Labs: Abnormal Lab Results - Last 24 Hours (Table) 11/05/24 11/06/24 11/06/24 Range/Units 16:40 06:33 12:07 Sodium 122 L (137-145) mmol/L Chloride 94 L (98-107) mmol/L Carbon Dioxide 21 L (22-30) mmol/L BUN 22 H (9-20) mg/dL Creatinine 0.43 L (0.66-1.25) mg/dL Glucose 129 H (74-99) mg/dL Procalcitonin 0.57 H (0.02-0.50) ng/mL Ur Random Sodium <20 L (40-220) mmol/L 11/06/24 11/07/24 Range/Units 16:54 06:16 Sodium 123 L 126 L (137-145) mmol/L Chloride 94 L (98-107) mmol/L Carbon Dioxide (22-30) mmol/L BUN 21 H (9-20) mg/dL Creatinine 0.47 L (0.66-1.25) mg/dL Glucose 121 H (74-99) mg/dL Procalcitonin (0.02-0.50) ng/mL Ur Random Sodium (40-220) mmol/L Microbiology - Last 24 Hours (Table) 11/05/24 16:20 Blood Culture - Preliminary Blood 11/05/24 15:56 Blood Culture - Preliminary Blood Assessment and Plan Assessment: Impression Severe hyponatremia, secondary to SIADH Right middle lobe community-acquired pneumonia Acute COPD exacerbation, secondary to above Acute leukocytosis Chest CT on 10/04/2024 demonstrating small subcentimeter left lower lobe pulmonary nodule with more suspicious 1.8 x 2.7 cm left suprahilar nodule and/or adenopathy noted. recommend attention to outpatient follow-up and PET scan patient will need outpatient follow-up and PET scan on outpatient basis to further evaluate this abnormality History of ventilator dependent respiratory failure, intubated from 10/04-10/06 Chronic ongoing tobacco dependence, continues smoke approximately 1 pack/day history of alcohol abuse, reportedly has not had anything to drink in over a month History of syncopal episodes History of paroxysmal atrial fibrillation, chronically anticoagulated on Xarelto Recommendation: Continue fluid restrictions Continue antibiotics Continue to monitor electrolytes and renal profile daily Patient should have outpatient follow-up regarding his possible underlying pulmonary malignancy. Will need a PET scan on outpatient basis. Will continue to follow Time with Patient: Less than 30
--- NOTE | 2024-11-07 14:47 | P.PN ---
Subjective Progress Note Date: 11/07/24 patient 69-year-old gentleman with past medical history significant for COPD, chronic tobacco dependence, hypertension, alcohol abuse who presented to the ER because of inability to take care of himself. Patient has recently been admitted in the hospital for low sodium levels. Patient stated for the last few days he has been more lethargic. Patient has been feeling very weak. Patient denies any fever. Patient states that his appetite has been poor and he has not been drinking much. Patient denies any chest pain. No complaint of shortness of breath. Because of the symptoms EMS was called and patient brought to the ER Initial lab work done in the ER showed WBC 13.8, hemoglobin 11.3, platelet count 207, sodium 116, potassium 4.2, BUN 30, creatinine 0.73, glucose 108, calcium 8.7, phosphorus 2.0 bilirubin 1.4, AST 72, ALT 59, EKG done in the ER showed heart rate of 109, no ST segment elevation or depression seen, no T-wave inversions seen. Chest x-ray done in the ER showed right midlung airspace opacities new from 10/07 Patient admitted to internal medicine service 11/07. Patient seen and examined. Blood work done this morning showed sodium 126, potassium 4.1, BUN 21, creatinine 0.47. Patient is alert, answering question appropriately. Still complain lethargic and weakness REVIEW OF SYSTEMS: CONSTITUTIONAL: No fever, no malaise,. CARDIOVASCULAR: No chest pain, no palpitations, no syncope. PULMONARY: No shortness of breath, no cough, GASTROINTESTINAL: No diarrhea, no nausea, no vomiting, no abdominal pain. NEUROLOGICAL: No headaches, no weakness, PHYSICAL EXAMINATION: GENERAL: The patient is alert and oriented x3, ill looking HEENT: Pupils are round and equally reacting to light. EOMI. No scleral icterus. No conjunctival pallor. Normocephalic, atraumatic. No pharyngeal erythema. No thyromegaly. CARDIOVASCULAR: S1 and S2 present. No murmurs, rubs, or gallops. PULMONARY: Coarse breath sounds bilaterally, no wheezing or crackles. ABDOMEN: Soft, nontender, nondistended, normoactive bowel sounds. No palpable organomegaly. MUSCULOSKELETAL: No joint swelling or deformity. EXTREMITIES: No cyanosis, clubbing, or pedal edema. NEUROLOGICAL: Gross neurological examination did not reveal any focal deficits. SKIN: No rashes. Assessment and plan Hyponatremia SIADH Bacterial pneumonia Acute COPD exacerbation Acute leukocytosis Chronic ongoing tobacco dependence, continues smoke approximately 1 pack/day history of alcohol abuse History of syncopal episodes History of paroxysmal atrial fibrillation, chronically anticoagulated on Xarelto Debility Monitor vital signs Monitor CBC Monitor CMP Continue telemetry monitoring Follow-up on blood cultures Follow-up on sputum cultures Continue fluid restriction Continue IV Rocephin and azithromycin Continue aspirin, Lipitor Continue Xarelto Pulmonology following Nephrology following PT and OT consulted Labs and medication were reviewed.. Continue same treatment. Continue with symptomatic treatment. Resume home medication. Monitor labs and vitals. DVT and GI prophylaxis. Further recommendations as per clinical course of the patient Dictation was produced using [employer] dictation software. please excuse any grammatical, word or spelling errors. Objective - Vital Signs Vital signs: Vital Signs Temp 97.7 F 11/07/24 08:21 Pulse 80 11/07/24 08:21 Resp 14 11/07/24 08:21 BP 146/78 11/07/24 08:21 Pulse Ox 96 11/07/24 08:21 FiO2 Intake & Output 11/06/24 11/07/24 11/07/24 18:59 06:59 18:59 Intake Total 690 Output Total 880 925 100 Balance -880 -235 -100 Weight 63 kg Intake: IV 10 Invasive Line 1 10 Oral 680 Output: Urine 880 925 100 Other: Voiding Method Indwelling Catheter - Labs CBC & Chem 7: 11/05/24 16:07 11/07/24 06:16 Labs: Abnormal Lab Results - Last 24 Hours (Table) 11/05/24 11/06/24 11/06/24 Range/Units 16:40 12:07 16:54 Sodium 122 L 123 L (137-145) mmol/L Chloride 94 L (98-107) mmol/L Carbon Dioxide 21 L (22-30) mmol/L BUN 22 H (9-20) mg/dL Creatinine 0.43 L (0.66-1.25) mg/dL Glucose 129 H (74-99) mg/dL Ur Random Sodium <20 L (40-220) mmol/L 11/07/24 Range/Units 06:16 Sodium 126 L (137-145) mmol/L Chloride 94 L (98-107) mmol/L Carbon Dioxide (22-30) mmol/L BUN 21 H (9-20) mg/dL Creatinine 0.47 L (0.66-1.25) mg/dL Glucose 121 H (74-99) mg/dL Ur Random Sodium (40-220) mmol/L Microbiology - Last 24 Hours (Table) 11/05/24 16:20 Blood Culture - Preliminary Blood 11/05/24 15:56 Blood Culture - Preliminary Blood
[2024-11-08 07:35] LABS: African American GFR (CKD) >90 (>60 ml/min/1.73 sqM); Anion Gap 7 mmol/L; Blood Urea Nitrogen 21 mg/dL (9-20); Calcium 8.6 mg/dL (8.4-10.2); Carbon Dioxide 27 mmol/L (22-30); Chloride 95 mmol/L (98-107); Glucose 115 mg/dL (74-99); Magnesium 1.6 mg/dL (1.6-2.3); Non-African American GFR(CKD) >90 (>60 ml/min/1.73 sqM); Potassium 3.6 mmol/L (3.5-5.1); Sodium 129 mmol/L (137-145)
--- NOTE | 2024-11-08 07:45 | XR ---
EXAMINATION TYPE: XR chest 1V portable DATE OF EXAM: 11/08/2024 COMPARISON: NONE CLINICAL INDICATION: Male, 69 years old with history of Pneumonia; , TECHNIQUE: XR chest 1V portable views of the chest. FINDINGS: A large mass in the right lung. Symptoms change. Deformity of the lower right lateral rib cage prior trauma or fracture. No pneumotho rax. Heart size stable. Degenerative changes spine. Atherosclerotic change aorta. IMPRESSION: 1. Large area of masslike consolidation right perihilar region. Differential includes pneumonia and n eoplasm. [facility], , 11/08/2024 7:42 AM
--- NOTE | 2024-11-08 09:38 | P.PN ---
Subjective Patient is seen in follow-up for hyponatremia. Sodium level improved. Oral intake is fair. No vomiting or diarrhea. No active complaints. Vital signs are stable. General: No acute distress. HEENT: Head exam is unremarkable. LUNGS: No audible rhonchi or wheezes. HEART: Rate and Rhythm are regular. ABDOMEN: Nontender. EXTREMITITES: No edema. Objective - Vital Signs Vital signs: Vital Signs Temp 98.8 F 11/08/24 07:28 Pulse 75 11/08/24 08:13 Resp 20 11/08/24 07:28 BP 197/92 11/08/24 07:28 Pulse Ox 99 11/08/24 08:00 FiO2 Intake & Output 11/07/24 11/08/24 11/08/24 18:59 06:59 18:59 Intake Total 711 236 Output Total 100 400 Balance -100 311 236 Weight 63.8 kg Intake: Oral 711 236 Output: Urine 100 400 Other: Voiding Method Urinal Urinal # Voids 1 1 # Bowel Movements 0 1 1 - Labs CBC & Chem 7: 11/05/24 16:07 11/08/24 06:40 Labs: Abnormal Lab Results - Last 24 Hours (Table) 11/06/24 11/08/24 Range/Units 06:33 06:40 Sodium 129 L (137-145) mmol/L Chloride 95 L (98-107) mmol/L BUN 21 H (9-20) mg/dL Creatinine 0.47 L (0.66-1.25) mg/dL Glucose 115 H (74-99) mg/dL Procalcitonin 0.57 H (0.02-0.50) ng/mL Microbiology - Last 24 Hours (Table) 11/05/24 16:20 Blood Culture - Preliminary Blood 11/05/24 15:56 Blood Culture - Preliminary Blood Assessment and Plan Plan: Assessment: 1. 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 Status post 3% saline. Sodium level better at 129. Urine osmolality 542. Urine sodium less than 20. TSH low at 0.076. Cortisol level not low. PTH related peptide negative in September 2024. 2. Hypokalemia from poor intake. Replaced. On the lower end today. 3. History of alcohol abuse. 4. Pneumonia maintained on antibiotics. 5. COPD exacerbation. Plan: Maintain fluid restriction. Status post salt tab x 1 this admission. Encourage oral intake. Replace potassium and magnesium. Repeat labs in the morning.
[2024-11-08] MEDS: POTASSIUM CHLORIDE ER 20 MEQ TAB.ER PO STA (10:24)
[2024-11-08] MEDS: MAGNESIUM SULFATE-D5W PMX 1 GM in DEXTROSE/WATER 1 100ML.BAG IVPB SCH (10:25)
[2024-11-08] MEDS ORDERED: RX INFO: IV CONTRAST WAS GIVEN 1 EACH MISC MISCELLANE PRN (10:59)
--- NOTE | 2024-11-08 12:48 | P.PN ---
Subjective Progress Note Date: 11/08/24 Principal diagnosis: Acute hyponatremia acute community-acquired pneumonia, possible bronchogenic carcinoma This is a 69-year-old male patient with a known history of COPD, chronic tobacco dependence, hypertension, alcohol abuse. PCP is Dr. Mason. Patient has had two recent hospitalizations in September for hyponatremia. Patient does have history of alcohol abuse, but reportedly has not drank any beer in over a month. Patient was sent into the emergency department yesterday afternoon. Apparently, EMS was called as the patient is unable to take care of himself at home. He has been more lethargic and weak at home. He has not been eating or drinking very much at home. Denies any nausea or vomiting or diarrhea. Found to be severely hyponatremic in the ED, with a sodium of 116. Borderline hypotensive on admission with 90s/50s blood pressure. 1 L isotonic saline was bolused. Blood pressure has since improved. Patient then started on a 3% hypertonic saline. This is being managed by nephrology, and patient is admitted to the intensive care unit for this reason. Chest x-ray showing his extensive right midlung airspace opacity, new from prior image on 10/07/2024. Note that on his previous hospitalization, patient did have a chest CT on 10/04/2024 demonstrating small subcentimeter left lower lobe pulmonary nodule with more suspicious 1.8 x 2.7 cm left suprahilar nodule and/or adenopathy noted. There is unclear if the patient had any out of hospital follow-up. He does have significant smoking history and COPD. Patient is currently being evaluated in the emergency department. He is in no acute distress. Alert and oriented. No focal neurological deficits or seizures. 3% hypertonic saline infusing at 25 mm/h. Current vitals: Heart rate 80 bpm, blood pressure is 127/64 mmHg, SpO2 96% on room air, nontachypneic. CBC: WBC count 30.8, hemoglobin 11.3, hematocrit 32.6, platelets 207. Most recent sodium is up to 118. Remaining BMP includes a potassium 3.7, chloride 86, serum bicarb 20, BUN 28, creatinine 0.63, glucose 151. Troponin is less than 0.012. NT proBNP 449. TSH 0.5. Patient has been started on antibiotics in the form of Rocephin and azithromycin in the ED. Blood cultures pending. Urine Legionella antigen pending. Appropriate urine studies pending. Nephrology is managing patient's hyponatremia.. Reevaluate today on 11/07/2024, patient is doing great, asymptomatic.On room air, O2 sats 100%, denies any pulmonary symptoms no cough no wheezing no shortness of breath.Sodium today is up to 126 rest of the electrolytes are normal renal profile is normal patient is on fluid restriction. Patient remains on antibiotics for his underlying pneumonia Seen today on 11/08/2024, patient is doing well clinically, however his chest x- ray today is suggestive of right hilar masslike consolidation, and malignancy is definitely a likely possibility considering this patient's hyponatremia. Hence I recommended a CT of the chest to be done on this patient today. Patient may have to be considered for bronchoscopy depending on the CT of the chest findings Objective - Vital Signs Vital signs: Vital Signs Temp 98.8 F 11/08/24 07:28 Pulse 86 11/08/24 11:31 Resp 20 11/08/24 07:28 BP 197/92 11/08/24 07:28 Pulse Ox 99 11/08/24 08:00 FiO2 Intake & Output 11/07/24 11/08/24 11/08/24 18:59 06:59 18:59 Intake Total 711 236 Output Total 100 400 Balance -100 311 236 Weight 63.8 kg Intake: Oral 711 236 Output: Urine 100 400 Other: Voiding Method Urinal Urinal # Voids 1 1 # Bowel Movements 0 1 1 - Exam GENERAL EXAM: Revealed 69-year-old white male in no distress, on room air HEAD: Normocephalic and atraumatic EYES: Normal reaction of pupils, equal size. NOSE: Clear with pink turbinates. THROAT: No erythema or exudates. NECK: No masses, no JVD. CHEST: No chest wall deformity. LUNGS: Clear bilaterally no rhonchi no wheezes onal dyspnea or accessory muscle use.. CVS: S1 and S2 normal with no audible murmur, regular rhythm. No extra heart sounds ABDOMEN: No hepatosplenomegaly, active bowel sounds, no guarding or rigidity. SKIN: No rashes, abrasions to bilateral knees CENTRAL NERVOUS SYSTEM: No focal deficits, tone is normal in all 4 extremities. EXTREMITIES: There is no peripheral edema, clubbing, or cyanosis. Peripheral pu lses are intact. - Labs CBC & Chem 7: 11/05/24 16:07 11/08/24 06:40 Labs: Abnormal Lab Results - Last 24 Hours (Table) 11/08/24 Range/Units 06:40 Sodium 129 L (137-145) mmol/L Chloride 95 L (98-107) mmol/L BUN 21 H (9-20) mg/dL Creatinine 0.47 L (0.66-1.25) mg/dL Glucose 115 H (74-99) mg/dL Microbiology - Last 24 Hours (Table) 11/05/24 16:20 Blood Culture - Preliminary Blood 11/05/24 15:56 Blood Culture - Preliminary Blood Assessment and Plan Assessment: Impression Severe hyponatremia, secondary to SIADH Right middle lobe community-acquired pneumonia Possible bronchogenic carcinoma, CT of the chest is pending consider for bronchoscopy depending on the CT of the chest findings Acute COPD exacerbation, secondary to above Acute leukocytosis Chest CT on 10/04/2024 demonstrating small subcentimeter left lower lobe pulmonary nodule with more suspicious 1.8 x 2.7 cm left suprahilar nodule and/or adenopathy noted. recommend attention to outpatient follow-up and PET scan patient will need outpatient follow-up and PET scan on outpatient basis to further evaluate this abnormality History of ventilator dependent respiratory failure, intubated from 10/04-10/06 Chronic ongoing tobacco dependence, continues smoke approximately 1 pack/day history of alcohol abuse, reportedly has not had anything to drink in over a month History of syncopal episodes History of paroxysmal atrial fibrillation, chronically anticoagulated on Xarelto Recommendation: Awaiting CT of the chest Patient should be considered for workup for malignancy/bronchogenic carcinoma Continue fluid restrictions Continue antibiotics Continue to monitor electrolytes and renal profile daily, sodium is significantly improved Patient should have outpatient follow-up regarding his possible underlying pulmonary malignancy. Will need a PET scan on outpatient basis. Will continue to follow Time with Patient: Less than 30
--- NOTE | 2024-11-08 12:51 | CT ---
CT thorax with contrast HISTORY: Lung mass. COMPARISON: 09/28/2024. TECHNIQUE: Multiple axial images are obtained through the thorax are uneventful menstruation nonionic IV contrast material. FINDINGS: There has been interval development of a large consolidative opacity in the right lung base consisten t with an acute pneumonic infiltrate. There is increasing mediastinal and bilateral hilar adenopathy. The largest lymph node is in the left hilar region and measures 2.8 cm. Multiple additional enlarged lymph nodes are seen within the media stinum. There is a 19 mm right hilar lymph node. There are enlarged lymph nodes in the subcarinal reg ion, anterior mediastinum and AP window. There is a cluster of reticular nodular densities in left upper lobe anteriorly. Within this collecti on nodules is a growing nodule now measures approximately 8 mm. In addition there is a growing bilobe d nodule in the left lower lobe measures nearly 10 mm. There is no pleural effusion or pneumothorax. Heart size is normal. The great vessels of the chest are normal. As noted previously, is a healed posterior right 10th rib fracture. No focal osseous destructive lesi ons are seen. IMPRESSION: 1. Interval development of a large consolidative opacity in the right lower lobe consistent with a ac [place] pneumonia 2. Increasing left lung nodules and increasing mediastinal and hilar lymphadenopathy. Findings highly suspicious for neoplasm and further evaluation is warranted. [facility], Workstation: [id number] 11/08/2024 12:49 PM
--- NOTE | 2024-11-08 14:29 | P.PN ---
Subjective Progress Note Date: 11/08/24 patient 69-year-old gentleman with past medical history significant for COPD, chronic tobacco dependence, hypertension, alcohol abuse who presented to the ER because of inability to take care of himself. Patient has recently been admitted in the hospital for low sodium levels. Patient stated for the last few days he has been more lethargic. Patient has been feeling very weak. Patient denies any fever. Patient states that his appetite has been poor and he has not been drinking much. Patient denies any chest pain. No complaint of shortness of breath. Because of the symptoms EMS was called and patient brought to the ER Initial lab work done in the ER showed WBC 13.8, hemoglobin 11.3, platelet count 207, sodium 116, potassium 4.2, BUN 30, creatinine 0.73, glucose 108, calcium 8.7, phosphorus 2.0 bilirubin 1.4, AST 72, ALT 59, EKG done in the ER showed heart rate of 109, no ST segment elevation or depression seen, no T-wave inversions seen. Chest x-ray done in the ER showed right midlung airspace opacities new from 10/07 Patient admitted to internal medicine service 11/07. Patient seen and examined. Blood work done this morning showed sodium 126, potassium 4.1, BUN 21, creatinine 0.47. Patient is alert, answering question appropriately. Still complain lethargic and weakness 11/08. Patient seen and examined. Blood work done this morning showed sodium of 129, potassium 3.6, BUN 21, creatinine 0.47. PT and OT recommend home care REVIEW OF SYSTEMS: CONSTITUTIONAL: No fever, no malaise,. CARDIOVASCULAR: No chest pain, no palpitations, no syncope. PULMONARY: No shortness of breath, no cough, GASTROINTESTINAL: No diarrhea, no nausea, no vomiting, no abdominal pain. NEUROLOGICAL: No headaches, no weakness, PHYSICAL EXAMINATION: GENERAL: The patient is alert and oriented x3, ill looking HEENT: Pupils are round and equally reacting to light. EOMI. No scleral icterus. No conjunctival pallor. Normocephalic, atraumatic. No pharyngeal erythema. No thyromegaly. CARDIOVASCULAR: S1 and S2 present. No murmurs, rubs, or gallops. PULMONARY: Coarse breath sounds bilaterally, no wheezing or crackles. ABDOMEN: Soft, nontender, nondistended, normoactive bowel sounds. No palpable organomegaly. MUSCULOSKELETAL: No joint swelling or deformity. EXTREMITIES: No cyanosis, clubbing, or pedal edema. NEUROLOGICAL: Gross neurological examination did not reveal any focal deficits. SKIN: No rashes. Assessment and plan Hyponatremia SIADH Bacterial pneumonia Acute COPD exacerbation Acute leukocytosis Chronic ongoing tobacco dependence, continues smoke approximately 1 pack/day history of alcohol abuse History of syncopal episodes History of paroxysmal atrial fibrillation, chronically anticoagulated on Xarelto Debility Monitor vital signs Monitor CBC Monitor CMP Continue telemetry monitoring Follow-up on blood cultures Follow-up on sputum cultures Continue fluid restriction Continue IV Rocephin, completed azithromycin Continue IV Solu-Medrol Continue aspirin, Lipitor Continue Xarelto Pulmonology following Nephrology following PT and OT recommend home care Labs and medication were reviewed.. Continue same treatment. Continue with symptomatic treatment. Resume home medication. Monitor labs and vitals. DVT and GI prophylaxis. Further recommendations as per clinical course of the patient Dictation was produced using [employer] dictation software. please excuse any grammatical, word or spelling errors. Objective - Vital Signs Vital signs: Vital Signs Temp 98.8 F 11/08/24 07:28 Pulse 75 11/08/24 08:13 Resp 20 11/08/24 07:28 BP 197/92 11/08/24 07:28 Pulse Ox 99 11/08/24 08:00 FiO2 Intake & Output 11/07/24 11/08/24 11/08/24 18:59 06:59 18:59 Intake Total 711 236 Output Total 100 400 Balance -100 311 236 Weight 63.8 kg Intake: Oral 711 236 Output: Urine 100 400 Other: Voiding Method Urinal Urinal # Voids 1 1 # Bowel Movements 0 1 1 - Labs CBC & Chem 7: 11/05/24 16:07 11/08/24 06:40 Labs: Abnormal Lab Results - Last 24 Hours (Table) 11/06/24 11/08/24 Range/Units 06:33 06:40 Sodium 129 L (137-145) mmol/L Chloride 95 L (98-107) mmol/L BUN 21 H (9-20) mg/dL Creatinine 0.47 L (0.66-1.25) mg/dL Glucose 115 H (74-99) mg/dL Procalcitonin 0.57 H (0.02-0.50) ng/mL Microbiology - Last 24 Hours (Table) 11/05/24 16:20 Blood Culture - Preliminary Blood 11/05/24 15:56 Blood Culture - Preliminary Blood
[2024-11-09 08:36] LABS: African American GFR (CKD) >90 (>60 ml/min/1.73 sqM); Anion Gap 6 mmol/L; Blood Urea Nitrogen 18 mg/dL (9-20); Calcium 8.7 mg/dL (8.4-10.2); Carbon Dioxide 35 mmol/L (22-30); Chloride 89 mmol/L (98-107); Glucose 112 mg/dL (74-99); Magnesium 1.8 mg/dL (1.6-2.3); Non-African American GFR(CKD) >90 (>60 ml/min/1.73 sqM); Sodium 130 mmol/L (137-145)
[2024-11-09 08:51] VITALS: RESP 16; TEMP 98
[2024-11-09 12:45] VITALS: BP 136/73; PULSE 86
--- NOTE | 2024-11-09 14:08 | P.DS ---
Providers Date of admission: 11/05/24 17:37 Expected date of discharge: 11/09/24 Attending physician: Jose Mason Consults: 11/05/24 17:31 Consult Physician Routine Consulting Provider: Yokasta Joe Consult Reason/Comments: Pnuemonia, COPD Do you want consulting provider notified?: Yes, Notify in am Consult Physician Urgent Consulting Provider: Nacho De Jesus Consult Reason/Comments: Hyponatremia Do you want consulting provider notified?: Yes Primary care physician: Jose Mason [place] [facility] Course: Discharge diagnoses; Hyponatremia SIADH Bacterial pneumonia Acute COPD exacerbation Acute leukocytosis Chronic ongoing tobacco dependence, continues smoke approximately 1 pack/day history of alcohol abuse History of syncopal episodes History of paroxysmal atrial fibrillation, chronically anticoagulated on Xarelto Debility Hospital course; patient 69-year-old gentleman with past medical history significant for COPD, chronic tobacco dependence, hypertension, alcohol abuse who presented to the ER because of inability to take care of himself. Patient has recently been admitted in the hospital for low sodium levels. Patient stated for the last few days he has been more lethargic. Patient has been feeling very weak. Patient denies any fever. Patient states that his appetite has been poor and he has not been drinking much. Patient denies any chest pain. No complaint of shortness of breath. Because of the symptoms EMS was called and patient brought to the ER Initial lab work done in the ER showed WBC 13.8, hemoglobin 11.3, platelet count 207, sodium 116, potassium 4.2, BUN 30, creatinine 0.73, glucose 108, calcium 8.7, phosphorus 2.0 bilirubin 1.4, AST 72, ALT 59, EKG done in the ER showed heart rate of 109, no ST segment elevation or depression seen, no T-wave inversions seen. Chest x-ray done in the ER showed right midlung airspace opacities new from 10/07 Patient admitted to internal medicine service 11/07. Patient seen and examined. Blood work done this morning showed sodium 126, potassium 4.1, BUN 21, creatinine 0.47. Patient is alert, answering question appropriately. Still complain lethargic and weakness 11/08. Patient seen and examined. Blood work done this morning showed sodium of 129, potassium 3.6, BUN 21, creatinine 0.47. PT and OT recommend home care 11/09. Patient seen and examined. Being discharged on tapering dose of prednisone. 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 Patient might be considered for workup for possible malignancy depending upon repeat chest x-ray results with possible PET scan PHYSICAL EXAMINATION: GENERAL: The patient is alert and oriented x3, not in any acute distress. Well developed, well nourished. HEENT: Pupils are round and equally reacting to light. EOMI. No scleral icterus. No conjunctival pallor. Normocephalic, atraumatic. No pharyngeal erythema. No thyromegaly. CARDIOVASCULAR: S1 and S2 present. No murmurs, rubs, or gallops. PULMONARY: Chest is clear to auscultation, no wheezing or crackles. ABDOMEN: Soft, nontender, nondistended, normoactive bowel sounds. No palpable organomegaly. MUSCULOSKELETAL: No joint swelling or deformity. EXTREMITIES: No cyanosis, clubbing, or pedal edema. NEUROLOGICAL: Gross neurological examination did not reveal any focal deficits. SKIN: No rashes. Dictation was produced using [employer] dictation software. please excuse any grammatical, word or spelling errors. Health Concerns: Needs follow up CXR Patient Condition at Discharge: Stable Plan - Discharge Summary Discharge Rx Participant: Yes New Discharge Prescriptions: New predniSONE See Taper PO DAILY 8 Days #20 tab Continue Albuterol Sulfate [Ventolin HFA] 1 - 2 puff INHALATION RT-Q4H PRN PRN Reason: Shortness Of Breath Fluticasone/Umeclidin/Vilanter [Trelegy Ellipta 100-62.5-25] 1 puff INHALATION RT-DAILY Aspirin EC [Ecotrin Low Dose] 81 mg PO DAILY Albuterol Nebulized [Ventolin Nebulized] 2.5 mg INHALATION RT-QID PRN PRN Reason: Shortness Of Breath Thiamine [Vitamin B-1] 100 mg PO DAILY 30 Days #30 tab Losartan [Cozaar] 50 mg PO DAILY 30 Days #30 tab Atorvastatin [Lipitor] 40 mg PO HS 30 Days #30 tab Sodium Chloride Tab 1 gm PO DAILY 30 Days #30 tab Metoprolol Succinate (ER) [Toprol XL] 25 mg PO DAILY 30 Days #30 tab Rivaroxaban [Xarelto] 20 mg PO W/SUPPER 30 Days #30 tab Discharge Medication List Albuterol Sulfate [Ventolin HFA] 1 - 2 puff INHALATION RT-Q4H PRN 01/27/20 [History] Fluticasone/Umeclidin/Vilanter [Trelegy Ellipta 100-62.5-25] 1 puff INHALATION RT-DAILY 04/21/22 [History] Aspirin EC [Ecotrin Low Dose] 81 mg PO DAILY 09/09/24 [History] Albuterol Nebulized [Ventolin Nebulized] 2.5 mg INHALATION RT-QID PRN 10/04/24 [History] Atorvastatin [Lipitor] 40 mg PO HS 30 Days #30 tab 10/10/24 [Rx] Losartan [Cozaar] 50 mg PO DAILY 30 Days #30 tab 10/10/24 [Rx] Metoprolol Succinate (ER) [Toprol XL] 25 mg PO DAILY 30 Days #30 tab 10/10/24 [Rx] Rivaroxaban [Xarelto] 20 mg PO W/SUPPER 30 Days #30 tab 10/10/24 [Rx] Sodium Chloride Tab 1 gm PO DAILY 30 Days #30 tab 10/10/24 [Rx] Thiamine [Vitamin B-1] 100 mg PO DAILY 30 Days #30 tab 10/10/24 [Rx] predniSONE See Taper PO DAILY 8 Days #20 tab 11/09/24 [Rx] Follow up Appointment(s)/Referral(s): [facility], [NON-STAFF] - Jose Mason MD [Primary Care Provider] - 1-2 days Shayy Scruggs MD [STAFF PHYSICIAN] - 1 Week Discharge Disposition: HOME SELF-CARE
--- NOTE | 2024-11-09 14:33 | P.PN ---
Subjective Progress Note Date: 11/09/24 atjerman is seen in follow-up for hyponatremia. Sodium level improved. Oral intake is still not great per . Planning go home today. Vital signs are stable. General: No acute distress. HEENT: Head exam is unremarkable. LUNGS: No audible rhonchi or wheezes. HEART: Rate and Rhythm are regular. ABDOMEN: Nontender. EXTREMITITES: No edema. Objective - Vital Signs Vital signs: Vital Signs Temp 98 F 11/09/24 08:00 Pulse 84 11/09/24 08:00 Resp 16 11/09/24 08:00 BP 140/67 11/09/24 08:00 Pulse Ox 96 11/09/24 08:00 FiO2 Intake & Output 11/08/24 11/09/24 11/09/24 18:59 06:59 18:59 Intake Total 416 240 Balance 416 240 Weight 63.9 kg Intake: Oral 416 240 Other: Voiding Method Toilet Toilet Toilet Urinal Urinal Urinal # Voids 1 1 # Bowel Movements 1 1 - Labs CBC & Chem 7: 11/05/24 16:07 11/09/24 07:50 Labs: Abnormal Lab Results - Last 24 Hours (Table) 11/09/24 Range/Units 07:50 Sodium 130 L (137-145) mmol/L Chloride 89 L (98-107) mmol/L Carbon Dioxide 35 H (22-30) mmol/L Creatinine 0.51 L (0.66-1.25) mg/dL Glucose 112 H (74-99) mg/dL Microbiology - Last 24 Hours (Table) 11/05/24 16:20 Blood Culture - Preliminary Blood 11/05/24 15:56 Blood Culture - Preliminary Blood Assessment and Plan Assessment: 1. Hyponatremia secondary to hypovolemia from respiratory infection. S/p 3% saline. Sodium level better at 130. Urine osmolality 542. Urine sodium less than 20. TSH low at 0.076. Cortisol level not low. PTH related peptide negative in September 2024. 2. Hypokalemia from poor intake. Replaced. On the lower end today. 3. History of alcohol abuse. 4. Pneumonia maintained on antibiotics. 5. COPD exacerbation. Plan: Maintain fluid restriction. Encourage protein intake. Outpatient follow-up
--- NOTE | 2024-11-09 15:35 | P.PN ---
Subjective Progress Note Date: 11/09/24 Principal diagnosis: Acute hyponatremia acute community-acquired pneumonia, possible bronchogenic carcinoma This is a 69-year-old male patient with a known history of COPD, chronic tobacco dependence, hypertension, alcohol abuse. PCP is Dr. Mason. Patient has had two recent hospitalizations in September for hyponatremia. Patient does have history of alcohol abuse, but reportedly has not drank any beer in over a month. Patient was sent into the emergency department yesterday afternoon. Apparently, EMS was called as the patient is unable to take care of himself at home. He has been more lethargic and weak at home. He has not been eating or drinking very much at home. Denies any nausea or vomiting or diarrhea. Found to be severely hyponatremic in the ED, with a sodium of 116. Borderline hypotensive on admission with 90s/50s blood pressure. 1 L isotonic saline was bolused. Blood pressure has since improved. Patient then started on a 3% hypertonic saline. This is being managed by nephrology, and patient is admitted to the intensive care unit for this reason. Chest x-ray showing his extensive right midlung airspace opacity, new from prior image on 10/07/2024. Note that on his previous hospitalization, patient did have a chest CT on 10/04/2024 demonstrating small subcentimeter left lower lobe pulmonary nodule with more suspicious 1.8 x 2.7 cm left suprahilar nodule and/or adenopathy noted. There is unclear if the patient had any out of hospital follow-up. He does have significant smoking history and COPD. Patient is currently being evaluated in the emergency department. He is in no acute distress. Alert and oriented. No focal neurological deficits or seizures. 3% hypertonic saline infusing at 25 mm/h. Current vitals: Heart rate 80 bpm, blood pressure is 127/64 mmHg, SpO2 96% on room air, nontachypneic. CBC: WBC count 30.8, hemoglobin 11.3, hematocrit 32.6, platelets 207. Most recent sodium is up to 118. Remaining BMP includes a potassium 3.7, chloride 86, serum bicarb 20, BUN 28, creatinine 0.63, glucose 151. Troponin is less than 0.012. NT proBNP 449. TSH 0.5. Patient has been started on antibiotics in the form of Rocephin and azithromycin in the ED. Blood cultures pending. Urine Legionella antigen pending. Appropriate urine studies pending. Nephrology is managing patient's hyponatremia.. Reevaluate today on 11/07/2024, patient is doing great, asymptomatic.On room air, O2 sats 100%, denies any pulmonary symptoms no cough no wheezing no shortness of breath.Sodium today is up to 126 rest of the electrolytes are normal renal profile is normal patient is on fluid restriction. Patient remains on antibiotics for his underlying pneumonia Seen today on 11/08/2024, patient is doing well clinically, however his chest x- ray today is suggestive of right hilar masslike consolidation, and malignancy is definitely a likely possibility considering this patient's hyponatremia. Hence I recommended a CT of the chest to be done on this patient today. Patient may have to be considered for bronchoscopy depending on the CT of the chest findings Seen and examined today on 11/09/2024, patient is feeling better, patient wants to go home. I reviewed the results of the CT of the chest, he does have a masslike consolidation in the right lower lobe, and the patient may eventually require further workup to rule out malignancy patient should also have a PET scan on outpatient basis, patient promises to follow-up with Dr. 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 NOSE: Clear with pink turbinates. THROAT: No erythema or exudates. NECK: No masses, no JVD. CHEST: No chest wall deformity. LUNGS: Clear bilaterally no rhonchi no wheezes onal dyspnea or accessory muscle use.. CVS: S1 and S2 normal with no audible murmur, regular rhythm. No extra heart sounds ABDOMEN: No hepatosplenomegaly, active bowel sounds, no guarding or rigidity. SKIN: No rashes, abrasions to bilateral knees CENTRAL NERVOUS SYSTEM: No focal deficits, tone is normal in all 4 extremities. EXTREMITIES: There is no peripheral edema, clubbing, or cyanosis. Peripheral pulses are intact. - Labs CBC & Chem 7: 11/05/24 16:07 11/09/24 07:50 Labs: Abnormal Lab Results - Last 24 Hours (Table) 11/09/24 Range/Units 07:50 Sodium 130 L (137-145) mmol/L Chloride 89 L (98-107) mmol/L Carbon Dioxide 35 H (22-30) mmol/L Creatinine 0.51 L (0.66-1.25) mg/dL Glucose 112 H (74-99) mg/dL Microbiology - Last 24 Hours (Table) 11/05/24 16:20 Blood Culture - Preliminary Blood 11/05/24 15:56 Blood Culture - Preliminary Blood Assessment and Plan Assessment: Impression Severe hyponatremia, secondary to SIADH Right middle lobe community-acquired pneumonia Possible bronchogenic carcinoma, CT of the chest is pending consider for bronchoscopy depending on the CT of the chest findings Acute COPD exacerbation, secondary to above Acute leukocytosis Chest CT on 10/04/2024 demonstrating small subcentimeter left lower lobe pulmonary nodule with more suspicious 1.8 x 2.7 cm left suprahilar nodule and/or adenopathy noted. recommend attention to outpatient follow-up and PET scan patient will need outpatient follow-up and PET scan on outpatient basis to further evaluate this abnormality History of ventilator dependent respiratory failure, intubated from 10/04-10/06 Chronic ongoing tobacco dependence, continues smoke approximately 1 pack/day history of alcohol abuse, reportedly has not had anything to drink in over a month History of syncopal episodes History of paroxysmal atrial fibrillation, chronically anticoagulated on Xarelto Recommendation: Reviewed the results of the CT of the chest still suspect that the patient may have underlying malignancy Patient should be considered for workup for malignancy/bronchogenic carcinoma Continue fluid restrictions Continue antibiotics, may transition to oral antibiotics on outpatient basis Considering the patient is anxious to be discharged, and he promises to follow- up with Dr. Singh, I will discharge the patient on antibiotics, bronchodilators, patient should have outpatient PET scan and follow-up with Dr. Singh on outpatient basis Time with Patient: Less than 30
== END 2024-11-09 14:54 | disposition home or self-care (01) | DRG 190 ==
LOC: EC 15:31 → 3SCARD 17:37 → 2SICU 18:34 → 3SCARD 11-06 08:04
PROVIDERS: ADMIT Internal Medicine; ATTEND Internal Medicine
DX: J44.1 Chronic obstructive pulmonary disease with (acute) exacerbation (principal); J15.9 Unspecified bacterial pneumonia; E22.2 Syndrome of inappropriate secretion of antidiuretic hormone; Z68.1 Body mass index [BMI] 19.9 or less, adult; J44.0 Chronic obstructive pulmonary disease with (acute) lower respiratory infection; F17.200 Nicotine dependence, unspecified, uncomplicated; F10.10 Alcohol abuse, uncomplicated; I48.0 Paroxysmal atrial fibrillation; R53.81 Other malaise; R62.7 Adult failure to thrive; I10 Essential (primary) hypertension; E78.5 Hyperlipidemia, unspecified; E83.39 Other disorders of phosphorus metabolism; E87.6 Hypokalemia; Z79.01 Long term (current) use of anticoagulants; Z79.82 Long term (current) use of aspirin
CPT/HCPCS: 36415; 71045; 71260; 80048; 80053; 82330; 82533; 82570; 83605; 83735; 83880; 83930; 83935; 84100; 84145; 84295; 84300; 84443; 84484; 84560; 85025; 85610; 85730; 87040; 87449; 93005; 94640; 94760; 96361; 96365; 96366; 96367; 96375; 96376; 99291

== ENCOUNTER 2024-12-12 11:58 | Inpatient (IN) | payer MEDICAID ==
[2024-12-12] MEDS ORDERED: GLYCOPYRROLATE 0.2 MG/ML 2 ML VIAL IVP PRN (12:00)
[2024-12-12] MEDS ORDERED: MORPHINE SULFATE 4 MG/ML SYRINGE IV PRN (12:00)
[2024-12-12] MEDS ORDERED: LORazepam 2 MG/ML INJ IV PRN (12:00)
[2024-12-12] MEDS ORDERED: ATROPINE OPHTH SOLN 1% 5ML BTL SUBLINGUAL PRN (12:00)
[2024-12-12] MEDS ORDERED: ACETAMINOPHEN SUPPOSITORY 650 MG SUPP RECTAL PRN (12:00)
[2024-12-12] MEDS: SCOPOLAMINE 1 MG/72 HR PATCH TRANSDERM SCH (12:31)
[2024-12-12] MEDS: MORPHINE SULFATE (100 MG/2 ML) 100 MG in SODIUM CHLORIDE 0.9% 100 ML IV SCH (12:31)
[2024-12-12 15:09] VITALS: RESP 18
== END 2024-12-12 15:20 | disposition expired | DRG 951 ==
LOC: 3SCARD 12:06
PROVIDERS: ADMIT Internal Medicine; ATTEND Internal Medicine
DX: Z51.5 Encounter for palliative care (principal); J18.9 Pneumonia, unspecified organism; K85.90 Acute pancreatitis without necrosis or infection, unspecified; J96.01 Acute respiratory failure with hypoxia; K70.11 Alcoholic hepatitis with ascites; Z66 Do not resuscitate; J44.0 Chronic obstructive pulmonary disease with (acute) lower respiratory infection; J44.1 Chronic obstructive pulmonary disease with (acute) exacerbation; I10 Essential (primary) hypertension; E78.5 Hyperlipidemia, unspecified; F10.20 Alcohol dependence, uncomplicated; F17.200 Nicotine dependence, unspecified, uncomplicated; R59.0 Localized enlarged lymph nodes; R91.1 Solitary pulmonary nodule; Z79.899 Other long term (current) drug therapy